=== PATIENT | male | born 1960 | race Caucasian/White ===

== ENCOUNTER 2016-09-26 22:05 | Inpatient (IN) | payer OTHER ==
[~2016-09-26] VITALS: Ht 177.8 cm; Wt 155.2 kg
[~2016-09-26 22:05] MED LIST: "\\\"BP MED\\\""; CLEO300C2 PO; EXEN10PE SQ; GLYB1TAB51 PO; LORT5TAB PO; METF-324 PO; MUPI2%T TOP
[2016-09-26 22:20] VITALS: BP 117/60; PULSE 152; RESP 22; O2SAT 97
[2016-09-26] MEDS ORDERED: SODIUM CHLOR 0.9% 1000 ML INJ 1,000 ML IV ONE ×2 (22:27→22:57)
[2016-09-26] MEDS ORDERED: INSULIN HUMAN REGULAR 1,000 UNITS/10 ML VIAL IV PUSH ONE (22:30)
[2016-09-26 22:46] VITALS: TEMP 98.4; O2SAT 96
[2016-09-26 22:48] LABS: AUTOMATED NEUTROPHIL # 11.6 TH/MM3 (1.8-7.7); BASOPHIL # 0.3 TH/MM3 (0-0.2); BASOPHIL % 1.9 % (0.0-2.0); EOSINOPHIL % 0.1 % (0.0-4.0); HEMATOCRIT 40.3 % (39.0-51.0); LYMPH % 9.5 % (9.0-44.0); LYMPHOCYTE # 1.4 TH/MM3 (1.0-4.8); MEAN CELL VOLUME 85.6 FL (80.0-100.0); MEAN CORPUSCULAR HEMOGLOBIN 27.6 PG (27.0-34.0); MEAN CORPUSCULAR HGB CONC 32.2 % (32.0-36.0); MONO % 9.7 % (0.0-8.0); NEUT % 78.8 % (16.0-70.0); PLATELET COUNT 215 TH/MM3 (150-450); RED BLOOD COUNT 4.71 MIL/MM3 (4.50-5.90); RED CELL DISTRIBUTION WIDTH 12.9 % (11.6-17.2); WHITE BLOOD COUNT 14.7 TH/MM3 (4.0-11.0)
[2016-09-26 22:49] LABS: HEMO FLAGS AUTO DIFF
--- NOTE | 2016-09-26 22:55 | RADHPO ---
EXAM DATE/TIME: 09/26/2016 22:40 [place] COMPARISON: No previous studies available for comparison. INDICATIONS : Shortness of breath and general weakness. MEDICAL HISTORY : Hypertension. Diabetes. SURGICAL HISTORY : None. ENCOUNTER: Initial ACUITY: 1 day PAIN SCORE: 0/10 LOCATION: Bilateral chest FINDINGS: A single view of the chest demonstrates the lungs to be symmetrically aerated without evidence of mas s, infiltrate or effusion. The cardiomediastinal contours are unremarkable. Osseous structures are intact.CONCLUSION: No acute disease. Jaden Salguero MD on September 26, 2016 at 22:53 Board Certified Radiologist. This report was verified electronically.
[2016-09-26 23:00] LABS: CHLORIDE 92 MEQ/L (98-107); POTASSIUM 4.4 MEQ/L (3.5-5.1); SODIUM (NA) 129 MEQ/L (136-145)
[2016-09-26] MEDS ORDERED: DILTIAZEM HCL 25 MG/5 ML VIAL IV PUSH ONE (23:00)
[2016-09-26] MEDS ORDERED: DILTIAZEM INJ 125 MG in SODIUM CHLORIDE 0.9% INJ 100 ML IV SCH (23:00)
[2016-09-26] MEDS ORDERED: SODIUM CHLORIDE 0.9% FLUSH 5 ML FLUSH IVF PRN ×2 (23:00→23:45)
[2016-09-26 23:04] LABS: ANION GAP 25 MEQ/L (5-15); BICARBONATE 12.5 MEQ/L (21.0-32.0)
[2016-09-26 23:05] LABS: BLOOD UREA NITROGEN 29 MG/DL (7-18); MAGNESIUM 2.7 MG/DL (1.5-2.5); PLATELET ESTIMATE SMEAR NORMAL (NORMAL); PLATELET MORPHOLOGY CLUMPED (NORMAL); SCAN/DIFF AUTO DIFF CONFIRMED
[2016-09-26 23:07] VITALS: BP 146/68; PULSE 132; RESP 22; TEMP 98.5; O2SAT 95
[2016-09-26 23:07] LABS: ALT (GPT) 19 U/L (12-78); AST (GOT) 5 U/L (15-37); GLOMERULAR FILTRATION RATE 45 ML/MIN (>89)
[2016-09-26 23:08] LABS: TOTAL BILIRUBIN ADULT 0.8 MG/DL (0.2-1.0)
[2016-09-26 23:16] VITALS: BP 127/89; PULSE 125; RESP 23; O2SAT 96
[2016-09-26 23:20] VITALS: BP 137/68; PULSE 124; RESP 23; O2SAT 93
[2016-09-26 23:20] LABS: ALKALINE PHOSPHATASE 107 U/L (45-117)
[2016-09-26] MEDS ORDERED: SODIUM CHLOR 0.9% 1000 ML INJ 1,000 ML IV SCH (23:20)
[2016-09-26] MEDS ORDERED: SODIUM PHOSPHATE INJ 15 MMOL in SODIUM CHLORIDE 0.9% INJ 100 ML IV PRN (23:30)
[2016-09-26] MEDS ORDERED: POTASSIUM CHLOR 40 MEQ PREMIX 100 ML IV PRN ×2 (23:30)
[2016-09-26] MEDS ORDERED: SODIUM BICARBONATE 8.4% SOLN 50 MEQ/50 ML VIAL IV PRN ×2 (23:30)
[2016-09-26] MEDS ORDERED: POTASSIUM CHLOR 20 MEQ PREMIX 100 ML IV PRN ×6 (23:30)
--- NOTE | 2016-09-26 23:35 | PD ---
HPI Chief Complaint: Diabetic Time Seen by Provider: 22:27 Travel History International Travel<30 days: No Contact w/Intl Traveler<30days: No Traveled to known affect area: No History of Present Illness HPI 55-year-old male presents to the emergency department by private transportation for not feeling well 2 days. Patient reports 2 days ago had a brief chill but no fever and denies other symptoms other than fatigue. Patient has had poor appetite over the past few days but has not had any vomiting or diarrhea. Patient denies headache sinus pressure drainage sore throat earache cough congestion shortness of breath sweats chest pain palpitations shortness of breath abdominal pain vomiting diarrhea dysuria frequency urgency hematuria or flank pain or new joint pain swelling or skin rash. Patient has chronic excoriations of the upper or lower extremities which she states is not new. Patient denies any injury or fall. Patient rates pain 0/10 in intensity. Patient reports significant fatigue over the past 2 days. Patient noted prior to coming to the emergency department stating that his blood sugar is very high so he took 25 units of regular insulin this evening and then around 9 PM noticed that his blood sugar is remaining elevated over 500 and decided he needed to come to the hospital to be evaluated. Patient has not seen his primary care provider Dr. Abad for 6 months. [facility] Past Medical History Narrative Medical Diabetes hypertension orchiopexy no tobacco use no alcohol use nursing notes reviewed Arthritis: No Asthma: No Autoimmune Disease: No Blood Disorders: No Anxiety: No Depression: No Heart Rhythm Problems: No Cancer: No Cardiovascular Problems: Yes High Cholesterol: No Chest Pain: No Congestive Heart Failure: No COPD: No Cerebrovascular Accident: No Diabetes: Yes Patient Takes Glucophage: Yes Endocrine: No GERD: No Genitourinary: No Headaches: No Hepatitis: No Hiatal Hernia: No Hypertension: Yes Immune Disorder: No Kidney Stones: No Musculoskeletal: No Neurologic: No Psychiatric: No Reproductive: No Respiratory: No Migraines: No Myocardial Infarction: No Radiation Therapy: No Renal Failure: No Seizures: No Sickle Cell Disease: No Sleep Apnea: No Thyroid Disease: No Ulcer: No Influenza Vaccination: Yes Past Surgical History AICD: No Appendectomy: No Arteriovenous Shunt: No Cholecystectomy: No Genitourinary Surgery: Yes (TESTICULAR TORSION) Insulin Pump: No Joint Replacement: No Pacemaker: No Other Surgery: Yes (TESTICLE) Social History Alcohol Use: No Tobacco Use: No Substance Use: No Allergies-Medications (Allergen,Severity, Reaction): Coded Allergies: Dilaudid (Verified Allergy, Intermediate, ITCHING, DIAPHORESIS, 10/30/10) No Known Allergies (Verified , 10/30/10) Reported Meds & Prescriptions Reported Meds & Active Scripts Active Bactroban 2% Cream (Mupirocin) 15 Gm Cr 2 % TOP DAILY 7 Days APPLY TO AFFECTED AREA Lortab 5/500 (Acetaminophen/Hydrocodone Bitart) 5 Mg/500 Mg Tab 1-2 Tab PO Q4- 6HPRN FOR PAIN Cleocin (Clindamycin HCl) 300 Mg Cap 300 Mg PO QID Reported ["Bp Med"] Byetta 10 Mcg/Dose Prefilled Pen (Exenatide) 10 Mcg/0.04 Ml Inj 10 Mcg SQ BIDAC FOR SUBCUTANEOUS INJECTION Diabeta (Glyburide) 5 Mg Tab 10 Mg PO BID Glucophage (Metformin HCl) 1,000 Mg Tab 1,000 Mg PO BID Review of Systems Except as stated in HPI: all other systems reviewed are Neg Physical Exam Narrative GENERAL: Well-developed morbidly obese male in no acute distress no respiratory distress; gcs 15; cardiac exercise physiologist atrial fibrillation with RVR rate 150-165 SKIN: Warm and dry. HEAD: Atraumatic. Normocephalic. EYES: Pupils equal and round. No scleral icterus. No injection or drainage. ENT: No nasal bleeding or discharge. Mucous membranes pink and moist. NECK: Trachea midline. No JVD. CARDIOVASCULAR: Increased irregular irregular rate and rhythm. RESPIRATORY: No accessory muscle use. Clear to auscultation. Breath sounds equal bilaterally. GASTROINTESTINAL: Abdomen soft, non-tender, nondistended. Hepatic and splenic margins not palpable. MUSCULOSKELETAL: Extremities without clubbing, cyanosis, or edema. No obvious deformities. NEUROLOGICAL: Awake and alert. No obvious cranial nerve deficits. Motor grossly within normal limits. Five out of 5 muscle strength in the arms and legs. Normal speech. PSYCHIATRIC: Appropriate mood and affect; insight and judgment normal. Data Data Last Documented VS Vital Signs Date Time Temp Pulse Resp B/P Pulse Ox O2 Delivery O2 Flow Rate FiO2 09/26/16 23:16 125 23 127/89 96 Nasal Cannula 2 09/26/16 23:07 98.5 Orders Electrocardiogram (09/26/16 22:27) Complete Blood Count With Diff (09/26/16 22:27) Comprehensive Metabolic Panel (09/26/16 22:27) Magnesium (Mg) (09/26/16 22:27) Beta Hydroxybutyrate (Acetone) (09/26/16 22:27) Lactic Acid (09/26/16 22:27) Urinalysis - C+S If Indicated (09/26/16 22:27) Blood Culture (09/26/16 22:27) Chest, Single Ap (09/26/16 22:27) Blood Glucose (09/26/16 22:27) Ecg Monitoring (09/26/16 22:27) Iv Access Insert/Monitor (09/26/16:) Oximetry (09/26/16:27) NPO (09/26/16:27) Sodium Chlor 0.9% 1000 Ml Inj (Ns 1000 M (09/26/16 22:27) Sodium Chlor 0.9% 1000 Ml Inj (Ns 1000 M (09/26/16 22:57) Troponin I (09/26/16:) Lipase (09/26/16 22:27) Insulin Human Regular Inj (Novolin R Inj (09/26/16 22:30) Influenzae A/B Antigen (09/26/16 22:27) Thyroid Stimulating Hormone (09/26/16 22:27) Blood Glucose (09/26/16 22:27) Blood Pressure (09/26/16 22:56) Vital Signs (09/26/16 22:56) Diltiazem Inj (Cardizem Inj) (09/26/16 23:00) Diltiazem Inj (Cardizem Inj) (09/26/16 23:00) Sodium Chloride 0.9% Flush (Ns Flush) (09/26/16 23:00) Arterial Blood Gas (Abg) (09/26/16 ) ^ Commanding Officer Traffic Division / Telemetry (09/26/16 23:20) ^ Insert Iv (09/26/16 23:20) Diet Npo (09/27/16 Breakfast) Sodium Chlor 0.9% 1000 Ml Inj (Ns 1000 M (09/26/16 23:20) Dext 5%-Nacl 0.9% 1000 Ml Inj (D5w-Ns 10 (09/26/16 23:20) Insulin Regular (Iv Infusion) (Novolin R (09/26/16 23:30) Potassium Chlor 40 Meq Premix (Kcl 40 Me (09/26/16 23:30) Potassium Chlor 40 Meq Premix (Kcl 40 Me (09/26/16 23:30) Potassium Chlor 20 Meq Premix (Kcl 20 Me (09/26/16 23:30) Potassium Chlor 20 Meq Premix (Kcl 20 Me (09/26/16 23:30) Potassium Chlor 20 Meq Premix (Kcl 20 Me (09/26/16 23:30) Potassium Chlor 20 Meq Premix (Kcl 20 Me (09/26/16 23:30) Potassium Chlor 20 Meq Premix (Kcl 20 Me (09/26/16 23:30) Potassium Chlor 20 Meq Premix (Kcl 20 Me (09/26/16 23:30) Sodium Bicarbonate 8.4% Inj (Sodium Bica (09/26/16 23:30) Sodium Bicarbonate 8.4% Inj (Sodium Bica (09/26/16 23:30) Sodium Phosphate Inj (Sodium Phosphate I (09/26/16 23:30) Hemoglobin (Hgb) A1c (09/26/16 23:20) Basic Metabolic Panel (Bmp) (09/27/16 04:20) Basic Metabolic Panel (Bmp) (09/27/16 10:20) Basic Metabolic Panel (Bmp) (09/27/16 16:20) Basic Metabolic Panel (Bmp) (09/27/16 22:20) Magnesium (Mg) (09/27/16 04:20) Magnesium (Mg) (09/27/16 10:20) Magnesium (Mg) (09/27/16 16:20) Magnesium (Mg) (09/27/16 22:20) Phosphorus (Po4) (09/27/16 04:20) Phosphorus (Po4) (09/27/16 10:20) Phosphorus (Po4) (09/27/16 16:20) Phosphorus (Po4) (09/27/16 22:20) Beta Hydroxybutyrate (Acetone) (09/27/16 10:20) Beta Hydroxybutyrate (Acetone) (09/27/16 22:20) Admit Order (Ed Use Only) (09/26/16 ) ^ Saline Lock (09/26/16 23:36) Resp Oxygen Tom C Titrat 1-4 L (09/26/16 ) ^ Notify Dr: Other (09/26/16 23:36) Sodium Chloride 0.9% Flush (Ns Flush) (09/27/16 09:00) Sodium Chloride 0.9% Flush (Ns Flush) (09/26/16 23:45) Labs Laboratory Tests Test 09/26/16 22:35 White Blood Count 14.7 TH/MM3 Red Blood Count 4.71 MIL/MM3 Hemoglobin 13.0 GM/DL Hematocrit 40.3 % Mean Corpuscular Volume 85.6 FL Mean Corpuscular Hemoglobin 27.6 PG Mean Corpuscular Hemoglobin 32.2 % Concent Red Cell Distribution Width 12.9 % Platelet Count 215 TH/MM3 Mean Platelet Volume 9.3 FL Neutrophils (%) (Auto) 78.8 % Lymphocytes (%) (Auto) 9.5 % Monocytes (%) (Auto) 9.7 % Eosinophils (%) (Auto) 0.1 % Basophils (%) (Auto) 1.9 % Neutrophils # (Auto) 11.6 TH/MM3 Lymphocytes # (Auto) 1.4 TH/MM3 Monocytes # (Auto) 1.4 TH/MM3 Eosinophils # (Auto) 0.0 TH/MM3 Basophils # (Auto) 0.3 TH/MM3 CBC Comment AUTO DIFF Differential Comment AUTO DIFF CONFIRMED Platelet Estimate NORMAL Platelet Morphology Comment CLUMPED Red Cell Morphology Comment NORMAL Sodium Level 129 MEQ/L Potassium Level 4.4 MEQ/L Chloride Level 92 MEQ/L Carbon Dioxide Level 12.5 MEQ/L Anion Gap 25 MEQ/L Blood Urea Nitrogen 29 MG/DL Creatinine 1.60 MG/DL Estimat Glomerular Filtration 45 ML/MIN Rate Random Glucose 501 MG/DL Lactic Acid Level 2.9 mmol/L Calcium Level 8.9 MG/DL Magnesium Level 2.7 MG/DL Total Bilirubin 0.8 MG/DL Aspartate Amino Transf 5 U/L (AST/SGOT) Alanine Aminotransferase 19 U/L (ALT/SGPT) Alkaline Phosphatase 107 U/L Troponin I LESS THAN 0.02 NG/ML Total Protein 8.0 GM/DL Albumin 2.5 GM/DL Lipase 174 U/L Thyroid Stimulating Hormone 3.920 uIU/ML 3rd Gen B-Hydroxybutyrate 7.40 MMOL/L MDM Medical Decision Making Medical Screen Exam Complete: Yes Emergency Medical Condition: Yes Medical Record Reviewed: Yes Interpretation(s) CBC with automated differential mild leukocytosis 14,700 with 78% neutrophils normal range hemoglobin hematocrit and platelet count Metabolic panel: Factitious hyponatremia of 129 serum potassium 4.4; bicarbonate is markedly decreased at 12.5 with anion gap of 25; renal insufficiency BUN 29 creatinine 1.6; random glucose 501; Lactic acid is elevated at 2.6 CK at 107, Within normal range; troponin I: Less than 0.02, not elevated BHB: 7.40 Last Impressions Chest X-Ray 09/26/167 Signed Impressions: Service Date/Time: Monday, September 26, 2016 22:40 - CONCLUSION: No acute disease. Jaden Salguero MD EKG atrial fibrillation with RVR rate [address] elevation nonspecific inferior ST T changes age-indeterminate QS in V1 V2 Differential Diagnosis hyperglycemia; dka; new onset afib acs CA dehydration, electrolyte disturbance Narrative Course Patient placed on cardiac exercise physiologist IV access obtained bedside glucose 501; 2 peripheral IVs obtained patient given 2 L normal saline 10 units of Regular Insulin IV patient on monitor noted to be in atrial fibrillation with rapid ventricular response EKG performed and patient administered weight-based bolus of Cardizem with Cardizem infusion patient noting feeling some improvement Chemistries resulted identifies to have elevated anion gap metabolic acidosis consistent with DKA also noted to have elevated lactic acid of 2.6 Repeat random glucose at bedside 560 however serum glucose by complete metabolic panel 501 patient initiated on insulin infusion per DKA protocol patient's case discussed with on-call [facility] physician Dr. Navarro will admit to his service under Dr. Brennan same patient's primary provider to the ICU at [facility] Physician Communication Physician Communication call placed to [facility] --discussed with Dr Navarro admit to [facility] ICU for DKA and new onset afib with RVR Diagnosis Primary Impression: DKA, type 2 Qualified Code: E13.10 - Type 2 diabetes mellitus with ketoacidosis without coma, unspecified rat exterminator insulin use status Additional Impression: Atrial fibrillation, new onset Radha Gamez MD Sep 26, 2016 23:35
[2016-09-26 23:55] VITALS: BP 136/65; PULSE 106; RESP 24; O2SAT 92; O2SAT 94
[2016-09-27] VITALS (27 sets, daily range): BP systolic 117–171; BP diastolic 54–96; PULSE 97–130; RESP 18–29; TEMP 97.9–102.6; O2SAT 92–97
[2016-09-27] MEDS: INSULIN REGULAR (IV INFUSION) 100 UNITS in SODIUM CHLORIDE 0.9% INJ 99 ML IV SCH ×2 (00:06→08:55)
[2016-09-27 00:09] LABS: BLOOD GAS BASE EXCESS -9.6 mmol/L (-2-2); BLOOD GAS HCO3 14 mmol/L (22-26); BLOOD GAS METHEMOGLOBIN 0.8 % (0-2); BLOOD GAS O2 HGB SATURATION 94 % (90-100); BLOOD GAS OXYGEN CONTENT 15.6 Vol % (12.0-20.0); BLOOD GAS PCO2 24 mmHg (38-42); BLOOD GAS PO2 80 mmHg (61-120); BLOOD GAS TOTAL HGB 11.8 G/DL (12.0-16.0); CRITICAL VALUE YES; DRAW SITE RT RADIAL; FIO2 21 %; NUMBER OF ARTERIAL PUNCTURES 1; STAT YES; ULNAR PULSE Y
[2016-09-27] MEDS: DEXT 5%-NACL 0.9% 1000 ML INJ 1,000 ML IV SCH ×3 (01:55→12:15)
[2016-09-27] MEDS ORDERED: LEVEMIR SQ (03:26)
[2016-09-27] MEDS ORDERED: NOVORP2 SQ (03:26)
[2016-09-27] MEDS ORDERED: METF1000 PO (03:26)
[2016-09-27] MEDS: ONDANSETRON HCL 4 MG/2 ML VIAL IV PUSH PRN ×3 (04:41→20:04)
[2016-09-27 05:33] LABS: AUTOMATED NEUTROPHIL # 9.3 TH/MM3 (1.8-7.7); BASOPHIL # 0.4 TH/MM3 (0-0.2); BASOPHIL % 3.6 % (0.0-2.0); HEMATOCRIT 35.3 % (39.0-51.0); LYMPH % 8.4 % (9.0-44.0); MEAN CELL VOLUME 84.1 FL (80.0-100.0); MEAN CORPUSCULAR HEMOGLOBIN 28.4 PG (27.0-34.0); MEAN CORPUSCULAR HGB CONC 33.8 % (32.0-36.0); MONO % 6.8 % (0.0-8.0); NEUT % 81.2 % (16.0-70.0); PLATELET COUNT 185 TH/MM3 (150-450); RED CELL DISTRIBUTION WIDTH 12.9 % (11.6-17.2); WHITE BLOOD COUNT 11.5 TH/MM3 (4.0-11.0)
[2016-09-27 05:36] LABS: HEMO FLAGS AUTO DIFF
[2016-09-27 05:58] LABS: BLOOD, URINE TRACE (NEG); KETONE, URINE 40 mg/dL (NEG); NITRITE,URINE NEG (NEG); PH, URINE 5.5 (5.0-8.5)
[2016-09-27 06:01] LABS: GLUCOSE,URINE 1000 OR GREATER mg/dL (NEG)
[2016-09-27 06:05] LABS: BICARBONATE 19.9 MEQ/L (21.0-32.0); MAGNESIUM 2.4 MG/DL (1.5-2.5); POTASSIUM 4.1 MEQ/L (3.5-5.1)
[2016-09-27 06:15] LABS: METHOD OF COLLECTION CLEAN CATCH; MUCUS URINE FEW /lpf (OCC); URINE COLOR YELLOW (YELLW/STRAW)
[2016-09-27 06:17] LABS: COMMENT (UR) CULT NOT INDICATED; CULTURE IF INDICATED CULT NOT INDICATED; SQUAMOUS EPITHELIAL CELL URINE 0-5 /hpf (0-5)
--- NOTE | 2016-09-27 06:30 | MH ---
cc: TOREY HANKINS M.D. DATE OF ADMISSION: 09/26/2016 ADMISSION DIAGNOSES 1. Diabetic ketoacidosis. 2. History of type 2 diabetes with diabetic neuropathy. 3. Atrial fibrillation with rapid ventricular rate that was new-onset that has now converted to sinus rhythm. 4. Hypertension. 5. Hyperlipidemia. 6. Hypogonadotropic. Morbid obesity. 7. Vitamin D deficiency. PERTINENT HISTORY This is a 52-year-old white male who for the last two days has just felt weak and fatigued. He thought maybe he had a brief chill two days ago but no documented fever. He has had no cough. No runny nose or sore throat. No urinary symptoms other than urinating a little more frequently. His blood sugar a couple of days ago he stated was 198, but had not checked it again until today when his blood sugar earlier on 09/26 prior to coming to the ED was over 500 and because he was not feeling well he came out here. He had was noted to be in atrial fibrillation with a rapid ventricular rate and given Cardizem and put on a Cardizem drip. He denied any feeling of palpitations at home. He denied any chest pain. He would just get a little bit slightly short of breath when he was exert himself and tire out really easily. He has had no diarrhea, vomiting, abdominal pain or rectal bleeding; no cough. He was had admitted and put on an insulin drip and put on the Cardizem drip. His heart rate now that I am seeing him at around 3 in the morning on 09/27, heart rate is back now in a sinus rhythm with the rate control. He still on the Cardizem drip. Blood sugar has come down in the 200s on the most recent check. MEDICAL HISTORY 1. As mentioned, he has had type 2 diabetes mellitus about 11 years. 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 2. He has hypertension. 3. Hyperlipidemia. 4. Hypogonadism that he is on testosterone injections, supposed to be weekly but had not had one in a little while. 5. He has had morbid obesity. 6. Vitamin D deficiency. 7. He did have a DVT of the right lower extremity a few years ago. 8. He has had cellulitis of the lower extremity in 2010 and was admitted to the hospital. He has had no prior history of heart attack, CHF, arrhythmia, no angina, no liver disease. No pulmonary disease. No kidney disease that he is aware of, no peptic ulcer disease, colon disease, stroke or seizure. SURGICAL HISTORY 1. 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 2. He has had wisdom teeth extraction. ALLERGIES None. FAMILY HISTORY His father is 82 and has A-fib and diabetes. His mother is 82 and living and has hypertension and hyperlipidemia. SOCIAL HISTORY He is self-employed, has his on [employer] business. He is , lives alone. Does not use alcohol. He has never smoked. MEDICATIONS 1. He is on atorvastatin 80 mg a day. 1. Jardiance 25 mg a day. 2. Lisinopril 20 mg a day. 3. Metformin 1000 mg twice a day. 4. He uses Tanzeum injections 50 mg subcu every Sunday, once a week. 5. He is on ergocalciferol 50,000 units one capsule twice a week. 6. He is on Tresiba 200 units per mL. He uses 90 units subcu daily. PHYSICAL EXAMINATION General: A morbidly obese male in no acute stress. Vital Signs: His heart rate is in the 90s now and appears regular on the monitor and on exam. His BP is 142/66, pulse ox 96, respiratory rate 21. HEENT: TMs clear. Nose negative. Mouth without inflammation or lesion. Neck: Without bruit. No JVD. Heart: Regular rhythm. No murmurs or gallops. Lungs: Clear. Abdomen: Soft, obese, nontender, no mass. Extremities: He has 1+ edema of both ankles. Pulses are palpated in both feet. No calf tenderness. Neuro: He is oriented x 3. Motor strength is symmetrical. Sensation intact. Cranial nerves intact. CHEST X-RAY Showed no acute disease. LABORATORY His white count was 14.7, hemoglobin 13, hematocrit 40.3, platelets 215,000. Beta hydroxybutyrate was 7.4, lactic acid was 2.9 and on recheck was 2.0. His initial glucose was 501. His initial electrolytes - sodium was 129, potassium 4.4, BUN was 29, creatinine 1.6, GFR was 45, AST was 5, ALT 19, alkaline phosphatase 107. Troponin less than 0.02. TSH was just a little high at 3.9, lipase 174, albumin 2.5, total protein 8.0. Blood gas early on admission - his pAO2 was 80, pCO2 24, pH 7.4, bicarb was 14. His CO2 on his laboratory was 12.5. ASSESSMENT As noted. PLAN 1. He has been put on Lovenox 40 mg subcu q.24 hours for DVT prophylaxis. 2. I am going to put him on aspirin 81 mg a day. 3. He had a brief A-fib secondary likely secondary to his ketoacidosis. His rate is controlled right now. We will eventually taper him off his Cardizem . 4. His blood sugar is coming down on an insulin drip. 5. He will be maintained on his blood pressure medications and his atorvastatin for now. 6. His diabetic medications will eventually be reinstituted once his sugars are better controlled and he is no longer requiring the drip. 7. Also, we will order a 2-D echocardiogram on him. MD RYNE Barber/CARLITA /3:37 AM /6:04 AM
[2016-09-27 07:15] LABS: SCAN/DIFF AUTO DIFF CONFIRMED
[2016-09-27] MEDS: SODIUM CHLORIDE 0.9% FLUSH 5 ML FLUSH IVF SCH ×2 (08:15→18:19)
[2016-09-27] MEDS: ASPIRIN EC 81 MG TABEC PO SCH (09:09)
[2016-09-27] MEDS: ENOXAPARIN SODIUM 40 MG/0.4 ML SYRINGE SQ SCH (09:10)
[2016-09-27 09:14] LABS: HDL CHOLESTEROL 69.1 MG/DL (40.0-60.0)
[2016-09-27] MEDS: DILTIAZEM INJ 100 MG in SODIUM CHLORIDE 0.9% INJ 100 ML IV SCH ×2 (10:05→16:11)
[2016-09-27 10:40] LABS: CHLORIDE 107 MEQ/L (98-107); SODIUM (NA) 139 MEQ/L (136-145)
[2016-09-27 10:54] LABS: ANION GAP 13 MEQ/L (5-15); BICARBONATE 19.2 MEQ/L (21.0-32.0); BLOOD UREA NITROGEN 26 MG/DL (7-18); GLOMERULAR FILTRATION RATE 63 ML/MIN (>89); MAGNESIUM 2.2 MG/DL (1.5-2.5)
[2016-09-27 11:20] LABS: BETA-HYDROXYBUTYRATE 1.48 MMOL/L (0.00-0.39)
[2016-09-27 16:17] LABS: HEMOGLOBIN A1a 1.5 %; HEMOGLOBIN A1b 1.3 %; HEMOGLOBIN Ao 71.9 %; HEMOGLOBIN F 2.7 %; HEMOGLOBIN LA1C 2.6 %; HEMOGLOBIN P3 5.6 %
[2016-09-27 16:20] LABS: POTASSIUM 4.2 MEQ/L (3.5-5.1)
[2016-09-27 16:23] LABS: BICARBONATE 21.1 MEQ/L (21.0-32.0); MAGNESIUM 2.2 MG/DL (1.5-2.5)
--- NOTE | 2016-09-27 17:13 | EC ---
Study Study Date:09/27/2016 STUDY CONCLUSIONS SUMMARY - Procedure narrative: Transthoracic echocardiography. Image quality was poor. Scanning was performed from the parasternal, apical, and subcostal acoustic windows. - Left ventricle: The cavity size was normal. Wall thickness was normal. Systolic function was normal. The estimated ejection fraction was in the range of 55% to 60%. Although no diagnostic regional wall motion abnormality was identified, this possibility cannot be completely excluded on the basis of this study. - Tricuspid valve: Trace regurgitation. If LV function is below 40, please consider prescribing an ACEI or ARB or document rationale for non-use. PROCEDURE DATA STUDY STATUS: Elective. Procedure: Transthoracic echocardiography. Image quality was poor. Scanning was performed from the parasternal, apical, and subcostal acoustic windows. Study completion: The patient tolerated the procedure well. Transthoracic echocardiography. M-mode, complete 2D, complete spectral Doppler, and color Doppler. Height: Height: 73in. Weight: Weight: 320.3lb. Body mass index: BMI: 42.4kg/m^2. Body surface area: BSA: 2.63m^2. Patient status: Inpatient. CARDIAC ANATOMY LEFT VENTRICLE: The cavity size was normal. Wall thickness was normal. Systolic function was normal. The estimated ejection fraction was in the range of 55% to 60%. Although no diagnostic regional wall motion abnormality was identified, this possibility cannot be completely excluded on the basis of this study. AORTIC VALVE: Trileaflet; normal thickness leaflets. Doppler: Transvalvular velocity was within the normal range. There was no stenosis. No regurgitation. Valve area: 2.74cm^2(VTI). Indexed valve area: 1.04cm^2/m^2 (VTI). Valve area: 2.93cm^2 (Vmax). Indexed valve area: 1.11cm^2/m^2 (Vmax). Mean gradient: 3mm Hg (S). AORTA: Aortic root: The aortic root was normal in size. MITRAL VALVE: Structurally normal valve. Doppler: Transvalvular velocity was within the normal range. There was no evidence for stenosis. No regurgitation. Peak gradient: 3mm Hg (D). LEFT ATRIUM: The atrium was normal in size. RIGHT VENTRICLE: The cavity size was normal. Wall thickness was normal. PULMONIC VALVE: Doppler: Transvalvular velocity was within the normal range. There was no evidence for stenosis. No regurgitation. TRICUSPID VALVE: Structurally normal valve. Doppler: Transvalvular velocity was within the normal range. Trace regurgitation. PULMONARY ARTERY: The main pulmonary artery was normal-sized. Systolic pressure was within the normal range. RIGHT ATRIUM: The atrium was normal in size. PERICARDIUM: There was no pericardial effusion. SYSTEMIC VEINS: Inferior vena cava: The vessel was normal in size. Patient weight: 320.3lb _Ejection fraction:_ 65-75% _Fractional shortening:_ 32% up to 5Kg 5-11.5Kg 11.6-22.9Kg 23-45Kg 45-57Kg Aortic Root 7-13 <17 13-22 17-27 17-27 LA diam 6-13 <23 24-38 33-47 37-40 RVID 10-17 7-15 7-15 7-18 8-17 LVIDd 12-22 <32 24-38 33-47 37-40 LVPW 2-4 3-6 5-7 6-8 7-8 IVS 2-4 3-6 5-7 6-8 7-8 BASIC MEASUREMENTS ADULT NORMAL Left ventricle LV internal dimension, ED, chordal 48.6 mm 43-52 level, PLAX LV internal dimension, ES, chordal 29.4 mm 23-38 level, PLAX Fractional shortening, chordal level, 40 % >29 PLAX LV posterior wall thickness, ED 11.6 mm IVS/LVPW ratio, ED *1.41 <1.3 Ventricular septum Septal thickness, ED 16.3 mm Aortic valve Leaflet separation 22 mm 15-26 Aorta Root diameter, ED 34 mm Right ventricle RV internal dimension, ED, PLAX *40.7 mm 19-38 BASIC MEASUREMENTS ADULT NORMAL Aortic valve Leaflet separation 22 mm 15-26 DOPPLER MEASUREMENTS ADULT NORMAL Aortic valve Peak velocity, S 121 cm/s Mean velocity, S 81.6 cm/s VTI, S 18.5 cm Mean gradient, S 3 mm Hg Valve area, VTI 2.74 cm^2 Valve area index, VTI 1.04 cm^2/m^2 Valve area, Vmax 2.93 cm^2 Valve area index, Vmax 1.11 cm^2/m^2 Mitral valve Peak E-wave velocity 91.9 cm/s Peak A-wave velocity 61.7 cm/s Deceleration time *123 ms 150-230 Peak gradient, D 3 mm Hg Peak E/A ratio 1.5 Tricuspid valve Regurgitant peak velocity 243 cm/s Peak RV-RA gradient, S 24 mm Hg Maximal regurgitant velocity 243 cm/s Pulmonic valve Peak velocity, S 98 cm/s LEGEND: Mean values are shown as u=mean value. Asterisk (*) felder values outside specified normal range. Prepared and signed by Uziel Ortiz [id number]
[2016-09-27] MEDS ORDERED: SODIUM CHLOR 0.9% 1000 ML INJ 1,000 ML IV SCH (17:15)
[2016-09-27] MEDS ORDERED: GLUCAGON 1 MG/ML VIAL OTHER PRN (17:30)
[2016-09-27] MEDS ORDERED: DEXTROSE 50% IN WATER 50 ML VIAL(D50) IV PUSH PRN (17:30)
--- NOTE | 2016-09-27 20:53 | EKG ---
Date Performed: 09/27/2016 Time Performed: 03:46:30 PTAGE: 55 years EKG: Sinus tachycardia Poor R wave progression - probable normal variant Inferior T wave changes are nonspecific Borderline ECG PREVIOUS TRACING : 09/26/2016 22.45 Compared to the previous tracing, a fib no longer present DOCTOR: Prem Bridges Interpretating Date/Time 09/27/2016 20:51:02
[2016-09-27] MEDS ORDERED: ATORVASTATIN 80 MG TAB PO SCH (21:00)
[2016-09-27] MEDS ORDERED: MEDIUM DOSE INSULIN NOVOLOG SUPPLEMENTAL SCALE SQ SCH (21:00)
--- NOTE | 2016-09-27 21:10 | EKG ---
Date Performed: 09/26/2016 Time Performed: 22:45:08 PTAGE: 55 years EKG: Atrial fibrillation with rapid ventricular response Poor R wave progression - probable norm al variant Inferior ST-T changes are nonspecific Abnormal ECG NO PREVIOUS TRACING DOCTOR: Prem Bridges Interpretating Date/Time 09/27/2016 21:09:23
[2016-09-27 22:54] LABS: POTASSIUM 4.2 MEQ/L (3.5-5.1)
[2016-09-27] MEDS ORDERED: DILTIAZEM-CD 180 MG CAP ER PO ONE (23:00)
[2016-09-27] MEDS: CALCIUM CARBONATE 500 MG CHEWABLE TAB PO PRN (23:02)
[2016-09-27] MEDS: ACETAMINOPHEN 325 MG TAB PO PRN (23:02)
[2016-09-27 23:07] LABS: BICARBONATE 13.5 MEQ/L (21.0-32.0); MAGNESIUM 2.3 MG/DL (1.5-2.5)
[2016-09-27] MEDS: ATORVASTATIN 40 MG TAB PO SCH (23:08)
[2016-09-27 23:35] LABS: BETA-HYDROXYBUTYRATE 5.33 MMOL/L (0.00-0.39)
[2016-09-28] VITALS (36 sets, daily range): BP systolic 83–175; BP diastolic 54–78; PULSE 104–133; RESP 14–33; TEMP 99.8–102.8; O2SAT 94–100
[2016-09-28] MEDS ORDERED: POTASSIUM CL 20 MEQ IV PREMIX 100 ML - CENTRAL LINE - for K+ 4.5 to 5 IV PRN
[2016-09-28] MEDS ORDERED: POTASSIUM CL 20 MEQ IV PREMIX 100 ML - PERIPHERAL - for K+ 4.5 to 5 IV PRN
[2016-09-28] MEDS ORDERED: SODIUM BICARBONATE 8.4% 100 MEQ IV PRN
[2016-09-28] MEDS ORDERED: POTASSIUM CL 20 MEQ IV PREMIX 100 ML - PERIPHERAL LINE - for K+ < 3.5 IV PRN
[2016-09-28] MEDS ORDERED: INSULIN HUMAN (NovoLIN) REGULAR Bolus IV PUSH ONE
[2016-09-28] MEDS ORDERED: HIGH DOSE INSULIN NOVOLOG SUPPLEMENTAL SCALE SQ SCH
[2016-09-28] MEDS ORDERED: POTASSIUM CL 20 MEQ IV PREMIX 100 ML - CENTRAL LINE - for K+ 3.5 to 4.4 IV PRN
[2016-09-28] MEDS ORDERED: SODIUM PHOSPHATE 15 MMOL/NS 100 ML IV PRN ×2
[2016-09-28] MEDS ORDERED: MEDIUM DOSE INSULIN NOVOLOG SUPPLEMENTAL SCALE SQ SCH
[2016-09-28] MEDS ORDERED: SODIUM BICARBONATE 8.4% 50 MEQ IV PRN
[2016-09-28] MEDS ORDERED: Discontinue All Previous Diabetic Medications XX ONE
[2016-09-28] MEDS ORDERED: POTASSIUM CL 40 MEQ IV PREMIX 100 ML - CENTRAL LINE - for K+ < 3.5 IV PRN
[2016-09-28] MEDS ORDERED: NS BOLUS IV ONE
[2016-09-28] MEDS ORDERED: Mix all IV Medications in Normal Saline When Possible XX SCH
[2016-09-28] MEDS ORDERED: POTASSIUM CL 40 MEQ IV PREMIX 100 ML - CENTRAL LINE - SUBSEQUENT K+ < 3.5 IV PRN
[2016-09-28] MEDS ORDERED: POTASSIUM CL 20 MEQ IV PREMIX 100 ML - PERIPHERAL - SUBSEQUENT K+ < 3.5 IV PRN
[2016-09-28] MEDS: POTASSIUM CL 20 MEQ IV PREMIX 100 ML - PERIPHERAL - for K+ 3.5 to 4.4 IV PRN ×4 (00:30→13:14)
[2016-09-28] MEDS ORDERED: cefTRIAXone 2,000 MG/NS 100 ML IV SCH ×2 (01:00)
[2016-09-28] MEDS ORDERED: cefTRIAXone 1,000 MG/NS 100 ML IV SCH ×2 (01:00)
[2016-09-28] MEDS: PROCHLORPERAZINE INJ 10 MG/2 ML VIAL IV PRN (02:22)
[2016-09-28] MEDS: D5 NS IV @ 200 MLS/HR - Start after Glucose less than 250 IV SCH ×5 (02:26→20:00)
[2016-09-28] MEDS ORDERED: PANTOPRAZOLE SODIUM 40 MG VIAL IV ONE (03:00)
[2016-09-28 03:08] LABS: AUTOMATED NEUTROPHIL # 9.4 TH/MM3 (1.8-7.7); BASOPHIL # 0.1 TH/MM3 (0-0.2); HEMATOCRIT 32.3 % (39.0-51.0); LYMPH % 6.8 % (9.0-44.0); LYMPHOCYTE # 0.8 TH/MM3 (1.0-4.8); MEAN CELL VOLUME 83.9 FL (80.0-100.0); MEAN CORPUSCULAR HEMOGLOBIN 28.7 PG (27.0-34.0); MEAN CORPUSCULAR HGB CONC 34.2 % (32.0-36.0); MONO % 9.2 % (0.0-8.0); PLATELET COUNT 163 TH/MM3 (150-450); RED BLOOD COUNT 3.86 MIL/MM3 (4.50-5.90); RED CELL DISTRIBUTION WIDTH 12.6 % (11.6-17.2); WHITE BLOOD COUNT 11.4 TH/MM3 (4.0-11.0)
[2016-09-28 03:14] LABS: HEMO FLAGS DIFF FINAL
[2016-09-28] MEDS: CHLORHEXIDINE GLUCONATE 2 % 1 PACK (2 CLOTHS)(taper/protocol) TOP SCH (04:00)
[2016-09-28] MEDS ORDERED: CHLORHEXIDINE GLUCONATE 2 % 1 PACK (2 CLOTHS)(extra cloths) TOP PRN (04:00)
[2016-09-28] MEDS: NS IV @ 250 MLS/HR IV SCH ×6 (04:00→20:00)
[2016-09-28 05:43] LABS: POTASSIUM 4.1 MEQ/L (3.5-5.1)
[2016-09-28 05:50] LABS: BICARBONATE 19.8 MEQ/L (21.0-32.0)
[2016-09-28] MEDS: SODIUM CHLORIDE 0.9% FLUSH 5 ML FLUSH IVF SCH ×2 (07:49→20:59)
[2016-09-28] MEDS ORDERED: METF1000 PO (08:07)
[2016-09-28] MEDS ORDERED: LISI-515 PO (08:07)
[2016-09-28] MEDS ORDERED: ALBI1INJ2 SQ (08:07)
[2016-09-28] MEDS ORDERED: ATOR1TAB18 PO (08:07)
[2016-09-28] MEDS ORDERED: ERGO1CAP30 PO (08:07)
[2016-09-28] MEDS ORDERED: EMPA1TAB3 PO (08:07)
[2016-09-28] MEDS ORDERED: INSU1INJ14 SQ (08:07)
[2016-09-28] MEDS: ACETAMINOPHEN 325 MG TAB PO PRN ×2 (08:26→23:28)
[2016-09-28] MEDS: PANTOPRAZOLE SODIUM 40 MG VIAL IV SCH ×2 (08:26→20:58)
[2016-09-28] MEDS: ENOXAPARIN SODIUM 40 MG/0.4 ML SYRINGE SQ SCH (08:27)
[2016-09-28] MEDS: ASPIRIN EC 81 MG TABEC PO SCH (08:27)
[2016-09-28] MEDS ORDERED: DILTIAZEM-CD 180 MG CAP ER PO SCH (09:00)
--- NOTE | 2016-09-28 09:17 | HHI.PR ---
Subjective Remarks Patient with fevers throughout the night and this morning. He had a negative rapid flu test yesterday in the ER. He has not had any cough, diarrhea, runny nose or sore throat. He did have vomiting earlier this morning that has resolved. No dysuria. He was empirically put on Rocephin during the night. No shortness of breath. Also he had been transitioned off the insulin drip and put on a diet yesterday afternoon but then he became more acidotic and his blood sugar went back up so he was put back on the diabetic ketoacidosis protocol and his blood sugars have come back down. Objective Vitals Vital Signs Date Time Temp Pulse Resp B/P Pulse Ox O2 Delivery O2 Flow Rate FiO2 09/28/16 08:15 102.8 116 22 141/63 96 09/28/16 08:00 104 09/28/16 07:00 112 24 141/71 09/28/16 06:00 106 24 150/76 09/28/16 06:00 106 09/28/16 05:00 108 25 125/63 09/28/16 04:00 101.4 104 23 136/67 09/28/16 04:00 104 09/28/16 03:00 104 23 117/60 09/28/16 02:00 104 09/28/16 02:00 106 19 146/64 09/28/16 01:00 108 25 175/66 09/28/16 00:00 99 Nasal Cannula 2.00 09/28/16 00:00 106 09/28/16 00:00 101.4 106 24 152/74 98 09/27/16 22:00 104 09/27/16 22:00 102.6 104 26 140/66 09/27/16 21:00 108 27 155/77 09/27/16 20:43 108 28 165/77 09/27/16 20:27 126 26 155/66 96 09/27/16 20:00 108 09/27/16 20:00 101.2 110 28 97 09/27/16 19:55 93 21 09/27/16 19:31 110 29 171/66 92 09/27/16 19:15 108 28 164/68 92 09/27/16 19:00 110 28 168/68 92 09/27/16 18:35 98.8 110 18 159/67 97 09/27/16 18:35 110 12/21/16 17:56 106 18 160/71 96 Nasal Cannula 1 09/27/16 15:30 99.8 106 18 154/73 95 Nasal Cannula 1 09/27/16 14:23 97 Nasal Cannula 1 09/27/16 13:30 108 18 161/71 97 Nasal Cannula 1 09/27/16 11:30 108 18 141/65 96 09/27/16 09:38 104 18 160/70 96 Nasal Cannula 1 09/27/16 09/27/16 09/28/16 14:59 22:59 06:59 Intake Total 1340 ml 1500 ml 2875 ml Output Total 400 ml 950 ml 550 ml Balance 940 ml 550 ml 2325 ml Intake Oral 240 ml 800 ml IV Total 1100 ml 700 ml 2875 ml Output Urine Total 400 ml 750 ml 250 ml Emesis 300 ml Other 200 ml # Voids 1 2 2 # Bowel Movements 0 0 Result Diagram: 09/28/16 0250 09/28/16 0523 Other Results Laboratory Tests Test 09/26/16 09/26/16 09/27/16 09/27/16 22:35 23:57 02:20 05:00 White Blood Count 14.7 TH/MM3 11.5 TH/MM3 Red Blood Count 4.71 MIL/MM3 4.20 MIL/MM3 Hemoglobin 13.0 GM/DL 11.9 GM/DL Hematocrit 40.3 % 35.3 % Mean Corpuscular Volume 85.6 FL 84.1 FL Mean Corpuscular Hemoglobin 27.6 PG 28.4 PG Mean Corpuscular Hemoglobin 32.2 % 33.8 % Concent Red Cell Distribution Width 12.9 % 12.9 % Platelet Count 215 TH/MM3 185 TH/MM3 Mean Platelet Volume 9.3 FL 8.7 FL Neutrophils (%) (Auto) 78.8 % 81.2 % Lymphocytes (%) (Auto) 9.5 % 8.4 % Monocytes (%) (Auto) 9.7 % 6.8 % Eosinophils (%) (Auto) 0.1 % 0.0 % Basophils (%) (Auto) 1.9 % 3.6 % Neutrophils # (Auto) 11.6 TH/MM3 9.3 TH/MM3 Lymphocytes # (Auto) 1.4 TH/MM3 1.0 TH/MM3 Monocytes # (Auto) 1.4 TH/MM3 0.8 TH/MM3 Eosinophils # (Auto) 0.0 TH/MM3 0.0 TH/MM3 Basophils # (Auto) 0.3 TH/MM3 0.4 TH/MM3 CBC Comment AUTO DIFF AUTO DIFF Differential Comment AUTO DIFF AUTO DIFF CONFIRMED CONFIRMED Platelet Estimate NORMAL Platelet Morphology Comment CLUMPED Red Cell Morphology Comment NORMAL Sodium Level 129 MEQ/L 138 MEQ/L Potassium Level 4.4 MEQ/L 4.1 MEQ/L Chloride Level 92 MEQ/L 104 MEQ/L Carbon Dioxide Level 12.5 MEQ/L 19.9 MEQ/L Anion Gap 25 MEQ/L 14 MEQ/L Blood Urea Nitrogen 29 MG/DL 30 MG/DL Creatinine 1.60 MG/DL 1.40 MG/DL Estimat Glomerular Filtration 45 ML/MIN 53 ML/MIN Rate Random Glucose 501 MG/DL 204 MG/DL Lactic Acid Level 2.9 mmol/L 2.0 mmol/L Calcium Level 8.9 MG/DL 8.3 MG/DL Magnesium Level 2.7 MG/DL 2.4 MG/DL Total Bilirubin 0.8 MG/DL Aspartate Amino Transf 5 U/L (AST/SGOT) Alanine Aminotransferase 19 U/L (ALT/SGPT) Alkaline Phosphatase 107 U/L Troponin I LESS THAN 0.02 NG/ML Total Protein 8.0 GM/DL Albumin 2.5 GM/DL Lipase 174 U/L Thyroid Stimulating Hormone 3.920 uIU/ML 3rd Gen B-Hydroxybutyrate 7.40 MMOL/L 1.20 MMOL/L Blood Gas Puncture Site RT RADIAL Blood Gas Patient Temperature 37.0 Blood Gas HCO3 14 mmol/L Blood Gas Base Excess -9.6 mmol/L Blood Gas Oxygen Saturation 94 % Arterial Blood pH 7.40 Arterial Blood Partial 24 mmHg Pressure CO2 Arterial Blood Partial 80 mmHg Pressure O2 Arterial Blood Oxygen Content 15.6 Vol % Arterial Blood 2.0 % Carboxyhemoglobin Arterial Blood Methemoglobin 0.8 % Blood Gas Hemoglobin 11.8 G/DL Blood Gas Inspired Oxygen 21 % Phosphorus Level 1.2 MG/DL Triglycerides Level 218 MG/DL Cholesterol Level 262 MG/DL LDL Cholesterol 149 MG/DL HDL Cholesterol 69.1 MG/DL Cholesterol/HDL Ratio 3.79 RATIO Test 09/27/16 09/27/16 09/27/16 09/27/16 05:30 10:22 16:07 22:30 Urine Collection Type CLEAN CATCH Urine Color YELLOW Urine Turbidity CLEAR Urine pH 5.5 Urine Specific [place] 1.021 Urine Protein 100 mg/dL Urine Glucose (UA) 1000 OR GREATER mg/dL Urine Ketones 40 mg/dL Urine Occult Blood TRACE Urine Nitrite NEG Urine Bilirubin NEG Urine Leukocyte Esterase NEG Urine Squamous Epithelial 0-5 /hpf Cells Urine Amorphous Sediment SMALL Urine Hyaline Casts 6-9 /lpf Urine Fine Granular Casts 3-5 /lpf Urine Mucus FEW /lpf Microscopic Urinalysis Comment CULT NOT INDICATED Sodium Level 139 MEQ/L 140 MEQ/L 136 MEQ/L Potassium Level 4.0 MEQ/L 4.2 MEQ/L 4.2 MEQ/L Chloride Level 107 MEQ/L 107 MEQ/L 103 MEQ/L Carbon Dioxide Level 19.2 MEQ/L 21.1 MEQ/L 13.5 MEQ/L Anion Gap 13 MEQ/L 12 MEQ/L 20 MEQ/L Blood Urea Nitrogen 26 MG/DL 22 MG/DL 22 MG/DL Creatinine 1.20 MG/DL 1.10 MG/DL 1.20 MG/DL Estimat Glomerular Filtration 63 ML/MIN 70 ML/MIN 63 ML/MIN Rate Random Glucose 180 MG/DL 194 MG/DL 377 MG/DL Hemoglobin A1c 14.4 % Calcium Level 7.5 MG/DL 8.1 MG/DL 8.0 MG/DL Phosphorus Level 0.9 MG/DL 0.9 MG/DL 1.7 MG/DL Magnesium Level 2.2 MG/DL 2.2 MG/DL 2.3 MG/DL B-Hydroxybutyrate 1.48 MMOL/L 5.33 MMOL/L Test 09/28/16 09/28/16 02:50 05:23 White Blood Count 11.4 TH/MM3 Red Blood Count 3.86 MIL/MM3 Hemoglobin 11.1 GM/DL Hematocrit 32.3 % Mean Corpuscular Volume 83.9 FL Mean Corpuscular Hemoglobin 28.7 PG Mean Corpuscular Hemoglobin 34.2 % Concent Red Cell Distribution Width 12.6 % Platelet Count 163 TH/MM3 Mean Platelet Volume 8.5 FL Neutrophils (%) (Auto) 83.0 % Lymphocytes (%) (Auto) 6.8 % Monocytes (%) (Auto) 9.2 % Eosinophils (%) (Auto) 0.0 % Basophils (%) (Auto) 1.0 % Neutrophils # (Auto) 9.4 TH/MM3 Lymphocytes # (Auto) 0.8 TH/MM3 Monocytes # (Auto) 1.1 TH/MM3 Eosinophils # (Auto) 0.0 TH/MM3 Basophils # (Auto) 0.1 TH/MM3 CBC Comment DIFF FINAL Differential Comment Sodium Level 141 MEQ/L Potassium Level 4.1 MEQ/L Chloride Level 110 MEQ/L Carbon Dioxide Level 19.8 MEQ/L Anion Gap 11 MEQ/L Blood Urea Nitrogen 19 MG/DL Creatinine 1.10 MG/DL Estimat Glomerular Filtration 70 ML/MIN Rate Random Glucose 159 MG/DL Calcium Level 7.6 MG/DL Phosphorus Level 1.0 MG/DL Magnesium Level 2.0 MG/DL Imaging Last Impressions Chest X-Ray 09/26/165 Signed Impressions: Service Date/Time: Monday, September 26, 2016 22:40 - CONCLUSION: No acute disease. Jaden Salguero MD Objective Remarks Exam: Morbidly obese male in no distress HEENT: Pupils equal, no scleral icterus, mouth negative Neck: No JVD Heart: RRR without murmur Lungs: Clear Abdomen: Soft, nontender, no masses Extremities: No edema Neuro: Oriented, moves all extremities. A/P Assessment and Plan --Diabetic ketoacidosis --Type 2 diabetes mellitus with diabetic neuropathy --Fever--questionable etiology --Vomiting this morning--resolved with antiemetics --Atrial fibrillation with RVR in ER that has resolved and now in sinus rhythm --Hypertension --Hyperlipidemia --Hypogonadism --Morbid obesity --Vitamin D deficiency Plan: Consult infectious disease. Do UA with culture. Blood cultures have been done. Repeat chest x-ray even though it was normal on 09-26-16. Continue DKA protocol for now. Was put on Pantoprazole earlier this morning. He is on Lovenox for DVT prophylaxis. He has had a history of DVT in the past. Alex Navarro MD Sep 28, 2016 09:16
[2016-09-28] MEDS ORDERED: PNEUMOCOCCAL POLYVALENT INJ 25 MCG/0.5 ML SYR IM ONE (10:00)
[2016-09-28] MEDS ORDERED: INFLUENZA VIRUS VACCINE (QUADRIVALENT) 0.5 ML SYR IM ONE (10:00)
[2016-09-28] MEDS ORDERED: Vancomycin Consult Pharmacy 1 EA OTHER SCH (11:00)
--- NOTE | 2016-09-28 11:45 | RADHPO ---
EXAM DATE/TIME: 09/28/2016 11:02 [facility] COMPARISON: CHEST SINGLE AP, September 26, 2016, 22:40. INDICATIONS: Fever. MEDICAL HISTORY: Hypertension. Diabetic. SURGICAL HISTORY: None. ENCOUNTER: Subsequent ACUITY: 3 days PAIN SCORE: 0/10 LOCATION: Chest FINDINGS: The heart is top normal in size. Mild bilateral perihilar infiltrates are noted consistent with brittney estion versus mild pneumonitis. Clinical correlation is recommended. CONCLUSION: 1. Mild perihilar infiltrates consistent with congestion versus pneumonitis. Clinical correlation i s recommended. Darío Baum MD on September 28, 2016 at 11:35 Board Certified Radiologist. This report was verified electronically.
[2016-09-28 12:20] LABS: POTASSIUM 4.1 MEQ/L (3.5-5.1)
[2016-09-28 12:23] LABS: MAGNESIUM 2.1 MG/DL (1.5-2.5)
[2016-09-28 12:38] LABS: BETA-HYDROXYBUTYRATE 0.11 MMOL/L (0.00-0.39)
[2016-09-28] MEDS: PIPERACIL-TAZO 3.375 GM PREMIX 50 ML IV SCH ×2 (13:56→20:58)
[2016-09-28 13:59] LABS: BLOOD, URINE SMALL (NEG); GLUCOSE,URINE 500 mg/dL (NEG); KETONE, URINE 15 mg/dL (NEG); NITRITE,URINE NEG (NEG)
[2016-09-28 14:05] LABS: URINE COLOR YELLOW (YELLW/STRAW)
[2016-09-28 14:07] LABS: COMMENT (UR) CULT NOT INDICATED; CULTURE IF INDICATED CULT NOT INDICATED; RBC, URINE 0-3 /hpf (0-3); SQUAMOUS EPITHELIAL CELL URINE 0-5 /hpf (0-5)
[2016-09-28] MEDS: VANCOMYCIN INJ 2,000 MG in SODIUM CHLORID 0.9% 500 ML INJ 500 ML IV SCH (14:31)
--- NOTE | 2016-09-28 16:11 | PD.CONS ---
History of Present Illness Service Infectious disease Consult Requested By Dr Joel Navarro Reason for Consult Evaluate patient with fever Primary Care Physician Jose Abad MD Diagnoses: History of Present Illness Patient seen and examined. Records reviewed. Patient is a 56-year-old male with known diabetes, presented to the hospital for evaluation of uncontrolled blood sugars. According to the patient Sunday night which would be September 24, he had an acute episode of severe chills. He did not have a fever at that time, and soon after that he noted severe generalized weakness, and fatigue. He did not have any further episode of chills, but he was so weak, and did not check his blood sugars. He normally checks his sugars daily. On the day of admission he finally had the energy to check it, and his blood sugars was more than 400. He was still very tired. He did not have any other symptoms as far as headache, sore throat or any chest congestion. Did not have any chest pain or shortness of breath. When he came to the emergency room he started having nausea and vomiting. He denies any abdominal pain, diarrhea, or any urinary complaints as far as dysuria, frequency , or hematuria. He did not have any joint pain or any swelling. He has not had any dental work recently. He has not had any kind of GI procedure. He has never had a colonoscopy done before. Patient stated he had an episode of boil on his left lower quadrant which has improved and did not require any medical attention. His initial WBC is elevated. Chest x-ray did not show any pneumonia. Urinalysis is unremarkable. His LFTs were also normal. His temperatures were normal on the first hospital day, and since yesterday he has been having fevers. He has not had any vomiting today, last vomiting was yesterday. 2 blood cultures were done on admission, and they are now reported as growing gram -positive cocci. One was preliminary identified as strep and she knows this. Patient also was in atrial fibrillation with RVR on admission, and currently having paroxysmal A. fib, but rate is better and running between 100-120. He still feels very weak, and seems to have some dyspnea on exertion. Influenza testing is negative. Infectious disease consultation has been requested to evaluate the patient with fevers. Review of Systems Constitutional: COMPLAINS OF: Fever, Chills, Dizziness Eyes: DENIES: Eye pain Ears, nose, mouth, throat: DENIES: Nasal discharge, Oral lesions, Throat pain, Ear Pain, Running Nose, Sinus Pain, Toothache Respiratory: COMPLAINS OF: Shortness of breath, DENIES: Cough, Sputum production Cardiovascular: COMPLAINS OF: Palpitations, DENIES: Chest pain Gastrointestinal: COMPLAINS OF: Nausea, Vomiting, DENIES: Abdominal pain, Diarrhea, Difficulty Swallowing Genitourinary: DENIES: Hematuria, Dysuria Musculoskeletal: COMPLAINS OF: Muscle aches, DENIES: Joint pain, Joint Swelling Integumentary: COMPLAINS OF: Pruritus, Rash Immunologic/allergic: DENIES: Urticaria Neurologic: DENIES: Headache Psychiatric: DENIES: Anxiety Past Family Social History Allergies: Coded Allergies: Dilaudid (Verified Allergy, Intermediate, ITCHING, DIAPHORESIS, 09/27/16) Past Medical History Type 2 diabetes mellitus . 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 Hypertension. Hyperlipidemia. Hypogonadism that he is on testosterone injections, supposed to be weekly but had not had one in a little while. Morbid obesity. Vitamin D deficiency. DVT of the right lower extremity a few years ago. Previous cellulitis of the lower extremity in 2010 and was admitted to the hospital. Past Surgical History Orchiopexy for testicular torsion [place] tooth extraction Active Ordered Medications Tylenol Aspirin Lipitor Calcium carbonate Cardizem Lovenox Insulin Zofran Protonix Zosyn Potassium Vancomycin Social History He is self-employed, has his on [employer] business. He is , lives alone. Does not use alcohol. He has never smoked. Denies drug use Physical Exam Vital Signs Vital Signs Date Time Temp Pulse Resp B/P Pulse Ox O2 Delivery O2 Flow Rate FiO2 09/28/16 15:01 104 28 105/57 95 09/28/16 14:01 102.0 108 26 121/54 97 09/28/16 14:00 108 09/28/16 13:00 101.8 117 26 120/61 97 09/28/16 12:01 118 26 112/67 09/28/16 12:00 101.5 133 27 106/70 94 09/28/16 12:00 118 09/28/16 11:01 104 26 92/69 09/28/16 10:01 120 25 116/61 09/28/16 10:00 114 09/28/16 09:30 24 09/28/16 09:20 99.8 09/28/16 09:01 122 27 164/78 09/28/16 08:15 102.8 116 22 141/63 96 09/28/16 08:00 96 Nasal Cannula 2.00 09/28/16 08:00 104 09/28/16 07:00 112 24 141/71 09/28/16 06:00 106 24 150/76 09/28/16 06:00 106 09/28/16 05:00 108 25 125/63 09/28/16 04:00 101.4 104 23 136/67 09/28/16 04:00 104 09/28/16 03:00 104 23 117/60 09/28/16 02:00 104 09/28/16 02:00 106 19 146/64 09/28/16 01:00 108 25 175/66 09/28/16 00:00 99 Nasal Cannula 2.00 09/28/16 00:00 106 09/28/16 00:00 101.4 106 24 152/74 98 09/27/16 22:00 104 09/27/16 22:00 102.6 104 26 140/66 09/27/16 21:00 108 27 155/77 09/27/16 20:43 108 28 165/77 09/27/16 20:27 126 26 155/66 96 09/27/16 20:00 108 09/27/16 20:00 101.2 110 28 97 09/27/16 19:55 93 21 09/27/16 19:31 110 29 171/66 92 09/27/16 19:15 108 28 164/68 92 09/27/16 19:00 110 28 168/68 92 09/27/16 18:35 98.8 110 18 159/67 97 09/27/16 18:35 110 09/27/16 17:56 106 18 160/71 96 Nasal Cannula 1 Physical Exam GENERAL: This is an obese, well-developed male, awake and alert, mildly SOB when asked to move SKIN: Cool and clammy. No embolic lesions. Has papular rash with scabs in his UE and upper trunk, not infected. HEAD: Atraumatic. Normocephalic. No temporal or scalp tenderness. EYES: [place] conjunctiva, no petechia or hemorrhage. Pupils equal round and reactive. Extraocular movements full and intact. No scleral icterus. No injection or drainage. ENT: Nose without bleeding, or purulent drainage. He wears partial dentures up and down. MOist oral mucosa. Throat without erythema, or exudate. Uvula midline. Airway patent. NECK: Trachea midline. No JVD or lymphadenopathy. Supple, nontender, no meningeal signs. CARDIOVASCULAR: Irregular rate and rhythm without murmurs, gallops, or rubs. Tachycardic RESPIRATORY: Clear to auscultation. Breath sounds equal bilaterally. No wheezes , rales, or rhonchi. Decreased BS at bases GASTROINTESTINAL: Abdomen soft, obese, non-tender, nondistended. Bowel sounds present and normoactive. No palpable masses. No guarding. MUSCULOSKELETAL: Extremities without clubbing, cyanosis, or edema. No joint tenderness, or effusion. Cool feet. No calf tenderness. Negative Homans sign bilaterally. NEUROLOGICAL: Awake and alert. Cranial nerves II through XII intact. Motor and sensory grossly within normal limits. Five out of 5 muscle strength in all muscle groups. Normal speech. PSYCH: Normal affect, calm and cooperative LINE: PIV with no evidence of infection Laboratory Laboratory Tests Test 09/27/16 09/27/16 09/28/16 09/28/16 16:07 22:30 02:50 04:30 Sodium Level 140 136 Potassium Level 4.2 4.2 Chloride Level 107 103 Carbon Dioxide Level 21.1 13.5 Anion Gap 12 20 Blood Urea Nitrogen 22 22 Creatinine 1.10 1.20 Estimat Glomerular Filtration 70 63 Rate Random Glucose 194 377 Calcium Level 8.1 8.0 Phosphorus Level 0.9 1.7 Magnesium Level 2.2 2.3 B-Hydroxybutyrate 5.33 White Blood Count 11.4 Red Blood Count 3.86 Hemoglobin 11.1 Hematocrit 32.3 Mean Corpuscular Volume 83.9 Mean Corpuscular Hemoglobin 28.7 Mean Corpuscular Hemoglobin 34.2 Concent Red Cell Distribution Width 12.6 Platelet Count 163 Mean Platelet Volume 8.5 Neutrophils (%) (Auto) 83.0 Lymphocytes (%) (Auto) 6.8 Monocytes (%) (Auto) 9.2 Eosinophils (%) (Auto) 0.0 Basophils (%) (Auto) 1.0 Neutrophils # (Auto) 9.4 Lymphocytes # (Auto) 0.8 Monocytes # (Auto) 1.1 Eosinophils # (Auto) 0.0 Basophils # (Auto) 0.1 CBC Comment DIFF FINAL Differential Comment Nasal Screen MRSA (PCR) NEGATIVE Test 09/28/16 09/28/16 09/28/16 05:23 12:00 13:00 Sodium Level 141 143 Potassium Level 4.1 4.1 Chloride Level 110 113 Carbon Dioxide Level 19.8 18.0 Anion Gap 11 12 Blood Urea Nitrogen 19 19 Creatinine 1.10 1.10 Estimat Glomerular Filtration 70 70 Rate Random Glucose 159 186 Calcium Level 7.6 7.5 Phosphorus Level 1.0 1.3 Magnesium Level 2.0 2.1 B-Hydroxybutyrate 0.11 Urine Color YELLOW Urine Turbidity SLIGHT Urine pH 6.0 Urine Specific [place] 1.030 Urine Protein 300 OR GREATER Urine Glucose (UA) 500 Urine Ketones 15 Urine Occult Blood SMALL Urine Nitrite NEG Urine Bilirubin NEG Urine Leukocyte Esterase NEG Urine RBC 0-3 Urine Squamous Epithelial 0-5 Cells Urine Amorphous Sediment FEW Microscopic Urinalysis Comment CULT NOT INDICATED Date/Time Procedure Status Source Growth 09/26/16 22:40 Influenza Types A,B Antigen ([facility]) - Final Complete Nasal Washing NEGATIVE FOR FLU A AND B ANTIGEN.... 09/26/16 22:35 Aerobic Blood Culture - Preliminary Resulted Blood Peripheral Gram Positive Cocci 09/26/16 22:35 Anaerobic Blood Culture - Preliminary Resulted Gram Positive Cocci Result Diagram: 09/28/16 0250 09/28/16 1200 Imaging Chest X-Ray 09/28/16 0000 Signed Impressions: Service Date/Time: September 11:02 - CONCLUSION: 1. Mild perihilar infiltrates consistent with congestion versus pneumonitis. Clinical correlation is recommended. Darío Baum MD Assessment and Plan Assessment and Plan IMPRESSION Sepsis, with fevers, leukocytosis, and has (+) BC, very worrisome for endocarditis - TTE not a good study Atrial fib, with RVR, now with PAF DM Renal insufficiency, ?what his baseline is, could be due to sepsis Morbid obesity RECOMMENDATION Repeat BC to document sterilization Cardiology consult for ALLEN Follow C/S and deescalate Abx ESR, CRP, PAUL and RF Follow temps Monitor progress I will determine course of Abx once wokr-up and C/S completed I will follow along with you Thank you for this consultation Isabel Acuna MD Sep 28, 2016 16:11
[2016-09-28 17:11] LABS: POTASSIUM 4.6 MEQ/L (3.5-5.1)
[2016-09-28 17:15] LABS: BICARBONATE 17.1 MEQ/L (21.0-32.0)
[2016-09-28] MEDS: ATORVASTATIN 40 MG TAB PO SCH (20:58)
[2016-09-28] MEDS ORDERED: PLEASE DISCONTINUE PREVIOUS SUPPLEMENTAL SCALE INSULIN ORDERS XX ONE (21:00)
[2016-09-28] MEDS ORDERED: HIGH DOSE INSULIN NOVOLIN REGULAR SUPPLEMENTAL SCALE SQ SCH (21:00)
[2016-09-28] MEDS ORDERED: FUROSEMIDE 40 MG/4 ML VIAL IV PUSH ONE (21:00)
[2016-09-28] MEDS ORDERED: GLUCAGON 1 MG/ML VIAL OTHER PRN (21:00)
[2016-09-28] MEDS ORDERED: DEXTROSE 50% IN WATER 50 ML VIAL(D50) IV PUSH PRN ×2 (21:00→23:45)
[2016-09-28] MEDS: HIGH DOSE INSULIN NOVOLIN REGULAR SUPPLEMENTAL SCALE SQ SCH (21:03)
[2016-09-28] MEDS: SODIUM CHLOR 0.9% 1000 ML INJ 1,000 ML IV SCH (21:08)
[2016-09-28 21:17] LABS: POTASSIUM 4.6 MEQ/L (3.5-5.1)
[2016-09-28 21:19] LABS: BICARBONATE 17.5 MEQ/L (21.0-32.0)
[2016-09-28 21:40] LABS: RHEUMATOID FACTOR TRIGGER LESS THAN 10.0 IU/ML (0.0-14.9)
[2016-09-28] MEDS ORDERED: DILTIAZEM-CD 180 MG CAP ER PO ONE (22:45)
[2016-09-28] MEDS ORDERED: INSULIN REGULAR 100 UNITS/NS 100 ML (DKA Protocol) IV SCH ×2 (23:45)
[2016-09-29] VITALS (34 sets, daily range): BP systolic 93–135; BP diastolic 50–73; PULSE 92–114; RESP 15–33; TEMP 99.3–102.1; O2SAT 91–100
[2016-09-29] MEDS: HIGH DOSE INSULIN NOVOLIN REGULAR SUPPLEMENTAL SCALE SQ SCH ×6 (01:03→19:52)
[2016-09-29] MEDS: PIPERACIL-TAZO 3.375 GM PREMIX 50 ML IV SCH ×4 (01:06→19:51)
[2016-09-29] MEDS: CHLORHEXIDINE GLUCONATE 2 % 1 PACK (2 CLOTHS)(taper/protocol) TOP SCH (02:35)
[2016-09-29] MEDS: VANCOMYCIN INJ 2,000 MG in SODIUM CHLORID 0.9% 500 ML INJ 500 ML IV SCH ×2 (02:48→15:58)
[2016-09-29 05:10] LABS: AUTOMATED NEUTROPHIL # 6.9 TH/MM3 (1.8-7.7); BASOPHIL % 0.3 % (0.0-2.0); HEMATOCRIT 30.9 % (39.0-51.0); LYMPH % 7.9 % (9.0-44.0); LYMPHOCYTE # 0.6 TH/MM3 (1.0-4.8); MEAN CELL VOLUME 84.6 FL (80.0-100.0); MEAN CORPUSCULAR HEMOGLOBIN 29.1 PG (27.0-34.0); MEAN CORPUSCULAR HGB CONC 34.5 % (32.0-36.0); MONO % 8.2 % (0.0-8.0); NEUT % 83.6 % (16.0-70.0); PLATELET COUNT 155 TH/MM3 (150-450); RED BLOOD COUNT 3.65 MIL/MM3 (4.50-5.90); RED CELL DISTRIBUTION WIDTH 12.9 % (11.6-17.2); WHITE BLOOD COUNT 8.2 TH/MM3 (4.0-11.0)
[2016-09-29 05:14] LABS: HEMO FLAGS AUTO DIFF
[2016-09-29 05:25] LABS: POTASSIUM 4.3 MEQ/L (3.5-5.1)
[2016-09-29 05:27] LABS: BANDS 15 % (0-6); PLATELET ESTIMATE SMEAR NORMAL (NORMAL); PLATELET MORPHOLOGY NORMAL (NORMAL); POLYS (SEG NEUTROPHILS) 70 % (16-70); SCAN/DIFF FINAL DIFF MANUAL; WBC DIFF SAMPLE 100
[2016-09-29 05:28] LABS: BICARBONATE 19.3 MEQ/L (21.0-32.0)
--- NOTE | 2016-09-29 06:09 | RADHPO ---
EXAM DATE/TIME: 09/29/2016 05:18 [facility] COMPARISON: CHEST SINGLE AP, September 28, 2016, 11:02. INDICATIONS : Evaluate for pulmonary disease. MEDICAL HISTORY : Hypertension. Diabetes mellitus type II. SURGICAL HISTORY : None. ENCOUNTER: Subsequent ACUITY: 4 - 6 days PAIN SCORE: 0/10 LOCATION: Bilateral chest FINDINGS: Stable mild central vascular congestion and interstitial prominence. Cardiomediastinal contours are s table. No evidence of effusion. CONCLUSION: No significant interval change Norris Lloyd MD on September 29, 2016 at 6:06 Board Certified Radiologist. This report was verified electronically.
--- NOTE | 2016-09-29 07:26 | HHI.PR ---
Subjective Remarks The nurse noticed last night while cleaning him that he had a dark scabbed over skin lesion with surrounding swelling and erythema of medial right buttocks are near the anal area and the redness extended to his scrotal area. Patient was not aware of this and complained of no pain. Also while sleeping during the night his oxygen sats would drop so he was given BIPAP while sleeping for a few hours and it helped his oximetry levels go up. He is up on his weight from yesterday. I did back his fluids way down yesterday and gave him some Lasix when his chest x-ray showed some central vascular congestion and interstitial prominence. He is now off the insulin drip and is on a sliding scale every 4 hours. He went back in atrial fib and his rate is controlled with oral Diltiazem (he was given an additional dose last night). He denies any shortness of breath. Objective Vitals Vital Signs Date Time Temp Pulse Resp B/P Pulse Ox O2 Delivery O2 Flow Rate FiO2 09/29/16 06:01 102 27 110/51 94 09/29/16 06:00 95 09/29/16 05:01 94 20 118/50 93 09/29/16 04:01 101.0 100 27 99/55 97 09/29/16 04:00 96 09/29/16 03:01 98 28 97/58 97 09/29/16 02:01 94 24 112/56 93 09/29/16 02:00 96 09/29/16 01:13 100 30 09/29/16 01:01 96 25 100/62 99 09/29/16 00:01 101.4 98 24 109/61 100 09/29/16 00:00 114 09/28/16 23:01 116 28 117/62 99 09/28/16 22:40 100 35 09/28/16 22:05 Venturi Mask 6.00 35 09/28/16 22:01 122 22 134/65 96 09/28/16 22:00 114 09/28/16 21:01 122 14 137/58 94 09/28/16 20:15 120 23 138/54 94 09/28/16 20:01 100.8 120 24 83/70 96 09/28/16 20:00 122 09/28/16 19:20 94 Nasal Cannula 2.00 09/28/16 19:01 126 33 141/58 09/28/16 18:01 114 30 168/70 09/28/16 18:00 114 09/28/16 17:01 100.4 124 32 168/65 09/28/16 16:01 106 20 124/61 98 09/28/16 16:00 106 09/28/16 16:00 101.6 114 24 134/61 98 09/28/16 15:01 104 28 105/57 95 09/28/16 14:01 102.0 108 26 121/54 97 09/28/16 14:00 108 09/28/16 13:00 101.8 117 26 120/61 97 09/28/16 12:01 118 26 112/67 09/28/16 12:00 101.5 133 27 106/70 94 09/28/16 12:00 118 09/28/16 11:01 104 26 92/69 09/28/16 10:01 120 25 116/61 09/28/16 10:00 114 09/28/16 09:30 24 09/28/16 09:20 99.8 09/28/16 09:01 122 27 164/78 09/28/16 08:15 102.8 116 22 141/63 96 09/28/16 08:00 96 Nasal Cannula 2.00 09/28/16 08:00 104 09/28/16 09/28/16 09/29/16 15:00 23:00 07:00 Intake Total 2795 ml 1470 ml Output Total 800 ml 1050 ml Balance 1995 ml 420 ml Intake Oral 620 ml 220 ml IV Total 2175 ml 1250 ml Output Urine Total 800 ml 1050 ml # Bowel Movements 0 0 Result Diagram: 09/29/16 0455 09/29/16 0455 Other Results Laboratory Tests Test 09/27/16 09/27/16 09/27/16 09/28/16 10:22 16:07 22:30 02:50 Sodium Level 139 MEQ/L 140 MEQ/L 136 MEQ/L Potassium Level 4.0 MEQ/L 4.2 MEQ/L 4.2 MEQ/L Chloride Level 107 MEQ/L 107 MEQ/L 103 MEQ/L Carbon Dioxide Level 19.2 MEQ/L 21.1 MEQ/L 13.5 MEQ/L Anion Gap 13 MEQ/L 12 MEQ/L 20 MEQ/L Blood Urea Nitrogen 26 MG/DL 22 MG/DL 22 MG/DL Creatinine 1.20 MG/DL 1.10 MG/DL 1.20 MG/DL Estimat Glomerular Filtration 63 ML/MIN 70 ML/MIN 63 ML/MIN Rate Random Glucose 180 MG/DL 194 MG/DL 377 MG/DL Hemoglobin A1c 14.4 % Calcium Level 7.5 MG/DL 8.1 MG/DL 8.0 MG/DL Phosphorus Level 0.9 MG/DL 0.9 MG/DL 1.7 MG/DL Magnesium Level 2.2 MG/DL 2.2 MG/DL 2.3 MG/DL B-Hydroxybutyrate 1.48 MMOL/L 5.33 MMOL/L White Blood Count 11.4 TH/MM3 Red Blood Count 3.86 MIL/MM3 Hemoglobin 11.1 GM/DL Hematocrit 32.3 % Mean Corpuscular Volume 83.9 FL Mean Corpuscular Hemoglobin 28.7 PG Mean Corpuscular Hemoglobin 34.2 % Concent Red Cell Distribution Width 12.6 % Platelet Count 163 TH/MM3 Mean Platelet Volume 8.5 FL Neutrophils (%) (Auto) 83.0 % Lymphocytes (%) (Auto) 6.8 % Monocytes (%) (Auto) 9.2 % Eosinophils (%) (Auto) 0.0 % Basophils (%) (Auto) 1.0 % Neutrophils # (Auto) 9.4 TH/MM3 Lymphocytes # (Auto) 0.8 TH/MM3 Monocytes # (Auto) 1.1 TH/MM3 Eosinophils # (Auto) 0.0 TH/MM3 Basophils # (Auto) 0.1 TH/MM3 CBC Comment DIFF FINAL Differential Comment Test 09/28/16 09/28/16 09/28/16 09/28/16 04:30 05:23 12:00 13:00 Nasal Screen MRSA (PCR) NEGATIVE Sodium Level 141 MEQ/L 143 MEQ/L Potassium Level 4.1 MEQ/L 4.1 MEQ/L Chloride Level 110 MEQ/L 113 MEQ/L Carbon Dioxide Level 19.8 MEQ/L 18.0 MEQ/L Anion Gap 11 MEQ/L 12 MEQ/L Blood Urea Nitrogen 19 MG/DL 19 MG/DL Creatinine 1.10 MG/DL 1.10 MG/DL Estimat Glomerular Filtration 70 ML/MIN 70 ML/MIN Rate Random Glucose 159 MG/DL 186 MG/DL Calcium Level 7.6 MG/DL 7.5 MG/DL Phosphorus Level 1.0 MG/DL 1.3 MG/DL Magnesium Level 2.0 MG/DL 2.1 MG/DL B-Hydroxybutyrate 0.11 MMOL/L Urine Color YELLOW Urine Turbidity SLIGHT Urine pH 6.0 Urine Specific [place] 1.030 Urine Protein 300 OR GREATER mg/dL Urine Glucose (UA) 500 mg/dL Urine Ketones 15 mg/dL Urine Occult Blood SMALL Urine Nitrite NEG Urine Bilirubin NEG Urine Leukocyte Esterase NEG Urine RBC 0-3 /hpf Urine Squamous Epithelial 0-5 /hpf Cells Urine Amorphous Sediment FEW Microscopic Urinalysis Comment CULT NOT INDICATED Test 09/28/16 09/28/16 09/29/16 16:16 20:57 04:55 Erythrocyte Sedimentation Rate GREATER THAN 140 mm/hr Sodium Level 140 MEQ/L 140 MEQ/L 143 MEQ/L Potassium Level 4.6 MEQ/L 4.6 MEQ/L 4.3 MEQ/L Chloride Level 110 MEQ/L 110 MEQ/L 110 MEQ/L Carbon Dioxide Level 17.1 MEQ/L 17.5 MEQ/L 19.3 MEQ/L Anion Gap 13 MEQ/L 13 MEQ/L 14 MEQ/L Blood Urea Nitrogen 18 MG/DL 21 MG/DL 22 MG/DL Creatinine 1.00 MG/DL 1.30 MG/DL 1.50 MG/DL Estimat Glomerular Filtration 78 ML/MIN 58 ML/MIN 49 ML/MIN Rate Random Glucose 216 MG/DL 266 MG/DL 265 MG/DL Calcium Level 7.5 MG/DL 7.7 MG/DL 7.8 MG/DL C-Reactive Protein 23.00 MG/DL Rheumatoid Factor Screen NEGATIVE Rheumatoid Factor Titer IU/ML White Blood Count 8.2 TH/MM3 Red Blood Count 3.65 MIL/MM3 Hemoglobin 10.6 GM/DL Hematocrit 30.9 % Mean Corpuscular Volume 84.6 FL Mean Corpuscular Hemoglobin 29.1 PG Mean Corpuscular Hemoglobin 34.5 % Concent Red Cell Distribution Width 12.9 % Platelet Count 155 TH/MM3 Mean Platelet Volume 8.4 FL Neutrophils (%) (Auto) 83.6 % Lymphocytes (%) (Auto) 7.9 % Monocytes (%) (Auto) 8.2 % Eosinophils (%) (Auto) 0.0 % Basophils (%) (Auto) 0.3 % Neutrophils # (Auto) 6.9 TH/MM3 Lymphocytes # (Auto) 0.6 TH/MM3 Monocytes # (Auto) 0.7 TH/MM3 Eosinophils # (Auto) 0.0 TH/MM3 Basophils # (Auto) 0.0 TH/MM3 CBC Comment AUTO DIFF Differential Total Cells 100 Counted Neutrophils % (Manual) 70 % Band Neutrophils % 15 % Lymphocytes % 7 % Monocytes % 8 % Neutrophils # (Manual) 7.0 TH/MM3 Differential Comment FINAL DIFF MANUAL Platelet Estimate NORMAL Platelet Morphology Comment NORMAL Red Cell Morphology Comment NORMAL Imaging Last 72 hours Impressions Chest X-Ray 09/29/16 0500 Signed Impressions: Service Date/Time: Thursday, September 29, 2016 05:18 - CONCLUSION: No significant interval change Norris Lloyd MD Chest X-Ray 09/28/16 0000 Signed Impressions: Service Date/Time: September 11:02 - CONCLUSION: 1. Mild perihilar infiltrates consistent with congestion versus pneumonitis. Clinical correlation is recommended. Darío Baum MD Chest X-Ray 09/26/162226 Signed Impressions: Service Date/Time: Monday, September 26, 2016 22:40 - CONCLUSION: No acute disease. Jaden Salguero MD Last Impressions Chest X-Ray 09/29/16 0500 Signed Impressions: Service Date/Time: Thursday, September 29, 2016 05:18 - CONCLUSION: No significant interval change Norris Lloyd MD Last Impressions Chest X-Ray 09/26/162226 Signed Impressions: Service Date/Time: Monday, September 26, 2016 22:40 - CONCLUSION: No acute disease. Jaden Salguero MD Objective Remarks Exam: Morbidly obese male in no distress HEENT: Pupils equal, no scleral icterus, mouth negative Neck: No JVD Heart: RRR without murmur Lungs: Appear clear. No definite crackles Abdomen: Soft, nontender, no masses Skin: Exam of the scrotum and buttocks region: He has a black scab about a quarter in size on the medial buttocks in close proximity to the anal region. There is redness of the surrounding skin extending to the scrotal region and some erythema of the scrotal surface consistent with a cellulitis. Extremities: No edema Neuro: Oriented, moves all extremities. A/P Assessment and Plan --Diabetic ketoacidosis--off insulin drip and his CO2 was 19 this morning --Type 2 diabetes mellitus with diabetic neuropathy --Gram positive (Strep anginosus/milleri) sepsis with likely originating site being from a skin infection --Cellulitis of buttocks extending to scrotal region --Atrial fibrillation with RVR in ER that converted to sinus rhythm and then yesterday went back into atrial fibrillation and rate is controlled with oral Diltiazem- -will put on Xarelto --Chest x-ray with mild central vascular congestion and interstitial prominence which may be from all the fluid he was receiving for his DKA. I have cut back his fluid rate but not too low and will add Lasix for now. I don't want to give too much Lasix since his BUN/Creat are a little higher than yesterday --Obstructive sleep apnea: oximetry during the night was helped with BIPAP while sleeping --Hypertension --Hyperlipidemia --Hypogonadism --Morbid obesity --Vitamin D deficiency Plan: Patient was seen by ID yesterday. Source of infection appears to have originated from a wound in the buttocks area with surrounding cellulitis. I will leave it up to ID for any change in antibiotics Repeat chest x-ray tomorrow Start Xarelto for his atrial fibrillation. Continue Diltiazem ER 180mg twice a day orally for rate control. Continue sliding scale coverage every 4 hours until his infection under control. Lasix 40mg daily and watch his renal function. Continue Pantoprazole. Alex Navarro MD Sep 29, 2016 07:26
[2016-09-29] MEDS ORDERED: DILTIAZEM-CD 180 MG CAP ER PO SCH (08:00)
[2016-09-29] MEDS: DILTIAZEM-CD 180 MG CAP ER PO SCH ×2 (08:37→19:52)
[2016-09-29] MEDS: ASPIRIN EC 81 MG TABEC PO SCH (08:37)
[2016-09-29] MEDS: SODIUM CHLORIDE 0.9% FLUSH 5 ML FLUSH IVF SCH ×2 (08:38→19:52)
[2016-09-29] MEDS: PANTOPRAZOLE SODIUM 40 MG VIAL IV SCH ×2 (08:38→19:51)
[2016-09-29] MEDS: ACETAMINOPHEN 325 MG TAB PO PRN (08:39)
[2016-09-29] MEDS: SODIUM CHLOR 0.9% 1000 ML INJ 1,000 ML IV SCH ×2 (08:39→19:50)
[2016-09-29] MEDS: traMADol HCL 50 MG TAB PO PRN ×3 (08:40→22:19)
[2016-09-29] MEDS ORDERED: RIVAROXABAN 20 MG TAB PO SCH (09:00)
[2016-09-29] MEDS ORDERED: FUROSEMIDE 40 MG TAB PO SCH (09:00)
[2016-09-29] MEDS: PROCHLORPERAZINE INJ 10 MG/2 ML VIAL IV PRN (09:45)
[2016-09-29] MEDS: CALCIUM CARBONATE 500 MG CHEWABLE TAB PO PRN (10:38)
--- NOTE | 2016-09-29 10:41 | HHI.IDPN ---
Subjective Subjective Remarks Notes reviewed Still with fever Noted to have a black area in his medial R buttock surrounded by redness last night Patient does not have any complaint in that area as far as pain or discomfort Has (+) foul odor Still in atrial fib, controlled rate BP ok, not on pressors Denies SOB Antibiotics Vancomycin Zosyn Lines PIV Past Medical History Type 2 diabetes mellitus . 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 Hypertension. Hyperlipidemia. Hypogonadism that he is on testosterone injections, supposed to be weekly but had not had one in a little while. Morbid obesity. Vitamin D deficiency. DVT of the right lower extremity a few years ago. Previous cellulitis of the lower extremity in 2010 and was admitted to the hospital. Past Surgical History Orchiectomy for testicular torsion [place] tooth extraction Allergies: Coded Allergies: Dilaudid (Verified Allergy, Intermediate, ITCHING, DIAPHORESIS, 09/27/16) Objective . Vital Signs Date Time Temp Pulse Resp B/P Pulse Ox O2 Delivery O2 Flow Rate FiO2 09/29/16 08:37 96 Nasal Cannula 4.00 09/29/16 06:01 102 27 110/51 94 09/29/16 06:00 95 09/29/16 05:01 94 20 118/50 93 09/29/16 04:01 101.0 100 27 99/55 97 09/29/16 04:00 96 09/29/16 03:01 98 28 97/58 97 09/29/16 02:01 94 24 112/56 93 09/29/16 02:00 96 09/29/16 01:13 100 30 09/29/16 01:01 96 25 100/62 99 09/29/16 00:01 101.4 98 24 109/61 100 09/29/16 00:00 114 09/28/16 23:01 116 28 117/62 99 09/28/16 22:40 100 35 09/28/16 22:05 Venturi Mask 6.00 35 09/28/16 22:01 122 22 134/65 96 09/28/16 22:00 114 09/28/16 21:01 122 14 137/58 94 09/28/16 20:15 120 23 138/54 94 09/28/16 20:01 100.8 120 24 83/70 96 09/28/16 20:00 122 09/28/16 19:20 94 Nasal Cannula 2.00 09/28/16 19:01 126 33 141/58 09/28/16 18:01 114 30 168/70 09/28/16 18:00 114 09/28/16 17:01 100.4 124 32 168/65 09/28/16 16:01 106 20 124/61 98 09/28/16 16:00 106 09/28/16 16:00 101.6 114 24 134/61 98 09/28/16 15:01 104 28 105/57 95 09/28/16 14:01 102.0 108 26 121/54 97 09/28/16 14:00 108 09/28/16 13:00 101.8 117 26 120/61 97 09/28/16 12:01 118 26 112/67 09/28/16 12:00 101.5 133 27 106/70 94 09/28/16 12:00 118 09/28/16 11:01 104 26 92/69 09/28/16 09/28/16 09/29/16 15:00 23:00 07:00 Intake Total 2795 ml 1470 ml Output Total 800 ml 1050 ml Balance 1995 ml 420 ml Intake Oral 620 ml 220 ml IV Total 2175 ml 1250 ml Output Urine Total 800 ml 1050 ml # Bowel Movements 0 0 . Laboratory Tests Test 09/28/16 09/28/16 09/29/16 02:50 16:16 04:55 White Blood Count 11.4 TH/MM3 8.2 TH/MM3 Red Blood Count 3.86 MIL/MM3 3.65 MIL/MM3 Hemoglobin 11.1 GM/DL 10.6 GM/DL Hematocrit 32.3 % 30.9 % Mean Corpuscular Volume 83.9 FL 84.6 FL Mean Corpuscular Hemoglobin 28.7 PG 29.1 PG Mean Corpuscular Hemoglobin 34.2 % 34.5 % Concent Red Cell Distribution Width 12.6 % 12.9 % Platelet Count 163 TH/MM3 155 TH/MM3 Mean Platelet Volume 8.5 FL 8.4 FL Neutrophils (%) (Auto) 83.0 % 83.6 % Lymphocytes (%) (Auto) 6.8 % 7.9 % Monocytes (%) (Auto) 9.2 % 8.2 % Eosinophils (%) (Auto) 0.0 % 0.0 % Basophils (%) (Auto) 1.0 % 0.3 % Neutrophils # (Auto) 9.4 TH/MM3 6.9 TH/MM3 Lymphocytes # (Auto) 0.8 TH/MM3 0.6 TH/MM3 Monocytes # (Auto) 1.1 TH/MM3 0.7 TH/MM3 Eosinophils # (Auto) 0.0 TH/MM3 0.0 TH/MM3 Basophils # (Auto) 0.1 TH/MM3 0.0 TH/MM3 CBC Comment DIFF FINAL AUTO DIFF Differential Comment FINAL DIFF MANUAL Erythrocyte Sedimentation Rate GREATER THAN 140 mm/hr Differential Total Cells 100 Counted Neutrophils % (Manual) 70 % Band Neutrophils % 15 % Lymphocytes % 7 % Monocytes % 8 % Neutrophils # (Manual) 7.0 TH/MM3 Platelet Estimate NORMAL Platelet Morphology Comment NORMAL Red Cell Morphology Comment NORMAL Laboratory Tests Test 09/27/16 09/27/16 09/28/16 09/28/16 16:07 22:30 05:23 12:00 Sodium Level 140 MEQ/L 136 MEQ/L 141 MEQ/L 143 MEQ/L Potassium Level 4.2 MEQ/L 4.2 MEQ/L 4.1 MEQ/L 4.1 MEQ/L Chloride Level 107 MEQ/L 103 MEQ/L 110 MEQ/L 113 MEQ/L Carbon Dioxide Level 21.1 MEQ/L 13.5 MEQ/L 19.8 MEQ/L 18.0 MEQ/L Anion Gap 12 MEQ/L 20 MEQ/L 11 MEQ/L 12 MEQ/L Blood Urea Nitrogen 22 MG/DL 22 MG/DL 19 MG/DL 19 MG/DL Creatinine 1.10 MG/DL 1.20 MG/DL 1.10 MG/DL 1.10 MG/DL Estimat Glomerular Filtration 70 ML/MIN 63 ML/MIN 70 ML/MIN 70 ML/MIN Rate Random Glucose 194 MG/DL 377 MG/DL 159 MG/DL 186 MG/DL Calcium Level 8.1 MG/DL 8.0 MG/DL 7.6 MG/DL 7.5 MG/DL Phosphorus Level 0.9 MG/DL 1.7 MG/DL 1.0 MG/DL 1.3 MG/DL Magnesium Level 2.2 MG/DL 2.3 MG/DL 2.0 MG/DL 2.1 MG/DL Test 09/28/16 09/28/16 09/29/16 16:16 20:57 04:55 Sodium Level 140 MEQ/L 140 MEQ/L 143 MEQ/L Potassium Level 4.6 MEQ/L 4.6 MEQ/L 4.3 MEQ/L Chloride Level 110 MEQ/L 110 MEQ/L 110 MEQ/L Carbon Dioxide Level 17.1 MEQ/L 17.5 MEQ/L 19.3 MEQ/L Anion Gap 13 MEQ/L 13 MEQ/L 14 MEQ/L Blood Urea Nitrogen 18 MG/DL 21 MG/DL 22 MG/DL Creatinine 1.00 MG/DL 1.30 MG/DL 1.50 MG/DL Estimat Glomerular Filtration 78 ML/MIN 58 ML/MIN 49 ML/MIN Rate Random Glucose 216 MG/DL 266 MG/DL 265 MG/DL Calcium Level 7.5 MG/DL 7.7 MG/DL 7.8 MG/DL C-Reactive Protein 23.00 MG/DL Microbiology Date/Time Procedure Status Source Growth 09/26/16 22:25 Aerobic Blood Culture - Preliminary Resulted Blood Peripheral NO GROWTH IN 2 DAYS 09/26/16 22:25 Anaerobic Blood Culture - Preliminary Resulted Strep Anginosus/Milleri 09/26/16 22:35 Aerobic Blood Culture - Preliminary Resulted Blood Peripheral Gram Positive Cocci 09/26/16 22:35 Anaerobic Blood Culture - Preliminary Resulted Gram Positive Cocci 09/26/16 22:40 Influenza Types A,B Antigen ([facility]) - Final Complete Nasal Washing NEGATIVE FOR FLU A AND B ANTIGEN.... 09/28/16 16:10 Aerobic Blood Culture Received Blood Peripheral Pending 09/28/16 16:10 Anaerobic Blood Culture Received Blood Peripheral Pending 09/28/16 16:16 Aerobic Blood Culture Received Blood Peripheral Pending 09/28/16 16:16 Anaerobic Blood Culture Received Blood Peripheral Pending 09/29/16 04:55 Aerobic Blood Culture Received Blood Peripheral Pending 09/29/16 04:55 Anaerobic Blood Culture Received Blood Peripheral Pending Imaging Last 72 hours Impressions Chest X-Ray 09/29/16 0500 Signed Impressions: Service Date/Time: Thursday, September 29, 2016 05:18 - CONCLUSION: No significant interval change Norris Lloyd MD Chest X-Ray 09/28/16 0000 Signed Impressions: Service Date/Time: September 11:02 - CONCLUSION: 1. Mild perihilar infiltrates consistent with congestion versus pneumonitis. Clinical correlation is recommended. Darío Baum MD Chest X-Ray 09/26/162 Signed Impressions: Service Date/Time: Monday, September 26, 2016 22:40 - CONCLUSION: No acute disease. Jaden Salguero MD Physical Exam GENERAL: awake and alert, mildly SOB when asked to move SKIN: Cool and clammy. No embolic lesions. HEAD: Atraumatic. Normocephalic. No temporal or scalp tenderness. EYES: Caroleen conjunctiva, no petechia or hemorrhage. No scleral icterus. No injection or drainage. ENT: Nose without bleeding, or purulent drainage. Moist oral mucosa. NECK: Trachea midline. No JVD or lymphadenopathy. Supple, nontender, no meningeal signs. CARDIOVASCULAR: Irregular rate and rhythm without murmurs, gallops, or rubs. Tachycardic RESPIRATORY: Clear to auscultation. Breath sounds equal bilaterally. No wheezes , rales, or rhonchi. Decreased BS at bases GASTROINTESTINAL: Abdomen soft, obese, non-tender, nondistended. Bowel sounds present and normoactive. No palpable masses. No guarding. MUSCULOSKELETAL: Extremities without clubbing, cyanosis, or edema. No joint tenderness, or effusion. Cool feet. No calf tenderness. Negative Homans sign bilaterally. NEUROLOGICAL: Non-focal PSYCH: Normal affect, calm and cooperative LINE: PIV with no evidence of infection BACK: In medial R buttock is an area of black eschar 1.5 inch by 3 inch with surrounding cellulitis, no fluctuance, has some villavicencio drainage on dressing, (+ ) foul odor Assessment & Plan Remarks IMPRESSION Sepsis, with fevers, leukocytosis, and has (+) BC, very worrisome for endocarditis - has cellulitis, ?abscess on R buttock - TTE not a good study Atrial fib, with RVR, now with PAF DM Renal insufficiency, ?what his baseline is, could be due to sepsis Morbid obesity RECOMMENDATION Repeat BC to document sterilization Continue vancomycin Continue Zosyn CT pelvis to evaluate if with deeper infection or any drainable fluid C/S if there is drainage Follow C/S Wound care Monitor progress Follow jamey D/W Isabel Braun MD Sep 29, 2016 10:41
[2016-09-29] MEDS ORDERED: ONDANSETRON HCL 4 MG/2 ML VIAL IV PUSH ONE (12:00)
[2016-09-29] MEDS ORDERED: LACTATED RINGER'S 1000 ML INJ 1,000 ML IV ONE (12:00)
[2016-09-29] MEDS ORDERED: PHENYLEPH/NS 1000 MCG/10 ML SYR IV ONE (12:00)
[2016-09-29] MEDS ORDERED: PROPOFOL 200 MG/20 ML AMP IV ONE (12:00)
[2016-09-29] MEDS: COLLAGENASE OINT 30 GM TUBE TOP SCH (13:54)
--- NOTE | 2016-09-29 16:36 | RADHPO ---
EXAM DATE/TIME: 09/29/2016 15:28 [facility] COMPARISON: No previous studies available for comparison. INDICATIONS : Evaluate abscess on right inner buttocks. ORAL CONTRAST: No oral contrast ingested. RADIATION DOSE: 21.64 CTDIvol (mGy) MEDICAL HISTORY : Hypertension. Diabetes. SURGICAL HISTORY : Orchiectomy. ENCOUNTER: Initial ACUITY: 2 days PAIN SCALE: 6/10 LOCATION: Right pelvis TECHNIQUE: Volumetric scanning of the pelvis was performed. Using automated exposure control and adjustment of the mA and/or kV according to patient size, radiation dose was kept as low as reasonab ly achievable to obtain optimal diagnostic quality images. FINDINGS: The patient has an abscess on the right inter-buttocks. There is air in the subcutaneous tissues involving the medial right thigh that do extend to the base of the scrotum. There is no retroperitoneal air. There is no intraabdominal air. CONCLUSION: Abscess currently subcutaneous containing air in the inner medial left thigh extendin g to the base of the penis. Larry Willis MD FACR on September 29, 2016 at 16:10 Board Certified Radiologist. This report was verified electronically.
[2016-09-29] MEDS: ATORVASTATIN 40 MG TAB PO SCH (19:52)
--- NOTE | 2016-09-29 21:41 | PD.CONS ---
[facility] Service Urology Consult Requested By Dr. Juanjo Acuna Reason for Consult Buttock abcess. R/O Twin's Gangrene. Primary Care Physician Jose Abad MD Diagnosis: (1) Abscess of right buttock ICD Code: L02.31 (2) Cellulitis of buttock, right ICD Code: L03.317 History of Present Illness Morbidly obese diabetic with a draining abcess in RIGHT buttock area near the rectum. Abcess is not painful. It was first observed last night by a nurse. Tonight's TEASEL SETTER thinks that it is larger than last night. Pt. admitted in keto acidosis 3 days ago. He is still febrile. Past Family Social History Past Medical History EMR reviewed. Past Surgical History EMR reviewed. Allergies: Coded Allergies: Dilaudid (Verified Allergy, Intermediate, ITCHING, DIAPHORESIS, 09/27/16) Physical Exam Vital Signs Vital Signs Date Time Temp Pulse Resp B/P Pulse Ox O2 Delivery O2 Flow Rate FiO2 09/29/16 19:39 94 Nasal Cannula 2.00 09/29/16 18:00 98 24 125/73 94 09/29/16 18:00 98 09/29/16 17:00 102 28 135/57 92 09/29/16 16:00 102 09/29/16 16:00 99.3 102 21 112/59 92 09/29/16 15:53 110 15 120/54 92 09/29/16 15:01 94 09/29/16 15:01 94 22 93/57 93 09/29/16 15:00 92 22 92 09/29/16 14:01 94 09/29/16 14:01 94 24 110/54 95 09/29/16 13:01 99.4 92 19 93/54 94 09/29/16 12:07 104 09/29/16 12:07 104 24 116/50 91 09/29/16 11:01 96 21 108/51 93 09/29/16 10:01 100.2 96 24 117/57 93 09/29/16 10:00 98 09/29/16 09:01 104 31 134/67 95 09/29/16 09:00 97 Nasal Cannula 4.00 09/29/16 08:37 96 Nasal Cannula 4.00 09/29/16 08:01 102.1 102 28 125/66 94 09/29/16 08:00 100 09/29/16 07:01 104 33 135/71 94 09/29/16 06:01 102 27 110/51 94 09/29/16 06:00 95 09/29/16 05:01 94 20 118/50 93 09/29/16 04:01 101.0 100 27 99/55 97 09/29/16 04:00 96 09/29/16 03:01 98 28 97/58 97 09/29/16 02:01 94 24 112/56 93 09/29/16 02:00 96 09/29/16 01:13 100 30 09/29/16 01:01 96 25 100/62 99 09/29/16 00:01 101.4 98 24 109/61 100 09/29/16 00:00 114 09/28/16 23:01 116 28 117/62 99 09/28/16 22:40 100 35 09/28/16 22:05 Venturi Mask 6.00 35 09/28/16 22:01 122 22 134/65 96 09/28/16 22:00 114 Physical Exam GENERAL: This is a well-nourished, well-developed patient, in no apparent distress. SKIN: No rashes, ecchymoses or lesions. Cool and dry. HEAD: Atraumatic. Normocephalic. No temporal or scalp tenderness. EYES: Pupils equal round and reactive. Extraocular motions intact. No scleral icterus. No injection or drainage. ENT: Nose without bleeding, purulent drainage or septal hematoma. Throat without erythema, tonsillar hypertrophy or exudate. Uvula midline. Airway patent. NECK: Trachea midline. No JVD or lymphadenopathy. Supple, nontender, no meningeal signs. CARDIOVASCULAR: Regular rate and rhythm without murmurs, gallops, or rubs. RESPIRATORY: Clear to auscultation. Breath sounds equal bilaterally. No wheezes , rales, or rhonchi. GASTROINTESTINAL: Abdomen soft, non-tender, nondistended. No hepato-splenomegaly , or palpable masses. No guarding. MUSCULOSKELETAL: Extremities without clubbing, cyanosis, or edema. No joint tenderness, effusion, or edema noted. No calf tenderness. Negative Homans sign bilaterally. NEUROLOGICAL: Awake and alert. Cranial nerves II through XII intact. Motor and sensory grossly within normal limits. Five out of 5 muscle strength in all muscle groups. Normal speech. : Right buttock: red, indurated stan rectal area with overlying crust that is draining. Induration extends to lower scrotum. Area in minimally tender. Genitalia otherwise negative. Laboratory Laboratory Tests Test 09/29/16 04:55 White Blood Count 8.2 Red Blood Count 3.65 Hemoglobin 10.6 Hematocrit 30.9 Mean Corpuscular Volume 84.6 Mean Corpuscular Hemoglobin 29.1 Mean Corpuscular Hemoglobin 34.5 Concent Red Cell Distribution Width 12.9 Platelet Count 155 Mean Platelet Volume 8.4 Neutrophils (%) (Auto) 83.6 Lymphocytes (%) (Auto) 7.9 Monocytes (%) (Auto) 8.2 Eosinophils (%) (Auto) 0.0 Basophils (%) (Auto) 0.3 Neutrophils # (Auto) 6.9 Lymphocytes # (Auto) 0.6 Monocytes # (Auto) 0.7 Eosinophils # (Auto) 0.0 Basophils # (Auto) 0.0 CBC Comment AUTO DIFF Differential Total Cells 100 Counted Neutrophils % (Manual) 70 Band Neutrophils % 15 Lymphocytes % 7 Monocytes % 8 Neutrophils # (Manual) 7.0 Differential Comment FINAL DIFF MANUAL Platelet Estimate NORMAL Platelet Morphology Comment NORMAL Red Cell Morphology Comment NORMAL Sodium Level 143 Potassium Level 4.3 Chloride Level 110 Carbon Dioxide Level 19.3 Anion Gap 14 Blood Urea Nitrogen 22 Creatinine 1.50 Estimat Glomerular Filtration 49 Rate Random Glucose 265 Calcium Level 7.8 Date/Time Procedure Status Source Growth 09/29/16 04:55 Aerobic Blood Culture Received Blood Peripheral Pending 09/29/16 04:55 Anaerobic Blood Culture Received Blood Peripheral Pending 09/28/16 16:16 Aerobic Blood Culture - Preliminary Resulted Blood Peripheral NO GROWTH IN 1 DAY 09/28/16 16:16 Anaerobic Blood Culture - Preliminary Resulted Blood Peripheral NO GROWTH IN 1 DAY 09/26/16 22:40 Influenza Types A,B Antigen (LEAH) - Final Complete Nasal Washing NEGATIVE FOR FLU A AND B ANTIGEN.... Result Diagram: 09/29/165 09/29/[address] scan of pelvis done this PM: Cellulitis and gas in right buttock, extending anteriorly. Assessment and Plan Problem List: (1) Abscess of right buttock ICD Code: L02.31 Status: Acute (2) Cellulitis of buttock, right ICD Code: L03.317 Status: Acute Assessment and Plan Enlarging diabetic buttock abcess with gas extension. Febrile pt. Discussed with Gen. Surg: Dr. Enriquez who recommends [place]-Rectal eval. Discussed with Dr. Champagne who will accept pt. in transfer tonight. STAT transfer ordered to PACU. Discussed Condition With Patient, nurses, TEASEL SETTER, Dr. Enriquez, Dr. Champagne. Norris Akers MD Sep 29, 2016 21:41
--- NOTE | 2016-09-29 22:22 | HHI.PR ---
Addendum to Inpatient Note Addendum Reason: Additional Documentation Additional Information Received call from [facility] that [place] [facility] [place] with Dr Champagne. I ordered basal Levemir insulin as pt's sugars are still in 300s. I spoke with Dr Rickie Villanueva in [facility]. I gave brief hx and update on pt's condition. I placed formal consult to [facility] and Dr Rickie Villanueva will be awaiting pt transfer to [facility]. Mj Huff PhD Sep 29, 2016 22:22
[2016-09-29] MEDS ORDERED: FAMOTIDINE 20 MG/2 ML VIAL ONE (23:56)
[2016-09-30] VITALS (20 sets, daily range): BP systolic 101–116; BP diastolic 52–56; PULSE 59–112; RESP 18–21; TEMP 97.8–98.6; O2SAT 93–100
[2016-09-30] MEDS ORDERED: DEXTROSE 50% IN WATER 50 ML VIAL(D50) IV PUSH PRN
[2016-09-30] MEDS ORDERED: MISC INFORMATION XX ONE
[2016-09-30 01:02] LABS: BLOOD GAS BASE EXCESS -8.7 mmol/L (-2-2); BLOOD GAS CARBOXYHEMOGLOBIN 1.4 % (0-4); BLOOD GAS HCO3 17 mmol/L (22-26); BLOOD GAS METHEMOGLOBIN 1.2 % (0-2); BLOOD GAS O2 HGB SATURATION 93 % (90-100); BLOOD GAS OXYGEN CONTENT 19.3 Vol % (12.0-20.0); BLOOD GAS PCO2 43 mmHg (38-42); BLOOD GAS PO2 102 mmHg (61-120); BLOOD GAS TOTAL HGB 14.7 G/DL (12.0-16.0); CRITICAL VALUE YES; DRAW SITE ART LINE; FIO2 100 %; OXYGEN DEVICE VENTILATOR; STAT YES; TEMP CORR TO 101.1; VENT SETTINGS OR ABG
[2016-09-30] MEDS ORDERED: PROPOFOL 1000 MG/100 ML INJ 100 ML ONE (01:54)
[2016-09-30] MEDS ORDERED: MIDAZOLAM HCL 2 MG/2 ML VIAL ONE (01:58)
[2016-09-30] MEDS ORDERED: fentaNYL CITRATE 250 MCG/5 ML AMP ONE (01:59)
[2016-09-30] MEDS ORDERED: POTASSIUM CHLOR 20 MEQ PREMIX 100 ML IV PRN ×2 (02:30)
[2016-09-30] MEDS ORDERED: POTASSIUM CL 40 MEQ/30 ML LIQ UDC PO/TUBE PRN ×2 (02:30)
[2016-09-30] MEDS ORDERED: POTASSIUM PHOSPHATE MONOBASIC 500 MG TAB PO PRN (02:30)
[2016-09-30] MEDS ORDERED: MAGNESIUM SULFATE INJ 4 GM in SODIUM CHLORIDE 0.9% INJ 92 ML IV PRN (02:30)
[2016-09-30] MEDS ORDERED: MAGNESIUM SULFATE INJ 2 GM in SODIUM CHLORIDE 0.9% INJ 96 ML IV PRN (02:30)
[2016-09-30] MEDS ORDERED: MAGNESIUM OXIDE 400 MG TAB PO PRN (02:30)
[2016-09-30] MEDS ORDERED: HYDROmorphone HCL PF 1 MG/ML VIAL IV PUSH PRN (02:30)
[2016-09-30] MEDS: PIPERACIL-TAZO 3.375 GM PREMIX 50 ML IV SCH ×4 (02:30→19:15)
[2016-09-30] MEDS ORDERED: fentaNYL DRIP 250 ML IV SCH (02:30)
[2016-09-30] MEDS ORDERED: POTASSIUM PHOSPHATE MONOBASIC 500 MG TAB PO/TUBE PRN (02:30)
[2016-09-30] MEDS ORDERED: SODIUM PHOSPHATE INJ 30 MMOL in SODIUM CHLOR 0.9% 250 ML INJ 240 ML IV PRN (02:30)
[2016-09-30] MEDS ORDERED: POTASSIUM PHOSPHATE INJ 30 MMOL in SODIUM CHLOR 0.9% 250 ML INJ 250 ML IV PRN (02:30)
[2016-09-30] MEDS ORDERED: POTASSIUM CHLOR 40 MEQ PREMIX 100 ML IV PRN ×2 (02:30)
[2016-09-30] MEDS ORDERED: DO NOT ADM ANY ANTICOAGULANT DRUGS XX PRN (02:30)
[2016-09-30] MEDS: LACTATED RINGER'S 1000 ML INJ 1,000 ML IV SCH ×2 (02:45→11:38)
--- NOTE | 2016-09-30 02:49 | RADRPT ---
EXAM DATE/TIME: 09/30/2016 01:58 [place] COMPARISON: CHEST SINGLE AP, September 29, 2016, 5:18. INDICATIONS : E-T tube and Right IJ central line placement. MEDICAL HISTORY : Hypertension. Diabetes mellitus type II. SURGICAL HISTORY : None. ENCOUNTER: Subsequent ACUITY: 2 days PAIN SCORE: Non-responsive. LOCATION: Bilateral chest FINDINGS: Endotracheal tube is present with tip 4-5 cm above the rosalva. A right central line since SVC. There are perihilar infiltrates present. Lung volumes are diminished. CONCLUSION: Perihilar infiltrates. Satisfactory tube position. No pneumothorax. Norris Lloyd MD on September 30, 2016 at 2:45 Board Certified Radiologist. This report was verified electronically.
[2016-09-30 02:57] LABS: BLOOD GAS BASE EXCESS -8.6 mmol/L (-2-2); BLOOD GAS CARBOXYHEMOGLOBIN 1.4 % (0-4); BLOOD GAS HCO3 18 mmol/L (22-26); BLOOD GAS METHEMOGLOBIN 1.3 % (0-2); BLOOD GAS O2 HGB SATURATION 95 % (90-100); BLOOD GAS OXYGEN CONTENT 13.6 Vol % (12.0-20.0); BLOOD GAS PCO2 49 mmHg (38-42); BLOOD GAS PO2 115 mmHg (61-120); BLOOD GAS TOTAL HGB 10.1 G/DL (12.0-16.0)
[2016-09-30 02:58] LABS: CRITICAL VALUE YES; DRAW SITE ART LINE; FIO2 100 %; OXYGEN DEVICE VENTILATOR; STAT NO; VENT SETTINGS PRVC/AC
[2016-09-30] MEDS: RESP: ALBUTEROL 2.5 MG/IPRATROPIUM 0.5 MG NEB (SCH) INH ×4 (02:58→20:04)
[2016-09-30] MEDS: DEXTROSE 10% INJ 1,000 ML IV SCH (03:00)
[2016-09-30 03:08] LABS: AUTOMATED NEUTROPHIL # 7.9 TH/MM3 (1.8-7.7); BASOPHIL # 0.1 TH/MM3 (0-0.2); BASOPHIL % 0.6 % (0.0-2.0); EOSINOPHIL % 0.1 % (0.0-4.0); HEMATOCRIT 29.3 % (39.0-51.0); LYMPHOCYTE # 0.6 TH/MM3 (1.0-4.8); MEAN CELL VOLUME 84.3 FL (80.0-100.0); MEAN CORPUSCULAR HEMOGLOBIN 28.4 PG (27.0-34.0); MEAN CORPUSCULAR HGB CONC 33.8 % (32.0-36.0); MONO % 5.8 % (0.0-8.0); NEUT % 86.5 % (16.0-70.0); PLATELET COUNT 131 TH/MM3 (150-450); RED BLOOD COUNT 3.48 MIL/MM3 (4.50-5.90); RED CELL DISTRIBUTION WIDTH 14.1 % (11.6-17.2); WHITE BLOOD COUNT 9.1 TH/MM3 (4.0-11.0)
[2016-09-30 03:09] LABS: HEMO FLAGS AUTO DIFF
--- NOTE | 2016-09-30 03:14 | PD.CONS ---
HPI Service Critical Care Medicine Consult Requested By Jose Abad Reason for Consult severe sepsis Primary Care Physician Jose Abad MD History of Present Illness This is A 56-year-old male with history of type 2 diabetes which is poorly controlled, hypertension, hyperlipidemia, morbid obesity who presented on 09/26 with weakness and fatigue and was found to be in new subtle new onset atrial fibrillation with DKA. His inpatient courses been complicated by persistent febrile state and difficult to control blood sugars. Today he was noted to have a black eschar in his groin area with a abscess extending into his scrotum. Urology and colorectal surgery was consulted and he went to the OR for debridement and irrigation of the infection. Postoperatively he was sent to PACU intubated, sedated, hypoxic. He remains tachycardic. Critical care medicine was consulted for evaluation and management of his multiorgan system dysfunction as well as his severe sepsis. The history cannot be obtained from the patient given his current clinical condition. Review of Systems ROS Limitations: Clinical Condition, Intubated, Altered Mental Status, Unresponsive Past Family Social History Allergies: Coded Allergies: Dilaudid (Verified Allergy, Intermediate, ITCHING, DIAPHORESIS, 09/27/16) Past Medical History Per review of medical records: Type 2 diabetes Diabetic peripheral neuropathy Hypertension Hyperlipidemia Hypogonadism on testosterone injections Morbid obesity Vitamin D deficiency DVT of right lower extremity Cellulitis of the lower extremities in 2010 Past Surgical History Review of medical records: Right orchiectomy at age 46 for torsion Was in teeth extraction Reported Medications Review of medical records: Atorvastatin 80 mg daily Jardiance 25 mg daily Lisinopril 20 mg daily Metformin 1 g twice a day Testosterone injections every weekly Ergocalciferol 5000 units twice a week Tresiba 90 units SQ daily Active Ordered Medications See MAR Family History Unable to be obtained secondary to patient's clinical condition. It is unlikely that it is contributory to his acute illness Social History Per review of the medical record: Self-employed. . Denies alcohol. Never smoked. Physical Exam Vital Signs Vital Signs Date Time Temp Pulse Resp B/P Pulse Ox O2 Delivery O2 Flow Rate FiO2 09/30/16 02:15 94 100 09/30/16 01:55 93 100 09/29/16 23:40 96 Nasal Cannula 3 09/29/16 23:40 111 24 127/60 96 09/29/16 22:00 102 23 121/61 96 09/29/16 22:00 102 09/29/16 21:00 98 20 104/56 94 09/29/16 20:00 100 18 102/60 92 09/29/16 20:00 100 09/29/16 19:39 94 Nasal Cannula 2.00 09/29/16 19:00 Nasal Cannula 4.00 09/29/16 19:00 100.3 96 16 117/60 95 09/29/16 18:00 98 24 125/73 94 09/29/16 18:00 98 09/29/16 17:00 102 28 135/57 92 09/29/16 16:00 102 09/29/16 16:00 99.3 102 21 112/59 92 09/29/16 15:53 110 15 120/54 92 09/29/16 15:01 94 09/29/16 15:01 94 22 93/57 93 09/29/16 15:00 92 22 92 09/29/16 14:01 94 09/29/16 14:01 94 24 110/54 95 09/29/16 13:01 99.4 92 19 93/54 94 09/29/16 12:07 104 09/29/16 12:07 104 24 116/50 91 09/29/16 11:01 96 21 108/51 93 09/29/16 10:01 100.2 96 24 117/57 93 09/29/16 10:00 98 09/29/16 09:01 104 31 134/67 95 09/29/16 09:00 97 Nasal Cannula 4.00 09/29/16 08:37 96 Nasal Cannula 4.00 09/29/16 08:01 102.1 102 28 125/66 94 09/29/16 08:00 100 09/29/16 07:01 104 33 135/71 94 09/29/16 06:01 102 27 110/51 94 09/29/16 06:00 95 09/29/16 05:01 94 20 118/50 93 09/29/16 04:01 101.0 100 27 99/55 97 09/29/16 04:00 96 09/29/16 03:01 98 28 97/58 97 Physical Exam GENERAL: Middle-aged morbidly obese male, lying in bed, intubated, sedated, critically ill HEENT: Normocephalic. Atraumatic. Pupils equal, round, conjugate, reactive. Mucous membranes are moist. NECK: Obese neck. JVD unable to be assessed secondary to body habitus. Trachea is midline. Orotracheally intubated. There is a right IJ central venous catheter, dressing dry and intact. CHEST: Equal chest rise. Distant breath sounds. Coarse rales in bilateral lung guerrero. PRVC 550/15/10/100%. SPO2 96% CARDIOVASCULAR: Tachycardic rate, irregularly irregular rhythm. S1 and S2 without appreciable murmurs. ABDOMEN: Morbidly obese. Soft. Nontender. Nondistended. No guarding. MUSCULOSKELETAL: 2+ peripheral edema. Distal pulses 2+. There is a right radial art line in place, dressing intact. : There is a groin wound which is packed with gauze and a dressing applied. There is a Doll catheter in place with light yellow urine. NEUROLOGICAL: RASS -5. Intubated, sedated. Laboratory Laboratory Tests Test 09/29/16 09/30/16 04:55 00:50 White Blood Count 8.2 Red Blood Count 3.65 Hemoglobin 10.6 Hematocrit 30.9 Mean Corpuscular Volume 84.6 Mean Corpuscular Hemoglobin 29.1 Mean Corpuscular Hemoglobin 34.5 Concent Red Cell Distribution Width 12.9 Platelet Count 155 Mean Platelet Volume 8.4 Neutrophils (%) (Auto) 83.6 Lymphocytes (%) (Auto) 7.9 Monocytes (%) (Auto) 8.2 Eosinophils (%) (Auto) 0.0 Basophils (%) (Auto) 0.3 Neutrophils # (Auto) 6.9 Lymphocytes # (Auto) 0.6 Monocytes # (Auto) 0.7 Eosinophils # (Auto) 0.0 Basophils # (Auto) 0.0 CBC Comment AUTO DIFF Differential Total Cells 100 Counted Neutrophils % (Manual) 70 Band Neutrophils % 15 Lymphocytes % 7 Monocytes % 8 Neutrophils # (Manual) 7.0 Differential Comment FINAL DIFF MANUAL Platelet Estimate NORMAL Platelet Morphology Comment NORMAL Red Cell Morphology Comment NORMAL Sodium Level 143 Potassium Level 4.3 Chloride Level 110 Carbon Dioxide Level 19.3 Anion Gap 14 Blood Urea Nitrogen 22 Creatinine 1.50 Estimat Glomerular Filtration 49 Rate Random Glucose 265 Calcium Level 7.8 Blood Gas Puncture Site ART LINE Blood Gas Patient Temperature 101.1 Blood Gas HCO3 17 Blood Gas Base Excess -8.7 Blood Gas Oxygen Saturation 93 Arterial Blood pH 7.23 Arterial Blood Partial 43 Pressure CO2 Arterial Blood Partial 102 Pressure O2 Arterial Blood Oxygen Content 19.3 Arterial Blood 1.4 Carboxyhemoglobin Arterial Blood Methemoglobin 1.2 Blood Gas Hemoglobin 14.7 Oxygen Delivery Device VENTILATOR Blood Gas Ventilator Setting OR ABG Blood Gas Inspired Oxygen 100 Date/Time Procedure Status Source Growth 09/29/16 04:55 Aerobic Blood Culture Received Blood Peripheral Pending 09/29/16 04:55 Anaerobic Blood Culture Received Blood Peripheral Pending 09/28/16 16:16 Aerobic Blood Culture - Preliminary Resulted Blood Peripheral NO GROWTH IN 1 DAY 09/28/16 16:16 Anaerobic Blood Culture - Preliminary Resulted Blood Peripheral NO GROWTH IN 1 DAY 09/26/16 22:40 Influenza Types A,B Antigen (LEAH) - Final Complete Nasal Washing NEGATIVE FOR FLU A AND B ANTIGEN.... Result Diagram: 09/29/16 0455 09/29/16 0455 Assessment and Plan Assessment and Plan Assessment: This is a 56-year-old male with history of type 2 diabetes and morbid obesity who initially presented with DKA and new onset atrial fibrillation with rapid ventricular response, now with groin abscess, severe sepsis, acute kidney injury, atrial fibrillation with rapid ventricular response , acute hypoxic respiratory failure. He is very critically ill. Given his medical comorbidities along with his morbid obesity, he has a high risk of dying during this hospital stay. He remains very critically ill this time. Plan by systems: Neurologic: Acute postoperative pain Diabetic neuropathy Agitation associated with intubation Schedule Tylenol 650 mg every 6 hours for postoperative pain Oxycodone 5 mg every 4 when necessary for post operative pain Dilaudid 0.5 mg IV every 4 hours for breakthrough pain Continue home gabapentin for peripheral neuropathy Propofol and fentanyl for goal RASS -2 Respiratory: Acute hypoxic respiratory failure ABG now and in the morning Does not meet criteria for SBT given his persistent severe sepsis and hypoxia Continue PEEP 10 for now. Wean FiO2 for SPO2 greater than 90% Low tidal volume ventilation targeting 6 cc/kg ideal body weight Vent bundle Head of bed at 30 Nebs every 6 and every 2 when necessary Cardiovascular: Severe sepsis Atrial fibrillation with rapid ventricular response Hold diltiazem in setting of severe sepsis Rapid ventricular response is likely due to sepsis and is likely augmenting his cardiac output. Hold Xarelto in the setting of recent operation Check serum lactic acid Renal: Acute kidney injury Continue Doll for accurate I's and O's -- Strict I/Os Every hour urine outputs Kidney injury is likely secondary to severe sepsis Continue volume resuscitation as below FEN/GI: Acute intravascular hypovolemia Hypokalemia Acute protein calorie malnutritionmild Morbid obesity D10 at 30 cc an hour for glycemic source Maintenance fluids LR at 100 and mL/hr ICU electrolyte protocol Postop BMP, magnesium, phosphorus. Daily BMP Senna, Colace, MiraLAX for bowel regimen Per colorectal surgery, likely will need to go back to the operating room for repeat debridement in the next day or 2 Place orogastric tube Start Glucerna 1.5 tube feeds at 20 cc an hour, goal rate 60 Nutrition consult Heme/ID: Anemia of critical illness Groin abscess Severe sepsis Systemic Anticoagulation Does not meet transfusion triggers at this time Daily CBC Postop CBC Holding systemic anticoagulation in the setting of recent operation. Continue vancomycin with pharmacy dosing Continue Zosyn 3.375 g IV every 8 hours Endocrine: Diabetic ketoacidosis Diabetes Testosterone deficiency Continue D10 at 30 cc an hour for glycemic source. The patient has a history of going into DKA even inpatient given his difficult to control sugars. Continue insulin infusion, highest scale. Prophylaxis: GI Prophylaxis Protonix 40 mg IV every 24 hours: Anticipated mechanical ventilation of greater than 48 hours duration DVT Prophylaxis -- SCDs Subcutaneous heparin 5000 every 8 Lines: 09/30 right IJ triple-lumen catheter 09/30 right radial arterial line Doll catheter Dispo: Admit the ICU. He is normally very critically ill this time, I anticipate that he may get more critically ill after this debridement and will likely have clinical deterioration before he ultimately improves. He is a very high risk for during his hospital stay. This patient remains critically ill with one or more organ systems which are or may become a threat to life. I have spent in excess of 77 minutes discontinuously in the care and management of this patient. This time is exclusive of procedures, and includes, but is not limited to, evaluation of the patient, review of the medical record, discussions with family, consultants, nursing staff, or respiratory therapy, and documentation in the medical record. Code Status Full Code Nikko Akers MD Sep 30, 2016 03:14
[2016-09-30] MEDS ORDERED: *morphine SULFATE 8 MG/ML PERIprocedure ONLY ONE (03:15)
[2016-09-30] MEDS: VANCOMYCIN INJ 2,000 MG in SODIUM CHLORID 0.9% 500 ML INJ 500 ML IV SCH ×2 (03:15→16:05)
[2016-09-30 03:23] LABS: BICARBONATE 19.6 MEQ/L (21.0-32.0); MAGNESIUM 1.9 MG/DL (1.5-2.5); POTASSIUM 3.9 MEQ/L (3.5-5.1)
[2016-09-30] MEDS: CHLORHEXIDINE GLUCONATE 2 % 1 PACK (2 CLOTHS)(taper/protocol) TOP SCH (04:00)
[2016-09-30 04:08] LABS: BANDS 43 % (0-6); METAMYELOCYTES 4 % (0-1); NEUTROPHIL # MANUAL DIFF 8.1 TH/MM3 (1.8-7.7); POLYS (SEG NEUTROPHILS) 41 % (16-70); PROMYELOCYTES 1 % (0-0); SCAN/DIFF FINAL DIFF MANUAL; WBC DIFF SAMPLE 100
[2016-09-30 04:09] LABS: PLATELET ESTIMATE SMEAR NORMAL (NORMAL); PLATELET MORPHOLOGY NORMAL (NORMAL)
[2016-09-30] MEDS: PROPOFOL 1000 MG/100 ML IV SCH ×6 (05:07→22:08)
[2016-09-30] MEDS ORDERED: HEPARIN SODIUM - SQ 10,000 UNITS/ML VIAL SQ SCH (06:00)
[2016-09-30] MEDS ORDERED: LACTATED RINGER'S 1000 ML INJ 1,000 ML IV ONE (06:15)
[2016-09-30] MEDS: NOREPINEPHRINE 4 MG/D5W 250 ML IV SCH (06:35)
[2016-09-30] MEDS: INSULIN REGULAR (IV INFUSION) 100 UNITS in SODIUM CHLORIDE 0.9% INJ 99 ML IV SCH ×2 (07:46→16:36)
[2016-09-30] MEDS: ASPIRIN EC 81 MG TABEC PO SCH (08:09)
[2016-09-30] MEDS: PANTOPRAZOLE SODIUM 40 MG VIAL IV SCH (08:09)
[2016-09-30] MEDS: COLLAGENASE OINT 30 GM TUBE TOP SCH (08:10)
[2016-09-30] MEDS: SODIUM CHLORIDE 0.9% FLUSH 5 ML FLUSH IVF SCH ×2 (08:10→19:16)
[2016-09-30] MEDS: ACETAMINOPHEN 650 MG/20.3 ML UDC PO SCH ×3 (08:13→19:24)
[2016-09-30] MEDS ORDERED: ALBUMIN HUMAN 5% 25 GM/500 ML BOTTLE IV ONE (08:45)
[2016-09-30] MEDS ORDERED: SODIUM CHLOR 0.9% 1000 ML INJ 1,000 ML IV ONE ×2 (08:45)
[2016-09-30] MEDS ORDERED: DOCUSATE SODIUM 50 MG/SENNA 8.6 MG TAB PO SCH (09:00)
[2016-09-30] MEDS ORDERED: INSULIN DETEMIR 100 UNITS/ML VIAL SQ SCH (09:00)
[2016-09-30] MEDS ORDERED: POLYETHYLENE GLYCOL 17 GM PKG PO SCH (09:00)
--- NOTE | 2016-09-30 12:12 | HHI.PR ---
Subjective Remarks C/R Surg POD #1 afebrile, VSS UO good on pressors, sedation Objective - Vital Signs Date Time Temp Pulse Resp B/P Pulse Ox O2 Delivery O2 Flow Rate FiO2 09/30/16 10:00 69 09/30/16 08:04 100 65 09/30/16 08:04 Ventilator 09/30/16 04:00 98.2 18 104/54 09/29/16 23:40 3 Result Diagram: 09/30/16 0245 09/30/16 0245 Other Results PE sedated, on vent Abd - soft, non-tender Rectal - clean dressings, min disch A/P Assessment and Plan Imp: stable post -op wean, extubate prn return to OR tomorrow for EUA/debridement José Luis Champagne MD Sep 30, 2016 12:12
--- NOTE | 2016-09-30 13:28 | HHI.IDPN ---
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 Hypertension. Hyperlipidemia. Hypogonadism that he is on testosterone injections, supposed to be weekly but had not had one in a little while. Morbid obesity. Vitamin D deficiency. DVT of the right lower extremity a few years ago. Previous cellulitis of the lower extremity in 2010 and was admitted to the hospital. Past Surgical History Orchiectomy for testicular torsion [place] tooth extraction Allergies: Coded Allergies: Dilaudid (Verified Allergy, Intermediate, ITCHING, DIAPHORESIS, 09/27/16) Objective . Vital Signs Date Time Temp Pulse Resp B/P Pulse Ox O2 Delivery O2 Flow Rate FiO2 09/30/16 12:00 68 09/30/16 12:00 65 09/30/16 10:00 69 09/30/16 08:04 100 65 09/30/16 08:04 100 Ventilator 65 09/30/16 08:00 65 09/30/16 08:00 68 09/30/16 06:00 90 09/30/16 04:03 94 70 09/30/16 04:00 112 09/30/16 04:00 65 09/30/16 04:00 98.2 112 18 104/54 96 09/30/16 03:45 100 97 09/30/16 03:40 100 09/30/16 03:30 99.6 118 27 108/51 96 Mechanical Ventilator 70 100/48 Nasal Cannula 09/30/16 03:26 97 70 09/30/16 03:15 126 27 119/56 97 Mechanical Ventilator 90 127/63 Nasal Cannula 09/30/16 03:00 99.6 133 27 127/51 97 Mechanical Ventilator 100 129/57 09/30/16 02:46 97 90 09/30/16 02:45 134 30 115/58 96 Mechanical Ventilator 100 113/51 09/30/16 02:30 134 23 116/68 95 Mechanical Ventilator 100 116/51 09/30/16 02:15 139 24 152/75 93 Mechanical Ventilator 100 152/60 09/30/16 02:15 94 100 09/30/16 02:00 135 21 156/60 93 Mechanical Ventilator 100 151/74 09/30/16 01:55 93 100 09/30/16 01:50 99.7 119 32 116/49 93 Mechanical Ventilator 100 09/30/16 01:50 100 09/29/16 23:40 96 Nasal Cannula 3 09/29/16 23:40 111 24 127/60 96 09/29/16 22:00 102 23 121/61 96 09/29/16 22:00 102 09/29/16 21:00 98 20 104/56 94 09/29/16 20:00 100 18 102/60 92 09/29/16 20:00 100 09/29/16 19:39 94 Nasal Cannula 2.00 09/29/16 19:00 Nasal Cannula 4.00 09/29/16 19:00 100.3 96 16 117/60 95 09/29/16 18:00 98 24 125/73 94 09/29/16 18:00 98 09/29/16 17:00 102 28 135/57 92 09/29/16 16:00 102 09/29/16 16:00 99.3 102 21 112/59 92 09/29/16 15:53 110 15 120/54 92 09/29/16 15:01 94 09/29/16 15:01 94 22 93/57 93 09/29/16 15:00 92 22 92 09/29/16 14:01 94 09/29/16 14:01 94 24 110/54 95 09/29/16 09/29/16 09/30/16 14:59 22:59 06:59 Intake Total 1188 ml 240 ml 3834 ml Output Total 400 ml 100 ml 1175 ml Balance 788 ml 140 ml 2659 ml Intake Oral 520 ml 240 ml 0 ml IV Total 668 ml 2134 ml Other 1700 ml Output Urine Total 400 ml 100 ml 800 ml Estimated Blood Loss 75 ml Other 300 ml # Voids 1 # Bowel Movements 0 . Laboratory Tests Test 09/28/16 09/29/16 09/30/16 16:16 04:55 02:45 Erythrocyte Sedimentation Rate GREATER THAN 140 mm/hr White Blood Count 8.2 TH/MM3 9.1 TH/MM3 Red Blood Count 3.65 MIL/MM3 3.48 MIL/MM3 Hemoglobin 10.6 GM/DL 9.9 GM/DL Hematocrit 30.9 % 29.3 % Mean Corpuscular Volume 84.6 FL 84.3 FL Mean Corpuscular Hemoglobin 29.1 PG 28.4 PG Mean Corpuscular Hemoglobin 34.5 % 33.8 % Concent Red Cell Distribution Width 12.9 % 14.1 % Platelet Count 155 TH/MM3 131 TH/MM3 Mean Platelet Volume 8.4 FL 9.5 FL Neutrophils (%) (Auto) 83.6 % 86.5 % Lymphocytes (%) (Auto) 7.9 % 7.0 % Monocytes (%) (Auto) 8.2 % 5.8 % Eosinophils (%) (Auto) 0.0 % 0.1 % Basophils (%) (Auto) 0.3 % 0.6 % Neutrophils # (Auto) 6.9 TH/MM3 7.9 TH/MM3 Lymphocytes # (Auto) 0.6 TH/MM3 0.6 TH/MM3 Monocytes # (Auto) 0.7 TH/MM3 0.5 TH/MM3 Eosinophils # (Auto) 0.0 TH/MM3 0.0 TH/MM3 Basophils # (Auto) 0.0 TH/MM3 0.1 TH/MM3 CBC Comment AUTO DIFF AUTO DIFF Differential Total Cells 100 100 Counted Neutrophils % (Manual) 70 % 41 % Band Neutrophils % 15 % 43 % Lymphocytes % 7 % 8 % Monocytes % 8 % 3 % Neutrophils # (Manual) 7.0 TH/MM3 8.1 TH/MM3 Differential Comment FINAL DIFF FINAL DIFF MANUAL MANUAL Platelet Estimate NORMAL NORMAL Platelet Morphology Comment NORMAL NORMAL Red Cell Morphology Comment NORMAL Metamyelocytes 4 % Promyelocytes 1 % Laboratory Tests Test 09/28/16 09/28/16 09/29/16 09/30/16 16:16 20:57 04:55 02:45 Sodium Level 140 MEQ/L 140 MEQ/L 143 MEQ/L 137 MEQ/L Potassium Level 4.6 MEQ/L 4.6 MEQ/L 4.3 MEQ/L 3.9 MEQ/L Chloride Level 110 MEQ/L 110 MEQ/L 110 MEQ/L 107 MEQ/L Carbon Dioxide Level 17.1 MEQ/L 17.5 MEQ/L 19.3 MEQ/L 19.6 MEQ/L Anion Gap 13 MEQ/L 13 MEQ/L 14 MEQ/L 10 MEQ/L Blood Urea Nitrogen 18 MG/DL 21 MG/DL 22 MG/DL 30 MG/DL Creatinine 1.00 MG/DL 1.30 MG/DL 1.50 MG/DL 1.39 MG/DL Estimat Glomerular Filtration 78 ML/MIN 58 ML/MIN 49 ML/MIN 53 ML/MIN Rate Random Glucose 216 MG/DL 266 MG/DL 265 MG/DL 212 MG/DL Calcium Level 7.5 MG/DL 7.7 MG/DL 7.8 MG/DL 7.5 MG/DL C-Reactive Protein 23.00 MG/DL Lactic Acid Level 1.3 mmol/L Phosphorus Level 3.2 MG/DL Magnesium Level 1.9 MG/DL Microbiology Date/Time Procedure Status Source Growth 09/28/16 16:10 Aerobic Blood Culture - Preliminary Resulted Blood Peripheral NO GROWTH IN 2 DAYS 09/28/16 16:10 Anaerobic Blood Culture - Preliminary Resulted Blood Peripheral NO GROWTH IN 2 DAYS 09/28/16 16:16 Aerobic Blood Culture - Preliminary Resulted Blood Peripheral NO GROWTH IN 2 DAYS 09/28/16 16:16 Anaerobic Blood Culture - Preliminary Resulted Blood Peripheral NO GROWTH IN 2 DAYS 09/29/16 04:55 Aerobic Blood Culture - Preliminary Resulted Blood Peripheral NO GROWTH IN 1 DAY 09/29/16 04:55 Anaerobic Blood Culture - Preliminary Resulted Blood Peripheral NO GROWTH IN 1 DAY 09/30/16 02:45 Aerobic Blood Culture Received Blood Peripheral Pending 09/30/16 02:45 Anaerobic Blood Culture Received Blood Peripheral Pending Imaging Last 72 hours Impressions Chest X-Ray 09/29/16 0500 Signed Impressions: Service Date/Time: Thursday, September 29, 2016 05:18 - CONCLUSION: No significant interval change Norris Lloyd MD Chest X-Ray 09/28/16 0000 Signed Impressions: Service Date/Time: September 11:02 - CONCLUSION: 1. Mild perihilar infiltrates consistent with congestion versus pneumonitis. Clinical correlation is recommended. Darío Baum MD Chest X-Ray 09/26/16 2227 Signed Impressions: Service Date/Time: Monday, September 26, 2016 22:40 - CONCLUSION: No acute disease. Jaden Salguero MD Physical Exam GENERAL: sedated on the vent SKIN: Cool and clammy. No embolic lesions. HEAD: Atraumatic. Normocephalic. No temporal or scalp tenderness. EYES: [place] conjunctiva, no petechia or hemorrhage. No scleral icterus. No injection or drainage. ENT: Nose without bleeding, or purulent drainage. Et in mouth NECK: Supple, nontender, no meningeal signs. CARDIOVASCULAR: Irregular rate and rhythm without murmurs, gallops, or rubs. Tachycardic RESPIRATORY: Clear to auscultation. Breath sounds equal bilaterally. No wheezes , rales, or rhonchi. Decreased BS at bases GASTROINTESTINAL: Abdomen soft, obese, nondistended. Bowel sounds present and normoactive. No palpable masses. No guarding : Has packing on his R scrotum, and has open wound down to perineum and buttock. MUSCULOSKELETAL: Extremities without clubbing, cyanosis, or edema. Cool feet. 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
[2016-09-30 14:19] LABS: BLOOD GAS BASE EXCESS -9.8 mmol/L (-2-2); BLOOD GAS HCO3 15 mmol/L (22-26); BLOOD GAS METHEMOGLOBIN 0.9 % (0-2); BLOOD GAS O2 HGB SATURATION 95 % (90-100); BLOOD GAS OXYGEN CONTENT 14.8 Vol % (12.0-20.0); BLOOD GAS PCO2 26 mmHg (38-42); BLOOD GAS PO2 93 mmHg (61-120); BLOOD GAS TOTAL HGB 10.9 G/DL (12.0-16.0); CRITICAL VALUE YES; OXYGEN DEVICE VENTILATOR; TEMP CORR TO 98.6
[2016-09-30 14:20] LABS: DRAW SITE ART LINE; FIO2 40 %; STAT NO
[2016-09-30] MEDS ORDERED: PHARMACY ORDERED LAB XX ONE (14:45)
[2016-09-30] MEDS: FLUCONAZOLE 400 MG PREMIX BAG 200 ML IV SCH (15:19)
[2016-09-30] MEDS ORDERED: SODIUM BICARBONATE 8.4% INJ 50 MEQ/50 ML SYR IV PUSH ONE (16:00)
[2016-09-30 16:14] LABS: VANCOMYCIN TROUGH 25.1 MCG/ML (5.0-10.0)
[2016-09-30] MEDS: SODIUM BICARBONATE 8.4% INJ 100 MEQ in SODIUM CHLOR 0.45% 1000 ML INJ 1,000 ML IV SCH ×2 (16:35→23:30)
[2016-09-30 16:46] LABS: POTASSIUM 3.9 MEQ/L (3.5-5.1)
[2016-09-30 16:47] LABS: BICARBONATE 17.9 MEQ/L (21.0-32.0)
[2016-09-30 17:24] LABS: CALCIUM-PROTEIN CORRECTED 8.1 MG/DL (8.5-10.1)
[2016-09-30] MEDS: ATORVASTATIN 40 MG TAB PO SCH (19:17)
[2016-09-30] MEDS: HEPARIN SODIUM - SQ 10,000 UNITS/ML VIAL SQ SCH (19:25)
[2016-09-30 20:54] LABS: BLOOD GAS BASE EXCESS -7.6 mmol/L (-2-2); BLOOD GAS CARBOXYHEMOGLOBIN 1.1 % (0-4); BLOOD GAS HCO3 17 mmol/L (22-26); BLOOD GAS METHEMOGLOBIN 0.8 % (0-2); BLOOD GAS O2 HGB SATURATION 96 % (90-100); BLOOD GAS OXYGEN CONTENT 12.2 Vol % (12.0-20.0); BLOOD GAS PCO2 29 mmHg (38-42); BLOOD GAS PO2 101 mmHg (61-120); BLOOD GAS TOTAL HGB 8.9 G/DL (12.0-16.0); CRITICAL VALUE NO; DRAW SITE ART LINE; FIO2 40 %; OXYGEN DEVICE VENTILATOR; TEMP CORR TO 98.6; VENT SETTINGS PRVC/AC
[2016-09-30 20:55] LABS: STAT NO
[2016-10-01] VITALS (16 sets, daily range): BP systolic 100–146; BP diastolic 55–75; PULSE 68–134; RESP 16–26; TEMP 97.7–99; O2SAT 95–100
[2016-10-01] MEDS: RESP: ALBUTEROL 2.5 MG/IPRATROPIUM 0.5 MG NEB (PRN) INH (01:20)
[2016-10-01 01:37] LABS: BLOOD GAS BASE EXCESS -7.7 mmol/L (-2-2); BLOOD GAS CARBOXYHEMOGLOBIN 0.8 % (0-4); BLOOD GAS HCO3 17 mmol/L (22-26); BLOOD GAS METHEMOGLOBIN 0.8 % (0-2); BLOOD GAS O2 HGB SATURATION 98 % (90-100); BLOOD GAS OXYGEN CONTENT 14.5 Vol % (12.0-20.0); BLOOD GAS PCO2 31 mmHg (38-42); BLOOD GAS PO2 360 mmHg (61-120); BLOOD GAS TOTAL HGB 9.8 G/DL (12.0-16.0); CRITICAL VALUE NO; FIO2 40 %; OXYGEN DEVICE VENTILATOR; TEMP CORR TO 98.6; VENT SETTINGS AC/RR16/VT500/PEEP8
[2016-10-01 01:38] LABS: DRAW SITE ART LINE; NUMBER OF ARTERIAL PUNCTURES 0; STAT NO; ULNAR PULSE PRESENT
[2016-10-01] MEDS: PROPOFOL 1000 MG/100 ML IV SCH ×3 (01:50→06:39)
[2016-10-01] MEDS: ACETAMINOPHEN 650 MG/20.3 ML UDC PO SCH ×3 (01:50→19:34)
[2016-10-01] MEDS: NOREPINEPHRINE 4 MG/D5W 250 ML IV SCH (01:51)
[2016-10-01] MEDS: PIPERACIL-TAZO 3.375 GM PREMIX 50 ML IV SCH ×3 (01:51→19:35)
[2016-10-01] MEDS: DEXTROSE 10% INJ 1,000 ML IV SCH (02:19)
[2016-10-01] MEDS: VANCOMYCIN INJ 2,000 MG in SODIUM CHLORID 0.9% 500 ML INJ 500 ML IV SCH (02:58)
[2016-10-01] MEDS: CHLORHEXIDINE GLUCONATE 2 % 1 PACK (2 CLOTHS)(taper/protocol) TOP SCH (03:44)
[2016-10-01] MEDS: RESP: ALBUTEROL 2.5 MG/IPRATROPIUM 0.5 MG NEB (SCH) INH ×4 (03:51→22:28)
[2016-10-01 04:29] LABS: AUTOMATED NEUTROPHIL # 8.2 TH/MM3 (1.8-7.7); BASOPHIL # 0.2 TH/MM3 (0-0.2); BASOPHIL % 1.4 % (0.0-2.0); EOSINOPHIL # 0.1 TH/MM3 (0-0.4); EOSINOPHIL % 0.9 % (0.0-4.0); LYMPH % 10.8 % (9.0-44.0); LYMPHOCYTE # 1.1 TH/MM3 (1.0-4.8); MEAN CELL VOLUME 84.4 FL (80.0-100.0); MEAN CORPUSCULAR HEMOGLOBIN 28.5 PG (27.0-34.0); MEAN CORPUSCULAR HGB CONC 33.8 % (32.0-36.0); MONO % 9.4 % (0.0-8.0); NEUT % 77.5 % (16.0-70.0); PLATELET COUNT 135 TH/MM3 (150-450); RED BLOOD COUNT 3.08 MIL/MM3 (4.50-5.90); RED CELL DISTRIBUTION WIDTH 14.7 % (11.6-17.2); WHITE BLOOD COUNT 10.5 TH/MM3 (4.0-11.0)
[2016-10-01 04:39] LABS: HEMO FLAGS AUTO DIFF
[2016-10-01 04:57] LABS: CALCIUM-PROTEIN CORRECTED 8.2 MG/DL (8.5-10.1); MAGNESIUM 2.2 MG/DL (1.5-2.5); POTASSIUM 3.7 MEQ/L (3.5-5.1); TOTAL BILIRUBIN ADULT 0.4 MG/DL (0.2-1.0)
--- NOTE | 2016-10-01 05:22 | RADRPT ---
EXAM DATE/TIME: 10/01/2016 03:40 [facility] COMPARISON: CHEST SINGLE AP, September 30, 2016, 1:58. INDICATIONS : Shortness of breath, possible pulmonary disease. MEDICAL HISTORY : Hypertension. Diabetes mellitus type II. SURGICAL HISTORY : None. ENCOUNTER: Subsequent ACUITY: 3 days PAIN SCORE: Non-responsive. LOCATION: Bilateral chest FINDINGS: Endotracheal tube tip is 4-5 cm above the rosalva. Nasogastric tube since the stomach. Right central l ine is present with tip overlying SVC. Hazy bilateral predominantly perihilar parenchymal opacities a re grossly stable. Cardiac contours are unchanged. CONCLUSION: Stable chest appearance Norris Lloyd MD on October 01, 2016 at 5:19 Board Certified Radiologist. This report was verified electronically.
[2016-10-01 06:04] LABS: BLOOD GAS BASE EXCESS -7.8 mmol/L (-2-2); BLOOD GAS CARBOXYHEMOGLOBIN 1.1 % (0-4); BLOOD GAS HCO3 17 mmol/L (22-26); BLOOD GAS METHEMOGLOBIN 0.7 % (0-2); BLOOD GAS O2 HGB SATURATION 97 % (90-100); BLOOD GAS OXYGEN CONTENT 12.7 Vol % (12.0-20.0); BLOOD GAS PCO2 30 mmHg (38-42); BLOOD GAS PO2 118 mmHg (61-120); BLOOD GAS TOTAL HGB 9.2 G/DL (12.0-16.0); CRITICAL VALUE NO; OXYGEN DEVICE VENTILATOR; TEMP CORR TO 98.6
[2016-10-01 06:05] LABS: DRAW SITE ART LINE; FIO2 35 %; NUMBER OF ARTERIAL PUNCTURES 0; ULNAR PULSE PRESENT; VENT SETTINGS PRVC/AC/RR16/VT500/
[2016-10-01 06:06] LABS: STAT NO
[2016-10-01] MEDS: SODIUM BICARBONATE 8.4% INJ 100 MEQ in SODIUM CHLOR 0.45% 1000 ML INJ 1,000 ML IV SCH ×3 (06:08→21:48)
[2016-10-01 06:15] LABS: BANDS 20 % (0-6); CORRECTED NUCLEATED RBC 1 /100 WBC (0-0); MYELOCYTES 1 % (0-0); NEUTROPHIL # MANUAL DIFF 9.1 TH/MM3 (1.8-7.7); POLYS (SEG NEUTROPHILS) 65 % (16-70); PROMYELOCYTES 1 % (0-0); WBC DIFF SAMPLE 100
[2016-10-01 06:16] LABS: PLATELET ESTIMATE SMEAR LOW (NORMAL); PLATELET MORPHOLOGY NORMAL (NORMAL); SCAN/DIFF FINAL DIFF MANUAL
--- NOTE | 2016-10-01 07:22 | HHI.CCPN ---
Subjective Remarks/Hospital Course 56-year-old male with history of type 2 diabetes which is poorly controlled, hypertension, hyperlipidemia, morbid obesity who presented on 09/26 with weakness and fatigue and was found to be in new subtle new onset atrial fibrillation with DKA. His inpatient courses been complicated by persistent febrile state and difficult to control blood sugars. Today he was noted to have a black eschar in his groin area with a abscess extending into his scrotum. Urology and colorectal surgery was consulted and he went to the OR for debridement and irrigation of the infection. Postoperatively he was sent to PACU intubated, sedated, hypoxic. He remains tachycardic. Critical care medicine was consulted for evaluation and management of his multiorgan system dysfunction as well as his severe sepsis. The history cannot be obtained from the patient given his current clinical condition. Objective Vital Signs Date Time Temp Pulse Resp B/P Pulse Ox O2 Delivery O2 Flow Rate FiO2 10/01/16 04:34 100 35 10/01/16 04:00 97.9 76 16 108/60 111/55 09/30/16 08:04 Ventilator 09/29/16 23:40 3 Intake and Output 09/30/16 09/30/16 10/01/16 08:00 16:00 00:00 Intake Total 3834 ml 1889 ml 1572 ml Output Total 1175 ml 300 ml 300 ml Balance 2659 ml 1589 ml 1272 ml Result Diagram: 10/01/16 0415 10/01/16 0415 Other Results Laboratory Tests Test 09/30/16 09/30/16 10/01/16 10/01/16 14:05 20:44 01:24 05:53 Blood Gas Puncture Site ART LINE ART LINE ART LINE ART LINE Blood Gas Patient Temperature 98.6 98.6 98.6 98.6 Blood Gas HCO3 15 mmol/L 17 mmol/L 17 mmol/L 17 mmol/L (22-26) (22-26) (22-26) (22-26) Blood Gas Base Excess -9.8 mmol/L -7.6 mmol/L -7.7 mmol/L -7.8 mmol/L (-2-2) (-2-2) (-2-2) (-2-2) Blood Gas Oxygen Saturation 95 % (90-100) 96 % (90-100) 98 % (90-100) 97 % (90- 100) Arterial Blood pH 7.36 7.37 7.36 7.36 (7.380-7.420) (7.380-7.420) (7.380-7.420) (7.380-7.420) Arterial Blood Partial 26 mmHg (38-42) 29 mmHg (38-42) 31 mmHg (38-42) 30 mmHg ( 38-42) Pressure CO2 Arterial Blood Partial 93 mmHg 101 mmHg 360 mmHg 118 mmHg Pressure O2 (61-120) (61-120) (61-120) (61-120) Arterial Blood Oxygen Content 14.8 Vol % 12.2 Vol % 14.5 Vol % 12.7 Vol % (12.0-20.0) (12.0-20.0) (12.0-20.0) (12.0-20.0) Arterial Blood 1.0 % (0-4) 1.1 % (0-4) 0.8 % (0-4) 1.1 % (0-4) Carboxyhemoglobin Arterial Blood Methemoglobin 0.9 % (0-2) 0.8 % (0-2) 0.8 % (0-2) 0.7 % (0-2) Blood Gas Hemoglobin 10.9 G/DL 8.9 G/DL 9.8 G/DL 9.2 G/DL (12.0-16.0) (12.0-16.0) (12.0-16.0) (12.0-16.0) Oxygen Delivery Device VENTILATOR VENTILATOR VENTILATOR VENTILATOR Blood Gas Ventilator Setting 550/18/+8/1.42 PRVC/AC AC/RR16/VT500/PEEP8 PRVC/ AC/RR16/VT500/ Blood Gas Inspired Oxygen 40 % 40 % 40 % 35 % Objective Remarks GENERAL: Middle-aged morbidly obese male, lying in bed, intubated, sedated, critically ill HEENT: Normocephalic. Atraumatic. Pupils equal, round, conjugate, reactive. Mucous membranes are moist. NECK: Obese neck. JVD unable to be assessed secondary to body habitus. Trachea is midline. Orotracheally intubated. There is a right IJ central venous catheter, dressing dry and intact. CHEST: Equal chest rise. Distant breath sounds. Coarse rales in bilateral lung guerrero. PRVC 550/15/10/100%. SPO2 96% CARDIOVASCULAR: Tachycardic rate, irregularly irregular rhythm. S1 and S2 without appreciable murmurs. ABDOMEN: Morbidly obese. Soft. Nontender. Nondistended. No guarding. MUSCULOSKELETAL: 2+ peripheral edema. Distal pulses 2+. There is a right radial art line in place, dressing intact. : There is a groin wound which is packed with gauze and a dressing applied. There is a Doll catheter in place with light yellow urine. NEUROLOGICAL: RASS -5. Intubated, sedated. A/P Assessment and Plan Assessment: This is a 56-year-old male with history of type 2 diabetes and morbid obesity who initially presented with DKA and new onset atrial fibrillation with rapid ventricular response, now with groin abscess, severe sepsis, acute kidney injury, atrial fibrillation with rapid ventricular response , acute hypoxic respiratory failure. He is very critically ill. Given his medical comorbidities along with his morbid obesity, he has a high risk of dying during this hospital stay. He remains very critically ill this time. Plan by systems: Neurologic: Acute postoperative pain Diabetic neuropathy Agitation associated with intubation Continue Tylenol 650 mg every 6 hours for postoperative pain As needed Oxycodone 5 mg every 4 when necessary for post operative pain D/C Dilaudid due to documented allergy Continue home gabapentin for peripheral neuropathy Propofol and fentanyl for goal RASS -2 Respiratory: Acute hypoxic respiratory failure - return to OR for further debridement - hold SBT today due to above - ABGdaily untill extubated - PEEP 10 for now. - Wean FiO2 for SPO2 greater than 90% - Low tidal volume ventilation targeting 6 cc/kg ideal body weight - Vent bundle - Head of bed at 30 - Nebs every 6 and every 2 when necessary Cardiovascular: Severe sepsis Atrial fibrillation with rapid ventricular response Hold diltiazem in setting of severe sepsis Rapid ventricular response is likely due to sepsis and is likely augmenting his cardiac output. Hold Xarelto in the setting of upcoming debridement lactic acid trend Renal: Acute kidney injury Continue Doll for accurate I's and O's -- Strict I/Os Kidney injury secondary to severe sepsis Continue volume resuscitation as below - Monitor SVV FEN/GI: Acute intravascular hypovolemia Hypokalemia Acute protein calorie malnutritionmild Morbid obesity D10 at 30 cc an hour for glycemic source Maintenance fluids NS 1/2 with 2 amps NaBicarb ICU electrolyte protocol Postop BMP, magnesium, phosphorus. Senna, Colace, MiraLAX for bowel regimen Per colorectal surgery,he will need to go back to the operating room for repeat debridement today Hold TF for OR today - restart post-op if not extubated Glucerna 1.5 tube feeds at 20 cc an hour, goal rate 60 Nutrition consult Heme/ID: Anemia of critical illness Groin abscess Severe sepsis Systemic Anticoagulation Does not meet transfusion triggers at this time Daily CBC Postop CBC Holding systemic anticoagulation in the setting of recent operation. Continue vancomycin with pharmacy dosing Continue Zosyn 3.375 g IV every 8 hours Endocrine: Diabetic ketoacidosis Diabetes Testosterone deficiency Continue D10 at 30 cc an hour for glycemic source. The patient has a history of going into DKA even inpatient given his difficult to control sugars. Continue insulin infusion, highest scale. Prophylaxis: GI Prophylaxis Protonix 40 mg IV every 24 hours: Anticipated mechanical ventilation of greater than 48 hours duration DVT Prophylaxis -- SCDs Subcutaneous heparin 5000 every 8 Lines: 09/30 right IJ triple-lumen catheter 09/30 right radial arterial line Doll catheter Dispo: Continue the ICU. He is remains very critically ill this time, I anticipate that he may get more critically ill after this debridement and will likely have clinical deterioration before he ultimately improves. He is a very high risk for during his hospital stay. This patient remains critically ill with one or more organ systems which are or may become a threat to life. The total critical care time was 35 minutes. Time to perform other separately billable procedures was not included in the critical care time. Emmanuel Hammond MD Oct 01, 2016 07:22 Emmanuel Hammond MD Oct 01, 2016 07:22
[2016-10-01] MEDS: COLLAGENASE OINT 30 GM TUBE TOP SCH (09:00)
[2016-10-01] MEDS ORDERED: GLUCAGON 1 MG/ML VIAL OTHER PRN (11:15)
[2016-10-01] MEDS ORDERED: LORazepam 2 MG/ML VIAL IV PUSH PRN (11:15)
[2016-10-01] MEDS ORDERED: DEXTROSE 50% IN WATER 50 ML VIAL(D50) IV PUSH PRN (11:15)
[2016-10-01] MEDS ORDERED: MEPERIDINE HCL 25 MG/ML VIAL IV PUSH ONE (11:15)
--- NOTE | 2016-10-01 11:34 | MP ---
cc: DALI HARVEY M.D. DATE OF SURGERY: 10/01/2016 PREOPERATIVE DIAGNOSIS: Fourier's gangrene PROCEDURE Exam under anesthesia with irrigation debridement of Fourier's Gangrene. POSTOPERATIVE DIAGNOSIS: Exam under anesthesia with irrigation debridement of Fourier's Gangrene. SURGEON Dr. Harvey PROCEDURE The patient was placed in the supine position. After adequate general anesthesia his legs were placed in [place] stirrups and supported appropriately. The perineum and a scrotal area was then prepped with Betadine solution and draped in usual sterile fashion. The previous dressing was removed and the base of the wounds were examined, additional necrotic material was removed using electrocautery. There appeared to be very deep necrosis, but additional debridement was necessary in just about all areas getting to what appeared to be more healthy bleeding tissue. The scrotal area also require debridement trying to leave as much of the skin remaining for possible future reconstruction. After pulse lavage and additional debridement of the inflammatory process appeared to be removed sufficiently remaining tissue, we did a have a healthier appearance. Area was irrigated again and hemostasis achieved, a large fluff dressing placed in all the wounds and fluffy abdominal dressing placed externally. The patient tolerated the procedure quite well and was brought to recovery room in stable condition. Sponge and needle counts were correct at the end of the procedure. MD MAC Escalera/magda /11:09 AM /11:21 AM
--- NOTE | 2016-10-01 12:07 | MP ---
cc: DALI HARVEY M.D. DATE OF SURGERY: 09/29/2016 PREOPERATIVE DIAGNOSIS: Twin's gangrene PROCEDURE: Examination under anesthesia with irrigation, debridement of extensive Twin's gangrene of the perineum and scrotum. Sigmoidoscopy, disimpaction. POSTOPERATIVE DIAGNOSIS: Twin's gangrene SURGEON: Dr. Harvey. DESCRIPTION OF PROCEDURE: The patient was placed in the supine position. After adequate general anesthesia his legs were placed in the [place] stirrups and supported appropriately. The perineum and scrotum were then prepped with Betadine solution and draped in the usual sterile fashion. Examination revealed erythema and necrosis of the skin along the right side of the buttock, extending up to the perineal body in the right side of the scrotum. Digital exam revealed the rectum to be impacted with very hard stool and this was all manually removed. Examination of the rectum appeared inflammatory changes to the mucosa but no evidence of fistula. Large internal-external hemorrhoids were also present. The radial incision was made over the area of necrosis and a large cavity full of necrotic fat was entered. This required extensive debridement of the necrotic skin and underlying subcu tissue along the ischiorectal space, extending posteriorly into the buttock region. The process also extended up along the perineal body and into the right scrotal sac which had testicle previously removed. Necrotic fat, subcu tissue and fascia were then excised extending up almost to the area of the inguinal ligament. After further extensive debridement the areas remaining did appear much more viable and there was a moderate amount of punctate bleeding. The pulse lavage was then used to irrigate the cavities quite extensively. Hemostasis achieved with electrocautery. After adequate irrigation it appeared the majority of the necrotic process had been removed. Additional necrotic skin was taken. After adequate debridement the area was packed with multiple large Kerlix dressings and a large fluff dressing externally. The patient tolerated the procedure quite well and was returned to the Intensive Care Unit in stable condition. MD MAC Escalera/IZABELLA /11:06 AM /11:32 AM
--- NOTE | 2016-10-01 13:55 | HHI.IDPN ---
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 Hypertension. Hyperlipidemia. Hypogonadism that he is on testosterone injections, supposed to be weekly but had not had one in a little while. Morbid obesity. Vitamin D deficiency. DVT of the right lower extremity a few years ago. Previous cellulitis of the lower extremity in 2010 and was admitted to the hospital. Past Surgical History Orchiectomy for testicular torsion [place] tooth extraction Allergies: Coded Allergies: Dilaudid (Verified Allergy, Intermediate, ITCHING, DIAPHORESIS, 09/27/16) Objective . Vital Signs Date Time Temp Pulse Resp B/P Pulse Ox O2 Delivery O2 Flow Rate FiO2 10/01/16 12:00 97.7 114 122/60 10/01/16 11:54 Nasal Cannula 35 10/01/16 10:44 97 Nasal Cannula 3 10/01/16 10:44 97 Nasal Cannula 3.00 10/01/16 10:17 35 10/01/16 10:00 105 10/01/16 10:00 97.7 89 16 100/75 100 125/65 10/01/16 09:53 100 35 10/01/16 08:08 100 100 10/01/16 08:00 35 10/01/16 08:00 97 10/01/16 07:27 99 35 10/01/16 04:34 100 35 10/01/16 04:00 97.9 76 16 108/60 100 111/55 10/01/16 04:00 35 10/01/16 01:10 100 40 10/01/16 00:00 98.2 68 17 101/59 100 113/57 10/01/16 00:00 40 09/30/16 22:21 100 40 09/30/16 21:59 100 40 09/30/16 20:07 99 40 09/30/16 20:00 40 09/30/16 20:00 98.1 66 21 101/52 100 111/55 09/30/16 18:00 74 09/30/16 16:01 100 40 09/30/16 16:00 40 09/30/16 16:00 97.8 69 18 116/56 99 09/30/16 16:00 59 09/30/16 14:00 73 09/30/16 09/30/16 10/01/16 15:00 23:00 07:00 Intake Total 1889 ml 1572 ml 2652 ml Output Total 300 ml 300 ml 350 ml Balance 1589 ml 1272 ml 2302 ml Intake Oral 0 ml IV Total 1826 ml 1336 ml 2652 ml Tube Feeding 63 ml 136 ml Other 100 ml Output Urine Total 300 ml 300 ml 350 ml # Bowel Movements 0 0 . Laboratory Tests Test 09/30/16 10/01/16 02:45 04:15 White Blood Count 9.1 TH/MM3 10.5 TH/MM3 Red Blood Count 3.48 MIL/MM3 3.08 MIL/MM3 Hemoglobin 9.9 GM/DL 8.8 GM/DL Hematocrit 29.3 % 26.0 % Mean Corpuscular Volume 84.3 FL 84.4 FL Mean Corpuscular Hemoglobin 28.4 PG 28.5 PG Mean Corpuscular Hemoglobin 33.8 % 33.8 % Concent Red Cell Distribution Width 14.1 % 14.7 % Platelet Count 131 TH/MM3 135 TH/MM3 Mean Platelet Volume 9.5 FL 9.6 FL Neutrophils (%) (Auto) 86.5 % 77.5 % Lymphocytes (%) (Auto) 7.0 % 10.8 % Monocytes (%) (Auto) 5.8 % 9.4 % Eosinophils (%) (Auto) 0.1 % 0.9 % Basophils (%) (Auto) 0.6 % 1.4 % Neutrophils # (Auto) 7.9 TH/MM3 8.2 TH/MM3 Lymphocytes # (Auto) 0.6 TH/MM3 1.1 TH/MM3 Monocytes # (Auto) 0.5 TH/MM3 1.0 TH/MM3 Eosinophils # (Auto) 0.0 TH/MM3 0.1 TH/MM3 Basophils # (Auto) 0.1 TH/MM3 0.2 TH/MM3 CBC Comment AUTO DIFF AUTO DIFF Differential Total Cells 100 100 Counted Neutrophils % (Manual) 41 % 65 % Band Neutrophils % 43 % 20 % Lymphocytes % 8 % 5 % Monocytes % 3 % 8 % Neutrophils # (Manual) 8.1 TH/MM3 9.1 TH/MM3 Metamyelocytes 4 % Promyelocytes 1 % 1 % Differential Comment FINAL DIFF FINAL DIFF MANUAL MANUAL Platelet Estimate NORMAL LOW Platelet Morphology Comment NORMAL NORMAL Myelocytes 1 % Nucleated Red Blood Cells 1 /100 WBC Red Cell Morphology Comment NORMAL Laboratory Tests Test 09/30/16 09/30/16 10/01/16 02:45 15:00 04:15 Sodium Level 137 MEQ/L 136 MEQ/L 138 MEQ/L Potassium Level 3.9 MEQ/L 3.9 MEQ/L 3.7 MEQ/L Chloride Level 107 MEQ/L 108 MEQ/L 107 MEQ/L Carbon Dioxide Level 19.6 MEQ/L 17.9 MEQ/L 18.0 MEQ/L Anion Gap 10 MEQ/L 10 MEQ/L 13 MEQ/L Blood Urea Nitrogen 30 MG/DL 29 MG/DL 30 MG/DL Creatinine 1.39 MG/DL 1.60 MG/DL 1.87 MG/DL Estimat Glomerular Filtration 53 ML/MIN 45 ML/MIN 38 ML/MIN Rate Random Glucose 212 MG/DL 171 MG/DL 157 MG/DL Lactic Acid Level 1.3 mmol/L Calcium Level 7.5 MG/DL 7.1 MG/DL 7.3 MG/DL Phosphorus Level 3.2 MG/DL 4.1 MG/DL Magnesium Level 1.9 MG/DL 2.2 MG/DL Protein Corrected Calcium 8.1 MG/DL 8.2 MG/DL Total Protein 5.2 GM/DL 5.5 GM/DL Total Bilirubin 0.4 MG/DL Aspartate Amino Transf 21 U/L (AST/SGOT) Alanine Aminotransferase 22 U/L (ALT/SGPT) Alkaline Phosphatase 133 U/L Albumin 1.5 GM/DL Microbiology Date/Time Procedure Status Source Growth 09/28/16 16:10 Aerobic Blood Culture - Preliminary Resulted Blood Peripheral NO GROWTH IN 3 DAYS 09/28/16 16:10 Anaerobic Blood Culture - Preliminary Resulted Blood Peripheral NO GROWTH IN 3 DAYS 09/28/16 16:16 Aerobic Blood Culture - Preliminary Resulted Blood Peripheral NO GROWTH IN 3 DAYS 09/28/16 16:16 Anaerobic Blood Culture - Preliminary Resulted Blood Peripheral NO GROWTH IN 3 DAYS 09/29/16 04:55 Aerobic Blood Culture - Preliminary Resulted Blood Peripheral NO GROWTH IN 2 DAYS 09/29/16 04:55 Anaerobic Blood Culture - Preliminary Resulted Blood Peripheral NO GROWTH IN 2 DAYS 09/30/16 02:45 Aerobic Blood Culture - Preliminary Resulted Blood Peripheral NO GROWTH IN 1 DAY 09/30/16 02:45 Anaerobic Blood Culture - Preliminary Resulted Blood Peripheral NO GROWTH IN 1 DAY Imaging Last 72 hours Impressions Chest X-Ray 09/29/16 0500 Signed Impressions: Service Date/Time: Thursday, September 29, 2016 05:18 - CONCLUSION: No significant interval change Norris Lloyd MD Chest X-Ray 09/28/16 0000 Signed Impressions: Service Date/Time: September 11:02 - CONCLUSION: 1. Mild perihilar infiltrates consistent with congestion versus pneumonitis. Clinical correlation is recommended. Darío Baum MD Chest X-Ray 09/26/16 2227 Signed Impressions: Service Date/Time: Monday, September 26, 2016 22:40 - CONCLUSION: No acute disease. Jaden Salguero MD Physical Exam GENERAL: awake and alert, not in distress SKIN: Cool and clammy. No embolic lesions. HEENT: [place] conjunctiva, no petechia or hemorrhage. No scleral icterus. Moist mucosa NECK: Supple, nontender, no meningeal signs. CARDIOVASCULAR: Irregular rate and rhythm without murmurs, gallops, or rubs. Tachycardic RESPIRATORY: Clear to auscultation. Breath sounds equal bilaterally. No wheezes , rales, or rhonchi. Decreased BS at bases GASTROINTESTINAL: Abdomen soft, obese, nondistended. Bowel sounds present and normoactive. No palpable masses. No guarding : Has packing on his R scrotum, and has open wound down to perineum and buttock. MUSCULOSKELETAL: Extremities without clubbing, cyanosis, or edema. Cool feet. 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
[2016-10-01] MEDS: PANTOPRAZOLE SODIUM 40 MG VIAL IV SCH (14:00)
[2016-10-01] MEDS: FLUCONAZOLE 400 MG PREMIX BAG 200 ML IV SCH (14:01)
[2016-10-01] MEDS: ASPIRIN EC 81 MG TABEC PO SCH (14:01)
[2016-10-01] MEDS: INSULIN NovoLIN REGULAR SUPPLEMENTAL SCALE SQ SCH ×2 (15:51→20:14)
[2016-10-01] MEDS: DILTIAZEM HCL 30 MG TAB PO SCH ×2 (18:07→20:00)
[2016-10-01] MEDS: SODIUM CHLORIDE 0.9% FLUSH 5 ML FLUSH IVF SCH (19:35)
[2016-10-01] MEDS: HEPARIN SODIUM - SQ 10,000 UNITS/ML VIAL SQ SCH (19:35)
[2016-10-01] MEDS: ATORVASTATIN 40 MG TAB PO SCH (20:00)
[2016-10-01] MEDS ORDERED: Infusaport/Implanted VAD PRN NS Lock Flush IVF (20:00)
[2016-10-02] VITALS (12 sets, daily range): BP systolic 111–141; BP diastolic 54–72; PULSE 92–113; RESP 15–22; TEMP 97.9–99.9; O2SAT 92–97
[2016-10-02] MEDS: ACETAMINOPHEN 650 MG/20.3 ML UDC PO SCH ×4 (02:30→20:50)
[2016-10-02] MEDS: PIPERACIL-TAZO 3.375 GM PREMIX 50 ML IV SCH ×2 (02:42→10:22)
[2016-10-02] MEDS: CHLORHEXIDINE GLUCONATE 2 % 1 PACK (2 CLOTHS)(taper/protocol) TOP SCH (03:02)
[2016-10-02] MEDS: RESP: ALBUTEROL 2.5 MG/IPRATROPIUM 0.5 MG NEB (SCH) INH ×4 (03:52→20:24)
[2016-10-02] MEDS: SODIUM BICARBONATE 8.4% INJ 100 MEQ in SODIUM CHLOR 0.45% 1000 ML INJ 1,000 ML IV SCH (04:00)
[2016-10-02 04:53] LABS: HEMATOCRIT 24.8 % (39.0-51.0); MEAN CELL VOLUME 84.1 FL (80.0-100.0); MEAN CORPUSCULAR HEMOGLOBIN 28.1 PG (27.0-34.0); MEAN CORPUSCULAR HGB CONC 33.4 % (32.0-36.0); PLATELET COUNT 138 TH/MM3 (150-450); RED BLOOD COUNT 2.95 MIL/MM3 (4.50-5.90); RED CELL DISTRIBUTION WIDTH 14.2 % (11.6-17.2); WHITE BLOOD COUNT 8.4 TH/MM3 (4.0-11.0)
[2016-10-02 04:55] LABS: HEMO FLAGS AUTO DIFF
[2016-10-02] MEDS: INSULIN NovoLIN REGULAR SUPPLEMENTAL SCALE SQ SCH ×3 (06:17→11:33)
[2016-10-02 06:31] LABS: BANDS 20 % (0-6); EOSINOPHILS 1 % (0-4); METAMYELOCYTES 2 % (0-1); MYELOCYTES 1 % (0-0); NEUTROPHIL # MANUAL DIFF 6.8 TH/MM3 (1.8-7.7); POLYS (SEG NEUTROPHILS) 57 % (16-70); PROMYELOCYTES 1 % (0-0); SCAN/DIFF FINAL DIFF MANUAL; WBC DIFF SAMPLE 100
[2016-10-02 06:33] LABS: PLATELET ESTIMATE SMEAR LOW (NORMAL)
[2016-10-02 06:34] LABS: PLATELET MORPHOLOGY NORMAL (NORMAL); TOXIC GRANULATION 1+ (NORMAL)
[2016-10-02 06:35] LABS: ACANTHOCYTES OCC (NORMAL); HELMET CELLS OCC (NORMAL)
[2016-10-02 06:37] LABS: CALCIUM-PROTEIN CORRECTED 8.1 MG/DL (8.5-10.1)
[2016-10-02 06:40] LABS: POTASSIUM 4.1 MEQ/L (3.5-5.1); TOTAL BILIRUBIN ADULT 0.7 MG/DL (0.2-1.0)
--- NOTE | 2016-10-02 06:43 | RADRPT ---
EXAM DATE/TIME: 10/02/2016 05:35 [facility] COMPARISON: CHEST SINGLE AP, October 01, 2016, 3:40. INDICATIONS : Please evaluate after respiratory failure. MEDICAL HISTORY : Hypertension. Diabetes mellitus type II. SURGICAL HISTORY : None. ENCOUNTER: Subsequent ACUITY: 4 - 6 days PAIN SCORE: 6/10 LOCATION: Bilateral chest FINDINGS: A single AP semierect view of the chest was obtained and demonstrates interval extubation and removal of the right internal jugular central venous line. A nasogastric tube has been removed as well. The study remains Midinspiratory crowding of the lung vasculature. Mild hazy opacity remains in the perih ilar regions and lung bases with no focal consolidation or effusion. The heart size appears at the up per limits of normal. CONCLUSION: 1. Interval extubation with removal of central venous line and nasogastric tube. 2. The study remains Midinspiratory with hazy opacity remaining. Angel Child MD on October 02, 2016 at 6:41 Board Certified Radiologist. This report was verified electronically.
[2016-10-02] MEDS ORDERED: ALBUMIN HUMAN 25% 25 GM/100 ML BAGP IV ONE (09:15)
[2016-10-02] MEDS ORDERED: FUROSEMIDE 40 MG/4 ML VIAL IV PUSH ONE (09:15)
[2016-10-02] MEDS ORDERED: ALBUMIN HUMAN 25% 25 GM/100 ML BAGP IV SCH (09:15)
[2016-10-02] MEDS: oxyCODONE HCL ORAL CONC 20 MG/ML SYRINGE PO PRN ×2 (09:40→14:41)
[2016-10-02] MEDS: HEPARIN SODIUM - SQ 10,000 UNITS/ML VIAL SQ SCH ×2 (10:12→20:50)
[2016-10-02] MEDS: PANTOPRAZOLE SODIUM 40 MG VIAL IV SCH (10:12)
[2016-10-02] MEDS: ASPIRIN EC 81 MG TABEC PO SCH (10:13)
[2016-10-02] MEDS: SODIUM CHLORIDE 0.9% FLUSH 5 ML FLUSH IVF SCH ×2 (10:13→20:51)
[2016-10-02] MEDS: DILTIAZEM HCL 30 MG TAB PO SCH ×4 (10:13→20:49)
[2016-10-02] MEDS: COLLAGENASE OINT 30 GM TUBE TOP SCH (10:23)
--- NOTE | 2016-10-02 11:01 | HHI.IDPN ---
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 Hypertension. Hyperlipidemia. Hypogonadism that he is on testosterone injections, supposed to be weekly but had not had one in a little while. Morbid obesity. Vitamin D deficiency. DVT of the right lower extremity a few years ago. Previous cellulitis of the lower extremity in 2010 and was admitted to the hospital. Past Surgical History Orchiectomy for testicular torsion [place] tooth extraction Allergies: Coded Allergies: Dilaudid (Verified Allergy, Intermediate, ITCHING, DIAPHORESIS, 09/27/16) Objective . Vital Signs Date Time Temp Pulse Resp B/P Pulse Ox O2 Delivery O2 Flow Rate FiO2 10/02/16 08:37 97 Nasal Cannula 2.00 10/02/16 04:00 99.9 113 19 111/54 95 10/02/16 00:00 99.0 113 20 117/55 94 10/01/16 22:26 95 Nasal Cannula 3.00 10/01/16 20:26 19 10/01/16 20:00 99.0 129 22 146/64 96 Arterial Line 10/01/16 18:00 128 10/01/16 16:00 134 10/01/16 16:00 98.8 126 26 126/58 98 10/01/16 14:00 118 10/01/16 12:00 110 10/01/16 12:00 97.7 114 122/60 10/01/16 11:54 Nasal Cannula 35 10/01/16 10/01/16 10/02/16 15:00 23:00 07:00 Intake Total 2160 ml 1512 ml 1791 ml Output Total 500 ml 600 ml 850 ml Balance 1660 ml 912 ml 941 ml Intake Oral 240 ml 450 ml IV Total 2160 ml 1272 ml 1341 ml Output Urine Total 500 ml 600 ml 850 ml # Bowel Movements 0 0 . Laboratory Tests Test 10/01/16 10/02/16 04:15 04:45 White Blood Count 10.5 TH/MM3 8.4 TH/MM3 Red Blood Count 3.08 MIL/MM3 2.95 MIL/MM3 Hemoglobin 8.8 GM/DL 8.3 GM/DL Hematocrit 26.0 % 24.8 % Mean Corpuscular Volume 84.4 FL 84.1 FL Mean Corpuscular Hemoglobin 28.5 PG 28.1 PG Mean Corpuscular Hemoglobin 33.8 % 33.4 % Concent Red Cell Distribution Width 14.7 % 14.2 % Platelet Count 135 TH/MM3 138 TH/MM3 Mean Platelet Volume 9.6 FL 9.1 FL Neutrophils (%) (Auto) 77.5 % % Lymphocytes (%) (Auto) 10.8 % % Monocytes (%) (Auto) 9.4 % % Eosinophils (%) (Auto) 0.9 % % Basophils (%) (Auto) 1.4 % % Neutrophils # (Auto) 8.2 TH/MM3 TH/MM3 Lymphocytes # (Auto) 1.1 TH/MM3 TH/MM3 Monocytes # (Auto) 1.0 TH/MM3 TH/MM3 Eosinophils # (Auto) 0.1 TH/MM3 TH/MM3 Basophils # (Auto) 0.2 TH/MM3 TH/MM3 CBC Comment AUTO DIFF AUTO DIFF Differential Total Cells 100 100 Counted Neutrophils % (Manual) 65 % 57 % Band Neutrophils % 20 % 20 % Lymphocytes % 5 % 8 % Monocytes % 8 % 10 % Neutrophils # (Manual) 9.1 TH/MM3 6.8 TH/MM3 Myelocytes 1 % 1 % Promyelocytes 1 % 1 % Nucleated Red Blood Cells 1 /100 WBC Differential Comment FINAL DIFF FINAL DIFF MANUAL MANUAL Platelet Estimate LOW LOW Platelet Morphology Comment NORMAL NORMAL Red Cell Morphology Comment NORMAL Eosinophils % 1 % Metamyelocytes 2 % Toxic Granulation 1+ Helmet Cells OCC Acanthocytes OCC Laboratory Tests Test 09/30/16 10/01/16 10/02/16 15:00 04:15 04:45 Sodium Level 136 MEQ/L 138 MEQ/L 138 MEQ/L Potassium Level 3.9 MEQ/L 3.7 MEQ/L 4.1 MEQ/L Chloride Level 108 MEQ/L 107 MEQ/L 104 MEQ/L Carbon Dioxide Level 17.9 MEQ/L 18.0 MEQ/L 20.0 MEQ/L Anion Gap 10 MEQ/L 13 MEQ/L 14 MEQ/L Blood Urea Nitrogen 29 MG/DL 30 MG/DL 31 MG/DL Creatinine 1.60 MG/DL 1.87 MG/DL 2.05 MG/DL Estimat Glomerular Filtration 45 ML/MIN 38 ML/MIN 34 ML/MIN Rate Random Glucose 171 MG/DL 157 MG/DL 292 MG/DL Calcium Level 7.1 MG/DL 7.3 MG/DL 7.1 MG/DL Protein Corrected Calcium 8.1 MG/DL 8.2 MG/DL 8.1 MG/DL Total Protein 5.2 GM/DL 5.5 GM/DL 5.2 GM/DL Phosphorus Level 4.1 MG/DL 3.9 MG/DL Magnesium Level 2.2 MG/DL 2.0 MG/DL Total Bilirubin 0.4 MG/DL 0.7 MG/DL Aspartate Amino Transf 21 U/L 13 U/L (AST/SGOT) Alanine Aminotransferase 22 U/L 18 U/L (ALT/SGPT) Alkaline Phosphatase 133 U/L 138 U/L Albumin 1.5 GM/DL 1.4 GM/DL Microbiology Date/Time Procedure Status Source Growth 09/30/16 02:45 Aerobic Blood Culture - Preliminary Resulted Blood Peripheral NO GROWTH IN 1 DAY 09/30/16 02:45 Anaerobic Blood Culture - Preliminary Resulted Blood Peripheral NO GROWTH IN 1 DAY Imaging Chest X-Ray 10/02/16 0600 Signed Impressions: Service Date/Time: Sunday, October 02, 2016 05:35 - CONCLUSION: 1. Interval extubation with removal of central venous line and nasogastric tube. 2. The study remains Midinspiratory with hazy opacity remaining. Angel Child MD Chest X-Ray 10/01/16 0600 Signed Impressions: Service Date/Time: Saturday, October 01, 2016 03:40 - CONCLUSION: Stable chest appearance Norris Lloyd MD Chest X-Ray 09/29/16 0500 Signed Impressions: Service Date/Time: Thursday, September 29, 2016 05:18 - CONCLUSION: No significant interval change Norris Lloyd MD Chest X-Ray 09/28/16 0000 Signed Impressions: Service Date/Time: September 11:02 - CONCLUSION: 1. Mild perihilar infiltrates consistent with congestion versus pneumonitis. Clinical correlation is recommended. Darío Baum MD Chest X-Ray 09/26/167 Signed Impressions: Service Date/Time: Monday, September 26, 2016 22:40 - CONCLUSION: No acute disease. Jaden Salguero MD Physical Exam GENERAL: awake and alert, not in distress SKIN: Cool and dry. No embolic lesions. HEENT: [place] conjunctiva, no petechia or hemorrhage. No scleral icterus. Moist mucosa NECK: Supple, nontender, no meningeal signs. CARDIOVASCULAR: Irregular rate and rhythm without murmurs, gallops, or rubs. Tachycardic RESPIRATORY: Clear to auscultation. Breath sounds equal bilaterally. No wheezes , rales, or rhonchi. Decreased BS at bases GASTROINTESTINAL: Abdomen soft, obese, nondistended. Bowel sounds present and normoactive. No palpable masses. No guarding : Has packing on his R scrotum, and has open wound down to perineum and buttock. MUSCULOSKELETAL: Extremities without clubbing, cyanosis. RLE looks bigger than LLE has pale pink color, but no warmth. No doug tenderness. 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
--- NOTE | 2016-10-02 12:13 | HHI.PR ---
Subjective Remarks awake. follows commands thirsty Objective Vitals awake. follows commands heart irreg lung good air entry b abd bs/obese ext edematous pitting heavy bandages over scrotum/perineum omalley noted central line. Vital Signs Date Time Temp Pulse Resp B/P Pulse Ox O2 Delivery O2 Flow Rate FiO2 10/02/16 08:37 97 Nasal Cannula 2.00 10/02/16 07:00 94 Nasal Cannula 3.00 10/02/16 04:00 99.9 113 19 111/54 95 10/02/16 00:00 99.0 113 20 117/55 94 10/01/16 22:26 95 Nasal Cannula 3.00 10/01/16 20:26 19 10/01/16 20:00 99.0 129 22 146/64 96 Arterial Line 10/01/16 18:00 128 10/01/16 16:00 134 10/01/16 16:00 98.8 126 26 126/58 98 10/01/16 14:00 118 10/01/16 10/01/16 10/02/16 15:00 23:00 07:00 Intake Total 2160 ml 1512 ml 1791 ml Output Total 500 ml 600 ml 850 ml Balance 1660 ml 912 ml 941 ml Intake Oral 240 ml 450 ml IV Total 2160 ml 1272 ml 1341 ml Output Urine Total 500 ml 600 ml 850 ml # Bowel Movements 0 0 Result Diagram: 10/02/16 0445 10/02/16 0445 Imaging Last 72 hours Impressions Chest X-Ray 09/29/16 0500 Signed Impressions: Service Date/Time: Thursday, September 29, 2016 05:18 - CONCLUSION: No significant interval change Norris Lloyd MD Chest X-Ray 09/28/16 0000 Signed Impressions: Service Date/Time: September 11:02 - CONCLUSION: 1. Mild perihilar infiltrates consistent with congestion versus pneumonitis. Clinical correlation is recommended. Darío Baum MD Chest X-Ray 09/26/167 Signed Impressions: Service Date/Time: Monday, September 26, 2016 22:40 - CONCLUSION: No acute disease. Jaden Salguero MD Last Impressions Chest X-Ray 09/29/16 0500 Signed Impressions: Service Date/Time: Thursday, September 29, 2016 05:18 - CONCLUSION: No significant interval change Norris Lloyd MD Last Impressions Chest X-Ray 09/26/16 8498 Signed Impressions: Service Date/Time: Monday, September 26, 2016 22:40 - CONCLUSION: No acute disease. 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 Pt taken to OR for debridement x 2. presented with dka and new afib and initially admitted to icu. currently pt appears volume overloaded peripherally and positive on i/o's cont abx per ID cont insulin and titrate as needed wound care per CRS liquid diet iv albumen and iv lasix today and recheck cr. if not improving then consult renal. cont ccb and titrate as needed for afib dvt prophylaxis. monitor in icu. (2) MARCI (acute kidney injury) Status: Acute Plan: see above (3) Streptococcal sepsis Status: Acute Plan: see above (4) Atrial fibrillation, new onset Status: Acute Plan: see above (5) DKA, type 2 Status: Acute Plan: see above (6) Anemia Status: Acute Plan: due to sepsis/blood draws. monitor (7) Hypoalbuminemia Status: Acute Plan: related to acute illness. see above (8) Obstructive sleep apnea Status: Chronic Assessment and Plan - Problem Qualifiers (1) DKA, type 2: Qualified Code: E13.10 - Type 2 diabetes mellitus with ketoacidosis without coma, unspecified terminal carman insulin use status Eamon Marques MD Oct 02, 2016 12:13
[2016-10-02] MEDS ORDERED: DEXTROSE 50% IN WATER 50 ML VIAL(D50) IV PUSH PRN (12:30)
[2016-10-02] MEDS ORDERED: GLUCAGON 1 MG/ML VIAL OTHER PRN (12:30)
[2016-10-02] MEDS: CALCIUM CARBONATE 500 MG CHEWABLE TAB PO PRN (14:42)
[2016-10-02] MEDS: PIPERACIL-TAZO 2.25 GM PREMIX 50 ML IV SCH ×2 (15:01→20:52)
[2016-10-02] MEDS: INSULIN ASPART SUPPLEMENTAL SCALE SQ SCH (17:12)
[2016-10-02] MEDS ORDERED: FUROSEMIDE 20 MG/2 ML VIAL IV PUSH SCH (18:00)
--- NOTE | 2016-10-02 18:13 | RADRPT ---
EXAM DATE/TIME: 10/02/2016 17:10 [facility] COMPARISON: No previous studies available for comparison. INDICATIONS : Swelling. MEDICAL HISTORY : Hypertension. Diabetes. SURGICAL HISTORY : Right Orschiectomy. ENCOUNTER: Initial ACUITY: 1 day PAIN SCORE: 7/10 LOCATION: Right leg. TECHNIQUE: Venous ultrasound of the leg was performed from the inguinal ligament to the proximal calf. Real-reema e, color Doppler and spectral tracing, compression and augmentation techniques were used. FINDINGS: There is normal compressibility of the deep venous system from the inguinal region to the proximal ca lf. No echogenic clot is seen in the lumen of the common femoral, femoral, popliteal, and posterior tibial veins. There is a normal response of the venous system to proximal and distal augmentation an d respiration. The soft tissues are edematous. CONCLUSION: No DVT. Gwendolyn Parks MD on October 02, 2016 at 18:10 Board Certified Radiologist. This report was verified electronically.
[2016-10-02] MEDS: ONDANSETRON HCL 4 MG/2 ML VIAL IV PUSH PRN (18:40)
[2016-10-02] MEDS: ATORVASTATIN 40 MG TAB PO SCH (20:49)
[2016-10-02] MEDS: ALBUMIN HUMAN 25% 25 GM/100 ML BAGP IV SCH (20:49)
[2016-10-02] MEDS: FUROSEMIDE 20 MG/2 ML VIAL IV PUSH SCH (20:50)
[2016-10-02] MEDS: INSULIN DETEMIR 100 UNITS/ML VIAL SQ SCH (20:51)
[2016-10-03] VITALS (12 sets, daily range): BP systolic 112–170; BP diastolic 64–79; PULSE 78–106; RESP 12–20; TEMP 97.2–99.5; O2SAT 92–97
[2016-10-03] MEDS: oxyCODONE HCL ORAL CONC 20 MG/ML SYRINGE PO PRN ×4 (00:27→18:41)
[2016-10-03] MEDS: RESP: ALBUTEROL 2.5 MG/IPRATROPIUM 0.5 MG NEB (SCH) INH ×4 (03:15→21:39)
[2016-10-03 04:16] LABS: MEAN CELL VOLUME 84.3 FL (80.0-100.0); MEAN CORPUSCULAR HEMOGLOBIN 28.2 PG (27.0-34.0); MEAN CORPUSCULAR HGB CONC 33.5 % (32.0-36.0); PLATELET COUNT 171 TH/MM3 (150-450); RED BLOOD COUNT 3.09 MIL/MM3 (4.50-5.90); REVIEW FLAG FINAL; WHITE BLOOD COUNT 10.6 TH/MM3 (4.0-11.0)
[2016-10-03 04:51] LABS: BICARBONATE 22.8 MEQ/L (21.0-32.0); POTASSIUM 3.5 MEQ/L (3.5-5.1)
[2016-10-03] MEDS: PIPERACIL-TAZO 2.25 GM PREMIX 50 ML IV SCH ×4 (04:54→23:05)
[2016-10-03] MEDS: ACETAMINOPHEN 650 MG/20.3 ML UDC PO SCH ×4 (04:55→22:10)
[2016-10-03] MEDS: INSULIN ASPART SUPPLEMENTAL SCALE SQ SCH ×4 (07:00→21:00)
[2016-10-03] MEDS: PANTOPRAZOLE SODIUM 40 MG VIAL IV SCH (07:25)
[2016-10-03] MEDS: ALBUMIN HUMAN 25% 25 GM/100 ML BAGP IV SCH (07:25)
[2016-10-03] MEDS: HEPARIN SODIUM - SQ 10,000 UNITS/ML VIAL SQ SCH ×2 (07:25→22:11)
[2016-10-03] MEDS: FLUCONAZOLE 100 MG TAB PO SCH (07:26)
[2016-10-03] MEDS: DILTIAZEM HCL 30 MG TAB PO SCH ×4 (07:26→22:12)
[2016-10-03] MEDS: ASPIRIN EC 81 MG TABEC PO SCH (07:26)
[2016-10-03] MEDS: FUROSEMIDE 20 MG/2 ML VIAL IV PUSH SCH ×2 (07:26→22:12)
[2016-10-03] MEDS: INSULIN DETEMIR 100 UNITS/ML VIAL SQ SCH ×2 (07:27→22:11)
[2016-10-03] MEDS: SODIUM CHLORIDE 0.9% FLUSH 5 ML FLUSH IVF SCH ×2 (07:27→21:00)
[2016-10-03] MEDS: COLLAGENASE OINT 30 GM TUBE TOP SCH (07:27)
--- NOTE | 2016-10-03 09:00 | HHI.PR ---
Subjective Remarks doing ok. no new complaints Objective Vitals heart reg lung cta abd s/nt/obese ext pitting edema to thighs mike right scrotal wound noted..packing removed bandages over perineum and buttock. omalley central line Vital Signs Date Time Temp Pulse Resp B/P Pulse Ox O2 Delivery O2 Flow Rate FiO2 10/03/16 07:00 95 Nasal Cannula 3.00 10/03/16 06:00 78 10/03/16 06:00 18 10/03/16 04:00 102 10/03/16 04:00 97.7 79 20 143/65 95 10/03/16 02:00 86 10/03/16 01:30 18 10/03/16 00:04 106 10/03/16 00:00 98.9 78 20 112/69 95 10/02/16 22:00 99 10/02/16 20:26 95 Nasal Cannula 3.00 10/02/16 20:00 99 10/02/16 20:00 98.6 92 20 135/65 92 10/02/16 19:00 95 Nasal Cannula 3.00 10/02/16 18:00 96 10/02/16 16:00 98.0 92 20 141/69 93 10/02/16 16:00 92 10/02/16 14:00 96 10/02/16 12:00 98.1 100 15 116/72 95 10/02/16 12:00 100 10/02/16 10:00 110 10/02/16 10/02/16 10/03/16 15:00 23:00 07:00 Intake Total 814 ml 860 ml 345 ml Output Total 2000 ml 1000 ml 350 ml Balance -1186 ml -140 ml -5 ml Intake Oral 720 ml 720 ml 210 ml IV Total 94 ml 90 ml 135 ml Albumin 50 ml Output Urine Total 2000 ml 1000 ml 350 ml # Bowel Movements 0 0 1 Result Diagram: 10/03/16 0312 10/03/16 0312 Imaging Last 72 hours Impressions Chest X-Ray 09/29/16 0500 Signed Impressions: Service Date/Time: Thursday, September 29, 2016 05:18 - CONCLUSION: No significant interval change Norris Lloyd MD Chest X-Ray 09/28/16 0000 Signed Impressions: Service Date/Time: September 11:02 - CONCLUSION: 1. Mild perihilar infiltrates consistent with congestion versus pneumonitis. Clinical correlation is recommended. Darío Baum MD Chest X-Ray 09/26/162226 Signed Impressions: Service Date/Time: Monday, September 26, 2016 22:40 - CONCLUSION: No acute disease. Jaden Salguero MD Last Impressions Chest X-Ray 09/29/16 0500 Signed Impressions: Service Date/Time: Thursday, September 29, 2016 05:18 - CONCLUSION: No significant interval change Norris Lloyd MD Last Impressions Chest X-Ray 09/26/162226 Signed Impressions: Service Date/Time: Monday, September 26, 2016 22:40 - CONCLUSION: No acute disease. 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 Pt taken to OR for debridement x 2. currently open wounds packed. presented with dka and new afib and initially admitted to icu. currently pt appears volume overloaded peripherally and positive on i/o's ..pt says his baseline weight was 325 pounds and 10/02 he was 387 He is noted to have marci cont abx per ID. renal adjusted cont insulin and titrate wound care per CRS liquid diet and advance per CRS iv albumen and iv lasix and monitor daily weight and daily renal function. cont ccb and titrate as needed for afib. xarelto on hold dvt prophylaxis. transfer to med/surg PT daily (2) MARCI (acute kidney injury) Status: Acute Plan: see above (3) Streptococcal sepsis Status: Acute Plan: see above (4) Atrial fibrillation, new onset Status: Acute Plan: see above (5) DKA, type 2 Status: Acute Plan: see above (6) Anemia Status: Acute Plan: due to sepsis/blood draws. monitor (7) Hypoalbuminemia Status: Acute Plan: related to acute illness. see above (8) Obstructive sleep apnea Status: Chronic Assessment and Plan - Problem Qualifiers (1) DKA, type 2: Qualified Code: E13.10 - Type 2 diabetes mellitus with ketoacidosis without coma, unspecified watermelon harvesting supervisor insulin use status Eamon Marques MD Oct 03, 2016 09:00
[2016-10-03] MEDS ORDERED: POTASSIUM CHLORIDE 20 MEQ CONTROLLED RELEASE TAB PO ONE (09:15)
[2016-10-03] MEDS: ONDANSETRON HCL 4 MG/2 ML VIAL IV PUSH PRN ×2 (11:19→13:27)
--- NOTE | 2016-10-03 12:47 | HHI.IDPN ---
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 Hypertension. Hyperlipidemia. Hypogonadism that he is on testosterone injections, supposed to be weekly but had not had one in a little while. Morbid obesity. Vitamin D deficiency. DVT of the right lower extremity a few years ago. Previous cellulitis of the lower extremity in 2010 and was admitted to the hospital. Past Surgical History Orchiectomy for testicular torsion [place] tooth extraction Allergies: Coded Allergies: Dilaudid (Verified Allergy, Intermediate, ITCHING, DIAPHORESIS, 09/27/16) Objective . Vital Signs Date Time Temp Pulse Resp B/P Pulse Ox O2 Delivery O2 Flow Rate FiO2 10/03/16 11:00 98.2 100 12 117/64 96 10/03/16 10:00 100 10/03/16 09:07 96 Nasal Cannula 3.00 10/03/16 08:00 100 10/03/16 08:00 98.0 100 17 167/74 95 10/03/16 07:00 95 Nasal Cannula 3.00 10/03/16 06:00 78 10/03/16 06:00 18 10/03/16 04:00 102 10/03/16 04:00 97.7 79 20 143/65 95 10/03/16 02:00 86 10/03/16 01:30 18 10/03/16 00:04 106 10/03/16 00:00 98.9 78 20 112/69 95 10/02/16 22:00 99 10/02/16 20:26 95 Nasal Cannula 3.00 10/02/16 20:00 99 10/02/16 20:00 98.6 92 20 135/65 92 10/02/16 19:00 95 Nasal Cannula 3.00 10/02/16 18:00 96 10/02/16 16:00 98.0 92 20 141/69 93 10/02/16 16:00 92 10/02/16 14:00 96 12/26/16 12/26/16 12/27/16 15:00 23:00 07:00 Intake Total 814 ml 860 ml 345 ml Output Total 2000 ml 1000 ml 350 ml Balance -1186 ml -140 ml -5 ml Intake Oral 720 ml 720 ml 210 ml IV Total 94 ml 90 ml 135 ml Albumin 50 ml Output Urine Total 2000 ml 1000 ml 350 ml # Bowel Movements 0 0 1 . Laboratory Tests Test 10/02/16 10/03/16 04:45 03:12 White Blood Count 8.4 TH/MM3 10.6 TH/MM3 Red Blood Count 2.95 MIL/MM3 3.09 MIL/MM3 Hemoglobin 8.3 GM/DL 8.7 GM/DL Hematocrit 24.8 % 26.0 % Mean Corpuscular Volume 84.1 FL 84.3 FL Mean Corpuscular Hemoglobin 28.1 PG 28.2 PG Mean Corpuscular Hemoglobin 33.4 % 33.5 % Concent Red Cell Distribution Width 14.2 % 14.0 % Platelet Count 138 TH/MM3 171 TH/MM3 Mean Platelet Volume 9.1 FL 9.1 FL Neutrophils (%) (Auto) % Lymphocytes (%) (Auto) % Monocytes (%) (Auto) % Eosinophils (%) (Auto) % Basophils (%) (Auto) % Neutrophils # (Auto) TH/MM3 Lymphocytes # (Auto) TH/MM3 Monocytes # (Auto) TH/MM3 Eosinophils # (Auto) TH/MM3 Basophils # (Auto) TH/MM3 CBC Comment AUTO DIFF Differential Total Cells 100 Counted Neutrophils % (Manual) 57 % Band Neutrophils % 20 % Lymphocytes % 8 % Monocytes % 10 % Eosinophils % 1 % Neutrophils # (Manual) 6.8 TH/MM3 Metamyelocytes 2 % Myelocytes 1 % Promyelocytes 1 % Differential Comment FINAL DIFF MANUAL Toxic Granulation 1+ Platelet Estimate LOW Platelet Morphology Comment NORMAL Helmet Cells OCC Acanthocytes OCC Red Cell Morphology Comment Laboratory Tests Test 10/02/16 10/03/16 04:45 03:12 Sodium Level 138 MEQ/L 139 MEQ/L Potassium Level 4.1 MEQ/L 3.5 MEQ/L Chloride Level 104 MEQ/L 105 MEQ/L Carbon Dioxide Level 20.0 MEQ/L 22.8 MEQ/L Anion Gap 14 MEQ/L 11 MEQ/L Blood Urea Nitrogen 31 MG/DL 29 MG/DL Creatinine 2.05 MG/DL 2.03 MG/DL Estimat Glomerular Filtration 34 ML/MIN 34 ML/MIN Rate Random Glucose 292 MG/DL 224 MG/DL Calcium Level 7.1 MG/DL 7.7 MG/DL Protein Corrected Calcium 8.1 MG/DL Phosphorus Level 3.9 MG/DL Magnesium Level 2.0 MG/DL Total Bilirubin 0.7 MG/DL Aspartate Amino Transf 13 U/L (AST/SGOT) Alanine Aminotransferase 18 U/L (ALT/SGPT) Alkaline Phosphatase 138 U/L Total Protein 5.2 GM/DL Albumin 1.4 GM/DL Imaging Chest X-Ray 10/02/16 0600 Signed Impressions: Service Date/Time: Sunday, October 02, 2016 05:35 - CONCLUSION: 1. Interval extubation with removal of central venous line and nasogastric tube. 2. The study remains Midinspiratory with hazy opacity remaining. Angel Child MD Chest X-Ray 10/01/16 0600 Signed Impressions: Service Date/Time: Saturday, October 01, 2016 03:40 - CONCLUSION: Stable chest appearance Norris Lloyd MD Chest X-Ray 09/29/16 0500 Signed Impressions: Service Date/Time: Thursday, September 29, 2016 05:18 - CONCLUSION: No significant interval change Norris Lloyd MD Chest X-Ray 09/28/16 0000 Signed Impressions: Service Date/Time: September 11:02 - CONCLUSION: 1. Mild perihilar infiltrates consistent with congestion versus pneumonitis. Clinical correlation is recommended. Darío Baum MD Chest X-Ray 09/26/16 2227 Signed Impressions: Service Date/Time: Monday, September 26, 2016 22:40 - CONCLUSION: No acute disease. Jaden Salguero MD Physical Exam GENERAL: awake and alert, not in distress SKIN: Cool and dry. No embolic lesions. HEENT: [place] conjunctiva, no petechia or hemorrhage. No scleral icterus. Moist mucosa NECK: Supple, nontender, no meningeal signs. CARDIOVASCULAR: Irregular rate and rhythm without murmurs, gallops, or rubs. Tachycardic RESPIRATORY: Clear to auscultation. Breath sounds equal bilaterally. No wheezes , rales, or rhonchi. Decreased BS at bases GASTROINTESTINAL: Abdomen soft, obese, nondistended. Bowel sounds present and normoactive. No palpable masses. No guarding : Has packing on his R scrotum, and has open wound down to perineum and buttock. MUSCULOSKELETAL: Extremities without clubbing, cyanosis. RLE looks bigger than LLE has pale pink color, but no warmth. No doug tenderness. NEUROLOGICAL: Non-focal PSYCH: Calm and cooperative Assessment & Plan Remarks IMPRESSION Strep Sepsis, with fevers, leukocytosis due to Twin's gangrene - S/P extensive debridement Atrial fib DM Renal insufficiency, worsening again Morbid obesity RECOMMENDATION Continue vancomycin - pharm following Continue Zosyn Continue Diflucan Reorder urine for eos Follow creatinine Monitor progress Follow jamey D/W Isabel Braun MD Oct 03, 2016 12:47
[2016-10-03] MEDS ORDERED: VANCOMYCIN INJ 2,000 MG in SODIUM CHLORID 0.9% 500 ML INJ 500 ML IV ONE (13:00)
[2016-10-03] MEDS: CALCIUM CARBONATE 500 MG CHEWABLE TAB PO PRN (18:48)
[2016-10-03] MEDS ORDERED: POTASSIUM CHLORIDE 20 MEQ CONTROLLED RELEASE TAB PO SCH (21:00)
[2016-10-03] MEDS ORDERED: INSULIN DETEMIR 100 UNITS/ML VIAL SQ SCH (21:00)
--- NOTE | 2016-10-03 21:02 | HHI.PR ---
Subjective Remarks C/R Surg POD #3 afebrile, VSS UO good giovanna PO Objective - Vital Signs Date Time Temp Pulse Resp B/P Pulse Ox O2 Delivery O2 Flow Rate FiO2 10/03/16 16:00 97.2 97 20 140/79 95 10/03/16 15:44 Nasal Cannula 3.00 10/03/16 13:42 100 Result Diagram: 10/03/1631110/03/16311 Objective Remarks PE alert Abd - soft, non - tender Rectal - wound s clean, dry, skin healthy A/P Assessment and Plan Imp: stable post -op adv diet, stool softener/lax wound care at bedside José Luis Champagne MD Oct 03, 2016 21:02
[2016-10-03] MEDS: ATORVASTATIN 40 MG TAB PO SCH (22:12)
[2016-10-04] VITALS: BP 136/77; PULSE 120; RESP 20; TEMP 98.9; O2SAT 94
[2016-10-04] MEDS: ACETAMINOPHEN 650 MG/20.3 ML UDC PO SCH ×4 (02:30→20:30)
[2016-10-04] MEDS: RESP: ALBUTEROL 2.5 MG/IPRATROPIUM 0.5 MG NEB (PRN) INH (04:06)
[2016-10-04] MEDS: PIPERACIL-TAZO 2.25 GM PREMIX 50 ML IV SCH ×2 (04:10→08:51)
[2016-10-04 05:20] VITALS: BP 157/71; PULSE 113; RESP 21; TEMP 98.7; O2SAT 95
[2016-10-04 06:25] LABS: HEMATOCRIT 26.8 % (39.0-51.0); MEAN CELL VOLUME 84.2 FL (80.0-100.0); MEAN CORPUSCULAR HEMOGLOBIN 28.4 PG (27.0-34.0); MEAN CORPUSCULAR HGB CONC 33.7 % (32.0-36.0); PLATELET COUNT 184 TH/MM3 (150-450); RED BLOOD COUNT 3.18 MIL/MM3 (4.50-5.90); RED CELL DISTRIBUTION WIDTH 14.3 % (11.6-17.2); REVIEW FLAG FINAL
[2016-10-04 06:52] LABS: BICARBONATE 25.1 MEQ/L (21.0-32.0); POTASSIUM 3.5 MEQ/L (3.5-5.1)
[2016-10-04] MEDS: INSULIN ASPART SUPPLEMENTAL SCALE SQ SCH ×4 (07:00→21:00)
[2016-10-04 08:00] VITALS: BP 139/69; PULSE 110; RESP 20; TEMP 98.9; O2SAT 94
[2016-10-04] MEDS: HEPARIN SODIUM - SQ 10,000 UNITS/ML VIAL SQ SCH ×2 (08:47→21:37)
[2016-10-04] MEDS: ALBUMIN HUMAN 25% 25 GM/100 ML BAGP IV SCH (08:47)
[2016-10-04] MEDS: FUROSEMIDE 20 MG/2 ML VIAL IV PUSH SCH ×2 (08:49→21:38)
[2016-10-04] MEDS: INSULIN DETEMIR 100 UNITS/ML VIAL SQ SCH ×2 (08:51→21:37)
[2016-10-04] MEDS: POTASSIUM CHLORIDE 20 MEQ CONTROLLED RELEASE TAB PO SCH ×2 (08:57→16:04)
[2016-10-04] MEDS: ASPIRIN EC 81 MG TABEC PO SCH (08:58)
[2016-10-04] MEDS: SODIUM CHLORIDE 0.9% FLUSH 5 ML FLUSH IVF SCH ×2 (08:58→21:39)
[2016-10-04] MEDS: PANTOPRAZOLE SODIUM 40 MG VIAL IV SCH (08:58)
[2016-10-04] MEDS: FLUCONAZOLE 100 MG TAB PO SCH (08:58)
[2016-10-04] MEDS: DILTIAZEM HCL 30 MG TAB PO SCH ×4 (08:58→21:36)
[2016-10-04] MEDS: COLLAGENASE OINT 30 GM TUBE TOP SCH (10:06)
--- NOTE | 2016-10-04 11:42 | HHI.IDPN ---
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 Vital Signs Date Time Temp Pulse Resp B/P Pulse Ox O2 Delivery O2 Flow Rate FiO2 10/04/16 10:06 20 10/04/16 08:00 98.9 110 20 139/69 94 10/04/16 05:20 98.7 113 21 157/71 95 10/04/16 00:00 98.9 120 20 136/77 94 10/03/16 21:50 Nasal Cannula 2.00 100 10/03/16 20:00 99.5 99 19 170/75 92 10/03/16 16:00 97.2 97 20 140/79 95 10/03/16 15:44 97 Nasal Cannula 3.00 10/03/16 13:42 Nasal Cannula 3.00 100 10/03/16 10/03/16 10/04/16 14:59 22:59 06:59 Intake Total 480 ml 1480 ml 120 ml Output Total 1000 ml 3500 ml 2400 ml Balance -520 ml -2020 ml -2280 ml Intake Oral 480 ml 360 ml 120 ml IV Total 1120 ml Output Urine Total 1000 ml 3500 ml 2400 ml # Bowel Movements 0 0 1 . Laboratory Tests Test 10/03/16 10/04/16 03:12 05:32 White Blood Count 10.6 TH/MM3 10.0 TH/MM3 Red Blood Count 3.09 MIL/MM3 3.18 MIL/MM3 Hemoglobin 8.7 GM/DL 9.0 GM/DL Hematocrit 26.0 % 26.8 % Mean Corpuscular Volume 84.3 FL 84.2 FL Mean Corpuscular Hemoglobin 28.2 PG 28.4 PG Mean Corpuscular Hemoglobin 33.5 % 33.7 % Concent Red Cell Distribution Width 14.0 % 14.3 % Platelet Count 171 TH/MM3 184 TH/MM3 Mean Platelet Volume 9.1 FL 8.7 FL Laboratory Tests Test 10/03/16 10/04/16 03:12 05:32 Sodium Level 139 MEQ/L 140 MEQ/L Potassium Level 3.5 MEQ/L 3.5 MEQ/L Chloride Level 105 MEQ/L 105 MEQ/L Carbon Dioxide Level 22.8 MEQ/L 25.1 MEQ/L Anion Gap 11 MEQ/L 10 MEQ/L Blood Urea Nitrogen 29 MG/DL 23 MG/DL Creatinine 2.03 MG/DL 1.90 MG/DL Estimat Glomerular Filtration 34 ML/MIN 37 ML/MIN Rate Random Glucose 224 MG/DL 141 MG/DL Calcium Level 7.7 MG/DL 8.0 MG/DL Imaging Chest X-Ray 10/02/16 0600 Signed Impressions: Service Date/Time: Sunday, October 02, 2016 05:35 - CONCLUSION: 1. Interval extubation with removal of central venous line and nasogastric tube. 2. The study remains Midinspiratory with hazy opacity remaining. Angel Child MD Chest X-Ray 10/01/16 0600 Signed Impressions: Service Date/Time: Saturday, October 01, 2016 03:40 - CONCLUSION: Stable chest appearance Norris Lloyd MD Chest X-Ray 09/29/16 0500 Signed Impressions: Service Date/Time: Thursday, September 29, 2016 05:18 - CONCLUSION: No significant interval change Norris Lloyd MD Chest X-Ray 09/28/16 0000 Signed Impressions: Service Date/Time: September 11:02 - CONCLUSION: 1. Mild perihilar infiltrates consistent with congestion versus pneumonitis. Clinical correlation is recommended. Darío Baum MD Chest X-Ray 09/26/167 Signed Impressions: Service Date/Time: Monday, September 26, 2016 22:40 - CONCLUSION: No acute disease. Jaden Salguero MD Physical Exam GENERAL: awake and alert, not in respiratory distress SKIN: Cool and dry. No embolic lesions. HEENT: [place] conjunctiva, no petechia or hemorrhage. No scleral icterus. Moist mucosa NECK: Supple, nontender, no meningeal signs. CARDIOVASCULAR: Irregular rate and rhythm without murmurs, gallops, or rubs. Tachycardic RESPIRATORY: Clear to auscultation. Breath sounds equal bilaterally. No wheezes , rales, or rhonchi. Decreased BS at bases GASTROINTESTINAL: Abdomen soft, obese, nondistended. Bowel sounds present and normoactive. No palpable masses. No guarding : Has packing on his R scrotum, and has open wound down to perineum and buttock. MUSCULOSKELETAL: Extremities without clubbing, cyanosis. No calf tenderness. 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
[2016-10-04] MEDS: cefTRIAXone INJ 2,000 MG in SODIUM CHLORIDE 0.9% INJ 100 ML IV SCH (11:51)
[2016-10-04 12:00] VITALS: BP 137/80; PULSE 113; RESP 20; TEMP 98.8; O2SAT 92
[2016-10-04] MEDS: LOPERAMIDE HCL 2 MG CAP PO PRN (12:03)
--- NOTE | 2016-10-04 13:06 | HHI.PR ---
Subjective Remarks severe diarrhea all day. Objective Vitals heart irreg lung cta abd obese/bs ext anasarca omalley yellow urine scrotum/buttock/perineum packed Vital Signs Date Time Temp Pulse Resp B/P Pulse Ox O2 Delivery O2 Flow Rate FiO2 10/04/16 10:06 20 10/04/16 08:00 98.9 110 20 139/69 94 10/04/16 05:20 98.7 113 21 157/71 95 10/04/16 00:00 98.9 120 20 136/77 94 10/03/16 21:50 Nasal Cannula 2.00 100 10/03/16 20:00 99.5 99 19 170/75 92 10/03/16 16:00 97.2 97 20 140/79 95 10/03/16 15:44 97 Nasal Cannula 3.00 10/03/16 13:42 Nasal Cannula 3.00 100 10/03/16 10/03/16 10/04/16 15:00 23:00 07:00 Intake Total 480 ml 1480 ml 120 ml Output Total 1000 ml 3500 ml 2400 ml Balance -520 ml -2020 ml -2280 ml Intake Oral 480 ml 360 ml 120 ml IV Total 1120 ml Output Urine Total 1000 ml 3500 ml 2400 ml # Bowel Movements 0 0 1 Result Diagram: 10/04/16 0532 10/04/16 0532 Imaging Last 72 hours Impressions Chest X-Ray 09/29/16 0500 Signed Impressions: Service Date/Time: Thursday, September 29, 2016 05:18 - CONCLUSION: No significant interval change Norris Lloyd MD Chest X-Ray 09/28/16 0000 Signed Impressions: Service Date/Time: September 11:02 - CONCLUSION: 1. Mild perihilar infiltrates consistent with congestion versus pneumonitis. Clinical correlation is recommended. Darío Baum MD Chest X-Ray 09/26/167 Signed Impressions: Service Date/Time: Monday, September 26, 2016 22:40 - CONCLUSION: No acute disease. Jaden Salguero MD Last Impressions Chest X-Ray 09/29/16 0500 Signed Impressions: Service Date/Time: Thursday, September 29, 2016 05:18 - CONCLUSION: No significant interval change Norris Lloyd MD Last Impressions Chest X-Ray 09/26/169 Signed Impressions: Service Date/Time: Monday, September 26, 2016 22:40 - CONCLUSION: No acute disease. 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 Pt taken to OR for debridement x 2. currently open wounds packed. presented with dka and new afib and initially admitted to icu. currently pt appears volume overloaded peripherally and positive on i/o's ..pt says his baseline weight was 325 pounds and 10/02 he was 387 He is noted to have marci cont abx per ID. renal adjusted. changed due to severe diarrhea today will recheck bmp later today given diuresis and diarrhea to assure stable lytes. cont insulin and titrate wound care per CRS liquid diet and advance per CRS iv albumen and iv lasix and monitor daily weight and daily renal function. cont ccb and titrate as needed for afib. xarelto on hold dvt prophylaxis. PT daily (2) MARCI (acute kidney injury) Status: Acute Plan: see above (3) Streptococcal sepsis Status: Acute Plan: see above (4) Atrial fibrillation, new onset Status: Acute Plan: see above (5) DKA, type 2 Status: Acute Plan: see above (6) Anemia Status: Acute Plan: due to sepsis/blood draws. monitor (7) Hypoalbuminemia Status: Acute Plan: related to acute illness. see above (8) Obstructive sleep apnea Status: Chronic Assessment and Plan - Problem Qualifiers (1) DKA, type 2: Qualified Code: E13.10 - Type 2 diabetes mellitus with ketoacidosis without coma, unspecified fdc insulin use status Eamon Marques MD Oct 04, 2016 13:06
[2016-10-04] MEDS ORDERED: LOPERAMIDE HCL 2 MG CAP PO ONE (13:15)
[2016-10-04] MEDS: metroNIDAZOLE 500 MG TAB PO SCH ×2 (13:22→21:37)
[2016-10-04] MEDS: oxyCODONE/ACETAMINOPHEN 5 MG/325 MG TAB PO PRN ×2 (14:57→21:35)
[2016-10-04 16:00] VITALS: BP 165/65; PULSE 107; RESP 22; TEMP 99.8; O2SAT 95
[2016-10-04 18:26] LABS: BICARBONATE 27.1 MEQ/L (21.0-32.0); MAGNESIUM 2.1 MG/DL (1.5-2.5); POTASSIUM 3.5 MEQ/L (3.5-5.1)
[2016-10-04 20:00] VITALS: BP 168/98; PULSE 108; RESP 20; TEMP 97.9; O2SAT 94
[2016-10-04] MEDS: ATORVASTATIN 40 MG TAB PO SCH (21:37)
[2016-10-05] VITALS: BP 156/86; PULSE 107; RESP 20; TEMP 98.7; O2SAT 94
[2016-10-05] MEDS: LOPERAMIDE HCL 2 MG CAP PO PRN ×3 (01:28→14:17)
[2016-10-05] MEDS: POTASSIUM CHLORIDE 20 MEQ CONTROLLED RELEASE TAB PO SCH ×3 (01:29→16:28)
[2016-10-05] MEDS: ACETAMINOPHEN 650 MG/20.3 ML UDC PO SCH ×4 (02:30→19:59)
[2016-10-05] MEDS: oxyCODONE/ACETAMINOPHEN 5 MG/325 MG TAB PO PRN ×5 (03:32→22:27)
[2016-10-05 05:30] LABS: HEMATOCRIT 26.7 % (39.0-51.0); MEAN CELL VOLUME 84.5 FL (80.0-100.0); MEAN CORPUSCULAR HEMOGLOBIN 28.5 PG (27.0-34.0); MEAN CORPUSCULAR HGB CONC 33.7 % (32.0-36.0); PLATELET COUNT 191 TH/MM3 (150-450); RED BLOOD COUNT 3.15 MIL/MM3 (4.50-5.90); REVIEW FLAG FINAL; WHITE BLOOD COUNT 9.4 TH/MM3 (4.0-11.0)
[2016-10-05 05:49] LABS: BICARBONATE 28.4 MEQ/L (21.0-32.0); POTASSIUM 3.7 MEQ/L (3.5-5.1)
[2016-10-05] MEDS: metroNIDAZOLE 500 MG TAB PO SCH ×3 (06:40→20:00)
[2016-10-05] MEDS: INSULIN ASPART SUPPLEMENTAL SCALE SQ SCH ×4 (06:41→20:12)
[2016-10-05] MEDS: FLUCONAZOLE 100 MG TAB PO SCH (07:38)
[2016-10-05] MEDS: ASPIRIN EC 81 MG TABEC PO SCH (07:38)
[2016-10-05] MEDS: INSULIN DETEMIR 100 UNITS/ML VIAL SQ SCH ×2 (07:39→20:01)
[2016-10-05] MEDS: FUROSEMIDE 20 MG/2 ML VIAL IV PUSH SCH ×2 (07:39→19:59)
[2016-10-05] MEDS: PANTOPRAZOLE SODIUM 40 MG VIAL IV SCH (07:39)
[2016-10-05] MEDS: DILTIAZEM HCL 30 MG TAB PO SCH ×4 (07:39→20:00)
[2016-10-05] MEDS: ALBUMIN HUMAN 25% 25 GM/100 ML BAGP IV SCH (07:40)
[2016-10-05] MEDS: SODIUM CHLORIDE 0.9% FLUSH 5 ML FLUSH IVF SCH ×2 (07:45→20:00)
[2016-10-05] MEDS: HEPARIN SODIUM - SQ 10,000 UNITS/ML VIAL SQ SCH ×2 (07:47→20:01)
[2016-10-05] MEDS: COLLAGENASE OINT 30 GM TUBE TOP SCH (07:52)
[2016-10-05 08:00] VITALS: BP 161/86; PULSE 108; RESP 19; TEMP 98; O2SAT 92
[2016-10-05 10:19] LABS: BACTERIA, URINE OCC /hpf; BLOOD, URINE SMALL (NEG); GLUCOSE,URINE NEG (NEG); KETONE, URINE NEG (NEG); MUCUS URINE FEW /lpf (OCC); NITRITE,URINE NEG (NEG); PH, URINE 5.5 (5.0-8.5); URINE COLOR YELLOW (YELLW/STRAW)
[2016-10-05] MEDS: cefTRIAXone INJ 2,000 MG in SODIUM CHLORIDE 0.9% INJ 100 ML IV SCH (11:09)
[2016-10-05 12:00] VITALS: BP 138/64; PULSE 103; RESP 19; TEMP 98.7; O2SAT 91
--- NOTE | 2016-10-05 15:53 | HHI.PR ---
Subjective Remarks breathing ok less diarrhea. Objective Vitals heart irreg lung cta abd s/nt/nabs ext anasarc omalley cvl right scrotum/perineum packed. Vital Signs Date Time Temp Pulse Resp B/P Pulse Ox O2 Delivery O2 Flow Rate FiO2 10/05/16 12:00 98.7 103 19 138/64 91 10/05/16 08:00 98.0 108 19 161/86 92 10/05/16 07:58 Room Air 10/05/16 00:00 98.7 107 20 156/86 94 10/04/16 21:20 Nasal Cannula 2.00 100 10/04/16 20:00 97.9 108 20 168/98 94 10/04/16 16:00 99.8 107 22 165/65 95 10/04/16 15:57 20 10/04/16 10/04/16 10/05/16 15:00 23:00 07:00 Intake Total 1140 ml 320 ml 480 ml Output Total 2750 ml 850 ml 1450 ml Balance -1610 ml -530 ml -970 ml Intake Oral 940 ml 320 ml 480 ml IV Total 200 ml Output Urine Total 2750 ml 850 ml 1450 ml # Bowel Movements 3 0 2 Result Diagram: 10/05/16 0505 10/05/16 0505 Imaging Last 72 hours Impressions Chest X-Ray 09/29/16 050 Signed Impressions: Service Date/Time: Thursday, September 29, 2016 05:18 - CONCLUSION: No significant interval change Norris Lloyd MD Chest X-Ray 09/28/16 0000 Signed Impressions: Service Date/Time: September 11:02 - CONCLUSION: 1. Mild perihilar infiltrates consistent with congestion versus pneumonitis. Clinical correlation is recommended. Daíro Baum MD Chest X-Ray 09/26/162226 Signed Impressions: Service Date/Time: Monday, September 26, 2016 22:40 - CONCLUSION: No acute disease. Jaden Salguero MD Last Impressions Chest X-Ray 09/29/16 0500 Signed Impressions: Service Date/Time: Thursday, September 29, 2016 05:18 - CONCLUSION: No significant interval change Norris Lloyd MD Last Impressions Chest X-Ray 09/26/162226 Signed Impressions: Service Date/Time: Monday, September 26, 2016 22:40 - CONCLUSION: No acute disease. 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 Pt taken to OR for debridement x 2. currently open wounds packed. presented with dka and new afib and initially admitted to icu. currently pt appears volume overloaded peripherally and positive on i/o's ..pt says his baseline weight was 325 pounds and 10/02 he was 387 He is noted to have marci cont abx per ID. renal adjusted. changed due to severe diarrhea cont insulin and titrate. currently stable wound care per CRS diet per CRS iv albumen and iv lasix and monitor daily weight and daily renal function... so far renal function improving cont ccb and convert to cd. xarelto soon. dvt prophylaxis. PT daily plan for snf (2) MARCI (acute kidney injury) Status: Acute Plan: see above (3) Streptococcal sepsis Status: Acute Plan: see above (4) Atrial fibrillation, new onset Status: Acute Plan: see above (5) DKA, type 2 Status: Acute Plan: see above (6) Anemia Status: Acute Plan: due to sepsis/blood draws. monitor (7) Hypoalbuminemia Status: Acute Plan: related to acute illness. see above (8) Obstructive sleep apnea Status: Chronic Assessment and Plan - Problem Qualifiers (1) DKA, type 2: Qualified Code: E13.10 - Type 2 diabetes mellitus with ketoacidosis without coma, unspecified skilled nursing insulin use status Eamon Marques MD Oct 05, 2016 15:53
[2016-10-05 16:00] VITALS: BP 136/66; PULSE 102; RESP 20; TEMP 98.6; O2SAT 92
[2016-10-05 20:00] VITALS: BP 143/68; PULSE 96; RESP 18; TEMP 98; O2SAT 93
[2016-10-05] MEDS: ATORVASTATIN 40 MG TAB PO SCH (20:00)
[2016-10-05] MEDS: DIPHENOXYLATE/ATROPINE 2.5 MG/0.025 MG TAB PO SCH (22:25)
--- NOTE | 2016-10-05 22:55 | HHI.PR ---
Subjective Remarks C/R Surg POD #6 afebrile, VSS UO good giovanna PO liq stool Objective - Vital Signs Date Time Temp Pulse Resp B/P Pulse Ox O2 Delivery O2 Flow Rate FiO2 10/05/16 16:00 98.6 102 20 136/66 92 10/05/16 07:58 Room Air 10/04/16 21:20 2.00 100 Result Diagram: 10/05/16 0505 10/05/16 0505 Objective Remarks PE alert Abd - soft, non - tender Rectal - wound s clean, dry, skin healthy leaking stool A/P Assessment and Plan Imp: adv diet, stool liq, c. diff neg wound care at bedside dc plans - rehab José Luis Champagne MD Oct 05, 2016 22:55
[2016-10-06] VITALS: BP 153/79; PULSE 98; RESP 20; TEMP 97.7; O2SAT 93
[2016-10-06] MEDS: POTASSIUM CHLORIDE 20 MEQ CONTROLLED RELEASE TAB PO SCH ×3 (01:16→17:16)
[2016-10-06] MEDS: ACETAMINOPHEN 650 MG/20.3 ML UDC PO SCH ×4 (02:30→20:30)
[2016-10-06] MEDS: DIPHENOXYLATE/ATROPINE 2.5 MG/0.025 MG TAB PO SCH ×4 (05:38→21:09)
[2016-10-06] MEDS: metroNIDAZOLE 500 MG TAB PO SCH ×3 (05:39→21:09)
[2016-10-06] MEDS: oxyCODONE/ACETAMINOPHEN 5 MG/325 MG TAB PO PRN (05:39)
[2016-10-06] MEDS: INSULIN ASPART SUPPLEMENTAL SCALE SQ SCH ×4 (05:42→21:00)
[2016-10-06 08:00] VITALS: BP 150/82; PULSE 106; RESP 22; TEMP 96.9; O2SAT 93
[2016-10-06] MEDS: ALBUMIN HUMAN 25% 25 GM/100 ML BAGP IV SCH (08:38)
[2016-10-06] MEDS: INSULIN DETEMIR 100 UNITS/ML VIAL SQ SCH ×2 (08:38→21:11)
[2016-10-06] MEDS: FUROSEMIDE 20 MG/2 ML VIAL IV PUSH SCH ×2 (08:39→21:10)
[2016-10-06] MEDS: FLUCONAZOLE 100 MG TAB PO SCH (08:39)
[2016-10-06] MEDS: SODIUM CHLORIDE 0.9% FLUSH 5 ML FLUSH IVF SCH ×2 (08:39→21:11)
[2016-10-06] MEDS: PANTOPRAZOLE SODIUM 40 MG VIAL IV SCH (08:39)
[2016-10-06] MEDS: COLLAGENASE OINT 30 GM TUBE TOP SCH (08:40)
[2016-10-06] MEDS: HEPARIN SODIUM - SQ 10,000 UNITS/ML VIAL SQ SCH ×2 (08:40→21:10)
[2016-10-06] MEDS: ASPIRIN EC 81 MG TABEC PO SCH (08:44)
[2016-10-06] MEDS ORDERED: DILTIAZEM-CD 120 MG CAP ER PO SCH (09:00)
[2016-10-06] MEDS: cefTRIAXone INJ 2,000 MG in SODIUM CHLORIDE 0.9% INJ 100 ML IV SCH (12:01)
--- NOTE | 2016-10-06 12:21 | HHI.PR ---
Subjective Remarks doing better. diarrhea better. still taking mostly liquid diet Objective Vitals heart irreg lung cta abd s/nt ext less anasarca omalley right scrotum/perineum packed. Vital Signs Date Time Temp Pulse Resp B/P Pulse Ox O2 Delivery O2 Flow Rate FiO2 10/06/16 08:00 96.9 106 22 150/82 93 10/06/16 06:39 16 10/06/16 00:00 97.7 98 20 153/79 93 10/05/16 20:59 16 10/05/16 20:00 Room Air 10/05/16 20:00 98.0 96 18 143/68 93 10/05/16 16:00 98.6 102 20 136/66 92 10/05/16 10/05/16 10/06/16 14:59 22:59 06:59 Intake Total 480 ml 480 ml 480 ml Output Total 2000 ml 1000 ml 1300 ml Balance -1520 ml -520 ml -820 ml Intake Oral 480 ml 480 ml 480 ml Output Urine Total 2000 ml 1000 ml 1300 ml # Bowel Movements 1 1 1 Result Diagram: 10/05/16 0505 10/05/16 0505 Imaging Last 72 hours Impressions Chest X-Ray 09/29/16 0500 Signed Impressions: Service Date/Time: Thursday, September 29, 2016 05:18 - CONCLUSION: No significant interval change Norris Lloyd MD Chest X-Ray 09/28/16 0000 Signed Impressions: Service Date/Time: September 11:02 - CONCLUSION: 1. Mild perihilar infiltrates consistent with congestion versus pneumonitis. Clinical correlation is recommended. Darío Baum MD Chest X-Ray 09/26/162226 Signed Impressions: Service Date/Time: Monday, September 26, 2016 22:40 - CONCLUSION: No acute disease. Jaden Salguero MD Last Impressions Chest X-Ray 09/29/16 0500 Signed Impressions: Service Date/Time: Thursday, September 29, 2016 05:18 - CONCLUSION: No significant interval change Norris Lloyd MD Last Impressions Chest X-Ray 09/26/162226 Signed Impressions: Service Date/Time: Monday, September 26, 2016 22:40 - CONCLUSION: No acute disease. 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 Pt taken to OR for debridement x 2. currently open wounds packed. presented with dka and new afib and initially admitted to icu. currently pt appears volume overloaded peripherally and positive on i/o's ..pt says his baseline weight was 325 pounds and 10/02 he was 89 He is noted to have marci cont abx per ID. renal adjusted. changed due to severe diarrhea cont insulin and titrate. currently stable wound care per CRS diet per CRS iv albumen and iv lasix and monitor daily weight and daily renal function... so far renal function improving cont ccb and convert to cd. xarelto soon. dvt prophylaxis. PT daily plan for snf (2) MARCI (acute kidney injury) Status: Acute Plan: see above (3) Streptococcal sepsis Status: Acute Plan: see above (4) Atrial fibrillation, new onset Status: Acute Plan: see above (5) DKA, type 2 Status: Acute Plan: see above (6) Anemia Status: Acute Plan: due to sepsis/blood draws. monitor (7) Hypoalbuminemia Status: Acute Plan: related to acute illness. see above (8) Obstructive sleep apnea Status: Chronic Assessment and Plan - Problem Qualifiers (1) DKA, type 2: Qualified Code: E13.10 - Type 2 diabetes mellitus with ketoacidosis without coma, unspecified [employer] insulin use status Eamon Marques MD Oct 06, 2016 12:21
[2016-10-06 12:32] VITALS: BP 164/89; PULSE 88; RESP 22; TEMP 97.1; O2SAT 92
--- NOTE | 2016-10-06 12:41 | HHI.PR ---
Subjective Remarks Twin's gangrene comfortable, stool more formed Objective Vital Signs Date Time Temp Pulse Resp B/P Pulse Ox O2 Delivery O2 Flow Rate FiO2 10/06/16 12:32 97.1 88 22 164/89 92 10/06/16 08:00 96.9 106 22 150/82 93 10/06/16 06:39 16 10/06/16 00:00 97.7 98 20 153/79 93 10/05/16 20:59 16 10/05/16 20:00 Room Air 10/05/16 20:00 98.0 96 18 143/68 93 10/05/16 16:00 98.6 102 20 136/66 92 I/O 10/05/16 10/05/16 10/05/16 10/06/16 10/06/16 10/06/16 07:00 15:00 23:00 07:00 15:00 23:00 Intake Total 480 ml 480 ml 480 ml 480 ml 720 ml Output Total 1450 ml 2000 ml 1000 ml 1300 ml 1400 ml Balance -970 ml -1520 ml -520 ml -820 ml -680 ml Intake Oral 480 ml 480 ml 480 ml 480 ml 720 ml Output Urine Total 1450 ml 2000 ml 1000 ml 1300 ml 1400 ml # Bowel Movements 2 1 1 1 2 Result Diagram: 10/05/16 0505 10/05/16 0505 Objective Remarks Wounds clean Assessment and Plan Assessment and Plan To rehab in am if continues to do well Lucille Horta MD Oct 06, 2016 12:41
--- NOTE | 2016-10-06 12:54 | HHI.IDPN ---
Subjective Subjective Remarks Notes reviewed Stools better Temps ok Not SOB BP ok To go to rehab Wounds clean per CRS Antibiotics Rocephin Flagyl Diflucan Lines PIV Past Medical History Reviewed Allergies: Coded Allergies: Dilaudid (Verified Allergy, Intermediate, ITCHING, DIAPHORESIS, 09/27/16) Objective . Vital Signs Date Time Temp Pulse Resp B/P Pulse Ox O2 Delivery O2 Flow Rate FiO2 10/06/16 12:32 97.1 88 22 164/89 92 10/06/16 08:00 96.9 106 22 150/82 93 10/06/16 06:39 16 10/06/16 00:00 97.7 98 20 153/79 93 10/05/16 20:59 16 10/05/16 20:00 Room Air 10/05/16 20:00 98.0 96 18 143/68 93 10/05/16 16:00 98.6 102 20 136/66 92 10/05/16 10/05/16 10/06/16 14:59 22:59 06:59 Intake Total 480 ml 480 ml 480 ml Output Total 2000 ml 1000 ml 1300 ml Balance -1520 ml -520 ml -820 ml Intake Oral 480 ml 480 ml 480 ml Output Urine Total 2000 ml 1000 ml 1300 ml # Bowel Movements 1 1 1 . Laboratory Tests Test 10/05/16 05:05 White Blood Count 9.4 TH/MM3 Red Blood Count 3.15 MIL/MM3 Hemoglobin 9.0 GM/DL Hematocrit 26.7 % Mean Corpuscular Volume 84.5 FL Mean Corpuscular Hemoglobin 28.5 PG Mean Corpuscular Hemoglobin 33.7 % Concent Red Cell Distribution Width 14.0 % Platelet Count 191 TH/MM3 Mean Platelet Volume 8.4 FL Laboratory Tests Test 10/04/16 10/05/16 17:40 05:05 Sodium Level 142 MEQ/L 142 MEQ/L Potassium Level 3.5 MEQ/L 3.7 MEQ/L Chloride Level 106 MEQ/L 107 MEQ/L Carbon Dioxide Level 27.1 MEQ/L 28.4 MEQ/L Anion Gap 9 MEQ/L 7 MEQ/L Blood Urea Nitrogen 22 MG/DL 20 MG/DL Creatinine 1.82 MG/DL 1.70 MG/DL Estimat Glomerular Filtration 39 ML/MIN 42 ML/MIN Rate Random Glucose 117 MG/DL 130 MG/DL Calcium Level 8.0 MG/DL 8.1 MG/DL Phosphorus Level 2.5 MG/DL Magnesium Level 2.1 MG/DL Imaging Chest X-Ray 10/02/16 0600 Signed Impressions: Service Date/Time: Sunday, October 02, 2016 05:35 - CONCLUSION: 1. Interval extubation with removal of central venous line and nasogastric tube. 2. The study remains Midinspiratory with hazy opacity remaining. Angel Child MD Chest X-Ray 10/01/16 0600 Signed Impressions: Service Date/Time: Saturday, October 01, 2016 03:40 - CONCLUSION: Stable chest appearance Norris Lloyd MD Chest X-Ray 09/29/16 0500 Signed Impressions: Service Date/Time: Thursday, September 29, 2016 05:18 - CONCLUSION: No significant interval change Norris Lloyd MD Chest X-Ray 09/28/16 0000 Signed Impressions: Service Date/Time: September 11:02 - CONCLUSION: 1. Mild perihilar infiltrates consistent with congestion versus pneumonitis. Clinical correlation is recommended. Darío Baum MD Chest X-Ray 09/26/167 Signed Impressions: Service Date/Time: Monday, September 26, 2016 22:40 - CONCLUSION: No acute disease. Jaden Salguero MD Physical Exam GENERAL: awake and alert, not in respiratory distress SKIN: Cool and dry. No embolic lesions. HEENT: [place] conjunctiva, no petechia or hemorrhage. No scleral icterus. Moist mucosa NECK: Supple, nontender, no meningeal signs. CARDIOVASCULAR: Irregular rate and rhythm without murmurs, gallops, or rubs. Tachycardic RESPIRATORY: Clear to auscultation. Breath sounds equal bilaterally. No wheezes , rales, or rhonchi. Decreased BS at bases GASTROINTESTINAL: Abdomen soft, obese, nondistended. Bowel sounds present and normoactive. No palpable masses. No guarding : Has packing on his R scrotum, and has open wound down to perineum and buttock. MUSCULOSKELETAL: Extremities without clubbing, cyanosis. No calf tenderness. 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
[2016-10-06 16:45] VITALS: BP 175/95; PULSE 120; RESP 20; TEMP 97.6; O2SAT 94
[2016-10-06 20:00] VITALS: BP 197/94; PULSE 130; RESP 21; TEMP 96.9; O2SAT 97
[2016-10-06 20:51] LABS: BICARBONATE 30.1 MEQ/L (21.0-32.0); POTASSIUM 3.8 MEQ/L (3.5-5.1)
[2016-10-06] MEDS: ATORVASTATIN 40 MG TAB PO SCH (21:09)
[2016-10-07] VITALS: BP 149/85; PULSE 104; RESP 20; TEMP 96; O2SAT 94
[2016-10-07] MEDS: ACETAMINOPHEN 650 MG/20.3 ML UDC PO SCH ×2 (02:30→08:30)
[2016-10-07] MEDS: POTASSIUM CHLORIDE 20 MEQ CONTROLLED RELEASE TAB PO SCH ×3 (02:46→16:43)
[2016-10-07] MEDS: DIPHENOXYLATE/ATROPINE 2.5 MG/0.025 MG TAB PO SCH ×4 (02:46→20:36)
[2016-10-07 05:09] LABS: HEMATOCRIT 28.7 % (39.0-51.0); MEAN CELL VOLUME 84.4 FL (80.0-100.0); MEAN CORPUSCULAR HEMOGLOBIN 28.1 PG (27.0-34.0); MEAN CORPUSCULAR HGB CONC 33.3 % (32.0-36.0); PLATELET COUNT 227 TH/MM3 (150-450); RED CELL DISTRIBUTION WIDTH 14.1 % (11.6-17.2); REVIEW FLAG FINAL; WHITE BLOOD COUNT 9.9 TH/MM3 (4.0-11.0)
[2016-10-07] MEDS: INSULIN ASPART SUPPLEMENTAL SCALE SQ SCH ×4 (05:18→20:39)
[2016-10-07] MEDS: oxyCODONE/ACETAMINOPHEN 5 MG/325 MG TAB PO PRN ×4 (05:18→23:32)
[2016-10-07] MEDS: metroNIDAZOLE 500 MG TAB PO SCH ×3 (05:18→20:44)
[2016-10-07 05:29] LABS: BICARBONATE 31.3 MEQ/L (21.0-32.0); POTASSIUM 3.8 MEQ/L (3.5-5.1)
[2016-10-07 08:00] VITALS: BP 143/69; PULSE 100; RESP 20; TEMP 98.4; O2SAT 95
[2016-10-07] MEDS: ALBUMIN HUMAN 25% 25 GM/100 ML BAGP IV SCH (08:48)
[2016-10-07] MEDS: FUROSEMIDE 20 MG/2 ML VIAL IV PUSH SCH ×2 (08:49→20:37)
[2016-10-07] MEDS: INSULIN DETEMIR 100 UNITS/ML VIAL SQ SCH ×2 (08:49→20:39)
[2016-10-07] MEDS: PANTOPRAZOLE SODIUM 40 MG VIAL IV SCH (08:49)
[2016-10-07] MEDS: ASPIRIN EC 81 MG TABEC PO SCH (08:49)
[2016-10-07] MEDS: FLUCONAZOLE 100 MG TAB PO SCH (08:49)
[2016-10-07] MEDS: SODIUM CHLORIDE 0.9% FLUSH 5 ML FLUSH IVF SCH ×2 (08:51→20:38)
[2016-10-07] MEDS: HEPARIN SODIUM - SQ 10,000 UNITS/ML VIAL SQ SCH ×2 (08:52→20:38)
[2016-10-07] MEDS: COLLAGENASE OINT 30 GM TUBE TOP SCH (08:55)
--- NOTE | 2016-10-07 08:57 | HHI.PR ---
Subjective Remarks Twin's gangrene comfortable, stool more formed, still frequent Objective Vital Signs Date Time Temp Pulse Resp B/P Pulse Ox O2 Delivery O2 Flow Rate FiO2 10/07/16 08:00 98.4 100 20 143/69 95 10/07/16 06:18 16 10/07/16 00:00 96.0 104 20 149/85 94 10/06/16 21:09 Nasal Cannula 2.00 10/06/16 20:00 96.9 130 21 197/94 97 10/06/16 16:45 97.6 120 20 175/95 94 10/06/16 15:07 20 10/06/16 12:32 97.1 88 22 164/89 92 I/O 10/06/16 10/06/16 10/06/16 10/07/16 10/07/16 10/07/16 06:59 14:59 22:59 06:59 14:59 22:59 Intake Total 480 ml 1180 ml 1200 ml 240 ml Output Total 1300 ml 1800 ml 3100 ml 3000 ml Balance -820 ml -620 ml -1900 ml -2760 ml Intake Oral 480 ml 1080 ml 1200 ml 240 ml IV Total 100 ml Output Urine Total 1300 ml 1800 ml 3100 ml 3000 ml # Bowel Movements 1 2 5 2 Result Diagram: 10/07/16 0435 10/07/16434 Objective Remarks Wounds clean Assessment and Plan Assessment and Plan OK to transfer to rehab when ok with Medical service Lucille Horta MD Oct 07, 2016 08:57
[2016-10-07] MEDS: DILTIAZEM-CD 180 MG CAP ER PO SCH (09:03)
[2016-10-07] MEDS: cefTRIAXone INJ 2,000 MG in SODIUM CHLORIDE 0.9% INJ 100 ML IV SCH (11:35)
[2016-10-07 12:00] VITALS: BP 164/84; PULSE 102; RESP 20; TEMP 97.5; O2SAT 94
[2016-10-07 16:00] VITALS: BP 152/69; PULSE 95; RESP 22; TEMP 98; O2SAT 94
--- NOTE | 2016-10-07 16:02 | HHI.PR ---
Subjective Remarks doing better. no diarrhea. eating better Objective Vitals heart reg lung cta abd bs/nt ext anasarca improving. scrotum/perineum packed omalley Vital Signs Date Time Temp Pulse Resp B/P Pulse Ox O2 Delivery O2 Flow Rate FiO2 10/07/16 12:39 20 10/07/16 12:00 97.5 102 20 164/84 94 10/07/16 08:00 98.4 100 20 143/69 95 10/07/16 00:00 96.0 104 20 149/85 94 10/06/16 21:09 Nasal Cannula 2.00 10/06/16 20:00 96.9 130 21 197/94 97 10/06/16 16:45 97.6 120 20 175/95 94 10/06/16 10/06/16 10/07/16 15:00 23:00 07:00 Intake Total 1180 ml 1200 ml 240 ml Output Total 1800 ml 3100 ml 3000 ml Balance -620 ml -1900 ml -2760 ml Intake Oral 1080 ml 1200 ml 240 ml IV Total 100 ml Output Urine Total 1800 ml 3100 ml 3000 ml # Bowel Movements 2 5 2 Result Diagram: 10/07/16 0435 10/07/16 0435 Imaging Last 72 hours Impressions Chest X-Ray 09/29/16 0500 Signed Impressions: Service Date/Time: Thursday, September 29, 2016 05:18 - CONCLUSION: No significant interval change Norris Lloyd MD Chest X-Ray 09/28/16 0000 Signed Impressions: Service Date/Time: September 11:02 - CONCLUSION: 1. Mild perihilar infiltrates consistent with congestion versus pneumonitis. Clinical correlation is recommended. Darío Baum MD Chest X-Ray 09/26/162226 Signed Impressions: Service Date/Time: Monday, September 26, 2016 22:40 - CONCLUSION: No acute disease. Jaden Salguero MD Last Impressions Chest X-Ray 09/29/16 0500 Signed Impressions: Service Date/Time: Thursday, September 29, 2016 05:18 - CONCLUSION: No significant interval change Norris Lloyd MD Last Impressions Chest X-Ray 09/26/162226 Signed Impressions: Service Date/Time: Monday, September 26, 2016 22:40 - CONCLUSION: No acute disease. 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 Pt taken to OR for debridement x 2. currently open wounds packed. presented with dka and new afib and initially admitted to icu. currently pt appears volume overloaded peripherally and positive on i/o's ..pt says his baseline weight was 325 pounds and 10/02 he was 387 He is noted to have marci cont abx per ID. renal adjusted. changed due to severe diarrhea. rocephin complete 10/09/16 cont insulin and titrate. currently stable wound care per CRS diet per CRS iv albumen and iv lasix and monitor daily weight and daily renal function... renal function improving. diuresing well. would continue diuresis over the weekend then can pull omalley Sunday cont ccb and converted to cd. xarelto at d/c dvt prophylaxis. PT daily plan for snf probably Sunday (2) MARCI (acute kidney injury) Status: Acute Plan: see above (3) Streptococcal sepsis Status: Acute Plan: see above (4) Atrial fibrillation, new onset Status: Acute Plan: see above (5) DKA, type 2 Status: Acute Plan: see above (6) Anemia Status: Acute Plan: due to sepsis/blood draws. monitor (7) Hypoalbuminemia Status: Acute Plan: related to acute illness. see above (8) Obstructive sleep apnea Status: Chronic Assessment and Plan - Problem Qualifiers (1) DKA, type 2: Qualified Code: E13.10 - Type 2 diabetes mellitus with ketoacidosis without coma, unspecified terminal manager insulin use status Eamon Marques MD Oct 07, 2016 16:02
[2016-10-07 20:06] VITALS: BP 166/82; PULSE 94; RESP 20; TEMP 96.7; O2SAT 96
[2016-10-07] MEDS: ATORVASTATIN 40 MG TAB PO SCH (20:36)
[2016-10-07 23:52] VITALS: BP 160/84; PULSE 90; RESP 18; TEMP 98.9; O2SAT 96
[2016-10-08] MEDS: POTASSIUM CHLORIDE 20 MEQ CONTROLLED RELEASE TAB PO SCH ×2 (02:08→08:20)
[2016-10-08] MEDS: DIPHENOXYLATE/ATROPINE 2.5 MG/0.025 MG TAB PO SCH ×4 (02:08→21:29)
[2016-10-08] MEDS: oxyCODONE/ACETAMINOPHEN 5 MG/325 MG TAB PO PRN ×5 (04:20→21:29)
[2016-10-08] MEDS: metroNIDAZOLE 500 MG TAB PO SCH ×3 (05:48→21:11)
[2016-10-08] MEDS: INSULIN ASPART SUPPLEMENTAL SCALE SQ SCH ×4 (05:48→21:44)
[2016-10-08 07:00] LABS: BICARBONATE 29.3 MEQ/L (21.0-32.0); POTASSIUM 4.1 MEQ/L (3.5-5.1)
[2016-10-08 08:00] VITALS: BP 150/70; PULSE 50; RESP 16; TEMP 97.7; O2SAT 93
[2016-10-08] MEDS: ALBUMIN HUMAN 25% 25 GM/100 ML BAGP IV SCH (08:01)
[2016-10-08] MEDS: ASPIRIN EC 81 MG TABEC PO SCH (08:01)
[2016-10-08] MEDS: FUROSEMIDE 20 MG/2 ML VIAL IV PUSH SCH (08:01)
[2016-10-08] MEDS: FLUCONAZOLE 100 MG TAB PO SCH (08:01)
[2016-10-08] MEDS: SODIUM CHLORIDE 0.9% FLUSH 5 ML FLUSH IVF SCH ×2 (08:02→21:29)
[2016-10-08] MEDS: COLLAGENASE OINT 30 GM TUBE TOP SCH (08:02)
[2016-10-08] MEDS: DILTIAZEM-CD 180 MG CAP ER PO SCH (08:02)
[2016-10-08] MEDS: HEPARIN SODIUM - SQ 10,000 UNITS/ML VIAL SQ SCH ×2 (08:02→21:29)
[2016-10-08] MEDS: INSULIN DETEMIR 100 UNITS/ML VIAL SQ SCH ×2 (09:20→21:30)
[2016-10-08] MEDS: PANTOPRAZOLE SOD 40 MG DELAYED RELEASE TAB PO SCH (09:20)
--- NOTE | 2016-10-08 11:07 | HHI.PR ---
Subjective Remarks Twin's gangrene comfortable, stool formed Objective Vital Signs Date Time Temp Pulse Resp B/P Pulse Ox O2 Delivery O2 Flow Rate FiO2 10/08/16 08:00 97.7 50 16 150/70 93 10/08/16 05:48 20 10/07/16 23:52 98.9 90 18 160/84 96 10/07/16 20:06 96.7 94 20 166/82 96 10/07/16 16:00 98.0 95 22 152/69 94 10/07/16 12:00 97.5 102 20 164/84 94 I/O 10/07/16 10/07/16 10/07/16 10/08/16 10/08/16 10/08/16 06:59 14:59 22:59 06:59 14:59 22:59 Intake Total 240 ml 1420 ml 760 ml 480 ml Output Total 3000 ml 2125 ml 1000 ml 1000 ml Balance -2760 ml -705 ml -240 ml -520 ml Intake Oral 240 ml 1320 ml 760 ml 480 ml IV Total 100 ml 0 ml 0 ml Output Urine Total 3000 ml 2125 ml 1000 ml 1000 ml # Bowel Movements 2 1 1 Result Diagram: 10/07/16 0435 10/08/16 0534 Objective Remarks Wounds clean Assessment and Plan Assessment and Plan OK to transfer to rehab when ok with Medical service Lucille Horta MD Oct 08, 2016 11:07
--- NOTE | 2016-10-08 11:24 | HHI.PR ---
Subjective Remarks c/o persistent swelling in feet. Objective Vitals heart reg lung cta abd s/nt ext anasarca improved omalley. cvl scrotum/perineum wound open but no cellulitis or purelent drainage Vital Signs Date Time Temp Pulse Resp B/P Pulse Ox O2 Delivery O2 Flow Rate FiO2 10/08/16 08:00 97.7 50 16 150/70 93 10/08/16 05:48 20 10/07/16 23:52 98.9 90 18 160/84 96 10/07/16 20:06 96.7 94 20 166/82 96 10/07/16 16:00 98.0 95 22 152/69 94 10/07/16 12:00 97.5 102 20 164/84 94 10/07/16 10/07/16 10/08/16 14:59 22:59 06:59 Intake Total 1420 ml 760 ml 480 ml Output Total 2125 ml 1000 ml 1000 ml Balance -705 ml -240 ml -520 ml Intake Oral 1320 ml 760 ml 480 ml IV Total 100 ml 0 ml 0 ml Output Urine Total 2125 ml 1000 ml 1000 ml # Bowel Movements 1 1 Result Diagram: 10/07/16 0435 10/08/16 0534 Imaging Last 72 hours Impressions Chest X-Ray 09/29/16 0500 Signed Impressions: Service Date/Time: Thursday, September 29, 2016 05:18 - CONCLUSION: No significant interval change Norris Lloyd MD Chest X-Ray 09/28/16 0000 Signed Impressions: Service Date/Time: September 11:02 - CONCLUSION: 1. Mild perihilar infiltrates consistent with congestion versus pneumonitis. Clinical correlation is recommended. Darío Baum MD Chest X-Ray 09/26/162226 Signed Impressions: Service Date/Time: Monday, September 26, 2016 22:40 - CONCLUSION: No acute disease. Jaden Salguero MD Last Impressions Chest X-Ray 09/29/16 0500 Signed Impressions: Service Date/Time: Thursday, September 29, 2016 05:18 - CONCLUSION: No significant interval change Norris Lloyd MD Last Impressions Chest X-Ray 09/26/162226 Signed Impressions: Service Date/Time: Monday, September 26, 2016 22:40 - CONCLUSION: No acute disease. 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 Pt taken to OR for debridement x 2. currently open wounds packed. presented with dka and new afib and initially admitted to icu. currently pt appears volume overloaded peripherally and positive on i/o's ..pt says his baseline weight was 325 pounds and 10/02 he was 387 He is noted to have marci cont abx per ID. renal adjusted. changed due to severe diarrhea. rocephin complete 10/09/16 cont insulin and titrate. currently stable wound care per CRS diet per CRS iv to po lasix d/c omalley cont ccb and converted to cd. xarelto at d/c dvt prophylaxis. PT daily plan for snf probably Sunday (2) MARCI (acute kidney injury) Status: Acute Plan: see above (3) Streptococcal sepsis Status: Acute Plan: see above (4) Atrial fibrillation, new onset Status: Acute Plan: see above (5) DKA, type 2 Status: Acute Plan: see above (6) Anemia Status: Acute Plan: due to sepsis/blood draws. monitor (7) Hypoalbuminemia Status: Acute Plan: related to acute illness. see above (8) Obstructive sleep apnea Status: Chronic Assessment and Plan - Problem Qualifiers (1) DKA, type 2: Qualified Code: E13.10 - Type 2 diabetes mellitus with ketoacidosis without coma, unspecified terminal operator insulin use status Eamon Marques MD Oct 08, 2016 11:24
[2016-10-08 11:36] VITALS: O2SAT 96
[2016-10-08 12:00] VITALS: BP 113/66; PULSE 81; RESP 17; TEMP 98; O2SAT 96
[2016-10-08] MEDS: cefTRIAXone INJ 2,000 MG in SODIUM CHLORIDE 0.9% INJ 100 ML IV SCH (12:27)
[2016-10-08 16:00] VITALS: BP 152/68; PULSE 86; RESP 17; TEMP 98.1; O2SAT 92
[2016-10-08] MEDS: FUROSEMIDE 20 MG TAB PO SCH (17:22)
[2016-10-08 20:00] VITALS: BP 154/67; PULSE 50; RESP 17; TEMP 97; O2SAT 97
[2016-10-08] MEDS: ATORVASTATIN 40 MG TAB PO SCH (21:11)
[2016-10-08 22:22] VITALS: O2SAT 96
[2016-10-09] VITALS (7 sets, daily range): BP systolic 113–150; BP diastolic 54–69; PULSE 73–105; RESP 16–18; TEMP 97.2–98.7; O2SAT 94–97
[2016-10-09] MEDS: DIPHENOXYLATE/ATROPINE 2.5 MG/0.025 MG TAB PO SCH ×4 (02:15→20:00)
[2016-10-09] MEDS: oxyCODONE/ACETAMINOPHEN 5 MG/325 MG TAB PO PRN ×5 (02:16→22:42)
[2016-10-09] MEDS: INSULIN ASPART SUPPLEMENTAL SCALE SQ SCH ×4 (05:32→20:02)
[2016-10-09] MEDS: metroNIDAZOLE 500 MG TAB PO SCH ×3 (05:32→22:42)
[2016-10-09 06:33] LABS: BICARBONATE 31.4 MEQ/L (21.0-32.0); POTASSIUM 3.4 MEQ/L (3.5-5.1)
[2016-10-09] MEDS: INSULIN DETEMIR 100 UNITS/ML VIAL SQ SCH ×2 (08:57→20:02)
[2016-10-09] MEDS: HEPARIN SODIUM - SQ 10,000 UNITS/ML VIAL SQ SCH ×2 (08:57→20:00)
[2016-10-09] MEDS: FUROSEMIDE 20 MG TAB PO SCH (08:58)
[2016-10-09] MEDS: FLUCONAZOLE 100 MG TAB PO SCH (08:58)
[2016-10-09] MEDS: ASPIRIN EC 81 MG TABEC PO SCH (08:58)
[2016-10-09] MEDS: PANTOPRAZOLE SOD 40 MG DELAYED RELEASE TAB PO SCH (08:58)
[2016-10-09] MEDS: DILTIAZEM-CD 180 MG CAP ER PO SCH (09:00)
[2016-10-09] MEDS: cefTRIAXone INJ 2,000 MG in SODIUM CHLORIDE 0.9% INJ 100 ML IV SCH (15:09)
--- NOTE | 2016-10-09 16:24 | HHI.PR ---
Subjective Remarks No new complaints Objective Vitals Vital Signs Date Time Temp Pulse Resp B/P Pulse Ox O2 Delivery O2 Flow Rate FiO2 10/09/16 12:00 97.2 73 17 134/66 96 10/09/16 08:49 96 Nasal Cannula 2.00 10/09/16 08:00 98.3 86 17 147/69 94 10/09/16 00:00 97.9 87 17 148/66 96 10/08/16 22:22 96 21 10/08/16 21:30 Room Air 10/08/16 20:00 97.0 50 17 154/67 97 10/08/16 10/08/16 10/09/16 15:00 23:00 07:00 Intake Total 1685 ml 240 ml 240 ml Output Total 1300 ml 1500 ml 1000 ml Balance 385 ml -1260 ml -760 ml Intake Oral 1435 ml 240 ml 240 ml IV Total 250 ml 0 ml 0 ml Output Urine Total 1300 ml 1500 ml 1000 ml # Bowel Movements 1 2 Result Diagram: 10/07/16 0435 10/09/16 0548 Imaging Last 72 hours Impressions Chest X-Ray 09/29/16 0500 Signed Impressions: Service Date/Time: Thursday, September 29, 2016 05:18 - CONCLUSION: No significant interval change Norris Lloyd MD Chest X-Ray 09/28/16 0000 Signed Impressions: Service Date/Time: September 11:02 - CONCLUSION: 1. Mild perihilar infiltrates consistent with congestion versus pneumonitis. Clinical correlation is recommended. Darío Baum MD Chest X-Ray 09/26/162226 Signed Impressions: Service Date/Time: Monday, September 26, 2016 22:40 - CONCLUSION: No acute disease. Jaden Salguero MD Last Impressions Chest X-Ray 09/29/16 0500 Signed Impressions: Service Date/Time: Thursday, September 29, 2016 05:18 - CONCLUSION: No significant interval change Norris Lloyd MD Last Impressions Chest X-Ray 09/26/162226 Signed Impressions: Service Date/Time: Monday, September 26, 2016 22:40 - CONCLUSION: No acute disease. Jaden Salguero MD Objective Remarks GENERAL: This is a well-nourished, well-developed patient, in no apparent distress. CARDIOVASCULAR: Regular rate and rhythm without murmurs, gallops, or rubs. RESPIRATORY: Clear to auscultation. Breath sounds equal bilaterally. No wheezes , rales, or rhonchi. GASTROINTESTINAL: Abdomen soft, non-tender, nondistended. Normal active bowel sounds MUSCULOSKELETAL: Extremities without clubbing, cyanosis, or edema. NEURO: Alert & Oriented x4 to person, place, time, situation. Moves all ext x4 skin: large wound, involving right scrotum/right perineum, appears clean with granulation tissue A/P Problem List: (1) Soledad gangrene Status: Acute Plan: Pt presented with viridans strep sepsis.source is soledad gangrene. Pt taken to OR for debridement x 2. currently open wounds packed. presented with dka and new afib and initially admitted to icu. currently pt appears volume overloaded peripherally and positive on i/o's ..pt says his baseline weight was 325 pounds and 10/02 he was 387 He is noted to have macri cont abx per ID. renal adjusted. changed due to severe diarrhea. rocephin complete 10/09/16 cont insulin and titrate. currently stable wound care per CRS diet per CRS iv to po lasix d/c omalley cont ccb and converted to cd. xarelto at d/c dvt prophylaxis. PT daily - case d/w Dr. Champagne (10/09/16) - continue wet-to-dry dressing and allow wound to slowly granulate until healed - okay to discharge per surgery - pt appears volume overloaded - will diurese prior to discharge, observe renal fxn - anticipate discharge to SNF in 2-3 days (2) MARCI (acute kidney injury) Status: Acute Plan: see above (3) Streptococcal sepsis Status: Acute Plan: see above (4) Atrial fibrillation, new onset Status: Acute Plan: see above (5) DKA, type 2 Status: Acute Plan: see above (6) Anemia Status: Acute Plan: due to sepsis/blood draws. monitor (7) Hypoalbuminemia Status: Acute Plan: related to acute illness. see above (8) Obstructive sleep apnea Status: Chronic (9) DM2 (diabetes mellitus, type 2) Status: Acute Plan: - stable - levemir 25 units BID Assessment and Plan - Problem Qualifiers (1) DKA, type 2: Qualified Code: E13.10 - Type 2 diabetes mellitus with ketoacidosis without coma, unspecified senior living insulin use status (2) DM2 (diabetes mellitus, type 2): Qualified Code: E11.8 - Type 2 diabetes mellitus with complication, without long-term current use of insulin Timbo Childress DO Oct 09, 2016 16:24
--- NOTE | 2016-10-09 17:06 | RADRPT ---
EXAM DATE/TIME: 10/09/2016 16:49 [facility] COMPARISON: CHEST SINGLE AP, October 02, 2016, 5:35. INDICATIONS : Bilateral leg swelling. MEDICAL HISTORY : Hypertension. Diabetes mellitus type II. SURGICAL HISTORY : None. ENCOUNTER: Subsequent ACUITY: 2 weeks PAIN SCORE: 0/10 LOCATION: Bilateral chest FINDINGS: No infiltrate demonstrated. Lateral view suggests a tiny amount of pleural fluid on the left. No pneu mothorax. Heart size stable, within normal limits. CONCLUSION: Trace pleural effusion on the left. Otherwise no evidence of acute cardiopulmonary disease. Norris Ferris MD on October 09, 2016 at 17:03 Board Certified Radiologist. This report was verified electronically.
[2016-10-09] MEDS: FUROSEMIDE 40 MG/4 ML VIAL IV PUSH SCH (17:41)
[2016-10-09] MEDS: POTASSIUM CHLORIDE 20 MEQ CONTROLLED RELEASE TAB PO SCH (17:49)
[2016-10-09] MEDS: SODIUM CHLORIDE 0.9% FLUSH 5 ML FLUSH IVF SCH (20:01)
[2016-10-09] MEDS: ATORVASTATIN 40 MG TAB PO SCH (20:01)
[2016-10-10] VITALS: BP 137/68; PULSE 101; RESP 20; TEMP 98.2; O2SAT 95
[2016-10-10] MEDS: DIPHENOXYLATE/ATROPINE 2.5 MG/0.025 MG TAB PO SCH ×4 (01:58→20:00)
[2016-10-10] MEDS: oxyCODONE/ACETAMINOPHEN 5 MG/325 MG TAB PO PRN ×3 (04:04→15:07)
[2016-10-10] MEDS: metroNIDAZOLE 500 MG TAB PO SCH ×3 (04:04→20:57)
[2016-10-10 06:03] LABS: AUTOMATED NEUTROPHIL # 5.8 TH/MM3 (1.8-7.7); BASOPHIL % 0.2 % (0.0-2.0); EOSINOPHIL # 0.1 TH/MM3 (0-0.4); EOSINOPHIL % 0.9 % (0.0-4.0); HEMATOCRIT 28.2 % (39.0-51.0); HEMO FLAGS DIFF FINAL; LYMPH % 17.3 % (9.0-44.0); LYMPHOCYTE # 1.4 TH/MM3 (1.0-4.8); MEAN CORPUSCULAR HEMOGLOBIN 27.8 PG (27.0-34.0); MEAN CORPUSCULAR HGB CONC 32.4 % (32.0-36.0); MONO % 7.5 % (0.0-8.0); NEUT % 74.1 % (16.0-70.0); PLATELET COUNT 244 TH/MM3 (150-450); RED BLOOD COUNT 3.28 MIL/MM3 (4.50-5.90); RED CELL DISTRIBUTION WIDTH 14.4 % (11.6-17.2); WHITE BLOOD COUNT 7.9 TH/MM3 (4.0-11.0)
[2016-10-10] MEDS: INSULIN ASPART SUPPLEMENTAL SCALE SQ SCH ×4 (06:07→21:00)
[2016-10-10 06:10] LABS: BICARBONATE 34.2 MEQ/L (21.0-32.0); MAGNESIUM 2.1 MG/DL (1.5-2.5); POTASSIUM 4.1 MEQ/L (3.5-5.1)
[2016-10-10 08:00] VITALS: BP 127/62; PULSE 84; RESP 20; TEMP 98; O2SAT 95
[2016-10-10] MEDS: DILTIAZEM-CD 180 MG CAP ER PO SCH (08:46)
[2016-10-10] MEDS: ASPIRIN EC 81 MG TABEC PO SCH (08:46)
[2016-10-10] MEDS: PANTOPRAZOLE SOD 40 MG DELAYED RELEASE TAB PO SCH (08:46)
[2016-10-10] MEDS: FUROSEMIDE 40 MG/4 ML VIAL IV PUSH SCH ×2 (08:46→18:05)
[2016-10-10] MEDS: SODIUM CHLORIDE 0.9% FLUSH 5 ML FLUSH IVF SCH ×2 (08:46→20:59)
[2016-10-10] MEDS: HEPARIN SODIUM - SQ 10,000 UNITS/ML VIAL SQ SCH ×2 (08:47→20:57)
[2016-10-10] MEDS: POTASSIUM CHLORIDE 20 MEQ CONTROLLED RELEASE TAB PO SCH (08:47)
[2016-10-10] MEDS: COLLAGENASE OINT 30 GM TUBE TOP SCH (08:47)
[2016-10-10] MEDS: INSULIN DETEMIR 100 UNITS/ML VIAL SQ SCH ×2 (08:47→20:58)
[2016-10-10 11:27] VITALS: BP 132/61; PULSE 81; RESP 20; TEMP 98.5; O2SAT 94
[2016-10-10] MEDS ORDERED: FUROSEMIDE 100 MG/10 ML VIAL IV PUSH ONE (14:45)
--- NOTE | 2016-10-10 15:07 | HHI.PR ---
Subjective Remarks Pt complains about the soft diet He has been complaining about generalized itching. Pt lost IV access this morning and did not get all of his Lasix Objective Vitals Vital Signs Date Time Temp Pulse Resp B/P Pulse Ox O2 Delivery O2 Flow Rate FiO2 10/10/16 11:27 98.5 81 20 132/61 94 10/10/16 08:00 98.0 84 20 127/62 95 10/10/16 00:00 98.2 101 20 137/68 95 10/09/16 20:08 94 10/09/16 20:00 97.8 105 18 150/65 97 10/09/16 16:00 98.7 86 16 113/54 94 10/09/16 10/09/16 10/10/16 15:00 23:00 07:00 Intake Total 1080 ml 0 ml 360 ml Output Total 1550 ml 550 ml Balance -470 ml 0 ml -190 ml Intake Oral 1080 ml 360 ml IV Total 0 ml Output Urine Total 1550 ml 550 ml # Bowel Movements 1 1 Result Diagram: 10/10/16 0517 10/10/16 0517 Other Results Laboratory Tests Test 10/09/16 10/10/16 05:48 05:17 Sodium Level 142 MEQ/L 139 MEQ/L Potassium Level 3.4 MEQ/L 4.1 MEQ/L Chloride Level 102 MEQ/L 100 MEQ/L Carbon Dioxide Level 31.4 MEQ/L 34.2 MEQ/L Anion Gap 9 MEQ/L 5 MEQ/L Blood Urea Nitrogen 15 MG/DL 16 MG/DL Creatinine 1.69 MG/DL 1.71 MG/DL Estimat Glomerular Filtration 42 ML/MIN 42 ML/MIN Rate Random Glucose 78 MG/DL 145 MG/DL Calcium Level 8.4 MG/DL 8.1 MG/DL White Blood Count 7.9 TH/MM3 Red Blood Count 3.28 MIL/MM3 Hemoglobin 9.1 GM/DL Hematocrit 28.2 % Mean Corpuscular Volume 86.0 FL Mean Corpuscular Hemoglobin 27.8 PG Mean Corpuscular Hemoglobin 32.4 % Concent Red Cell Distribution Width 14.4 % Platelet Count 244 TH/MM3 Mean Platelet Volume 8.1 FL Neutrophils (%) (Auto) 74.1 % Lymphocytes (%) (Auto) 17.3 % Monocytes (%) (Auto) 7.5 % Eosinophils (%) (Auto) 0.9 % Basophils (%) (Auto) 0.2 % Neutrophils # (Auto) 5.8 TH/MM3 Lymphocytes # (Auto) 1.4 TH/MM3 Monocytes # (Auto) 0.6 TH/MM3 Eosinophils # (Auto) 0.1 TH/MM3 Basophils # (Auto) 0.0 TH/MM3 CBC Comment DIFF FINAL Differential Comment Magnesium Level 2.1 MG/DL Imaging Last 72 hours Impressions Chest X-Ray 09/29/16 0500 Signed Impressions: Service Date/Time: Thursday, September 29, 2016 05:18 - CONCLUSION: No significant interval change Norris Lloyd MD Chest X-Ray 09/28/16 0000 Signed Impressions: Service Date/Time: September 11:02 - CONCLUSION: 1. Mild perihilar infiltrates consistent with congestion versus pneumonitis. Clinical correlation is recommended. Darío Baum MD Chest X-Ray 09/26/162226 Signed Impressions: Service Date/Time: Monday, September 26, 2016 22:40 - CONCLUSION: No acute disease. Jaden Salguero MD Last Impressions Chest X-Ray 09/29/16 0500 Signed Impressions: Service Date/Time: Thursday, September 29, 2016 05:18 - CONCLUSION: No significant interval change Norris Lloyd MD Last Impressions Chest X-Ray 09/26/162226 Signed Impressions: Service Date/Time: Monday, September 26, 2016 22:40 - CONCLUSION: No acute disease. Jaden Salguero MD Objective Remarks General: NAD, AAOx3 Chest: CTA Cardiac: Regular Abd: +BS, soft ND/NT Ext: Bilateral 2+ LE pitting edema Skin: large wound, involving right scrotum/right perineum, appears clean with granulation tissue A/P Problem List: (1) Twin gangrene Status: Acute Plan: - Pt presented with diabetic ketoacidosis and new A.fib and was [place] [facility] [place] cultures at admission grew out Strep viridans and source found to be Twin gangrene. - Pt was transferred to [facility] and taken to OR for debridement x 2 (09/29 and 10/01). - CRS is following wounds and currently open wounds packed. - ID following abx were renal adjusted due to MARCI and severe diarrhea. - pt completed Diflucan (10/03-10/09/16) - He will complete Rocephin on 10/10/16 (14 days total) and Flagyl 500mg Q8H on 10/10/16 - case d/w Dr. Champagne (10/09/16) - continue wet-to-dry dressing and allow wound to slowly granulate until healed - okay to discharge per surgery - Pt continues to appear volume overloaded peripherally and positive on i/o's - Pt says his baseline weight was 325 pounds and 10/02 he was 387 - Pt received Lasix 20mg IV BID from 10/03 to 10/08/16. Lasix was increased to 40mg IV BID on 10/09/16 - Pt has had issues with IV access. - Consult Vascular access team for peripheral IV placement. - Give a one time dose of Lasix 80mg IV since he did not get all of his Lasix dose this morning due to IV access issues. - Monitor renal function closely - DVT prophylaxis. (2) MARCI (acute kidney injury) Status: Acute Plan: - See above (3) Streptococcal sepsis Status: Acute Plan: - See above (4) Atrial fibrillation, new onset Status: Acute Plan: - Cont Cardizem CD 180mg po daily - Xarelto at d/c (5) DKA, type 2 Status: Acute Plan: - Cont Levemir 25units Q12H - NovoLog SSI - Accu checks (6) Anemia Status: Acute Plan: - Likely due to sepsis/blood draws. - Stable currently - Monitor (7) Hypoalbuminemia Status: Acute Plan: - Related to acute illness. - See above (8) Obstructive sleep apnea Status: Chronic (9) DM2 (diabetes mellitus, type 2) Status: Acute Plan: - stable - Levemir 25 units BID - NovoLog SSI Assessment and Plan Patient examined. Assessment and plan formulated with Shy Bain PA-C. I agree with the above. Problem Qualifiers (1) DKA, type 2: Qualified Code: E13.10 - Type 2 diabetes mellitus with ketoacidosis without coma, unspecified intermediate insulin use status (2) DM2 (diabetes mellitus, type 2): Qualified Code: E11.8 - Type 2 diabetes mellitus with complication, without long-term current use of insulin Shy Bain Oct 10, 2016 15:07 Timbo Childress DO Oct 12, 2016 13:40
[2016-10-10 16:00] VITALS: BP 130/60; PULSE 95; RESP 20; TEMP 98.9; O2SAT 95
[2016-10-10] MEDS: cefTRIAXone INJ 2,000 MG in SODIUM CHLORIDE 0.9% INJ 100 ML IV SCH (16:07)
[2016-10-10] MEDS: LACTATED RINGER'S 1000 ML IV SCH (19:30)
[2016-10-10] MEDS: SODIUM CHLORID 0.9% 500 ML IV SCH (19:30)
--- NOTE | 2016-10-10 20:17 | HHI.PR ---
Subjective Remarks C/R Surg POD afebrile, VSS UO good giovanna PO liq stool, more formed Objective - Vital Signs Date Time Temp Pulse Resp B/P Pulse Ox O2 Delivery O2 Flow Rate FiO2 10/10/16 16:00 98.9 95 20 130/60 95 10/09/16 08:49 Nasal Cannula 2.00 10/08/16 22:22 21 Result Diagram: 10/10/16 0517 10/10/16516 Objective Remarks PE alert Abd - soft, non - tender Rectal - wound s clean, dry, skin healthy rt groin red A/P Assessment and Plan Imp: adv diet, wound care at bedside, irrigate wound under anesthesia dc plans - rehab José Luis Champagne MD Oct 10, 2016 20:17
[2016-10-10 20:54] VITALS: BP 122/57; PULSE 90; RESP 18; TEMP 98.9; O2SAT 97
[2016-10-10] MEDS: ATORVASTATIN 40 MG TAB PO SCH (20:57)
[2016-10-11 00:21] VITALS: BP 148/65; PULSE 100; RESP 20; TEMP 98.2; O2SAT 96
[2016-10-11] MEDS: DIPHENOXYLATE/ATROPINE 2.5 MG/0.025 MG TAB PO SCH ×4 (02:00→20:00)
[2016-10-11] MEDS: oxyCODONE/ACETAMINOPHEN 5 MG/325 MG TAB PO PRN ×4 (05:56→21:03)
[2016-10-11 06:53] LABS: APTT (PATIENT) 27.9 SEC (24.3-30.1)
[2016-10-11] MEDS: INSULIN ASPART SUPPLEMENTAL SCALE SQ SCH ×4 (07:00→21:02)
[2016-10-11 07:03] LABS: AUTOMATED NEUTROPHIL # 5.5 TH/MM3 (1.8-7.7); BASOPHIL % 0.1 % (0.0-2.0); EOSINOPHIL # 0.1 TH/MM3 (0-0.4); EOSINOPHIL % 1.4 % (0.0-4.0); HEMATOCRIT 30.5 % (39.0-51.0); HEMO FLAGS DIFF FINAL; LYMPH % 16.2 % (9.0-44.0); LYMPHOCYTE # 1.2 TH/MM3 (1.0-4.8); MEAN CELL VOLUME 84.5 FL (80.0-100.0); MEAN CORPUSCULAR HEMOGLOBIN 27.9 PG (27.0-34.0); MONO % 7.8 % (0.0-8.0); NEUT % 74.5 % (16.0-70.0); PLATELET COUNT 295 TH/MM3 (150-450); RED BLOOD COUNT 3.61 MIL/MM3 (4.50-5.90); RED CELL DISTRIBUTION WIDTH 14.2 % (11.6-17.2); WHITE BLOOD COUNT 7.4 TH/MM3 (4.0-11.0)
[2016-10-11 07:08] LABS: BICARBONATE 29.6 MEQ/L (21.0-32.0); MAGNESIUM 2.1 MG/DL (1.5-2.5); POTASSIUM 3.7 MEQ/L (3.5-5.1)
[2016-10-11 07:48] VITALS: BP 152/65; PULSE 84; RESP 19; TEMP 98.2; O2SAT 95
[2016-10-11] MEDS: INSULIN DETEMIR 100 UNITS/ML VIAL SQ SCH ×2 (09:00→20:51)
[2016-10-11] MEDS: ASPIRIN EC 81 MG TABEC PO SCH (09:00)
[2016-10-11] MEDS: HEPARIN SODIUM - SQ 10,000 UNITS/ML VIAL SQ SCH ×2 (09:00→20:51)
[2016-10-11] MEDS: DILTIAZEM-CD 180 MG CAP ER PO SCH (10:18)
[2016-10-11] MEDS: POTASSIUM CHLORIDE 20 MEQ CONTROLLED RELEASE TAB PO SCH (10:18)
[2016-10-11] MEDS: PANTOPRAZOLE SOD 40 MG DELAYED RELEASE TAB PO SCH (10:18)
[2016-10-11] MEDS: FUROSEMIDE 40 MG/4 ML VIAL IV PUSH SCH ×2 (10:19→17:48)
[2016-10-11] MEDS: SODIUM CHLORIDE 0.9% FLUSH 5 ML FLUSH IVF SCH ×2 (10:19→21:04)
[2016-10-11] MEDS: COLLAGENASE OINT 30 GM TUBE TOP SCH (10:21)
[2016-10-11 11:01] VITALS: BP 152/65; PULSE 84; RESP 19; TEMP 98.2; O2SAT 95
[2016-10-11] MEDS ORDERED: PROPOFOL 200 MG/20 ML AMP IV ONE (11:10)
[2016-10-11] MEDS ORDERED: MIDAZOLAM HCL 2 MG/2 ML VIAL IV ONE (11:10)
[2016-10-11] MEDS: SODIUM CHLORID 0.9% 500 ML IV SCH (12:10)
--- NOTE | 2016-10-11 12:44 | MR ---
cc: DALI HARVEY M.D. DATE: October 11, 2016 PREOPERATIVE DIAGNOSIS History of Twin's gangrene and diarrhea. PROCEDURE Flexible sigmoidoscopy to sigmoid colon to exam under anesthesia with irrigation and repacking of perineal wounds. POSTOPERATIVE DIAGNOSIS Flexible sigmoidoscopy to sigmoid colon to exam under anesthesia with irrigation and repacking of perineal wounds. SURGEON Dr. Harvey PROCEDURE The patient was placed in left lateral decubitus position. After adequate anesthesia sedation rectal exam confirmed the emptiness the rectal vault. Olympus colonoscope was introduced into rectum and advanced easily through the rectum and rectosigmoid at which point the prep became somewhat poor but no sign of any mucosal inflammation was seen. No pseudomembranes were noted. Lumen size appeared adequate. Scope was gradually withdrawn noting normal mucosa throughout the rectosigmoid. Next, the perineal wound was changed and the wound appeared healthy. There was granulation tissue. No signs of any necrotic areas or inflammation was seen. The wound was repacked with a Kerlix gauze dressing. The scrotal wound was similarly irrigated and examined. There was some cellulitis extending up into the area of the inguinal ligament. This was probed and some loculations broken up but no necrotic tissue were seen. No abscess formation was noted. The area was irrigated copiously with normal saline and the whole wound packed loosely with the Kerlix gauze. The patient tolerated the procedure quite well and was brought to recovery room in stable condition. MD MAC Escalera/magda /11:30 AM /12:17 PM
--- NOTE | 2016-10-11 13:34 | HHI.PR ---
Subjective Remarks Pt walking the halls with PT prior to examination No new complaints today Still with LE edema Objective Vitals Vital Signs Date Time Temp Pulse Resp B/P Pulse Ox O2 Delivery O2 Flow Rate FiO2 10/11/16 11:01 98.2 84 19 152/65 95 10/11/16 07:48 98.2 84 19 152/65 95 10/11/16 00:21 98.2 100 20 148/65 96 10/10/16 21:00 Nasal Cannula 2.00 10/10/16 20:54 98.9 90 18 122/57 97 10/10/16 16:00 98.9 95 20 130/60 95 10/10/16 10/10/16 10/11/16 15:00 23:00 07:00 Intake Total 1080 ml 1517 ml 0 ml Output Total 550 ml 2550 ml 2000 ml Balance 530 ml -1033 ml -2000 ml Intake Oral 1080 ml 1000 ml IV Total 117 ml 0 ml Tube Irrigant 400 ml Output Urine Total 550 ml 2550 ml 2000 ml # Bowel Movements 0 Result Diagram: 10/11/16 0618 10/11/16 0618 Other Results Laboratory Tests Test 10/10/16 10/11/16 05:17 06:18 White Blood Count 7.9 TH/MM3 7.4 TH/MM3 Red Blood Count 3.28 MIL/MM3 3.61 MIL/MM3 Hemoglobin 9.1 GM/DL 10.1 GM/DL Hematocrit 28.2 % 30.5 % Mean Corpuscular Volume 86.0 FL 84.5 FL Mean Corpuscular Hemoglobin 27.8 PG 27.9 PG Mean Corpuscular Hemoglobin 32.4 % 33.0 % Concent Red Cell Distribution Width 14.4 % 14.2 % Platelet Count 244 TH/MM3 295 TH/MM3 Mean Platelet Volume 8.1 FL 8.1 FL Neutrophils (%) (Auto) 74.1 % 74.5 % Lymphocytes (%) (Auto) 17.3 % 16.2 % Monocytes (%) (Auto) 7.5 % 7.8 % Eosinophils (%) (Auto) 0.9 % 1.4 % Basophils (%) (Auto) 0.2 % 0.1 % Neutrophils # (Auto) 5.8 TH/MM3 5.5 TH/MM3 Lymphocytes # (Auto) 1.4 TH/MM3 1.2 TH/MM3 Monocytes # (Auto) 0.6 TH/MM3 0.6 TH/MM3 Eosinophils # (Auto) 0.1 TH/MM3 0.1 TH/MM3 Basophils # (Auto) 0.0 TH/MM3 0.0 TH/MM3 CBC Comment DIFF FINAL DIFF FINAL Differential Comment Sodium Level 139 MEQ/L 143 MEQ/L Potassium Level 4.1 MEQ/L 3.7 MEQ/L Chloride Level 100 MEQ/L 103 MEQ/L Carbon Dioxide Level 34.2 MEQ/L 29.6 MEQ/L Anion Gap 5 MEQ/L 10 MEQ/L Blood Urea Nitrogen 16 MG/DL 14 MG/DL Creatinine 1.71 MG/DL 1.78 MG/DL Estimat Glomerular Filtration 42 ML/MIN 40 ML/MIN Rate Random Glucose 145 MG/DL 97 MG/DL Calcium Level 8.1 MG/DL 8.4 MG/DL Magnesium Level 2.1 MG/DL 2.1 MG/DL Activated Partial 27.9 SEC Thromboplast Time Imaging Last 72 hours Impressions Chest X-Ray 09/29/16 0500 Signed Impressions: Service Date/Time: Thursday, September 29, 2016 05:18 - CONCLUSION: No significant interval change Norris Lloyd MD Chest X-Ray 09/28/16 0000 Signed Impressions: Service Date/Time: September 11:02 - CONCLUSION: 1. Mild perihilar infiltrates consistent with congestion versus pneumonitis. Clinical correlation is recommended. Darío Baum MD Chest X-Ray 09/26/162226 Signed Impressions: Service Date/Time: Monday, September 26, 2016 22:40 - CONCLUSION: No acute disease. Jaden Salguero MD Last Impressions Chest X-Ray 09/29/16 0500 Signed Impressions: Service Date/Time: Thursday, September 29, 2016 05:18 - CONCLUSION: No significant interval change Norris Lloyd MD Last Impressions Chest X-Ray 09/26/162226 Signed Impressions: Service Date/Time: Monday, September 26, 2016 22:40 - CONCLUSION: No acute disease. Jaden Salguero MD Objective Remarks General: NAD, AAOx3 Chest: CTA Cardiac: Regular Abd: +BS, soft ND/NT Ext: Bilateral 2+ LE pitting edema, erythema and excoriations on the RLE below the knee Skin: large wound, involving right scrotum/right perineum, appears clean with granulation tissue A/P Problem List: (1) Twin gangrene Status: Acute Plan: - Pt presented with diabetic ketoacidosis and new A.fib and was initially admitted to ICU in [facility] [place] Blood cultures at admission grew out Strep viridans and source found to be Twin gangrene. - Pt was transferred to [facility] and taken to OR for debridement x 2 (09/29 and 10/01). - CRS is following wounds and currently open wounds packed. - ID following abx were renal adjusted due to MARCI and severe diarrhea. - pt completed Diflucan (10/03-10/09/16) - He will complete Rocephin on 10/10/16 (14 days total) and Flagyl 500mg Q8H on 10/10/16 - case d/w Dr. Champagne (10/09/16) - continue wet-to-dry dressing and allow wound to slowly granulate until healed - Pt underwent Flex sig to sigmoid colon to examine under anesthesia with irrigation and repacking of perineal wounds. Per the surgeons report, the perineal wound appeared healthy with granulation tissue. No signs of any necrotic areas or inflammation was seen. - Pt continues to appear volume overloaded peripherally and positive on i/o's - Pt says his baseline weight was 325 pounds and 10/02 he was 387 - Pt received Lasix 20mg IV BID from 10/03 to 10/08/16. Lasix was increased to 40mg IV BID on 10/09/16 - pt had good UOP of 5100cc yesterday - Monitor renal function closely - DVT prophylaxis. (2) MARCI (acute kidney injury) Status: Acute Plan: - See above (3) Streptococcal sepsis Status: Acute Plan: - See above (4) Atrial fibrillation, new onset Status: Acute Plan: - Cont Cardizem CD 180mg po daily - Xarelto at d/c (5) DKA, type 2 Status: Acute Plan: - Cont Levemir 25units Q12H - NovoLog SSI - Accu checks (6) Anemia Status: Acute Plan: - Likely due to sepsis/blood draws. - Stable currently - Monitor (7) Hypoalbuminemia Status: Acute Plan: - Related to acute illness. - See above (8) Obstructive sleep apnea Status: Chronic (9) DM2 (diabetes mellitus, type 2) Status: Acute Plan: - stable - Levemir 25 units BID - NovoLog SSI Assessment and Plan Patient examined. Assessment and plan formulated with Shy Bain PA-C. I agree with the above. Problem Qualifiers (1) DKA, type 2: Qualified Code: E13.10 - Type 2 diabetes mellitus with ketoacidosis without coma, unspecified terminal gauger insulin use status (2) DM2 (diabetes mellitus, type 2): Qualified Code: E11.8 - Type 2 diabetes mellitus with complication, without long-term current use of insulin Shy Bain Oct 11, 2016 13:34 Timbo Childress DO Oct 12, 2016 13:45
[2016-10-11] MEDS: diphenhydrAMINE HCL 50 MG CAP PO PRN ×2 (15:38→21:03)
[2016-10-11 16:00] VITALS: BP 159/73; PULSE 92; RESP 20; TEMP 98.4; O2SAT 97
[2016-10-11] MEDS: LACTATED RINGER'S 1000 ML IV SCH (19:30)
[2016-10-11 20:00] VITALS: BP 148/78; PULSE 89; RESP 20; TEMP 98.6; O2SAT 95
[2016-10-11] MEDS: ATORVASTATIN 40 MG TAB PO SCH (20:50)
[2016-10-12] VITALS: BP 132/62; PULSE 89; RESP 20; TEMP 99.3; O2SAT 97
[2016-10-12] MEDS: oxyCODONE/ACETAMINOPHEN 5 MG/325 MG TAB PO PRN ×4 (01:38→23:05)
[2016-10-12] MEDS: DIPHENOXYLATE/ATROPINE 2.5 MG/0.025 MG TAB PO SCH ×4 (01:38→21:28)
[2016-10-12] MEDS: INSULIN ASPART SUPPLEMENTAL SCALE SQ SCH ×4 (06:26→21:30)
[2016-10-12 06:57] LABS: AUTOMATED NEUTROPHIL # 4.8 TH/MM3 (1.8-7.7); BASOPHIL % 0.5 % (0.0-2.0); EOSINOPHIL # 0.1 TH/MM3 (0-0.4); EOSINOPHIL % 1.8 % (0.0-4.0); HEMATOCRIT 28.7 % (39.0-51.0); HEMO FLAGS DIFF FINAL; LYMPHOCYTE # 1.2 TH/MM3 (1.0-4.8); MEAN CORPUSCULAR HEMOGLOBIN 27.5 PG (27.0-34.0); MEAN CORPUSCULAR HGB CONC 32.3 % (32.0-36.0); MONO % 9.1 % (0.0-8.0); NEUT % 70.6 % (16.0-70.0); PLATELET COUNT 277 TH/MM3 (150-450); RED BLOOD COUNT 3.38 MIL/MM3 (4.50-5.90); RED CELL DISTRIBUTION WIDTH 14.4 % (11.6-17.2); WHITE BLOOD COUNT 6.8 TH/MM3 (4.0-11.0)
[2016-10-12 07:20] LABS: BICARBONATE 31.1 MEQ/L (21.0-32.0); MAGNESIUM 2.1 MG/DL (1.5-2.5); POTASSIUM 3.7 MEQ/L (3.5-5.1)
[2016-10-12 07:38] VITALS: BP 156/70; PULSE 85; RESP 20; TEMP 99; O2SAT 97
[2016-10-12] MEDS ORDERED: DIPH2.5T14 PO (08:07)
[2016-10-12] MEDS ORDERED: SODIUM HYPOCHLORITE 0.25% 500 ML BTL TOPICAL SCH (10:00)
[2016-10-12] MEDS: SODIUM CHLORIDE 0.9% FLUSH 5 ML FLUSH IVF SCH ×2 (11:27→21:00)
[2016-10-12] MEDS: FUROSEMIDE 40 MG/4 ML VIAL IV PUSH SCH ×2 (11:27→17:24)
[2016-10-12] MEDS: DILTIAZEM-CD 180 MG CAP ER PO SCH (11:28)
[2016-10-12] MEDS: ASPIRIN EC 81 MG TABEC PO SCH (11:28)
[2016-10-12] MEDS: PANTOPRAZOLE SOD 40 MG DELAYED RELEASE TAB PO SCH (11:28)
[2016-10-12] MEDS: POTASSIUM CHLORIDE 20 MEQ CONTROLLED RELEASE TAB PO SCH (11:28)
[2016-10-12] MEDS: INSULIN DETEMIR 100 UNITS/ML VIAL SQ SCH ×2 (11:29→21:29)
[2016-10-12] MEDS: HEPARIN SODIUM - SQ 10,000 UNITS/ML VIAL SQ SCH ×2 (11:29→21:28)
[2016-10-12] MEDS: COLLAGENASE OINT 30 GM TUBE TOP SCH (11:29)
[2016-10-12] MEDS: diphenhydrAMINE HCL 50 MG CAP PO PRN ×2 (11:51→23:04)
[2016-10-12 11:53] VITALS: BP 131/66; PULSE 87; RESP 20; TEMP 98.5; O2SAT 96
--- NOTE | 2016-10-12 13:40 | HHI.PR ---
Subjective Remarks No new complaints. Objective Vitals Vital Signs Date Time Temp Pulse Resp B/P Pulse Ox O2 Delivery O2 Flow Rate FiO2 10/12/16 11:53 98.5 87 20 131/66 96 10/12/16 07:38 99.0 85 20 156/70 97 10/12/16 07:29 20 10/12/16 00:00 99.3 89 20 132/62 97 10/11/16 20:00 98.6 89 20 148/78 95 10/11/16 16:00 98.4 92 20 159/73 97 10/11/16 10/11/16 10/12/16 14:59 22:59 06:59 Intake Total 300 ml 480 ml 120 ml Output Total 450 ml 400 ml Balance 300 ml 30 ml -280 ml Intake Oral 480 ml 120 ml IV Total 300 ml 0 ml Output Urine Total 450 ml 400 ml # Bowel Movements 1 Result Diagram: 10/12/16 0618 10/12/16 0618 Imaging Last 72 hours Impressions Chest X-Ray 09/29/16 0500 Signed Impressions: Service Date/Time: Thursday, September 29, 2016 05:18 - CONCLUSION: No significant interval change Norris Lloyd MD Chest X-Ray 09/28/16 0000 Signed Impressions: Service Date/Time: September 11:02 - CONCLUSION: 1. Mild perihilar infiltrates consistent with congestion versus pneumonitis. Clinical correlation is recommended. Darío Baum MD Chest X-Ray 09/26/162226 Signed Impressions: Service Date/Time: Monday, September 26, 2016 22:40 - CONCLUSION: No acute disease. Jaden Salguero MD Last Impressions Chest X-Ray 09/29/16 0500 Signed Impressions: Service Date/Time: Thursday, September 29, 2016 05:18 - CONCLUSION: No significant interval change Norris Lloyd MD Last Impressions Chest X-Ray 09/26/162226 Signed Impressions: Service Date/Time: Monday, September 26, 2016 22:40 - CONCLUSION: No acute disease. Jaden Salguero MD Objective Remarks General: NAD, AAOx3 Chest: CTA Cardiac: Regular Abd: +BS, soft ND/NT Ext: Bilateral 2+ LE pitting edema, erythema and excoriations on the RLE below the knee Skin: large wound, involving right scrotum/right perineum, appears clean with granulation tissue A/P Problem List: (1) Twin gangrene Status: Acute Plan: - Pt presented with diabetic ketoacidosis and new A.fib and was initially admitted [place] [facility] [place] Blood cultures at admission grew out Strep viridans and source found to be Twin gangrene. - Pt was transferred to [facility] and taken to OR for debridement x 2 (09/29 and 10/01). - CRS is following wounds and currently open wounds packed. - ID following abx were renal adjusted due to MARCI and severe diarrhea. - pt completed Diflucan (10/03-10/09/16) - He will complete Rocephin on 10/10/16 (14 days total) and Flagyl 500mg Q8H on 10/10/16 - case d/w Dr. Champagne (10/09/16) - continue wet-to-dry dressing and allow wound to slowly granulate until healed - Pt underwent Flex sig to sigmoid colon to examine under anesthesia with irrigation and repacking of perineal wounds. (10/11/16) Per the surgeons report, the perineal wound appeared healthy with granulation tissue. No signs of any necrotic areas or inflammation was seen. - Pt continues to appear volume overloaded peripherally and positive on i/o's - Pt says his baseline weight was 325 pounds and 10/02 he was 387 - Pt received Lasix 20mg IV BID from 10/03 to 10/08/16. Lasix was increased to 40mg IV BID on 10/09/16 - last albumin level was low, will repeat albumin level today - start IV albumin with IV lasix - may need to increase pt's dose of IV lasix - Monitor renal function closely - DVT prophylaxis. (2) MARCI (acute kidney injury) Status: Acute Plan: - See above (3) Streptococcal sepsis Status: Acute Plan: - See above (4) Atrial fibrillation, new onset Status: Acute Plan: - Cont Cardizem CD 180mg po daily - Xarelto at d/c (5) DKA, type 2 Status: Acute Plan: - Cont Levemir 25units Q12H - NovoLog SSI - Accu checks (6) Anemia Status: Acute Plan: - Likely due to sepsis/blood draws. - Stable currently - Monitor (7) Hypoalbuminemia Status: Acute Plan: - Related to acute illness. - See above (8) Obstructive sleep apnea Status: Chronic (9) DM2 (diabetes mellitus, type 2) Status: Acute Plan: - stable - Levemir 25 units BID - NovoLog SSI Assessment and Plan - Problem Qualifiers (1) DKA, type 2: Qualified Code: E13.10 - Type 2 diabetes mellitus with ketoacidosis without coma, unspecified detention insulin use status (2) DM2 (diabetes mellitus, type 2): Qualified Code: E11.8 - Type 2 diabetes mellitus with complication, without long-term current use of insulin Timbo Childress DO Oct 12, 2016 13:39
[2016-10-12 16:00] VITALS: BP 160/72; PULSE 89; RESP 20; TEMP 99.5; O2SAT 95
[2016-10-12] MEDS: ALBUMIN HUMAN 25% 25 GM/100 ML BAGP IV SCH (17:24)
[2016-10-12 20:00] VITALS: BP 140/65; PULSE 93; RESP 19; TEMP 97.5; O2SAT 97
--- NOTE | 2016-10-12 20:56 | HHI.PR ---
Subjective Remarks C/R Surg POD afebrile, VSS UO good giovanna PO more solid stool Objective - Vital Signs Date Time Temp Pulse Resp B/P Pulse Ox O2 Delivery O2 Flow Rate FiO2 10/12/16 17:03 20 10/12/16 16:00 99.5 89 160/72 95 10/11/16 11:27 Nasal Cannula 2 10/08/16 22:22 21 Result Diagram: 10/12/1618 10/12/1618 Objective Remarks PE alert Abd - soft, non - tender Rectal - wound s clean, dry, skin healthy rt groin red, indurated A/P Assessment and Plan Imp: wound care at bedside, irrigate wound with dakin's dc plans - rehab José Luis Champagne MD Oct 12, 2016 20:56
[2016-10-12] MEDS: ATORVASTATIN 40 MG TAB PO SCH (21:28)
[2016-10-13] VITALS: BP 153/68; PULSE 88; RESP 17; TEMP 99; O2SAT 96
[2016-10-13] MEDS: DIPHENOXYLATE/ATROPINE 2.5 MG/0.025 MG TAB PO SCH ×3 (02:27→13:00)
[2016-10-13 04:00] VITALS: BP 160/73; PULSE 82; RESP 17; TEMP 97.4; O2SAT 97
[2016-10-13 05:15] LABS: BICARBONATE 30.4 MEQ/L (21.0-32.0); POTASSIUM 3.4 MEQ/L (3.5-5.1)
[2016-10-13] MEDS: oxyCODONE/ACETAMINOPHEN 5 MG/325 MG TAB PO PRN ×3 (05:24→21:20)
[2016-10-13] MEDS: ALBUMIN HUMAN 25% 25 GM/100 ML BAGP IV SCH ×2 (05:24→16:50)
[2016-10-13] MEDS: diphenhydrAMINE HCL 50 MG CAP PO PRN ×3 (05:24→20:20)
[2016-10-13] MEDS: INSULIN ASPART SUPPLEMENTAL SCALE SQ SCH ×4 (06:16→20:21)
[2016-10-13 08:00] VITALS: BP 151/68; PULSE 83; RESP 17; TEMP 97.6; O2SAT 95
[2016-10-13] MEDS: COLLAGENASE OINT 30 GM TUBE TOP SCH (09:00)
[2016-10-13] MEDS: POTASSIUM CHLORIDE 20 MEQ CONTROLLED RELEASE TAB PO SCH (09:14)
[2016-10-13] MEDS: PANTOPRAZOLE SOD 40 MG DELAYED RELEASE TAB PO SCH (09:14)
[2016-10-13] MEDS: FUROSEMIDE 40 MG/4 ML VIAL IV PUSH SCH (09:15)
[2016-10-13] MEDS: DILTIAZEM-CD 180 MG CAP ER PO SCH (09:15)
[2016-10-13] MEDS: ASPIRIN EC 81 MG TABEC PO SCH (09:15)
[2016-10-13] MEDS: INSULIN DETEMIR 100 UNITS/ML VIAL SQ SCH ×2 (09:17→20:22)
[2016-10-13] MEDS: HEPARIN SODIUM - SQ 10,000 UNITS/ML VIAL SQ SCH ×2 (09:18→20:21)
[2016-10-13] MEDS: SODIUM CHLORIDE 0.9% FLUSH 5 ML FLUSH IVF SCH ×2 (09:20→20:20)
[2016-10-13 12:00] VITALS: BP 167/72; PULSE 88; RESP 17; TEMP 97.9; O2SAT 94
--- NOTE | 2016-10-13 12:15 | HHI.PR ---
Subjective Remarks Pt reports that he feels the LE edema is improving. He is anxious for discharge to rehab to continue more aggressive PT Objective Vitals Vital Signs Date Time Temp Pulse Resp B/P Pulse Ox O2 Delivery O2 Flow Rate FiO2 10/13/16 09:40 Room Air 10/13/16 08:00 97.6 83 17 151/68 95 10/13/16 06:20 20 10/13/16 04:00 97.4 82 17 160/73 97 10/13/16 00:00 99.0 88 17 153/68 96 10/12/16 20:00 Room Air 10/12/16 20:00 97.5 93 19 140/65 97 10/12/16 16:00 99.5 89 20 160/72 95 10/12/16 10/12/16 10/13/16 15:00 23:00 07:00 Intake Total 1954 ml 480 ml 340 ml Output Total 900 ml 900 ml 1000 ml Balance 1054 ml -420 ml -660 ml Intake Oral 1360 ml 480 ml 240 ml IV Total 247 ml 100 ml Tube Feeding 347 ml Output Urine Total 900 ml 900 ml 1000 ml # Bowel Movements 0 1 Result Diagram: 10/12/16 0618 10/13/16 0354 Other Results Laboratory Tests Test 10/12/16 10/13/16 06:18 03:54 White Blood Count 6.8 TH/MM3 Red Blood Count 3.38 MIL/MM3 Hemoglobin 9.3 GM/DL Hematocrit 28.7 % Mean Corpuscular Volume 85.0 FL Mean Corpuscular Hemoglobin 27.5 PG Mean Corpuscular Hemoglobin 32.3 % Concent Red Cell Distribution Width 14.4 % Platelet Count 277 TH/MM3 Mean Platelet Volume 7.9 FL Neutrophils (%) (Auto) 70.6 % Lymphocytes (%) (Auto) 18.0 % Monocytes (%) (Auto) 9.1 % Eosinophils (%) (Auto) 1.8 % Basophils (%) (Auto) 0.5 % Neutrophils # (Auto) 4.8 TH/MM3 Lymphocytes # (Auto) 1.2 TH/MM3 Monocytes # (Auto) 0.6 TH/MM3 Eosinophils # (Auto) 0.1 TH/MM3 Basophils # (Auto) 0.0 TH/MM3 CBC Comment DIFF FINAL Differential Comment Sodium Level 140 MEQ/L 140 MEQ/L Potassium Level 3.7 MEQ/L 3.4 MEQ/L Chloride Level 101 MEQ/L 102 MEQ/L Carbon Dioxide Level 31.1 MEQ/L 30.4 MEQ/L Anion Gap 8 MEQ/L 8 MEQ/L Blood Urea Nitrogen 14 MG/DL 15 MG/DL Creatinine 1.81 MG/DL 1.93 MG/DL Estimat Glomerular Filtration 39 ML/MIN 36 ML/MIN Rate Random Glucose 127 MG/DL 81 MG/DL Calcium Level 8.0 MG/DL 8.1 MG/DL Magnesium Level 2.1 MG/DL 2.0 MG/DL Albumin 2.5 GM/DL Imaging Last 72 hours Impressions Chest X-Ray 09/29/16 0500 Signed Impressions: Service Date/Time: Thursday, September 29, 2016 05:18 - CONCLUSION: No significant interval change Norris Lloyd MD Chest X-Ray 09/28/16 0000 Signed Impressions: Service Date/Time: September 11:02 - CONCLUSION: 1. Mild perihilar infiltrates consistent with congestion versus pneumonitis. Clinical correlation is recommended. Darío Baum MD Chest X-Ray 09/26/162226 Signed Impressions: Service Date/Time: Monday, September 26, 2016 22:40 - CONCLUSION: No acute disease. Jaden Salguero MD Last Impressions Chest X-Ray 09/29/16499 Signed Impressions: Service Date/Time: Thursday, September 29, 2016 05:18 - CONCLUSION: No significant interval change Norris Lloyd MD Last Impressions Chest X-Ray 09/26/162226 Signed Impressions: Service Date/Time: Monday, September 26, 2016 22:40 - CONCLUSION: No acute disease. Jaden Salguero MD Objective Remarks General: NAD, AAOx3 Chest: CTA Cardiac: Regular Abd: +BS, soft ND/NT Ext: Bilateral 1-2+ LE pitting edema, erythema and excoriations on the RLE below the knee Skin: wound involving right scrotum/right perineum, appears clean with granulation tissue, improving. Multiple excoriations on the trunk and extremities A/P Problem List: (1) Twin gangrene Status: Acute Plan: - Pt presented with diabetic ketoacidosis and new A.fib and was initially admitted to ICU in [facility] - Blood cultures at admission grew out Strep viridans and source found to be Twin gangrene. - Pt was transferred to [facility] and taken to OR for debridement x 2 (09/29 and 10/01). - CRS is following wounds and currently open wounds packed. - ID following abx were renal adjusted due to MARCI and severe diarrhea. - pt completed Diflucan (10/03-10/09/16) - He will complete Rocephin on 10/10/16 (14 days total) and Flagyl 500mg Q8H on 10/10/16 - case d/w Dr. Champagne (10/09/16) - continue wet-to-dry dressing and allow wound to slowly granulate until healed - Pt underwent Flex sig to sigmoid colon to examine under anesthesia with irrigation and repacking of perineal wounds. (10/11/16) Per the surgeons report, the perineal wound appeared healthy with granulation tissue. No signs of any necrotic areas or inflammation was seen. - Pt was volume overloaded peripherally and positive on i/o's - Pt says his baseline weight was 325 pounds and 10/02 he was 387 - Pt received Lasix 20mg IV BID from 10/03 to 10/08/16. Lasix was increased to 40mg IV BID on 10/09/16 - Pts albumin level was low - He was started IV albumin with IV Lasix 40mg BID on 10/12/16 - LE edema is improving. - Pt with good UOP - Cr is increasing today to 1.98 - Monitor renal function closely - DVT prophylaxis. (2) MARCI (acute kidney injury) Status: Acute Plan: - See above (3) Streptococcal sepsis Status: Acute Plan: - See above (4) Atrial fibrillation, new onset Status: Acute Plan: - Cont Cardizem CD 180mg po daily - Xarelto at d/c (5) DKA, type 2 Status: Acute Plan: - Cont Levemir 25units Q12H - NovoLog SSI - Accu checks (6) Anemia Status: Acute Plan: - Likely due to sepsis/blood draws. - Stable currently - Monitor (7) Hypoalbuminemia Status: Acute Plan: - Related to acute illness. - See above (8) Obstructive sleep apnea Status: Chronic (9) DM2 (diabetes mellitus, type 2) Status: Acute Plan: - stable - Levemir 25 units BID - NovoLog SSI Assessment and Plan Patient examined. Assessment and plan formulated with Shy Bain PA-C. I agree with the above. Difficulty diuresing Mr. Lam to admission weight d/t renal function. Request daily weights. Decrease lasix to daily dosing. continue efforts to medically maximize pt to avoid readmission repeat BMP in AM anticipate discharge to SNF 10/16/15 Problem Qualifiers (1) DKA, type 2: Qualified Code: E13.10 - Type 2 diabetes mellitus with ketoacidosis without coma, unspecified prison insulin use status (2) DM2 (diabetes mellitus, type 2): Qualified Code: E11.8 - Type 2 diabetes mellitus with complication, without long-term current use of insulin Shy Bain Oct 13, 2016 12:15 Timbo Childress DO Oct 13, 2016 12:23
[2016-10-13] MEDS ORDERED: POTASSIUM CHLORIDE 20 MEQ CONTROLLED RELEASE TAB PO ONE (12:30)
[2016-10-13] MEDS ORDERED: HYDR-3133 PO (15:51)
[2016-10-13 16:00] VITALS: BP 127/60; PULSE 86; RESP 17; TEMP 97.6; O2SAT 93
--- NOTE | 2016-10-13 19:44 | HHI.PR ---
Subjective Remarks C/R Surg POD afebrile, VSS UO good giovanna PO more solid stool Objective - Vital Signs Date Time Temp Pulse Resp B/P Pulse Ox O2 Delivery O2 Flow Rate FiO2 10/13/16 16:00 97.6 86 17 127/60 93 10/13/16 09:40 Room Air 10/11/16 11:27 2 Result Diagram: 10/12/16 0618 10/13/16 0354 Objective Remarks PE alert Abd - soft, non - tender Rectal - wound s clean, dry, skin healthy rt groin red, indurated,better A/P Assessment and Plan Imp: wound care at bedside, irrigate wound with dakin's dc plans - rehab when bed available José Luis Champagne MD Oct 13, 2016 19:44
[2016-10-13 20:00] VITALS: BP 146/67; PULSE 90; RESP 17; TEMP 99.2; O2SAT 97
[2016-10-13] MEDS ORDERED: DIPHENOXYLATE/ATROPINE 2.5 MG/0.025 MG TAB PO PRN (20:00)
[2016-10-13] MEDS: ATORVASTATIN 40 MG TAB PO SCH (20:21)
[2016-10-14] VITALS: BP 128/66; PULSE 76; RESP 17; TEMP 97.8; O2SAT 98
[2016-10-14] MEDS: oxyCODONE/ACETAMINOPHEN 5 MG/325 MG TAB PO PRN ×4 (02:58→19:47)
[2016-10-14] MEDS: ALBUMIN HUMAN 25% 25 GM/100 ML BAGP IV SCH (05:18)
[2016-10-14] MEDS: INSULIN ASPART SUPPLEMENTAL SCALE SQ SCH ×4 (05:20→20:12)
[2016-10-14] MEDS: diphenhydrAMINE HCL 50 MG CAP PO PRN ×3 (05:26→20:06)
[2016-10-14 08:00] VITALS: BP 159/82; PULSE 91; RESP 18; TEMP 98.4; O2SAT 93
[2016-10-14] MEDS ORDERED: FUROSEMIDE 40 MG/4 ML VIAL IV PUSH SCH (09:00)
[2016-10-14] MEDS: DILTIAZEM-CD 180 MG CAP ER PO SCH (09:08)
[2016-10-14] MEDS: ASPIRIN EC 81 MG TABEC PO SCH (09:08)
[2016-10-14] MEDS: POTASSIUM CHLORIDE 20 MEQ CONTROLLED RELEASE TAB PO SCH (09:08)
[2016-10-14] MEDS: HEPARIN SODIUM - SQ 10,000 UNITS/ML VIAL SQ SCH ×2 (09:08→20:12)
[2016-10-14] MEDS: PANTOPRAZOLE SOD 40 MG DELAYED RELEASE TAB PO SCH (09:08)
[2016-10-14] MEDS: INSULIN DETEMIR 100 UNITS/ML VIAL SQ SCH ×2 (09:09→20:12)
[2016-10-14] MEDS: SODIUM CHLORIDE 0.9% FLUSH 5 ML FLUSH IVF SCH ×2 (09:09→20:10)
[2016-10-14] MEDS: COLLAGENASE OINT 30 GM TUBE TOP SCH (09:12)
[2016-10-14 12:00] VITALS: BP 17/95; PULSE 84; RESP 17; TEMP 98.3; O2SAT 95
--- NOTE | 2016-10-14 15:16 | HHI.PR ---
Subjective Remarks No new complaints. Objective Vitals Vital Signs Date Time Temp Pulse Resp B/P Pulse Ox O2 Delivery O2 Flow Rate FiO2 10/14/16 12:00 98.3 84 17 17/95 95 10/14/16 10:08 20 10/14/16 08:00 98.4 91 18 159/82 93 10/14/16 00:00 97.8 76 17 128/66 98 10/13/16 21:43 Room Air 10/13/16 20:00 99.2 90 17 146/67 97 10/13/16 16:00 97.6 86 17 127/60 93 10/13/16 10/13/16 10/14/16 15:00 23:00 07:00 Intake Total 340 ml 480 ml 580 ml Output Total 1200 ml 400 ml 900 ml Balance -860 ml 80 ml -320 ml Intake Oral 340 ml 480 ml 480 ml IV Total 0 ml Albumin 100 ml Output Urine Total 1200 ml 400 ml 900 ml # Bowel Movements 0 Result Diagram: 10/12/16 0618 10/13/16 0354 Imaging Last 72 hours Impressions Chest X-Ray 09/29/16 0500 Signed Impressions: Service Date/Time: Thursday, September 29, 2016 05:18 - CONCLUSION: No significant interval change Norris Lloyd MD Chest X-Ray 09/28/16 0000 Signed Impressions: Service Date/Time: September 11:02 - CONCLUSION: 1. Mild perihilar infiltrates consistent with congestion versus pneumonitis. Clinical correlation is recommended. Darío Baum MD Chest X-Ray 09/26/162226 Signed Impressions: Service Date/Time: Monday, September 26, 2016 22:40 - CONCLUSION: No acute disease. Jaden Salguero MD Last Impressions Chest X-Ray 09/29/16 0500 Signed Impressions: Service Date/Time: Thursday, September 29, 2016 05:18 - CONCLUSION: No significant interval change Norris Lloyd MD Last Impressions Chest X-Ray 09/26/162226 Signed Impressions: Service Date/Time: Monday, September 26, 2016 22:40 - CONCLUSION: No acute disease. Jaden Salguero MD Objective Remarks General: NAD, AAOx3 Chest: CTA Cardiac: Regular Abd: +BS, soft ND/NT Ext: Bilateral 2+ LE pitting edema, erythema and excoriations on the RLE below the knee Skin: wound involving right scrotum/right perineum, appears clean with granulation tissue, improving. Multiple excoriations on the trunk and extremities A/P Problem List: (1) Twin gangrene Status: Acute Plan: - Pt presented with diabetic ketoacidosis and new A.fib and [place] [facility] [place] cultures at admission grew out Strep viridans and source found to be Twin gangrene. - Pt was transferred to [facility] and taken to OR for debridement x 2 (09/29 and 10/01). - CRS is following wounds and currently open wounds packed. - ID following abx were renal adjusted due to MARCI and severe diarrhea. - pt completed Diflucan (10/03-10/09/16) - He will complete Rocephin on 10/10/16 (14 days total) and Flagyl 500mg Q8H on 10/10/16 - case d/w Dr. Champagne (10/09/16) - continue wet-to-dry dressing and allow wound to slowly granulate until healed - Pt underwent Flex sig to sigmoid colon to examine under anesthesia with irrigation and repacking of perineal wounds. (10/11/16) Per the surgeons report, the perineal wound appeared healthy with granulation tissue. No signs of any necrotic areas or inflammation was seen. - Pt was volume overloaded peripherally and positive on i/o's - 146kg on admission, 155kg 10/14/16 - little clinical improvement despite diuretic therapy and renal function increasing - pt remains significantly volume overloaded - IV lasix & albumin - request nephrology consultation - DVT prophylaxis. (2) MARCI (acute kidney injury) Status: Acute Plan: - See above (3) Streptococcal sepsis Status: Acute Plan: - See above (4) Atrial fibrillation, new onset Status: Acute Plan: - Cont Cardizem CD 180mg po daily - Xarelto at d/c (5) DKA, type 2 Status: Acute Plan: - Cont Levemir 25units Q12H - NovoLog SSI - Accu checks (6) Anemia Status: Acute Plan: - Likely due to sepsis/blood draws. - Stable currently - Monitor (7) Hypoalbuminemia Status: Acute Plan: - Related to acute illness. - See above (8) Obstructive sleep apnea Status: Chronic (9) DM2 (diabetes mellitus, type 2) Status: Acute Plan: - stable - Levemir 25 units BID - NovoLog SSI Problem Qualifiers (1) DKA, type 2: Qualified Code: E13.10 - Type 2 diabetes mellitus with ketoacidosis without coma, unspecified penitentiary insulin use status (2) DM2 (diabetes mellitus, type 2): Qualified Code: E11.8 - Type 2 diabetes mellitus with complication, without long-term current use of insulin Timbo Childress DO Oct 14, 2016 15:16
[2016-10-14 16:00] VITALS: BP 152/71; PULSE 91; RESP 17; TEMP 98.5; O2SAT 94
--- NOTE | 2016-10-14 18:18 | PD.CONS ---
[facility] Service Nephrology Consult Requested By Dr. Childress. Primary Care Physician Jose Abad MD History of Present Illness Mr. Lam was admitted on the 26 of September to [facility] with DKA. He was found to have leukocytosis. Patient was diagnosed with Twin's gangrene and underwent I & D on the 01 of October. 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 He has proteinuria. He received antibiotics, and currently is on Diflucan. Patient has gained about 9kg since admission. He has generalized edema because of which discharge to rehab has been held. Patient is receiving dressing changes. Review of Systems Constitutional: COMPLAINS OF: Fatigue, DENIES: Fever Eyes: DENIES: Diplopia Ears, nose, mouth, throat: DENIES: Vertigo Cardiovascular: COMPLAINS OF: Lower Extremity Edema, DENIES: Chest pain, Palpitations, PND Gastrointestinal: DENIES: Abdominal pain Neurologic: DENIES: Localized weakness Past Family Social History Allergies: Coded Allergies: Dilaudid (Verified Allergy, Intermediate, ITCHING, DIAPHORESIS, 09/27/16) Past Medical History Obesity. Type 2 diabetes Diabetic neuropathy Diabetic retinopathy. Hyperlipidemia Hypogonadism on testosterone injections Morbid obesity Vitamin D deficiency DVT of right lower extremity Cellulitis of the lower extremities in 2010 Past Surgical History Review of medical records: Right orchiectomy at age 46 for torsion Was in teeth extraction Reported Medications Review of medical records: Atorvastatin 80 mg daily Jardiance 25 mg daily Lisinopril 20 mg daily Metformin 1 g twice a day Testosterone injections every weekly Ergocalciferol 5000 units twice a week Tresiba 90 units SQ daily Active Ordered Medications Current Medications Medications (Trade) Dose Ordered Sig/Jack Route Start Time Stop Time Status Last Admin (NS Flush) 2 ml BID IVF 09/27/16 09:00 10/14/16 09:09 (NS Flush) 2 ml UNSCH PRN IVF 09/26/16 23:45 09/27/16 20:05 (Ecotrin Ec) 81 mg DAILY PO 09/27/16 09:00 10/14/16 09:08 (Zofran Inj) 4 mg Q6H PRN IV PUSH 09/27/16 04:15 10/03/16 13:27 (Tums Chew) 1,000 mg Q4H PRN PO 09/27/16 23:00 10/03/16 18:48 (Lipitor) 80 mg HS PO 09/27/16 23:00 10/13/16 20:21 Miscellaneous Information Patient in critical care unit? Ass... Q361D XX 09/28/16 04:00 09/28/16 04:00 (Santyl Oint) 1 applic DAILY TOP 09/29/16 10:45 10/14/16 09:12 (Heparin Inj) 5,000 units Q12HR SQ 09/30/16 21:00 10/14/16 09:08 (D50w (Vial) Inj) 25 ml UNSCH PRN IV PUSH 10/02/16 12:30 (Glucagon Inj) 1 mg UNSCH PRN OTHER 10/02/16 12:30 (Percocet 5-325 Mg) 2 tab Q4H PRN PO 10/03/16 18:30 10/14/16 14:57 (Cardizem Cd) 180 mg DAILY PO 10/07/16 09:00 10/14/16 09:08 (Levemir Inj) 25 units Q12HR SQ 10/08/16 09:00 10/14/16 09:09 (Protonix) 40 mg DAILY PO 10/08/16 09:00 10/14/16 09:08 (KCl) 40 meq DAILY PO 10/09/16 17:00 10/14/16 09:08 (Benadryl) 50 mg Q6H PRN PO 10/10/16 16:15 10/14/16 11:42 (Dakin'S 0.25% Soln) 250 ml UNSCH TOPICAL 10/12/16 10:00 (Lasix Inj) 40 mg DAILY IV PUSH 10/14/16 09:00 10/14/16 09:09 (Lomotil Tab) 2 tab Q6H PRN PO 10/13/16 20:00 (Albumin 25% Inj) 25 gm DAILY IV 10/15/16 09:00 Family History non contributory Social History never smoked. Occasional ETOH Physical Exam Vital Signs Vital Signs Date Time Temp Pulse Resp B/P Pulse Ox O2 Delivery O2 Flow Rate FiO2 10/14/16 16:00 98.5 91 17 152/71 94 10/14/16 15:59 20 10/14/16 12:00 98.3 84 17 17/95 95 10/14/16 08:00 98.4 91 18 159/82 93 10/14/16 00:00 97.8 76 17 128/66 98 10/13/16 21:43 Room Air 10/13/16 20:00 99.2 90 17 146/67 97 Physical Exam GENERAL: obese. SKIN: Warm and dry. HEAD: Normocephalic. EYES: No scleral icterus. No injection or drainage. NECK: Supple, trachea midline. No JVD or lymphadenopathy. CARDIOVASCULAR: Regular rate and rhythm without murmurs, gallops, or rubs. RESPIRATORY: Breath sounds equal bilaterally. No accessory muscle use. GASTROINTESTINAL: Abdomen soft, non-tender, nondistended. MUSCULOSKELETAL: Generalized edema. Dressing over the scrotum. BACK: Nontender without obvious deformity. No CVA tenderness. 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 Creatinine has ranged from 1.3 to 1.9. Some increase in creatinine is seen, it could be due to infection, renal hypoperfusion, possible AIN. Currently he demonstrates signs of volume overload, and so I will start him on Bumex 2 mg IV Q12 hours. Monitor urine output and renal function. Avoid nephrotoxic agents. (2) Proteinuria Plan: Likely due to diabetic nephropathy. Quantify proteinuria. (3) Twin gangrene Plan: s/p I & D. CRS following. Dressing changes. (4) DM2 (diabetes mellitus, type 2) Plan: continue insulin coverage. Assessment and Plan Thanks for the consult. I will follow. Problem Qualifiers (1) DM2 (diabetes mellitus, type 2): Qualified Code: E11.8 - Type 2 diabetes mellitus with complication, without long-term current use of insulin Dimas Bryant MD Oct 14, 2016 18:18
[2016-10-14 20:00] VITALS: BP 131/65; PULSE 89; RESP 20; TEMP 98.7; O2SAT 99
[2016-10-14] MEDS: ATORVASTATIN 40 MG TAB PO SCH (20:06)
[2016-10-14 21:22] LABS: TOTAL PROTEIN SPE 6.8 GM/DL (6.0-7.6)
[2016-10-15] VITALS: BP 109/64; PULSE 88; RESP 20; TEMP 97.6; O2SAT 98
[2016-10-15] MEDS: oxyCODONE/ACETAMINOPHEN 5 MG/325 MG TAB PO PRN ×5 (00:48→20:42)
[2016-10-15] MEDS: INSULIN ASPART SUPPLEMENTAL SCALE SQ SCH ×4 (05:19→20:41)
[2016-10-15 06:21] LABS: BICARBONATE 29.6 MEQ/L (21.0-32.0); POTASSIUM 4.1 MEQ/L (3.5-5.1)
[2016-10-15 08:00] VITALS: BP 138/67; PULSE 83; RESP 17; TEMP 98.4; O2SAT 99
[2016-10-15] MEDS: COLLAGENASE OINT 30 GM TUBE TOP SCH (09:00)
[2016-10-15] MEDS: ALBUMIN HUMAN 25% 25 GM/100 ML BAGP IV SCH (09:49)
[2016-10-15] MEDS: BUMETANIDE INJ 1 MG/4 ML VIAL IV PUSH SCH ×2 (09:50→16:34)
[2016-10-15] MEDS: INSULIN DETEMIR 100 UNITS/ML VIAL SQ SCH ×2 (09:51→20:41)
[2016-10-15] MEDS: PANTOPRAZOLE SOD 40 MG DELAYED RELEASE TAB PO SCH (09:52)
[2016-10-15] MEDS: ASPIRIN EC 81 MG TABEC PO SCH (09:52)
[2016-10-15] MEDS: POTASSIUM CHLORIDE 20 MEQ CONTROLLED RELEASE TAB PO SCH (09:52)
[2016-10-15] MEDS: HEPARIN SODIUM - SQ 10,000 UNITS/ML VIAL SQ SCH ×2 (09:52→20:40)
[2016-10-15] MEDS: diphenhydrAMINE HCL 50 MG CAP PO PRN ×2 (09:52→18:42)
[2016-10-15] MEDS: DILTIAZEM-CD 180 MG CAP ER PO SCH (09:52)
--- NOTE | 2016-10-15 10:31 | RADRPT ---
EXAM DATE/TIME: 10/15/2016 09:12 [place] COMPARISON: No previous studies available for comparison. Limited exam by patient body habitus. INDICATIONS : Abnormal labs. MEDICAL HISTORY : Hypertension. Diabetes. SURGICAL HISTORY : Right orchiectomy. ENCOUNTER: Initial ACUITY: 1 day PAIN SCORE: 2/10 LOCATION: Bilateral flank MEASUREMENTS: RIGHT KIDNEY: 12.1 x 6.4 x 8.4 cm LEFT KIDNEY: 13.7 x 8.0 x 7.2 cm FINDINGS: RIGHT KIDNEY: Renal cortex is normal in thickness and echotexture. No hydronephrosis, stone, or mass. LEFT KIDNEY: Renal cortex is normal in thickness and echotexture. No hydronephrosis, stone, or mass. BLADDER: Within normal limits given the degree of distension. CONCLUSION: Limited by body habitus, otherwise negative. Larry Willis MD FACR on October 15, 2016 at 10:28 Board Certified Radiologist. This report was verified electronically.
--- NOTE | 2016-10-15 11:54 | HHI.NPPN ---
Subjective Interval History patient was seen and examined. His urine output has improved. Edema persists, but may be slightly better. Review of Systems General Constitutional: Fatigue Cardiovascular Cardiac: Edema Objective Data Data 10/14/16 10/15/16 19:00 07:00 Intake Total 440 ml 1120 ml Output Total 800 ml 2500 ml Balance -360 ml -1380 ml Intake Oral 440 ml 1120 ml IV Total 0 ml 0 ml Output Urine Total 800 ml 2500 ml # Bowel Movements 2 0 Vital Signs Date Time Temp Pulse Resp B/P Pulse Ox O2 Delivery O2 Flow Rate FiO2 10/15/16 10:10 Room Air 10/15/16 08:00 98.4 83 17 138/67 99 10/15/16 00:00 97.6 88 20 109/64 98 10/14/16 21:30 Room Air 10/14/16 20:00 98.7 89 20 131/65 99 10/14/16 16:00 98.5 91 17 152/71 94 10/14/16 15:59 20 10/14/16 12:00 98.3 84 17 17/95 95 -: 10/12/16 0618 10/15/16 0520 Physical Exam General Appearance: Well Developed, No Acute Distress Eyes Eye Exam: Pupils Equal, Pupils Reactive Neck Neck Exam: Neck Supple Pulmonary Resp Exam: Clear Bilaterally, Breath Sounds Equal Cardiology CV Exam: Regular, Normal Sinus Rhythm Gastrointestinal/Abdomen GI Exam: Soft, Non-Tender, Bowel Sounds Present, Positive Bowel Movement Genitourinary Exam: Clear Urine Musculoskeletal MS Exam: Joints Intact Integumentary Skin Remarks dressing on the scrotum. Extremeties Extremities Exam: Moderate Edema, Pitting Edema, Dependent Edema Neurologic Neuro Exam: Alert, Awake, Oriented, Speech Clear, Moving All Extremities Assessment/Plan Problem List: (1) Acute worsening of stage 3 chronic kidney disease Plan: he likely has stage III CKD due to diabetic nephropathy. Creatinine has ranged from 1.3 to 1.9. Patient has about 1.1 grams of proteinuria/gram of creatinine. This is consistent with diabetic nephropathy. Demonstrates signs of fluid overload. Continue diuretics. (2) Proteinuria Plan: See above. SPEP also ordered. (3) Twin gangrene Plan: s/p I & D. CRS following. Dressing changes. (4) DM2 (diabetes mellitus, type 2) Plan: continue insulin coverage. Problem Qualifiers (1) DM2 (diabetes mellitus, type 2): Qualified Code: E11.8 - Type 2 diabetes mellitus with complication, without long-term current use of insulin Dimas Bryant MD Oct 15, 2016 11:54
[2016-10-15 12:00] VITALS: BP_SYST 123; BP_SYST 128; BP_DIAS 50; BP_DIAS 85; PULSE 82; PULSE 94; RESP 17; RESP 18; TEMP 97.4; TEMP 98.5; O2SAT 90; O2SAT 94
--- NOTE | 2016-10-15 14:49 | HHI.PR ---
Subjective Remarks Good urine output. No new complaints. Objective Vitals Vital Signs Date Time Temp Pulse Resp B/P Pulse Ox O2 Delivery O2 Flow Rate FiO2 10/15/16 12:00 98.5 82 17 128/50 90 10/15/16 10:10 Room Air 10/15/16 08:00 98.4 83 17 138/67 99 10/15/16 00:00 97.6 88 20 109/64 98 10/14/16 21:30 Room Air 10/14/16 20:00 98.7 89 20 131/65 99 10/14/16 16:00 98.5 91 17 152/71 94 10/14/16 15:59 20 10/14/16 10/14/16 10/15/16 15:00 23:00 07:00 Intake Total 440 ml 640 ml 480 ml Output Total 800 ml 1600 ml 900 ml Balance -360 ml -960 ml -420 ml Intake Oral 440 ml 640 ml 480 ml IV Total 0 ml 0 ml Output Urine Total 800 ml 1600 ml 900 ml # Bowel Movements 2 0 0 Result Diagram: 10/12/16 0618 10/15/16 0520 Imaging Last 72 hours Impressions Chest X-Ray 09/29/16 0500 Signed Impressions: Service Date/Time: Thursday, September 29, 2016 05:18 - CONCLUSION: No significant interval change Norris Lloyd MD Chest X-Ray 09/28/16 0000 Signed Impressions: Service Date/Time: September 11:02 - CONCLUSION: 1. Mild perihilar infiltrates consistent with congestion versus pneumonitis. Clinical correlation is recommended. Darío Baum MD Chest X-Ray 09/26/162226 Signed Impressions: Service Date/Time: Monday, September 26, 2016 22:40 - CONCLUSION: No acute disease. Jaden Salguero MD Last Impressions Chest X-Ray 09/29/16 0500 Signed Impressions: Service Date/Time: Thursday, September 29, 2016 05:18 - CONCLUSION: No significant interval change Norris Lloyd MD Last Impressions Chest X-Ray 09/26/162226 Signed Impressions: Service Date/Time: Monday, September 26, 2016 22:40 - CONCLUSION: No acute disease. Jaden Salguero MD Objective Remarks General: NAD, AAOx3 Chest: CTA Cardiac: Regular Abd: +BS, soft ND/NT Ext: Bilateral 2+ LE pitting edema, erythema and excoriations on the RLE below the knee Skin: wound involving right scrotum/right perineum, appears clean with granulation tissue, improving. Multiple excoriations on the trunk and extremities A/P Problem List: (1) Twin gangrene Status: Acute Plan: - Pt presented with diabetic ketoacidosis and new A.fib and was initially admitted to ICU in [facility] - Blood cultures at admission grew out Strep viridans and source found to be Twin gangrene. - Pt was transferred to [facility] and taken to OR for debridement x 2 (09/29 and 10/01). - CRS is following wounds and currently open wounds packed. - ID following abx were renal adjusted due to MARCI and severe diarrhea. - pt completed Diflucan (10/03-10/09/16) - He will complete Rocephin on 10/10/16 (14 days total) and Flagyl 500mg Q8H on 10/10/16 - case d/w Dr. Champagne (10/09/16) - continue wet-to-dry dressing and allow wound to slowly granulate until healed - Pt underwent Flex sig to sigmoid colon to examine under anesthesia with irrigation and repacking of perineal wounds. (10/11/16) Per the surgeons report, the perineal wound appeared healthy with granulation tissue. No signs of any necrotic areas or inflammation was seen. - Pt was volume overloaded peripherally and positive on i/o's - 146kg on admission, 155kg 10/14/16 - little clinical improvement despite diuretic therapy and renal function increasing - pt remains significantly volume overloaded - appreciate input from Nephrology, Dr. Bryant - Lasix changed to Bumex 2mg IV BID - Cr 1.84 (10/15/16) - repeat BMP in AM - observe - DVT prophylaxis. (2) MARCI (acute kidney injury) Status: Acute Plan: - See above (3) Streptococcal sepsis Status: Acute Plan: - See above (4) Atrial fibrillation, new onset Status: Acute Plan: - Cont Cardizem CD 180mg po daily - Xarelto at d/c (5) DKA, type 2 Status: Acute Plan: - Cont Levemir 25units Q12H - NovoLog SSI - Accu checks (6) Anemia Status: Acute Plan: - Likely due to sepsis/blood draws. - Stable currently - Monitor - repeat CBC in AM (7) Hypoalbuminemia Status: Acute Plan: - Related to acute illness. - See above (8) Obstructive sleep apnea Status: Chronic (9) DM2 (diabetes mellitus, type 2) Status: Acute Plan: - stable - Levemir 25 units BID - NovoLog SSI Problem Qualifiers (1) DKA, type 2: Qualified Code: E13.10 - Type 2 diabetes mellitus with ketoacidosis without coma, unspecified group home insulin use status (2) DM2 (diabetes mellitus, type 2): Qualified Code: E11.8 - Type 2 diabetes mellitus with complication, without long-term current use of insulin Timbo Childress DO Oct 15, 2016 14:49
[2016-10-15 16:00] VITALS: BP 154/68; PULSE 86; RESP 17; TEMP 98.9; O2SAT 95
[2016-10-15] MEDS ORDERED: hydrOXYzine HCL 25 MG TAB PO PRN (16:00)
[2016-10-15] MEDS: SODIUM CHLORIDE 0.9% FLUSH 5 ML FLUSH IVF SCH ×2 (18:42→20:41)
[2016-10-15] MEDS: ATORVASTATIN 40 MG TAB PO SCH (20:40)
[2016-10-16] VITALS: BP 128/64; PULSE 88; RESP 20; TEMP 97.4; O2SAT 98
[2016-10-16] MEDS: oxyCODONE/ACETAMINOPHEN 5 MG/325 MG TAB PO PRN ×2 (04:35→18:17)
[2016-10-16 05:41] LABS: AUTOMATED NEUTROPHIL # 3.3 TH/MM3 (1.8-7.7); BASOPHIL % 0.6 % (0.0-2.0); EOSINOPHIL # 0.3 TH/MM3 (0-0.4); EOSINOPHIL % 4.6 % (0.0-4.0); HEMATOCRIT 27.2 % (39.0-51.0); HEMO FLAGS DIFF FINAL; LYMPH % 23.1 % (9.0-44.0); LYMPHOCYTE # 1.3 TH/MM3 (1.0-4.8); MEAN CELL VOLUME 84.1 FL (80.0-100.0); MEAN CORPUSCULAR HEMOGLOBIN 28.1 PG (27.0-34.0); MEAN CORPUSCULAR HGB CONC 33.4 % (32.0-36.0); MONO % 14.4 % (0.0-8.0); NEUT % 57.3 % (16.0-70.0); PLATELET COUNT 265 TH/MM3 (150-450); RED BLOOD COUNT 3.23 MIL/MM3 (4.50-5.90); RED CELL DISTRIBUTION WIDTH 14.4 % (11.6-17.2); WHITE BLOOD COUNT 5.7 TH/MM3 (4.0-11.0)
[2016-10-16 05:53] LABS: BICARBONATE 30.3 MEQ/L (21.0-32.0)
[2016-10-16] MEDS: INSULIN ASPART SUPPLEMENTAL SCALE SQ SCH ×4 (06:03→22:02)
[2016-10-16 08:13] VITALS: BP 133/63; PULSE 82; RESP 19; TEMP 97.6; O2SAT 97
[2016-10-16] MEDS: INSULIN DETEMIR 100 UNITS/ML VIAL SQ SCH ×2 (09:00→21:56)
--- NOTE | 2016-10-16 09:39 | HHI.NPPN ---
Subjective Complaints: Obesity General Problems: Edema Renal Failure: Chronic, Acute, Stage III Interval History Renal function is better. Edema persists but good response to diuretics. ( Yahaira Rosado) Review of Systems General Constitutional: Fatigue (Yahaira Rosado) Cardiovascular Cardiac: Edema (Yahaira Rosado) Objective Data Data 10/15/16 10/16/16 19:00 07:00 Intake Total 340 ml 1460 ml Output Total 2900 ml 2200 ml Balance -2560 ml -740 ml Intake Oral 340 ml 1460 ml IV Total 0 ml Output Urine Total 2900 ml 2200 ml # Voids 2 # Bowel Movements 0 0 Vital Signs Date Time Temp Pulse Resp B/P Pulse Ox O2 Delivery O2 Flow Rate FiO2 10/16/16 08:13 97.6 82 19 133/63 97 10/16/16 00:00 97.4 88 20 128/64 98 10/15/16 16:00 98.9 86 17 154/68 95 10/15/16 12:00 98.5 82 17 128/50 90 10/15/16 10:10 Room Air (Yahaira Rosado) -: 10/16/16 0508 10/16/16 0508 Imaging Last 72 hours Impressions Renal Ultrasound 10/15/16 0000 Signed Impressions: Service Date/Time: Saturday, October 15, 2016 09:12 - CONCLUSION: Limited by body habitus, otherwise negative. Larry Willis MD FACR (Yahaira Rosado) Physical Exam General Appearance: Well Developed, Well Nourished, No Acute Distress, Comfortable, Obese (Yahaira Rosado) Eyes Eye Exam: Pupils Equal, Pupils Reactive (Yahaira Rosado) Throat Throat Exam: Oral Mucosa [place] & Moist (Yahaira Rosado) Neck Neck Exam: Neck Supple (Yahaira Rosado) Pulmonary Resp Exam: Clear Bilaterally, Breath Sounds Equal (Yahaira Rosado) Cardiology CV Exam: Regular, Normal Sinus Rhythm (Yahaira Rosado) Gastrointestinal/Abdomen GI Exam: Soft, Non-Tender, Bowel Sounds Present, Positive Bowel Movement ( Yahaira Rosado) Genitourinary Exam: Clear Urine (Yahaira Rosado) Musculoskeletal MS Exam: Joints Intact, Normal Tone (Yahaira Rosado) Integumentary Skin Exam: Warm, Dry (Yahaira Rosado) Extremeties Extremities Exam: Pedal Pulses Palpable, Moderate Edema, Pitting Edema, Dependent Edema (Yahaira Rosado) Neurologic Neuro Exam: Alert, Awake, Oriented, Speech Clear, Moving All Extremities ( Yahaira Rosado) Psychiatric Psych Exam: Appropriate Responses (Yahaira Rosado) Assessment/Plan Problem List: (1) Acute worsening of stage 3 chronic kidney disease Plan: he likely has stage III CKD due to diabetic nephropathy. Baseline Creatinine has ranged from 1.3 to 1.9. potassium is acceptable Demonstrates signs of fluid overload. Continue diuretics. He is on Bumex 1 mg IV BID, diuresing well monitor urine output, non oliguric currently renal panel in am (2) Proteinuria Plan: Due to suspected diabetic nephropathy, SPEP ordered and pending. (3) Twin gangrene Plan: s/p I & D. CRS following continue with dressing changes. (4) DM2 (diabetes mellitus, type 2) Plan: continue insulin coverage. Maintain blood glucose between 140-180mg/dL. (Yahaira Rosado) Plan patient was seen and examined. Renal function is stable. Continue diuretics. He potentially can be discharged on oral diuretic. Discussed with Dr. Doran. Followup in the office. (Dimas Bryant MD) Problem Qualifiers (1) DM2 (diabetes mellitus, type 2): Qualified Code: E11.8 - Type 2 diabetes mellitus with complication, without long-term current use of insulin Yahaira Rosado Oct 16, 2016 09:39 Dimas Bryant MD Oct 16, 2016 09:51
[2016-10-16 10:45] LABS: ALBUMIN SPE 3.28 GM/DL (3.50-5.00); ALPHA 1 GLOBULIN 0.33 GM/DL (0.11-0.29); ALPHA 2 GLOBULIN 0.99 GM/DL (0.22-1.00); BETA GLOBULINS (SPE) 0.63 GM/DL (0.53-1.03)
--- NOTE | 2016-10-16 10:49 | HHI.PR ---
Subjective Remarks No new complaints. Edema is improving. Stable UOP Pt is still on IV diuretics Itching has improved on the Benadryl Objective Vitals Vital Signs Date Time Temp Pulse Resp B/P Pulse Ox O2 Delivery O2 Flow Rate FiO2 10/16/16 08:13 97.6 82 19 133/63 97 10/16/16 00:00 97.4 88 20 128/64 98 10/15/16 16:00 98.9 86 17 154/68 95 10/15/16 12:00 98.5 82 17 128/50 90 10/15/16 10/15/16 10/16/16 15:00 23:00 07:00 Intake Total 340 ml 820 ml 640 ml Output Total 2900 ml 1400 ml 800 ml Balance -2560 ml -580 ml -160 ml Intake Oral 340 ml 820 ml 640 ml IV Total 0 ml Output Urine Total 2900 ml 1400 ml 800 ml # Voids 2 # Bowel Movements 0 0 0 Result Diagram: 10/16/16 0508 10/16/16 0508 Other Results Laboratory Tests Test 10/14/16 10/15/16 10/16/16 20:28 05:20 05:08 Total Protein 6.8 GM/DL Sodium Level 140 MEQ/L 138 MEQ/L Potassium Level 4.1 MEQ/L 4.0 MEQ/L Chloride Level 103 MEQ/L 100 MEQ/L Carbon Dioxide Level 29.6 MEQ/L 30.3 MEQ/L Anion Gap 7 MEQ/L 8 MEQ/L Blood Urea Nitrogen 14 MG/DL 13 MG/DL Creatinine 1.84 MG/DL 1.70 MG/DL Estimat Glomerular Filtration 39 ML/MIN 42 ML/MIN Rate Random Glucose 184 MG/DL 182 MG/DL Calcium Level 8.3 MG/DL 8.3 MG/DL Phosphorus Level 3.3 MG/DL 3.9 MG/DL Albumin 2.9 GM/DL 3.2 GM/DL White Blood Count 5.7 TH/MM3 Red Blood Count 3.23 MIL/MM3 Hemoglobin 9.1 GM/DL Hematocrit 27.2 % Mean Corpuscular Volume 84.1 FL Mean Corpuscular Hemoglobin 28.1 PG Mean Corpuscular Hemoglobin 33.4 % Concent Red Cell Distribution Width 14.4 % Platelet Count 265 TH/MM3 Mean Platelet Volume 8.0 FL Neutrophils (%) (Auto) 57.3 % Lymphocytes (%) (Auto) 23.1 % Monocytes (%) (Auto) 14.4 % Eosinophils (%) (Auto) 4.6 % Basophils (%) (Auto) 0.6 % Neutrophils # (Auto) 3.3 TH/MM3 Lymphocytes # (Auto) 1.3 TH/MM3 Monocytes # (Auto) 0.8 TH/MM3 Eosinophils # (Auto) 0.3 TH/MM3 Basophils # (Auto) 0.0 TH/MM3 CBC Comment DIFF FINAL Differential Comment Imaging Last 72 hours Impressions Chest X-Ray 09/29/16 0500 Signed Impressions: Service Date/Time: Thursday, September 29, 2016 05:18 - CONCLUSION: No significant interval change Norris Lloyd MD Chest X-Ray 09/28/16 0000 Signed Impressions: Service Date/Time: September 11:02 - CONCLUSION: 1. Mild perihilar infiltrates consistent with congestion versus pneumonitis. Clinical correlation is recommended. Darío Baum MD Chest X-Ray 09/26/162226 Signed Impressions: Service Date/Time: Monday, September 26, 2016 22:40 - CONCLUSION: No acute disease. Jaden Salguero MD Last Impressions Chest X-Ray 09/29/16 0500 Signed Impressions: Service Date/Time: Thursday, September 29, 2016 05:18 - CONCLUSION: No significant interval change Norris Lloyd MD Last Impressions Chest X-Ray 09/26/162226 Signed Impressions: Service Date/Time: Monday, September 26, 2016 22:40 - CONCLUSION: No acute disease. Jaden Salguero MD Objective Remarks General: NAD, AAOx3 Chest: CTA Cardiac: Regular Abd: +BS, soft ND/NT Ext: Bilateral 2+ LE edema, improving. Skin: wound involving right scrotum/right perineum, appears clean with granulation tissue, improving. Multiple excoriations on the trunk and extremities A/P Problem List: (1) Twin gangrene Status: Acute Plan: - Pt presented with diabetic ketoacidosis and new A.fib and was initially admitted to ICU in [facility] [facility] - Blood cultures at admission grew out Strep viridans and source found to be Twin gangrene. - Pt was transferred to [facility] and taken to OR for debridement x 2 (09/29 and 10/01). - CRS is following wounds and currently open wounds packed. - ID following abx were renal adjusted due to MARCI and severe diarrhea. - pt completed Diflucan (10/03-10/09/16) - He will complete Rocephin on 10/10/16 (14 days total) and Flagyl 500mg Q8H on 10/10/16 - case d/w Dr. Champagne (10/09/16) - continue wet-to-dry dressing and allow wound to slowly granulate until healed - Pt underwent Flex sig to sigmoid colon to examine under anesthesia with irrigation and repacking of perineal wounds. (10/11/16) Per the surgeons report, the perineal wound appeared healthy with granulation tissue. No signs of any necrotic areas or inflammation was seen. - Pt was volume overloaded peripherally and positive on i/o's - 146kg on admission, 155kg 10/14/16 - LE edema seems to be improving slowly. - Appreciate input from Nephrology, Dr. Bryant - Lasix changed to Bumex 2mg IV BID on 10/15/16 - Cr 1.84 (10/15/16) --> Cr 1.70 (10/16/16) - Per nephrology can be changed to po diuretics and observe - repeat BMP in AM - Anticipate possible discharge to SNF tomorrow - DVT prophylaxis. (2) MARCI (acute kidney injury) Status: Acute Plan: - See above (3) Streptococcal sepsis Status: Acute Plan: - See above (4) Atrial fibrillation, new onset Status: Acute Plan: - Cont Cardizem CD 180mg po daily - Xarelto at d/c (5) DKA, type 2 Status: Acute Plan: - Cont Levemir 25units Q12H - NovoLog SSI - Accu checks (6) Anemia Status: Acute Plan: - Likely due to sepsis/blood draws. - Stable currently - Monitor - repeat CBC in AM (7) Hypoalbuminemia Status: Acute Plan: - Related to acute illness. - See above (8) Obstructive sleep apnea Status: Chronic (9) DM2 (diabetes mellitus, type 2) Status: Acute Plan: - stable - Levemir 25 units BID - NovoLog SSI Assessment and Plan Patient examined. Assessment and plan formulated with Shy Bain PA-C. I agree with the above. plan for d/c to snf tomorrow. Problem Qualifiers (1) DKA, type 2: Qualified Code: E13.10 - Type 2 diabetes mellitus with ketoacidosis without coma, unspecified intermediate insulin use status (2) DM2 (diabetes mellitus, type 2): Qualified Code: E11.8 - Type 2 diabetes mellitus with complication, without long-term current use of insulin Shy Bain Oct 16, 2016 10:49 Eamon Marques MD Oct 16, 2016 21:39
[2016-10-16] MEDS: ALBUMIN HUMAN 25% 25 GM/100 ML BAGP IV SCH (10:52)
[2016-10-16] MEDS: BUMETANIDE INJ 1 MG/4 ML VIAL IV PUSH SCH ×2 (10:54→16:52)
[2016-10-16] MEDS: PANTOPRAZOLE SOD 40 MG DELAYED RELEASE TAB PO SCH (10:54)
[2016-10-16] MEDS: SODIUM CHLORIDE 0.9% FLUSH 5 ML FLUSH IVF SCH ×2 (10:54→21:59)
[2016-10-16] MEDS: POTASSIUM CHLORIDE 20 MEQ CONTROLLED RELEASE TAB PO SCH (10:54)
[2016-10-16] MEDS: ASPIRIN EC 81 MG TABEC PO SCH (10:54)
[2016-10-16] MEDS: HEPARIN SODIUM - SQ 10,000 UNITS/ML VIAL SQ SCH ×2 (10:55→21:56)
[2016-10-16] MEDS: DILTIAZEM-CD 180 MG CAP ER PO SCH (10:56)
[2016-10-16] MEDS: COLLAGENASE OINT 30 GM TUBE TOP SCH (10:58)
[2016-10-16 12:00] VITALS: BP 146/84; PULSE 96; RESP 18; TEMP 98.9; O2SAT 98
[2016-10-16 16:00] VITALS: BP 143/72; PULSE 100; RESP 18; TEMP 98.5; O2SAT 95
[2016-10-16] MEDS: diphenhydrAMINE HCL 50 MG CAP PO PRN ×2 (16:52→22:03)
[2016-10-16 20:00] VITALS: BP 140/85; PULSE 110; RESP 19; TEMP 99.6; O2SAT 93
[2016-10-16] MEDS: ATORVASTATIN 40 MG TAB PO SCH (21:54)
--- NOTE | 2016-10-16 22:59 | HHI.PR ---
Subjective Remarks C/R Surg POD afebrile, VSS UO good giovanna PO no diarrhea Objective - Vital Signs Date Time Temp Pulse Resp B/P Pulse Ox O2 Delivery O2 Flow Rate FiO2 10/16/16 16:00 98.5 100 18 143/72 95 10/15/16 10:10 Room Air Result Diagram: 10/16/16 0508 10/16/16 0508 Objective Remarks PE alert Abd - soft, non - tender Rectal - wound s clean, dry, skin healthy rt groin less red A/P Assessment and Plan Imp: wound care at bedside, irrigate wound with dakin's dc plans - rehab when bed available rto 1 week José Lius Champagne MD Oct 16, 2016 22:59
[2016-10-17] VITALS: BP 125/59; PULSE 85; RESP 20; TEMP 99.7; O2SAT 96
[2016-10-17] MEDS: oxyCODONE/ACETAMINOPHEN 5 MG/325 MG TAB PO PRN ×3 (00:32→12:36)
[2016-10-17 05:36] LABS: AUTOMATED NEUTROPHIL # 3.3 TH/MM3 (1.8-7.7); BASOPHIL % 0.4 % (0.0-2.0); EOSINOPHIL # 0.2 TH/MM3 (0-0.4); EOSINOPHIL % 3.6 % (0.0-4.0); HEMATOCRIT 26.5 % (39.0-51.0); HEMO FLAGS DIFF FINAL; LYMPH % 22.2 % (9.0-44.0); LYMPHOCYTE # 1.3 TH/MM3 (1.0-4.8); MEAN CELL VOLUME 84.2 FL (80.0-100.0); MEAN CORPUSCULAR HEMOGLOBIN 28.2 PG (27.0-34.0); MEAN CORPUSCULAR HGB CONC 33.4 % (32.0-36.0); MONO % 16.2 % (0.0-8.0); NEUT % 57.6 % (16.0-70.0); PLATELET COUNT 257 TH/MM3 (150-450); RED BLOOD COUNT 3.15 MIL/MM3 (4.50-5.90); RED CELL DISTRIBUTION WIDTH 14.6 % (11.6-17.2); WHITE BLOOD COUNT 5.8 TH/MM3 (4.0-11.0)
[2016-10-17 06:01] LABS: BICARBONATE 31.6 MEQ/L (21.0-32.0); POTASSIUM 3.5 MEQ/L (3.5-5.1)
[2016-10-17] MEDS: INSULIN ASPART SUPPLEMENTAL SCALE SQ SCH ×3 (06:42→16:00)
[2016-10-17] MEDS: diphenhydrAMINE HCL 50 MG CAP PO PRN (07:06)
[2016-10-17 08:00] VITALS: BP 117/68; PULSE 95; RESP 18; TEMP 98.1; O2SAT 97
[2016-10-17] MEDS: COLLAGENASE OINT 30 GM TUBE TOP SCH (09:00)
[2016-10-17] MEDS: SODIUM CHLORIDE 0.9% FLUSH 5 ML FLUSH IVF SCH (09:05)
[2016-10-17] MEDS: BUMETANIDE INJ 1 MG/4 ML VIAL IV PUSH SCH (09:07)
[2016-10-17] MEDS: ASPIRIN EC 81 MG TABEC PO SCH (09:08)
[2016-10-17] MEDS: PANTOPRAZOLE SOD 40 MG DELAYED RELEASE TAB PO SCH (09:08)
[2016-10-17] MEDS: DILTIAZEM-CD 180 MG CAP ER PO SCH (09:08)
[2016-10-17] MEDS: ALBUMIN HUMAN 25% 25 GM/100 ML BAGP IV SCH (09:08)
[2016-10-17] MEDS: POTASSIUM CHLORIDE 20 MEQ CONTROLLED RELEASE TAB PO SCH (09:08)
[2016-10-17] MEDS: INSULIN DETEMIR 100 UNITS/ML VIAL SQ SCH (09:09)
[2016-10-17] MEDS: HEPARIN SODIUM - SQ 10,000 UNITS/ML VIAL SQ SCH (09:09)
--- NOTE | 2016-10-17 11:15 | HHI.NPPN ---
Subjective Complaints: Obesity General Problems: Edema Renal Failure: Chronic, Acute, Stage III Interval History Renal function is better. He may be transferred to SNF today. (Yahaira Rosado) Review of Systems General Constitutional: Fatigue (Yahaira Rosado) Cardiovascular Cardiac: Edema (Yahaira Rosado) Objective Data Data 10/16/16 10/17/16 19:00 07:00 Intake Total 1000 ml 600 ml Output Total 1100 ml 1350 ml Balance -100 ml -750 ml Intake Oral 1000 ml 600 ml IV Total 0 ml Output Urine Total 1100 ml 1350 ml # Bowel Movements 1 0 Vital Signs Date Time Temp Pulse Resp B/P Pulse Ox O2 Delivery O2 Flow Rate FiO2 10/17/16 08:07 18 10/17/16 08:00 98.1 95 18 117/68 97 10/17/16 00:00 99.7 85 20 125/59 96 10/16/16 20:00 99.6 110 19 140/85 93 10/16/16 16:00 98.5 100 18 143/72 95 10/16/16 12:00 98.9 96 18 146/84 98 (Yahaira Rosado) -: 10/17/16 0431 10/17/16 0431 Imaging Last 72 hours Impressions Renal Ultrasound 10/15/16 0000 Signed Impressions: Service Date/Time: Saturday, October 15, 2016 09:12 - CONCLUSION: Limited by body habitus, otherwise negative. Larry Willis MD FACR (Yahaira Rosado) Physical Exam General Appearance: Well Developed, Well Nourished, No Acute Distress, Comfortable, Obese (Yahaira Rosado) Eyes Eye Exam: Pupils Equal, Pupils Reactive (Yahaira Rosado) Throat Throat Exam: Oral Mucosa [place] & Moist (Yahaira Rosado) Neck Neck Exam: Neck Supple (Yahaira Rosado) Pulmonary Resp Exam: Clear Bilaterally, Breath Sounds Equal (Yahaira Rosado) Cardiology CV Exam: Regular, Normal Sinus Rhythm (Yahaira Rosado) Gastrointestinal/Abdomen GI Exam: Soft, Non-Tender, Bowel Sounds Present, Positive Bowel Movement ( Yahaira Rosado) Genitourinary Exam: Clear Urine (Yahaira Rosado) Musculoskeletal MS Exam: Joints Intact, Normal Tone (Yahaira Rosado) Integumentary Skin Exam: Warm, Dry (Yahaira Rosado) Extremeties Extremities Exam: Pedal Pulses Palpable, Moderate Edema, Pitting Edema, Dependent Edema (Yahaira Rosado) Neurologic Neuro Exam: Alert, Awake, Oriented, Speech Clear, Moving All Extremities ( Yahaira Rosado) Psychiatric Psych Exam: Appropriate Responses (Yahaira Rosado) Assessment/Plan Problem List: (1) Acute worsening of stage 3 chronic kidney disease Plan: he likely has stage III CKD due to diabetic nephropathy. Baseline Creatinine has ranged from 1.3 to 1.9. his renal function is better potassium is acceptable Demonstrates signs of fluid overload. Continue diuretics. 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 CRS following continue with dressing changes. (4) DM2 (diabetes mellitus, type 2) Plan: continue insulin coverage. Maintain blood glucose between 140-180mg/dL. Plan we will follow him outpatient in CKD clinic, he is cleared for discharge ( Yahaira Rosado) Plan patient was seen and examined. Agree with above assessment and plan. Renal function is stable. He has diabetic nephropathy and stage III CKD. (Dimas Bryant MD) Problem Qualifiers (1) DM2 (diabetes mellitus, type 2): Qualified Code: E11.8 - Type 2 diabetes mellitus with complication, without long-term current use of insulin Yahaira Rosado Oct 17, 2016 11:15 Dimas Bryant MD Oct 17, 2016 11:36
[2016-10-17] MEDS ORDERED: ASPI81TA11 PO (11:50)
[2016-10-17] MEDS ORDERED: DIPH50CA PO (11:50)
[2016-10-17] MEDS ORDERED: BUME1TAB PO (11:50)
[2016-10-17] MEDS ORDERED: POTA20TA5 PO (11:50)
[2016-10-17] MEDS ORDERED: CARD180C5 PO (11:50)
[2016-10-17 12:00] VITALS: BP 100/53; PULSE 104; RESP 16; TEMP 97.9; O2SAT 95
--- NOTE | 2016-10-17 12:09 | HHI.DCPOC ---
Discharge Care Plan Diagnosis: (1) Twin gangrene (2) Streptococcal sepsis (3) DKA, type 2 (4) Atrial fibrillation, new onset (5) Type 2 diabetes mellitus (6) Acute worsening of stage 3 chronic kidney disease (7) Hypertension (8) Hyperlipidemia (9) Morbid obesity (10) Obstructive sleep apnea Goals to Promote Your Health * To prevent worsening of your condition and complications * To maintain your health at the optimal level Directions to Meet Your Goals Take your medications as prescribed Follow your dietary instruction Follow activity as directed Keep your appointments as scheduled Take your immunizations and boosters as scheduled If your symptoms worsen call your PCP, if no PCP go to Urgent Care Center or Emergency Room Smoking is Dangerous to Your Health. Avoid second hand smoke Call the 24-hour hour crisis hotline for domestic abuse at [place] [place] Oct 17, 2016 12:09
--- NOTE | 2016-10-17 12:11 | HHI.DS ---
Discharge Summary Admission Date Sep 26, 2016 at 23:37 Discharge Date: Oct 17, 2016 Admitting Diagnosis DKA; new onset AFRVR (1) Twin gangrene Diagnosis: Principal (2) MARCI (acute kidney injury) Diagnosis: Secondary (3) Streptococcal sepsis Diagnosis: Secondary (4) Atrial fibrillation, new onset Diagnosis: Secondary (5) DKA, type 2 Diagnosis: Secondary (6) Anemia Diagnosis: Secondary (7) Hypoalbuminemia Diagnosis: Secondary (8) Obstructive sleep apnea Diagnosis: Secondary (9) DM2 (diabetes mellitus, type 2) Diagnosis: Secondary Consultants Dr. José Luis Champagne - CRS Dr. Dimas Bryant - Nephrology Dr. Isabel Acuna - Infectious Disease Procedures Debridement of Twin's gangrene x 2 (09/29 and 10/01). Brief History This is a 52-year-old white male who for the last two days has just felt weak and fatigued. He thought maybe he had a brief chill two days ago but no documented fever. He has had no cough. No runny nose or sore throat. No urinary symptoms other than urinating a little more frequently. His blood sugar a couple of days ago he stated was 198, but had not checked it again until today when his blood sugar earlier on 09/26 prior to coming to the ED was over 500 and because he was not feeling well he came out here. He had was noted to be in atrial fibrillation with a rapid ventricular rate and given Cardizem and put on a Cardizem drip. He denied any feeling of palpitations at home. He denied any chest pain. He would just get a little bit slightly short of breath when he was exert himself and tire out really easily. He has had no diarrhea, vomiting, abdominal pain or rectal bleeding; no cough. He was had admitted and put on an insulin drip and put on the Cardizem drip. His heart rate now that I am seeing him at around 3 in the morning on 09/27, heart rate is back now in a sinus rhythm with the rate control. He still on the Cardizem drip. Blood sugar has come down in the 200s on the most recent check. CBC/BMP: 10/17/16 0431 10/17/16 0431 Significant Findings Laboratory Tests Test 10/14/16 10/15/16 10/16/1610/17/17 20:28 05:20 05:08 04:31 Albumin 3.28 GM/DL 2.9 GM/DL 3.2 GM/DL (3.50-5.00) (3.4-5.0) (3.4-5.0) Albumin/Globulin Ratio 0.93 (1.39-2.23) Vdszf-5-Aprphzyzn 0.33 GM/DL (0.11-0.29) Gamma Globulins 1.58 GM/DL (0.50-1.39) Creatinine 1.84 MG/DL 1.70 MG/DL 1.57 MG/DL (0.60-1.30) (0.60-1.30) (0.60-1.30) Estimat Glomerular Filtration 39 ML/MIN (>89) 42 ML/MIN (>89) 46 ML/MIN (>89) Rate Random Glucose 184 MG/DL 182 MG/DL 68 MG/DL (74-106) (74-106) (74-106) Calcium Level 8.3 MG/DL 8.3 MG/DL 8.2 MG/DL (8.5-10.1) (8.5-10.1) (8.5-10.1) Red Blood Count 3.23 MIL/MM3 3.15 MIL/MM3 (4.50-5.90) (4.50-5.90) Hemoglobin 9.1 GM/DL 8.9 GM/DL (13.0-17.0) (13.0-17.0) Hematocrit 27.2 % 26.5 % (39.0-51.0) (39.0-51.0) Monocytes (%) (Auto) 14.4 % 16.2 % (0.0-8.0) (0.0-8.0) Eosinophils (%) (Auto) 4.6 % (0.0-4.0) Imaging Last Impressions Renal Ultrasound 10/15/16 0000 Signed Impressions: Service Date/Time: Saturday, October 15, 2016 09:12 - CONCLUSION: Limited by body habitus, otherwise negative. Larry Willis MD FACR Chest X-Ray 10/09/16 1614 Signed Impressions: Service Date/Time: Sunday, October 09, 2016 16:49 - CONCLUSION: Trace pleural effusion on the left. Otherwise no evidence of acute cardiopulmonary disease. Norris Ferris MD Lower Extremity Ultrasound 10/02/16 0000 Signed Impressions: Service Date/Time: Sunday, October 02, 2016 17:10 - CONCLUSION: No DVT. K. Alonzo Parks MD Pelvis CT 09/29/16 0000 Signed Impressions: Service Date/Time: Thursday, September 29, 2016 15:28 - CONCLUSION: Abscess currently subcutaneous containing air in the inner medial left thigh extending to the base of the penis. Larry Willis MD FACR PE at Discharge General: NAD, AAOx3 Chest: CTA Cardiac: Regular Abd: +BS, soft ND/NT Ext: Bilateral 1-2+ LE edema, improving. Skin: wound involving right scrotum/right perineum, appears clean with granulation tissue, improving. Multiple excoriations on the trunk and extremities Hospital Course Twin's Gangrene - Pt presented with diabetic ketoacidosis and new A.fib and was initially admitted to ICU in [facility] - Blood cultures at admission grew out Strep viridans and source found to be Twin gangrene. - Pt was transferred to [facility] and taken to OR for debridement x 2 (09/29 and 10/01). - CRS is following wounds and currently open wounds packed. - ID following abx were renal adjusted due to MARCI and severe diarrhea. - pt completed Diflucan (10/03-10/09/16) - He will complete Rocephin on 10/10/16 (14 days total) and Flagyl 500mg Q8H on 10/10/16 - case d/w Dr. Champagne (10/09/16) - continue wet-to-dry dressing and allow wound to slowly granulate until healed - Pt underwent Flex sig to sigmoid colon to examine under anesthesia with irrigation and repacking of perineal wounds. (10/11/16) Per the surgeons report, the perineal wound appeared healthy with granulation tissue. No signs of any necrotic areas or inflammation was seen. - Pt was volume overloaded peripherally and positive on i/o's - 146kg on admission, 155kg 10/14/16 - LE edema seems to be improving slowly. - Appreciate input from Nephrology, Dr. Bryant - Lasix changed to Bumex 2mg IV BID on 10/15/16 - Cr 1.84 (10/15/16) --> Cr 1.70 (10/16/16) --> 1.57 (10/17/16) - Diuretics converted to Bumex 1mg po BID at discharge and pt will be discharged on KCL 40meq daily - Pt will followup with Dr. Champagne in 1 week - Pt will followup with Dr. Bryant in 2 weeks Atrial fibrillation, new onset - Cont Cardizem CD 180mg po daily - We will continue him on ASA at discharge as renal function is still on the decline. Once renal function stabilizes outpt can consider starting Xarelto DKA/Diabetes mellitus, type 2 - Cont Levemir 25units Q12H and NovoLog SSI at rehab - Stop Metformin due to renal function and stop his other previous outpt diabetes meds for now. - Pt will need to followup with his [facility] [employer] following discharge from rehab Anemia - Likely due to sepsis/blood draws. - Stable currently - Monitor - repeat CBC in AM Pt Condition on Discharge: Good Discharge Disposition: Discharge to SNF Discharge Instructions DIET: Follow Instructions for: Diabetic Diet Activities you can perform: Regular-No Restrictions Follow up Referrals: Appointment for Follow Up - 1 Week with José Luis Champagne MD Nephrology - [address] Bryant PCP Follow-up - [address] [facility]/ with [facility] New Medications: Bumetanide (Bumetanide) 1 Mg Tab 1 MG PO BID #60 Ref 0 TAB Lisinopril (Lisinopril) 10 Mg Tab 10 MG PO DAILY dm #0 Ref [address] (Aspirin EC) 81 Mg Tabdr 81 MG PO DAILY A. fib #30 TAB Diltiazem CD 24 HR (Cardizem CD 24 HR) 180 Mg Caper 180 MG PO DAILY A. fib #30 CAP Diphenhydramine HCl (Diphenhydramine HCl) 50 Mg Cap 50 MG PO Q6H PRN itching Days 7 CAP Diphenoxylate-Atropine (Diphenoxylate-Atropine) 2.5-0.025 Mg Tab 2 TAB PO Q6H PRN DIARRHEA #0 TAB Insulin Detemir Inj (Levemir Inj) 1,000 unit/ 10 ML Vial 25 UNITS SQ Q12HR dm #0 INJECTION Oxycodone-Acetaminophen (Oxycodone-Acetaminophen) 5-325 mg Tab 2 TAB PO Q4H PRN PAIN #60 TAB Potassium Chloride Microencaps (Potassium Chloride Microencaps) 20 Meq Tab 40 MEQ PO DAILY edema #30 TAB Continued Medications: Atorvastatin (Atorvastatin) 80 Mg Tab 80 MG PO HS Cholesterol Management #30 Ref 0 TAB Ergocalciferol (Ergocalciferol) 50,000 Unit Cap 65818 UNITS PO twice a week Sunday Nutritional Supplement #30 Ref 0 CAP Hydroxyzine HCl (Hydroxyzine HCl) 25 Mg Tab 25-50 MG PO HS PRN ITCHING Ref 0 TAB Discontinued Medications: Albiglutide 4-Pack Inj (Tanzeum 4-Pack Inj) 50 Mg Pfpen 50 MG SQ Q7D #4 PEN Empagliflozin (Jardiance) 25 Mg Tab 25 MG PO DAILY Blood Sugar Management #30 Ref 0 TAB Insulin Degludec Inj (Tresiba Flextouch Pen Inj) 300 unit/3 ML Pen 90 UNITS SQ HS Blood Sugar Management #15 Ref 0 ML Lisinopril (Lisinopril) 20 Mg Tab 20 MG PO DAILY #30 Ref 0 TAB Metformin (Metformin) 1,000 Mg Tab 1000 MG PO BIDPC With meals Blood Sugar Management #60 Ref 0 TAB Shy Bain Oct 17, 2016 12:11 Eamon Marques MD Oct 17, 2016 15:15 50 MG SQ Q7D #4 PEN Atorvastatin (Atorvastatin) 80 Mg Tab 80 MG PO HS Cholesterol Management #30 Ref 0 TAB Empagliflozin (Jardiance) 25 Mg Tab 25 MG PO DAILY Blood Sugar Management #30 Ref 0 TAB Ergocalciferol (Ergocalciferol) 50,000 Unit Cap 37013 UNITS PO twice a week Sunday Nutritional Supplement #30 Ref 0 CAP Hydroxyzine HCl (Hydroxyzine HCl) 25 Mg Tab 25-50 MG PO HS PRN ITCHING Ref 0 TAB Insulin Degludec Inj (Tresiba Flextouch Pen Inj) 300 unit/3 ML Pen 90 UNITS SQ HS Blood Sugar Management #15 Ref 0 ML Lisinopril (Lisinopril) 20 Mg Tab 20 MG PO DAILY #30 Ref 0 TAB Metformin (Metformin) 1,000 Mg Tab 1000 MG PO BIDPC With meals Blood Sugar Management #60 Ref 0 TAB Shy Bain Oct 17, 2016 12:11
[2016-10-17] MEDS ORDERED: LEVEMIR SQ (14:02)
[2016-10-17] MEDS ORDERED: OXYC1TAB63 PO (14:03)
[2016-10-17] MEDS ORDERED: DIPH2.5T14 PO (14:05)
[2016-10-17] MEDS ORDERED: LISI10TA3 PO (14:07)
[2016-10-17 15:57] VITALS: BP 120/60; PULSE 85; RESP 17; TEMP 99.4; O2SAT 96
[2016-10-17] MEDS ORDERED: POTASSIUM CHLORIDE 20 MEQ CONTROLLED RELEASE TAB PO ONE (16:00)
--- NOTE | 2016-11-06 08:29 | PQ ---
Physician Query Response Document PATIENT: JESSICA ROBLEDO : 1960 ADMIT DATE: 09/26/2016 11:37 PM DISCH DATE: 10/17/2016 5:50 PM RESPONDING PROVIDER #: Rbraithw QUERY TEXT: Present On Admission It is unclear whether a diagnosis was present on admission. Your help is needed. Please clarify the POA status of sepsis diagnosis - Such as: -- Present on admission -- Not present on admission The patient's Clinical Indicators include: Consult 09/28/16: IMPRESSION : Sepsis, with fevers, leukocytosis, and has (+) BC, very worrisome f or endocarditis - TTE not a good study (Blood cultures obtained on 09/26/16) Consult 09/29/16: Diagnosis: (1) Abscess of right buttock ICD Code: L02.31 (2) Cellulitis of buttock, right ICD Code: L03.317 History of Present Illness : Morbidly obese diabetic with a draining abcess in RIGHT buttock area near the rectum. Abcess is not painful. It was first observed last night by a nurse. Tonight's [employer] thinks that it is larger than last night. Progress Note 10/02/16: Problem List: (1) Soledad gangrene Status: Acute Plan: Pt presented with viridans strep sepsis.source is soledad gangrene. Pt taken to OR for debridement x 2. presented with dka and new afib and initially admitted to icu. currently pt appears volume overloaded peripherally and positive on i/o's If you have any additional questions/comments and/or concerns, please do not hesitate to reach out to the CDI/Coding Hotline, Ext. [phone]. 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 Electronically signed by: Eamon Marques MD 11/06/2016 8:25 AM
== END 2016-10-17 17:50 | DRG 622 ==
LOC: PHED 22:05 → PHEDA 23:37 → PHEDH 09-27 04:38 → PHICU 09-27 18:14 → HPAC 09-29 23:37 → N03B 09-30 03:54 → N07A 10-03 12:12
PROVIDERS: ADMIT Internal Medicine Critical Care Medicine; ATTEND Internal Medicine Critical Care Medicine
PROC: 0DCP7ZZ Extirpation of Matter from Rectum, Via Natural or Artificial Opening (ICD-10-PCS; 2016-09-29)
PROC: 0DJD8ZZ Inspection of Lower Intestinal Tract, Via Natural or Artificial Opening Endoscopic (ICD-10-PCS; 2016-09-29)
PROC: 5A09357 Assistance with Respiratory Ventilation, Less than 24 Consecutive Hours, Continuous Positive Airway Pressure (ICD-10-PCS; 2016-09-29)
PROC: 0JBC0ZZ Excision of Pelvic Region Subcutaneous Tissue and Fascia, Open Approach (ICD-10-PCS; principal; 2016-09-29 23:40)
PROC: 5A1935Z Respiratory Ventilation, Less than 24 Consecutive Hours (ICD-10-PCS; 2016-09-30)
PROC: 0H5AXZZ Destruction of Inguinal Skin, External Approach (ICD-10-PCS; 2016-10-01)
PROC: 0DJD8ZZ Inspection of Lower Intestinal Tract, Via Natural or Artificial Opening Endoscopic (ICD-10-PCS; 2016-10-11)
PROC: 2W0 Placement, Anatomical Regions, Change (ICD-10-PCS; 2016-10-11)
DX: E13.10 Other specified diabetes mellitus with ketoacidosis without coma (principal); A40.9 Streptococcal sepsis, unspecified; J96.01 Acute respiratory failure with hypoxia; N17.9 Acute kidney failure, unspecified; Z68.42 Body mass index [BMI] 45.0-49.9, adult; E44.1 Mild protein-calorie malnutrition; I48.91 Unspecified atrial fibrillation; E86.1 Hypovolemia; R65.20 Severe sepsis without septic shock; E55.9 Vitamin D deficiency, unspecified; E29.1 Testicular hypofunction; E78.5 Hyperlipidemia, unspecified; Z79.84 Long term (current) use of oral hypoglycemic drugs; E11.42 Type 2 diabetes mellitus with diabetic polyneuropathy; E11.21 Type 2 diabetes mellitus with diabetic nephropathy; Z90.79 Acquired absence of other genital organ(s); E66.01 Morbid (severe) obesity due to excess calories; Z86.718 Personal history of other venous thrombosis and embolism; N49.3 Fournier gangrene; G47.33 Obstructive sleep apnea (adult) (pediatric); E87.70 Fluid overload, unspecified; K56.41 Fecal impaction; K64.4 Residual hemorrhoidal skin tags; K64.8 Other hemorrhoids; E87.6 Hypokalemia; D64.89 Other specified anemias; N18.3 Chronic kidney disease, stage 3 (moderate); E11.319 Type 2 diabetes mellitus with unspecified diabetic retinopathy without macular edema; R19.7 Diarrhea, unspecified; R60.0 Localized edema; L29.9 Pruritus, unspecified
CPT/HCPCS: 36600; 71010; 71020; 72192; 76775; 76937; 80048; 80053; 80061; 80069; 80202; 81001; 82010; 82040; 82570; 82805; 82948; 83036; 83605; 83690; 83735; 84100; 84155; 84156; 84165; 84443; 84484; 85007; 85025; 85027; 85652; 85730; 86038; 86140; 86403; 86430; 87040; 87186; 87205; 87641; 87804; 93005; 93306; 93971; 94002; 94003; 94150; 94640; 94664; 96361; 96365; 96375; 96376; C9113; J0696; J0780; J1450; J1644; J1650; J1815; J1817; J1940; J2060; J2175; J2250; J2270; J2370; J2405; J2543; J3010; J3370; J3480; J7030; J7040; J7042; J7120; P9045; P9047; Q0163

== ENCOUNTER 2017-01-21 16:41 | Inpatient (IN) | payer OTHER ==
[~2017-01-21] VITALS: Ht 177.8 cm; Wt 139.6 kg
[~2017-01-21 16:41] MED LIST changes: -"\\\"BP MED\\\""; +ASPI81TA11 PO; +ATOR1TAB18 PO; +BUME1TAB PO; +CARD180C5 PO; -CLEO300C2 PO; +DIPH2.5T14 PO; +DIPH50CA PO; +ERGO1CAP30 PO; -EXEN10PE SQ; -GLYB1TAB51 PO; +HYDR-3133 PO; +LEVEMIR SQ; +LISI10TA3 PO; -LORT5TAB PO; -METF-324 PO; -MUPI2%T TOP; +OXYC1TAB63 PO; +POTA20TA5 PO
[2017-01-21 16:52] VITALS: BP 177/97; PULSE 91; RESP 20; TEMP 97.8; O2SAT 100
[2017-01-21] MEDS ORDERED: SODIUM CHLOR 0.9% 1000 ML INJ 1,000 ML IV ONE ×3 (16:59)
[2017-01-21] MEDS ORDERED: SODIUM CHLOR 0.9% 1000 ML INJ 900 ML IV ONE (16:59)
--- NOTE | 2017-01-21 17:14 | PD ---
HPI Chief Complaint: Diabetic Time Seen by Provider: 17:07 Travel History International Travel<30 days: No Contact w/Intl Traveler<30days: No Traveled to known affect area: No History of Present Illness HPI 56-year-old type 2 diabetic on insulin presents to the emergency department status post syncopal episode witnessed at his parents house. 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 Patient states when he awoke this morning after his packing his sugar was 108. He had something she did not correct for anything. He then rechecked his blood sugar and found it to be 487. Patient took his NovoLog and Levemir per his sliding scale, and went to his mother's house for his Easter Sunday. Patient then had an episode of weakness and syncope at his mother's house. 911 was called the patient was transferred here via EMS. EMS found her sugar to be 326 in the ambulance, and blood pressure did drop down into the 80s systolic. Patient was given a liter of normal saline fluids with improvement of symptoms upon arrival. Patient currently states no fever, chills, chest pain, shortness of breath, nausea, vomiting, or abdominal pain. Repeat fingerstick glucose here in the department shows a sugar of 308. Patient is allergic to Dilaudid. PFSH Past Medical History Arthritis: No Asthma: No Autoimmune Disease: No Blood Disorders: No Anxiety: No Depression: No Heart Rhythm Problems: No Cancer: No Cardiovascular Problems: Yes High Cholesterol: No Chest Pain: No Congestive Heart Failure: No COPD: No Cerebrovascular Accident: No Diabetes: Yes Endocrine: Yes GERD: No Genitourinary: No Headaches: No Hepatitis: No Hiatal Hernia: No Hypertension: Yes Immune Disorder: No Kidney Stones: No Musculoskeletal: No Neurologic: No Psychiatric: No Reproductive: No Respiratory: No Migraines: No Myocardial Infarction: No Radiation Therapy: No Renal Failure: No Seizures: No Sickle Cell Disease: No Sleep Apnea: No Thyroid Disease: No Ulcer: No Past Surgical History Abdominal Surgery: No AICD: No Appendectomy: No Arteriovenous Shunt: No Cardiac Surgery: No Cholecystectomy: No Ear Surgery: No Endocrine Surgery: No Eye Surgery: No Genitourinary Surgery: Yes (right orchiectomy) Gynecologic Surgery: No Insulin Pump: No Joint Replacement: No Oral Surgery: No Pacemaker: No Thoracic Surgery: No Other Surgery: Yes (TESTICLE) Social History Alcohol Use: No Tobacco Use: No Substance Use: No Allergies-Medications (Allergen,Severity, Reaction): Coded Allergies: Dilaudid (Verified Allergy, Intermediate, ITCHING, DIAPHORESIS, 09/27/16) Reported Meds & Prescriptions Reported Meds & Active Scripts Active Lisinopril 10 Mg Tab 10 Mg PO DAILY Diphenoxylate-Atropine 2.5-0.025 Mg Tab 2 Tab PO Q6H PRN Oxycodone-Acetaminophen 5-325 mg Tab 2 Tab PO Q4H PRN Levemir Inj (Insulin Detemir) 1,000 unit/ 10 ML Vial 25 Units SQ Q12HR Potassium Chloride Microencaps 20 Meq Tab 40 Meq PO DAILY Bumetanide 1 Mg Tab 1 Mg PO BID Aspirin EC (Aspirin) 81 Mg Tabdr 81 Mg PO DAILY Cardizem CD 24 HR (Diltiazem CD 24 HR) 180 Mg Caper 180 Mg PO DAILY Diphenhydramine HCl 50 Mg Cap 50 Mg PO Q6H PRN 7 Days Reported Hydroxyzine HCl 25 Mg Tab 25-50 Mg PO HS PRN Ergocalciferol 50,000 Unit Cap 50,000 Units PO TWICE A WEEK SUNDAY Atorvastatin (Atorvastatin Calcium) 80 Mg Tab 80 Mg PO HS Review of Systems Except as stated in HPI: all other systems reviewed are Neg General / Constitutional: No: Fever Eyes: No: Visual changes HENT: No: Headaches Cardiovascular: No: Chest Pain or Discomfort Respiratory: No: Shortness of Breath Gastrointestinal: No: Abdominal Pain Genitourinary: No: Dysuria Musculoskeletal: No: Pain Skin: No Rash Neurologic: No: Weakness Psychiatric: No: Depression Endocrine: No: Polydipsia Hematologic/Lymphatic: No: Easy Bruising Physical Exam Narrative GENERAL: Morbidly obese male in no acute distress. SKIN: Warm and moderate diaphoresis. Normal color. Normal turgor. Well healing and granulating wound to the right middle buttock measuring 6 cm x 5 cm x 0.5 cm deep without signs of abscess or cellulitis. HEAD: Atraumatic. Normocephalic. EYES: Pupils equal and round. No scleral icterus. No injection or drainage. ENT: No nasal bleeding or discharge. Mucous membranes pink and moist. Pharynx is normal. NECK: Trachea midline. Neck is supple and nontender. CARDIOVASCULAR: Regular rate and rhythm. No murmurs gallops or rubs. RESPIRATORY: No accessory muscle use. Clear to auscultation. Breath sounds equal bilaterally. GASTROINTESTINAL: Abdomen soft, non-tender, nondistended. Hepatic and splenic margins not palpable. MUSCULOSKELETAL: Extremities without clubbing, cyanosis, or edema. No obvious deformities. NEUROLOGICAL: Awake and alert. No obvious cranial nerve deficits. Motor grossly within normal limits. Five out of 5 muscle strength in the arms and legs. Normal speech. PSYCHIATRIC: Appropriate mood and affect; insight and judgment normal. Data Data Last Documented VS Vital Signs Date Time Temp Pulse Resp B/P Pulse Ox O2 Delivery O2 Flow Rate FiO2 01/21/17 16:52 97.8 91 20 177/97 100 Orders Electrocardiogram (01/21/17 16:59) Complete Blood Count With Diff (01/21/17 16:59) Comprehensive Metabolic Panel (01/21/17 16:59) Prothrombin Time / Inr (Pt) (01/21/17 16:59) Act Partial Throm Time (Ptt) (01/21/17 16:59) Lactic Acid Sepsis Protocol (01/21/17 16:59) Magnesium (Mg) (01/21/17 16:59) Urinalysis - C+S If Indicated (01/21/17 16:59) Blood Culture (01/21/17 16:59) Chest, Single Ap (01/21/17 16:59) Blood Glucose (01/21/17 16:59) Ecg Monitoring (01/21/17 16:59) Iv Access Insert/Monitor (01/21/17 16:59) Oximetry (01/21/17 16:59) Oxygen Administration (01/21/17 16:59) Sodium Chlor 0.9% 1000 Ml Inj (Ns 1000 M (01/21/17 16:59) Sodium Chlor 0.9% 1000 Ml Inj (Ns 1000 M (01/21/17 16:59) Sodium Chlor 0.9% 1000 Ml Inj (Ns 1000 M (01/21/17 16:59) Sodium Chlor 0.9% 1000 Ml Inj (Ns 1000 M (01/21/17 16:59) Piperacil-Tazo 4.5 Gm Premix (Zosyn 4.5 (01/21/17 18:30) Vancomycin Inj (Vancomycin Inj) (01/21/17 18:30) Wound Culture And Gram Stain (01/21/17 18:26) Labs Laboratory Tests Test 01/21/17 01/21/17 17:10 17:50 White Blood Count 8.6 TH/MM3 Red Blood Count 4.17 MIL/MM3 Hemoglobin 11.5 GM/DL Hematocrit 34.2 % Mean Corpuscular Volume 82.0 FL Mean Corpuscular Hemoglobin 27.5 PG Mean Corpuscular Hemoglobin 33.5 % Concent Red Cell Distribution Width 13.5 % Platelet Count 194 TH/MM3 Mean Platelet Volume 9.0 FL Neutrophils (%) (Auto) 65.7 % Lymphocytes (%) (Auto) 22.7 % Monocytes (%) (Auto) 10.2 % Eosinophils (%) (Auto) 0.9 % Basophils (%) (Auto) 0.5 % Neutrophils # (Auto) 5.6 TH/MM3 Lymphocytes # (Auto) 1.9 TH/MM3 Monocytes # (Auto) 0.9 TH/MM3 Eosinophils # (Auto) 0.1 TH/MM3 Basophils # (Auto) 0.0 TH/MM3 CBC Comment DIFF FINAL Differential Comment Prothrombin Time 10.0 SEC Prothromb Time International 0.9 RATIO Ratio Activated Partial 25.1 SEC Thromboplast Time Sodium Level 134 MEQ/L Potassium Level 4.2 MEQ/L Chloride Level 101 MEQ/L Carbon Dioxide Level 21.3 MEQ/L Anion Gap 12 MEQ/L Blood Urea Nitrogen 36 MG/DL Creatinine 1.38 MG/DL Estimat Glomerular Filtration 54 ML/MIN Rate Random Glucose 268 MG/DL Lactic Acid Level 4.0 mmol/L Calcium Level 9.1 MG/DL Magnesium Level 2.2 MG/DL Total Bilirubin 0.2 MG/DL Aspartate Amino Transf 9 U/L (AST/SGOT) Alanine Aminotransferase 15 U/L (ALT/SGPT) Alkaline Phosphatase 90 U/L Total Protein 7.1 GM/DL Albumin 2.6 GM/DL Urine Color LIGHT-YELLOW Urine Turbidity CLEAR Urine pH 5.0 Urine Specific [place] 1.024 Urine Protein TRACE mg/dL Urine Glucose (UA) 1000 mg/dL Urine Ketones NEG mg/dL Urine Occult Blood NEG Urine Nitrite NEG Urine Bilirubin NEG Urine Urobilinogen LESS THAN 2.0 MG/DL Urine Leukocyte Esterase NEG Urine RBC LESS THAN 1 /hpf Urine WBC 6 /hpf Microscopic Urinalysis Comment CATH-CULT NOT IND MDM Medical Decision Making Medical Screen Exam Complete: Yes Emergency Medical Condition: Yes Differential Diagnosis Syncopal episode. Dehydration. Electrolyte imbalance. Narrative Course Patient is medically stable at time of exam. Labs ordered including CBC, CMP, lactic acid, blood cultures 2, and urinalysis. IV access is maintained and patient is given 4 L normal saline per sepsis protocol. Patient is discussed with Dr. Cerna, and prophylactic antibiotics is not felt warranted at this time. No further insulin is felt warranted as well. CBC is unremarkable except for his typical level of anemia, without significant leukocytosis CMP shows a sodium 134, BUN of 36, creatinine of 1.38 which is improved from previous. Random glucose is 268. Lactic acid is elevated at 4.0. Urinalysis is unremarkable except for greater than 1000 glucose. Regular exercise are normal. Wound culture is collected and sent to the lab. Due to the patient's elevated lactic acid the patient is given Zosyn 4.5 g IV as well as 1000 mg vancomycin IV. Patient is discussed with Dr. Cerna and examined with her. Patient is felt to warrant hospitalization stated is syncopal episode, history of abscess and cellulitis, and elevated lactic acid. 1830 hrs. call was placed to hospitalist for admission. 1900 hrs. patient is discussed with Dr. Huff who agrees to admit the patient to observation under Dr. Childress. Diagnosis Primary Impression: Syncope and collapse Additional Impressions: Elevated lactic acid level Hyperglycemia Admitting Information Admitting Physician Requests: Observation Condition: Stable José Luis Britton Jan 21, 2017 17:14
[2017-01-21 17:42] LABS: AUTOMATED NEUTROPHIL # 5.6 TH/MM3 (1.8-7.7); BASOPHIL % 0.5 % (0.0-2.0); EOSINOPHIL # 0.1 TH/MM3 (0-0.4); EOSINOPHIL % 0.9 % (0.0-4.0); HEMATOCRIT 34.2 % (39.0-51.0); HEMO FLAGS DIFF FINAL; LYMPH % 22.7 % (9.0-44.0); LYMPHOCYTE # 1.9 TH/MM3 (1.0-4.8); MEAN CORPUSCULAR HEMOGLOBIN 27.5 PG (27.0-34.0); MEAN CORPUSCULAR HGB CONC 33.5 % (32.0-36.0); MONO % 10.2 % (0.0-8.0); NEUT % 65.7 % (16.0-70.0); PLATELET COUNT 194 TH/MM3 (150-450); RED BLOOD COUNT 4.17 MIL/MM3 (4.50-5.90); RED CELL DISTRIBUTION WIDTH 13.5 % (11.6-17.2); WHITE BLOOD COUNT 8.6 TH/MM3 (4.0-11.0)
[2017-01-21 17:45] VITALS: BP 159/74; PULSE 90; PULSE 92; RESP 20; TEMP 98.2; O2SAT 99
--- NOTE | 2017-01-21 17:46 | RADRPT ---
EXAM DATE/TIME: 01/21/2017 17:12 [facility] COMPARISON: CHEST SINGLE AP, October 02, 2016, 5:35. INDICATIONS : Light-headed. Shortness of breath. MEDICAL HISTORY : Hypertension. Diabetes. SURGICAL HISTORY : None. ENCOUNTER: Initial ACUITY: 1 day PAIN SCORE: 0/10 LOCATION: Bilateral chest FINDINGS: A single view of the chest demonstrates the lungs to be symmetrically aerated without evidence of mas s, infiltrate or effusion. The cardiomediastinal contours are unremarkable. Osseous structures are intact. CONCLUSION: No acute disease. Royce Rangel MD on January 21, 2017 at 17:44 Board Certified Radiologist. This report was verified electronically.
[2017-01-21 18:01] LABS: APTT (PATIENT) 25.1 SEC (24.3-30.1); INTERNATIONAL NORMALIZED RATIO 0.9 RATIO
[2017-01-21 18:05] LABS: ALT (GPT) 15 U/L (12-78); ANION GAP 12 MEQ/L (5-15); AST (GOT) 9 U/L (15-37); BICARBONATE 21.3 MEQ/L (21.0-32.0); BLOOD UREA NITROGEN 36 MG/DL (7-18); CHLORIDE 101 MEQ/L (98-107); GLOMERULAR FILTRATION RATE 54 ML/MIN (>89); MAGNESIUM 2.2 MG/DL (1.5-2.5); POTASSIUM 4.2 MEQ/L (3.5-5.1); SODIUM (NA) 134 MEQ/L (136-145)
[2017-01-21 18:06] LABS: ALKALINE PHOSPHATASE 90 U/L (45-117); TOTAL BILIRUBIN ADULT 0.2 MG/DL (0.2-1.0)
[2017-01-21 18:14] LABS: BLOOD, URINE NEG (NEG); GLUCOSE,URINE 1000 mg/dL (NEG); KETONE, URINE NEG (NEG); NITRITE,URINE NEG (NEG); URINE COLOR LIGHT-YELLOW (YELLW/STRAW)
[2017-01-21 18:15] LABS: COMMENT (UR) CATH-CULT NOT IND; CULTURE IF INDICATED CATH CULTURE NOT IND
--- NOTE | 2017-01-21 18:29 | PD ---
Data Data Last Documented VS Vital Signs Date Time Temp Pulse Resp B/P Pulse Ox O2 Delivery O2 Flow Rate FiO2 01/21/17 16:52 97.8 91 20 177/97 100 Orders Electrocardiogram (01/21/17 16:59) Complete Blood Count With Diff (01/21/17 16:59) Comprehensive Metabolic Panel (01/21/17 16:59) Prothrombin Time / Inr (Pt) (01/21/17 16:59) Act Partial Throm Time (Ptt) (01/21/17 16:59) Lactic Acid Sepsis Protocol (01/21/17 16:59) Magnesium (Mg) (01/21/17 16:59) Urinalysis - C+S If Indicated (01/21/17 16:59) Blood Culture (01/21/17 16:59) Chest, Single Ap (01/21/17 16:59) Blood Glucose (01/21/17 16:59) Ecg Monitoring (01/21/17 16:59) Iv Access Insert/Monitor (01/21/17 16:59) Oximetry (01/21/17 16:59) Oxygen Administration (01/21/17 16:59) Sodium Chlor 0.9% 1000 Ml Inj (Ns 1000 M (01/21/17 16:59) Sodium Chlor 0.9% 1000 Ml Inj (Ns 1000 M (01/21/17 16:59) Sodium Chlor 0.9% 1000 Ml Inj (Ns 1000 M (01/21/17 16:59) Sodium Chlor 0.9% 1000 Ml Inj (Ns 1000 M (01/21/17 16:59) Piperacil-Tazo 4.5 Gm Premix (Zosyn 4.5 (01/21/17 18:30) Vancomycin Inj (Vancomycin Inj) (01/21/17 18:30) Labs Laboratory Tests Test 01/21/17 01/21/17 17:10 17:50 White Blood Count 8.6 TH/MM3 Red Blood Count 4.17 MIL/MM3 Hemoglobin 11.5 GM/DL Hematocrit 34.2 % Mean Corpuscular Volume 82.0 FL Mean Corpuscular Hemoglobin 27.5 PG Mean Corpuscular Hemoglobin 33.5 % Concent Red Cell Distribution Width 13.5 % Platelet Count 194 TH/MM3 Mean Platelet Volume 9.0 FL Neutrophils (%) (Auto) 65.7 % Lymphocytes (%) (Auto) 22.7 % Monocytes (%) (Auto) 10.2 % Eosinophils (%) (Auto) 0.9 % Basophils (%) (Auto) 0.5 % Neutrophils # (Auto) 5.6 TH/MM3 Lymphocytes # (Auto) 1.9 TH/MM3 Monocytes # (Auto) 0.9 TH/MM3 Eosinophils # (Auto) 0.1 TH/MM3 Basophils # (Auto) 0.0 TH/MM3 CBC Comment DIFF FINAL Differential Comment Prothrombin Time 10.0 SEC Prothromb Time International 0.9 RATIO Ratio Activated Partial 25.1 SEC Thromboplast Time Sodium Level 134 MEQ/L Potassium Level 4.2 MEQ/L Chloride Level 101 MEQ/L Carbon Dioxide Level 21.3 MEQ/L Anion Gap 12 MEQ/L Blood Urea Nitrogen 36 MG/DL Creatinine 1.38 MG/DL Estimat Glomerular Filtration 54 ML/MIN Rate Random Glucose 268 MG/DL Lactic Acid Level 4.0 mmol/L Calcium Level 9.1 MG/DL Magnesium Level 2.2 MG/DL Total Bilirubin 0.2 MG/DL Aspartate Amino Transf 9 U/L (AST/SGOT) Alanine Aminotransferase 15 U/L (ALT/SGPT) Alkaline Phosphatase 90 U/L Total Protein 7.1 GM/DL Albumin 2.6 GM/DL Urine Color LIGHT-YELLOW Urine Turbidity CLEAR Urine pH 5.0 Urine Specific [place] 1.024 Urine Protein TRACE mg/dL Urine Glucose (UA) 1000 mg/dL Urine Ketones NEG mg/dL Urine Occult Blood NEG Urine Nitrite NEG Urine Bilirubin NEG Urine Urobilinogen LESS THAN 2.0 MG/DL Urine Leukocyte Esterase NEG Urine RBC LESS THAN 1 /hpf Urine WBC 6 /hpf Microscopic Urinalysis Comment CATH-CULT NOT IND MDM Supervised Visit with RL: Yes Narrative Course I, Dr. Pineda, have reviewed the advance practice practioner's documentation and am in agreement, met with the patient face to face, made the diagnosis, and the medical decision making was done by me. *My assessment and Findings: 54-year-old type II diabetic here with syncopal episode. Recently admitted for for an years gangrene and abscess to the rectal area. Today patient reportedly had a hyperglycemic episode was treated with insulin and then shortly thereafter had lightheadedness and dizziness with syncopal episode upon standing. Hypotensive per EMS in the 80 systolic but normalized en route after IV fluids. Here patient exam is unremarkable. He has a 6 x 5 x 0.5 cm wound on the right buttock, anal verge with minimal serosanguineous granulation tissue but no sujey purulence. There is no significant induration, fluctuance or tunneling. The remainder of his exam is unremarkable other than his morbid obesity. Differential includes orthostasis, dehydration, electrolyte abnormality, arrhythmia, hyperglycemia, sepsis. Laboratory workup notable for lactic acid 4.0. Patient was empirically covered with vancomycin and Zosyn, given IV fluids and will be admitted for further management of rule out sepsis. Condition: Stable Edna Pineda MD Jan 21, 2017 18:29
[2017-01-21] MEDS ORDERED: PIPERACIL-TAZO 4.5 GM PREMIX 100 ML IV ONE (18:30)
[2017-01-21] MEDS ORDERED: VANCOMYCIN INJ 1,000 MG in SODIUM CHLOR 0.9% 250 ML INJ 250 ML IV ONE (18:30)
[2017-01-21] MEDS ORDERED: METF1000 PO (19:16)
[2017-01-21] MEDS ORDERED: NOVOLOGP2 SQ (19:16)
[2017-01-21] MEDS ORDERED: EMPA1TAB PO (19:16)
[2017-01-21 19:35] LABS: LACTIC ACID GHOST NOT REPORTABLE
[2017-01-21 21:18] VITALS: BP 167/86; PULSE 97; RESP 16; O2SAT 100
--- NOTE | 2017-01-21 21:40 | HHI.HP ---
HPI Service [facility] Hospitalists Primary Care Physician Jose Abad MD Admission Diagnosis Syncope/Hyperglycemia/Increased Lactic Acid Chief Complaint: PASSED OUT, WEAKNESS Travel History International Travel<30 Days: No Contact w/Intl Traveler <30 Da: No Traveled to Known Affected Are: No History of Present Illness 56-year-old type 2 diabetic on insulin presents to the emergency department status post syncopal episode witnessed at his parents' house. 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 He's been receiving daily dressing changes from home health and 3 times a week from a wound care nurse at [facility]. Patient states when he awoke this morning after his packing his sugar was 108. He had something she did not correct for anything. He then rechecked his blood sugar a bit later and found it to be 487. Patient took his NovoLog and Levemir per his sliding scale. Patient then had an episode of weakness and syncope at his mother's house while standing by desk. He reports that he felt that his heart was pounding a bit before he passed out but had no other prodrome indicating that he was going to pass out. He reports she's had near syncope several times in the last 6 weeks and is felt general malaise and weakness over the last 6 weeks. 911 was called the patient was transferred here via EMS. EMS found her sugar to be 326 in the ambulance, and blood pressure did drop down into the 80s systolic. Patient was given a liter of normal saline fluids with improvement of symptoms upon arrival. Patient currently states no fever, chills, chest pain , shortness of breath, nausea, vomiting, or abdominal pain. Repeat fingerstick glucose here in the department shows a sugar of 308. As noted above patient reports she's had increasing weakness over the last 6 weeks despite eating regular meals including high-protein diet in order to aid his wound healing. Patient also reports to me that he has been told he has some "tunneling" of one of the wounds and it was going to be evaluated either by Dr. phoenix or Dr. Champagne in the upcoming week Review of Systems Constitutional: COMPLAINS OF: Fatigue, Dizziness, DENIES: Diaphoretic episodes , Fever, Weight gain, Weight loss, Chills, Change in appetite, Night Sweats Endocrine: COMPLAINS OF: Polyphagia, DENIES: Heat/cold intolerance, Polydipsia , Polyuria Eyes: DENIES: Blurred vision, Diplopia, Eye inflammation, Eye pain, Vision loss , Photosensitivity, Double Vision Ears, nose, mouth, throat: DENIES: Tinnitus, Hearing loss, Vertigo, Nasal discharge, Oral lesions, Throat pain, Hoarseness, Ear Pain, Running Nose, Epistaxis, Sinus Pain, Toothache, Odynophagia Respiratory: DENIES: Apneas, Cough, Snoring, Wheezing, Hemoptysis, Sputum production, Shortness of breath Cardiovascular: COMPLAINS OF: Palpitations, Syncope, DENIES: Chest pain, Dyspnea on Exertion, PND, Lower Extremity Edema, Orthopnea, Claudication Gastrointestinal: DENIES: Abdominal pain, Black stools, Bloody stools, BRB per rectum, Constipation, Diarrhea, GERD, Nausea, Reflux, Vomiting, Difficulty Swallowing, Anorexia, See HPI Musculoskeletal: COMPLAINS OF: Joint pain Hematologic/lymphatic: DENIES: Bruising, Lymphadenopathy Immunologic/allergic: DENIES: Eczema, Urticaria Neurologic: DENIES: Abnormal gait, Headache, Localized weakness, Paresthesias, Seizures, Speech Problems, Tremor, Poor Balance Psychiatric: COMPLAINS OF: Anxiety Other Chronic wounds area Past Family Social History Past Medical History 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 fib with RVR which initiated during his September 2016 visit but resolved. Hypertension Hyperlipidemia Hypogonadism Board obesity Vitamin D deficiency Anxiety History of DVT in right lower extremity proximally 3-4 years ago. Past Surgical History Debridement of Twin's gangrene 2 in September 2016 Right orchiectomy at age 46 [place] teeth extraction Reported Medications Lisinopril 10 Mg Tab 10 Mg PO DAILY Diphenoxylate-Atropine 2.5-0.025 Mg Tab 2 Tab PO Q6H PRN Levemir Inj (Insulin Detemir) 1,000 unit/ 10 ML Vial 25 Units SQ Q12HR Potassium Chloride Microencaps 20 Meq Tab 40 Meq PO DAILY Bumetanide 1 Mg Tab 1 Mg PO BID Aspirin EC (Aspirin) 81 Mg Tabdr 81 Mg PO DAILY Cardizem CD 24 HR (Diltiazem CD 24 HR) 180 Mg Caper 180 Mg PO DAILY Diphenhydramine HCl 50 Mg Cap 50 Mg PO Q6H PRN 7 Days Hydroxyzine HCl 25 Mg Tab 25-50 Mg PO HS PRN Ergocalciferol 50,000 Unit Cap 50,000 Units PO TWICE A WEEK SUNDAY Atorvastatin (Atorvastatin Calcium) 80 Mg Tab 80 Mg PO HS Allergies: Coded Allergies: Dilaudid (Verified Allergy, Intermediate, ITCHING, DIAPHORESIS, 01/21/17) Family History Father has A. fib and diabetes Mother has hypertension and hyperlipidemia Both his parents are in their 80s and he actually lives with them currently. 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 Denies illicit drug use Originally from [place], he moved here approximately 11-12 years ago Physical Exam Vital Signs Vital Signs Date Time Temp Pulse Resp B/P Pulse Ox O2 Delivery O2 Flow Rate FiO2 01/21/17 21:18 97 16 167/86 100 01/21/17 17:45 98.2 90 20 159/74 99 Room Air 01/21/17 17:45 92 20 159/74 99 Room Air 01/21/17 17:45 97 Room Air 01/21/17 16:52 97.8 91 20 177/97 100 Physical Exam GENERAL: This is a well-nourished, obese, well-developed patient, in no apparent distress. Pleasant and cooperative. SKIN: Perineal wounds 2 both packed larger lateral wound with some yellow serous discharge and granulation; midline perineal wound with packing and appears to be a deep wound with slight foul smelling discharge. HEAD: Atraumatic. Normocephalic. No temporal or scalp tenderness. EYES: Pupils equal round and reactive. Extraocular motions intact. No scleral icterus. No injection or drainage. ENT: Nose without purulent drainage or septal hematoma. Dried blood right nares. Airway patent. NECK: Trachea midline. No JVD or lymphadenopathy. Supple, nontender, no meningeal signs. CARDIOVASCULAR: Regular rate and rhythm without murmurs, gallops, or rubs. RESPIRATORY: Clear to auscultation. Breath sounds equal bilaterally. No wheezes , rales, or rhonchi. GASTROINTESTINAL: Abdomen soft, non-tender, nondistended. No hepato-splenomegaly , or palpable masses. No guarding. MUSCULOSKELETAL: Extremities without clubbing, cyanosis, or edema. No joint tenderness, effusion, or edema noted. No calf tenderness. NEUROLOGICAL: Awake and alert. Cranial nerves II through XII intact. Diminished sensation to light touch in his feet. Five out of 5 muscle strength in all muscle groups. Normal speech. Laboratory Laboratory Tests Test 01/21/17 01/21/17 17:10 17:50 White Blood Count 8.6 Red Blood Count 4.17 Hemoglobin 11.5 Hematocrit 34.2 Mean Corpuscular Volume 82.0 Mean Corpuscular Hemoglobin 27.5 Mean Corpuscular Hemoglobin 33.5 Concent Red Cell Distribution Width 13.5 Platelet Count 194 Mean Platelet Volume 9.0 Neutrophils (%) (Auto) 65.7 Lymphocytes (%) (Auto) 22.7 Monocytes (%) (Auto) 10.2 Eosinophils (%) (Auto) 0.9 Basophils (%) (Auto) 0.5 Neutrophils # (Auto) 5.6 Lymphocytes # (Auto) 1.9 Monocytes # (Auto) 0.9 Eosinophils # (Auto) 0.1 Basophils # (Auto) 0.0 CBC Comment DIFF FINAL Differential Comment Prothrombin Time 10.0 Prothromb Time International 0.9 Ratio Activated Partial 25.1 Thromboplast Time Sodium Level 134 Potassium Level 4.2 Chloride Level 101 Carbon Dioxide Level 21.3 Anion Gap 12 Blood Urea Nitrogen 36 Creatinine 1.38 Estimat Glomerular Filtration 54 Rate Random Glucose 268 Lactic Acid Level 4.0 Calcium Level 9.1 Magnesium Level 2.2 Total Bilirubin 0.2 Aspartate Amino Transf 9 (AST/SGOT) Alanine Aminotransferase 15 (ALT/SGPT) Alkaline Phosphatase 90 Total Protein 7.1 Albumin 2.6 Urine Color LIGHT-YELLOW Urine Turbidity CLEAR Urine pH 5.0 Urine Specific Festus 1.024 Urine Protein TRACE Urine Glucose (UA) 1000 Urine Ketones NEG Urine Occult Blood NEG Urine Nitrite NEG Urine Bilirubin NEG Urine Urobilinogen LESS THAN 2.0 Urine Leukocyte Esterase NEG Urine RBC LESS THAN 1 Urine WBC 6 Microscopic Urinalysis Comment CATH-CULT NOT IND Date/Time Procedure Status Source Growth 01/21/17 17:10 Aerobic Blood Culture Received Blood Peripheral Pending 01/21/17 17:10 Anaerobic Blood Culture Received Blood Peripheral Pending Result Diagram: 01/21/17 1710 01/21/17 1710 Imaging Last 72 hours Impressions Chest X-Ray 01/21/17 1659 Signed Impressions: Service Date/Time: Saturday, January 21, 2017 17:12 - CONCLUSION: No acute disease. Royce Rangel MD Assessment and Plan Problem List: (1) Syncope and collapse Status: Acute Plan: Questionable etiology. Reports near syncope on several occasions over the last few weeks. Had relatively little to no prodrome. We'll place on telemetry. Check echo. (2) Disruption of perineal wound Status: Acute Plan: We'll have colorectal surgeon see patient due to report of "tunneling" IV antibiotics initiated. Wound care consult (3) DM2 (diabetes mellitus, type 2) Status: Chronic Plan: Provide basal insulin as well as sliding scale insulin (4) Elevated lactic acid level Status: Acute Plan: Provide IV fluids and recheck. (5) Hypertension Status: Chronic Plan: Continue medications. It is noted he had low blood pressure after his syncopal episode. Possibly vasovagal. Blood pressure elevated on my exam. (6) Hyperlipidemia Status: Chronic Plan: Continue therapy. (7) Morbid obesity Status: Chronic Plan: Advised weight loss. Code Status . Full Discussed Condition With Patient, his parents and ER healthcare provider Physician Certification 2 Midnight Certification Type: Admission for Inpatient Services Order for Inpatient Services The services are ordered in accordance with Medicare regulations or non- Medicare payer requirements, as applicable. In the case of services not specified as inpatient-only, they are appropriately provided as inpatient services in accordance with the 2-midnight benchmark. Estimated LOS (days): 3 days is the estimated time the patient will need to remain in the hospital, assuming treatment plan goals are met and no additional complications. Post-Hospital Plan: Not yet determined Problem Qualifiers (1) DM2 (diabetes mellitus, type 2): Qualified Code: E11.42 - Type 2 diabetes mellitus with diabetic polyneuropathy , with long-term current use of insulin (2) Hypertension: Qualified Code: I10 - Essential hypertension Mj Huff MD PhD Jan 21, 2017 21:40
[2017-01-21] MEDS ORDERED: ACETAMINOPHEN/HYDROcodone 325 MG/10 MG TAB PO PRN (21:45)
[2017-01-21] MEDS ORDERED: LORazepam 2 MG/ML VIAL IV PUSH PRN (21:45)
[2017-01-21] MEDS ORDERED: ERGOCALCIFEROL (VIT D2) 50,000 UNIT CAP PO SCH (21:45)
[2017-01-21] MEDS ORDERED: hydrOXYzine HCL 25 MG TAB PO PRN (21:45)
[2017-01-21] MEDS ORDERED: SODIUM CHLORIDE 0.9% FLUSH 10 ML FLUSH IV FLUSH PRN (21:45)
[2017-01-21 23:00] VITALS: BP 171/90; PULSE 99; RESP 20; TEMP 98.9; O2SAT 98
[2017-01-21 23:51] VITALS: PULSE 100
[2017-01-22] VITALS (7 sets, daily range): BP systolic 128–182; BP diastolic 76–92; PULSE 95–106; RESP 2–22; TEMP 98–98.4; O2SAT 97–100
[2017-01-22] MEDS: INSULIN ASPART SUPPLEMENTAL SCALE SQ SCH ×4 (06:05→21:00)
[2017-01-22 07:21] LABS: AUTOMATED NEUTROPHIL # 4.8 TH/MM3 (1.8-7.7); BASOPHIL % 0.5 % (0.0-2.0); EOSINOPHIL # 0.1 TH/MM3 (0-0.4); EOSINOPHIL % 1.4 % (0.0-4.0); HEMATOCRIT 31.8 % (39.0-51.0); HEMO FLAGS DIFF FINAL; LYMPH % 20.2 % (9.0-44.0); LYMPHOCYTE # 1.4 TH/MM3 (1.0-4.8); MEAN CELL VOLUME 81.5 FL (80.0-100.0); MEAN CORPUSCULAR HEMOGLOBIN 27.5 PG (27.0-34.0); MEAN CORPUSCULAR HGB CONC 33.8 % (32.0-36.0); MONO % 9.8 % (0.0-8.0); NEUT % 68.1 % (16.0-70.0); PLATELET COUNT 186 TH/MM3 (150-450); RED CELL DISTRIBUTION WIDTH 13.8 % (11.6-17.2)
[2017-01-22 07:50] LABS: BICARBONATE 22.1 MEQ/L (21.0-32.0); POTASSIUM 4.1 MEQ/L (3.5-5.1)
[2017-01-22] MEDS: DILTIAZEM-CD 180 MG CAP ER PO SCH (09:00)
--- NOTE | 2017-01-22 09:36 | HHI.PR ---
Subjective Remarks says right buttock wound has been draining. green pus. says she has been very weak since discharge but fluctuating. some dizziness with ambulation. not sure if his glucometer is accurate. discrepancies with ems. Objective Vitals nad heart reg lung cta abd s/nt groin. right scrotal wound now closed right buttock wound..?tunneling superiorly foul odor. green pus on gauze. ext no edema Vital Signs Date Time Temp Pulse Resp B/P Pulse Ox O2 Delivery O2 Flow Rate FiO2 01/22/17 08:00 98.0 95 20 158/82 97 01/22/17 04:59 98.1 95 2 158/80 98 Automatic Cuff 01/21/17 23:51 100 01/21/17 23:00 98.9 99 20 171/90 98 01/21/17 21:18 97 16 167/86 100 01/21/17 17:45 98.2 90 20 159/74 99 Room Air 01/21/17 17:45 92 20 159/74 99 Room Air 01/21/17 17:45 97 Room Air 01/21/17 16:52 97.8 91 20 177/97 100 01/21/17 01/21/17 01/22/17 15:00 23:00 07:00 Intake Total 720 ml Output Total 1400 ml Balance -680 ml Intake Oral 720 ml Output Urine Total 1400 ml Result Diagram: 01/22/17 0633 01/22/17 0633 Imaging Last 72 hours Impressions Chest X-Ray 01/21/17 1659 Signed Impressions: Service Date/Time: Saturday, January 21, 2017 17:12 - CONCLUSION: No acute disease. Royce Rangel MD A/P Problem List: (1) Syncope and collapse Status: Acute Plan: Pt presented after syncope episode says he has been very weak and dizzy. 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 for fourniers gangrene, dka, viridans strep bacteremia, kee, afib, general weakness, anasarca. right orchiectomy. could be a little dehydrated also his bg seems poorly controlled(?malfunctioning glucometer) possible infection of right buttock wound. foul green discharge place on tele hold diuretic gentle ivf and recheck bmp monitor bg closely and titirate meds. gs and cx taken of right buttock wound. cover for pseudomonas emperically CRS and wound care consulted to eval the wound PT eval. (2) DM2 (diabetes mellitus, type 2) Status: Chronic Plan: basal insulin ssi titrate. (3) Hypertension Status: Chronic Plan: cont current meds monitor bp (4) Hyperlipidemia Status: Chronic Plan: Continue therapy. (5) Morbid obesity Status: Chronic Plan: Advised weight loss. Problem Qualifiers (1) DM2 (diabetes mellitus, type 2): Qualified Code: E11.42 - Type 2 diabetes mellitus with diabetic polyneuropathy , with long-term current use of insulin (2) Hypertension: Qualified Code: I10 - Essential hypertension Eamon Marques MD Jan 22, 2017 09:36
[2017-01-22] MEDS: LISINOPRIL 10 MG TAB PO SCH (11:12)
[2017-01-22] MEDS: INSULIN DETEMIR 100 UNITS/ML VIAL SQ SCH ×2 (11:13→22:41)
[2017-01-22] MEDS: ENOXAPARIN SODIUM 40 MG/0.4 ML SYRINGE SQ SCH (11:13)
[2017-01-22] MEDS: SODIUM CHLORIDE 0.9% FLUSH 10 ML FLUSH IV FLUSH SCH ×2 (11:14→22:20)
--- NOTE | 2017-01-22 11:44 | EKG ---
Date Performed: 01/21/2017 Time Performed: 18:10:04 PTAGE: 56 years EKG: Sinus rhythm POSSIBLE LEFT ATRIAL ENLARGEMENT NONSPECIFIC T-WAVE ABNORMALITY BORDERLINE ECG PREVIOUS TRACING : 09/27/2016 03.46 Compared to prior tracing no significant change DOCTOR: Bj Oswald Interpretating Date/Time 01/22/2017 11:43:25
--- NOTE | 2017-01-22 15:23 | HHI.PR ---
Subjective Remarks C/R Surg events reviewed Pt known from prev adm for soledad's hangr - s/p debridement followed in office - wound responding to local care Now adm with ?syncopy, elevated BS Bowel movements OK, no BRB, no diarrhea Objective - Vital Signs Date Time Temp Pulse Resp B/P Pulse Ox O2 Delivery O2 Flow Rate FiO2 01/22/17 12:00 98.1 95 22 173/92 99 01/21/17 17:45 Room Air Result Diagram: 01/22/1763201/22/17632 Objective Remarks PE alert, obese male Abd - soft, non-tender Rectal - wounds clean, dry, marked contrature compared to prev exam, some exudate, no cellulitis A/P Assessment and Plan Imp: prev Soledad's gangrene - wound resp to local treatment No signs of infection presently - tunneling actually better than prev Rec - cont vigorous local irrigations, , wet/dry dressings, Shower daily - no antibiotics necessary José Luis Champagne MD Jan 22, 2017 15:23
[2017-01-22] MEDS: PIPERACIL-TAZO 3.375 GM PREMIX 50 ML IV SCH ×2 (16:41→22:36)
[2017-01-22] MEDS: ATORVASTATIN 80 MG TAB PO SCH (22:19)
[2017-01-23] VITALS (8 sets, daily range): BP systolic 130–168; BP diastolic 67–92; PULSE 81–95; RESP 18–20; TEMP 97.7–98.9; O2SAT 96–98
[2017-01-23] MEDS: INSULIN ASPART SUPPLEMENTAL SCALE SQ SCH ×4 (05:51→21:00)
[2017-01-23] MEDS: PIPERACIL-TAZO 3.375 GM PREMIX 50 ML IV SCH (05:52)
[2017-01-23 08:55] LABS: BICARBONATE 23.8 MEQ/L (21.0-32.0); MAGNESIUM 2.3 MG/DL (1.5-2.5); POTASSIUM 3.8 MEQ/L (3.5-5.1)
[2017-01-23] MEDS: LISINOPRIL 10 MG TAB PO SCH (09:20)
[2017-01-23] MEDS: DILTIAZEM-CD 180 MG CAP ER PO SCH (09:20)
[2017-01-23] MEDS: INSULIN DETEMIR 100 UNITS/ML VIAL SQ SCH ×2 (09:20→22:46)
[2017-01-23] MEDS: ASPIRIN 81 MG CHEW TAB CHEW SCH (09:20)
[2017-01-23] MEDS: SODIUM CHLORIDE 0.9% FLUSH 10 ML FLUSH IV FLUSH SCH ×2 (09:20→22:43)
--- NOTE | 2017-01-23 10:03 | HHI.PR ---
Subjective Remarks ambulated. feels stronger. Objective Vitals heart reg lung cta abd s/nt ext no edema buttock right bottock wound. less drainage. perirectal wound and buttock wound packed. no surrounding cellulitis. Vital Signs Date Time Temp Pulse Resp B/P Pulse Ox O2 Delivery O2 Flow Rate FiO2 01/23/17 04:00 97.9 84 18 130/67 98 01/23/17 00:14 98.4 94 20 168/87 98 01/22/17 21:36 100 21 01/22/17 20:46 98.4 95 20 158/85 100 01/22/17 19:51 97 01/22/17 16:00 98.0 106 22 128/76 99 01/22/17 12:00 98.1 95 22 173/92 99 01/22/17 01/22/17 01/23/17 15:00 23:00 07:00 Intake Total 600 ml Output Total 1800 ml 525 ml Balance -1200 ml -525 ml Intake Oral 600 ml Output Urine Total 1800 ml 525 ml # Bowel Movements 0 Result Diagram: 01/22/17 0633 01/23/17 0740 Imaging Last 72 hours Impressions Chest X-Ray 01/21/17 1659 Signed Impressions: Service Date/Time: Saturday, January 21, 2017 17:12 - CONCLUSION: No acute disease. Royce Rangel MD A/P Problem List: (1) Syncope and collapse Status: Acute Plan: Pt presented after syncope episode says he has been very weak and dizzy. 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 for fourniers gangrene, dka, viridans strep bacteremia, kee, afib, general weakness, anasarca. right orchiectomy. could be a little dehydrated also his bg seems poorly controlled(?malfunctioning glucometer) possible infection of right buttock wound. foul green discharge place on tele hold diuretic. plan for lower dose on d/c gentle ivf and recheck bmp monitor bg closely and titirate meds. needs new monitor. f/u endocrine gs and cx taken of right buttock wound. change to po abx. wound care PT eval. (2) DM2 (diabetes mellitus, type 2) Status: Chronic Plan: basal insulin ssi titrate. (3) Hypertension Status: Chronic Plan: cont current meds monitor bp (4) Hyperlipidemia Status: Chronic Plan: Continue therapy. (5) Morbid obesity Status: Chronic Plan: Advised weight loss. Problem Qualifiers (1) DM2 (diabetes mellitus, type 2): Qualified Code: E11.42 - Type 2 diabetes mellitus with diabetic polyneuropathy , with long-term current use of insulin (2) Hypertension: Qualified Code: I10 - Essential hypertension Eamon Marques MD Jan 23, 2017 10:03
[2017-01-23] MEDS: ENOXAPARIN SODIUM 40 MG/0.4 ML SYRINGE SQ SCH (11:34)
--- NOTE | 2017-01-23 12:08 | EC ---
Study Study Date:01/22/2017 STUDY CONCLUSIONS SUMMARY - Left ventricle: The cavity size was normal. Wall thickness was increased in a pattern of moderate LVH. There was concentric hypertrophy. Systolic function was normal. The estimated ejection fraction was in the range of 55% to 60%. Although no diagnostic regional wall motion abnormality was identified, this possibility cannot be completely excluded on the basis of this study. Features are consistent with a pseudonormal left ventricular filling pattern, with concomitant abnormal relaxation and increased filling pressure (grade 2 diastolic dysfunction). - Left atrium: The atrium was mildly dilated. If LV function is below 40, please consider prescribing an ACEI or ARB or document rationale for non-use. PROCEDURE DATA STUDY STATUS: Elective. Procedure: Transthoracic echocardiography. Image quality was good. Scanning was performed from the parasternal, apical, and subcostal acoustic windows. Study completion: The patient tolerated the procedure well. Transthoracic echocardiography. M-mode, complete 2D, complete spectral Doppler, and color Doppler. Height: Height: 70in. Weight: Weight: 312.3lb. Body mass index: BMI: 44.9kg/m^2. Body surface area: BSA: 2.52m^2. Patient status: Inpatient. CARDIAC ANATOMY LEFT VENTRICLE: The cavity size was normal. Wall thickness was increased in a pattern of moderate LVH. There was concentric hypertrophy. Systolic function was normal. The estimated ejection fraction was in the range of 55% to 60%. Although no diagnostic regional wall motion abnormality was identified, this possibility cannot be completely excluded on the basis of this study. Features are consistent with a pseudonormal left ventricular filling pattern, with concomitant abnormal relaxation and increased filling pressure (grade 2 diastolic dysfunction). AORTIC VALVE: Trileaflet. Doppler: There was no stenosis. No significant regurgitation. Valve area: 3.03cm^2 (Vmax). Indexed valve area: 1.2cm^2/m^2 (Vmax). MITRAL VALVE: The valve appears to be grossly normal. Doppler: There was no evidence for stenosis. No significant regurgitation. Valve area by pressure half-time: 3.93cm^2. Indexed valve area by pressure half-time: 1.56cm^2/m^2. Peak gradient: 2mm Hg (D). LEFT ATRIUM: The atrium was mildly dilated. PULMONIC VALVE: Not well visualized. Doppler: There was no evidence for stenosis. No significant regurgitation. TRICUSPID VALVE: The valve appears to be grossly normal. Doppler: There was no evidence for stenosis. Trace regurgitation. PERICARDIUM: There was no pericardial effusion. Patient weight: 312.3lb _Ejection fraction:_ 65-75% _Fractional shortening:_ 32% up to 5Kg 5-11.5Kg 11.6-22.9Kg 23-45Kg 45-57Kg Aortic Root 7-13 <17 13-22 17-27 17-27 LA diam 6-13 <23 24-38 33-47 37-40 RVID 10-17 7-15 7-15 7-18 8-17 LVIDd 12-22 <32 24-38 33-47 37-40 LVPW 2-4 3-6 5-7 6-8 7-8 IVS 2-4 3-6 5-7 6-8 7-8 BASIC MEASUREMENTS ADULT NORMAL Left ventricle LV internal dimension, ED, chordal *40 mm 43-52 level, PLAX LV internal dimension, ES, chordal 27.4 mm 23-38 level, PLAX Fractional shortening, chordal level, 32 % >29 PLAX LV posterior wall thickness, ED 16.7 mm IVS/LVPW ratio, ED 0.99 <1.3 Ventricular septum Septal thickness, ED 16.6 mm Aortic valve Leaflet separation 23 mm 15-26 Left atrium Anterior-posterior dimension 41 mm Anterior-posterior dimension index 1.63 cm/m^2 <2.2 Right ventricle RV internal dimension, ED, PLAX 25.2 mm 19-38 BASIC MEASUREMENTS ADULT NORMAL Left ventricle LV internal dimension, ED 44.1 mm 37-56 LV posterior wall, ED *18.8 mm 6-11 Septal/posterior wall ratio, ED 1 Relative wall thickness, ED *0.85 <0.45 Volume, ED, Teichholz 88.2 ml Volume index, ED, Teichholz 35 ml/m^2 Wall mass 383 g Wall mass index 152 g/m^2 Mass/height 2.15 g/cm Ventricular septum Septal thickness, ED 18.8 mm Aortic valve Leaflet separation 23 mm 15-26 Aorta Root diameter, ED 31 mm 20-37 Left atrium Anterior-posterior dimension, ES *42 mm 19-40 Anterior-posterior dimension index, ES 1.67 cm/m^2 <2.2 LA/aortic root ratio 1.35 DOPPLER MEASUREMENTS ADULT NORMAL Main pulmonary artery Pressure, S 18 mm Hg =30 Aortic valve Peak velocity, S 117 cm/s Valve area, Vmax 3.03 cm^2 Valve area index, Vmax 1.2 cm^2/m^2 Mitral valve Peak E-wave velocity 72.6 cm/s Peak A-wave velocity 65.6 cm/s Pressure half-time 56 ms Peak gradient, D 2 mm Hg Peak E/A ratio 1.1 Valve area, pressure half-time 3.93 cm^2 Valve area index, pressure half-time 1.56 cm^2/m^2 Tricuspid valve Regurgitant peak velocity 176 cm/s Peak RV-RA gradient, S 12 mm Hg Maximal regurgitant velocity 176 cm/s Systemic veins Estimated CVP 10 mm Hg Right ventricle RV pressure, S 22 mm Hg <30 Pulmonic valve Peak velocity, S 100 cm/s LEGEND: Mean values are shown as u=mean value. Asterisk (*) felder values outside specified normal range. Prepared and signed by Tru Zamudio [id number]
--- NOTE | 2017-01-23 18:55 | HHI.PR ---
Subjective Remarks C/R Surg events reviewed Bowel movements OK, no BRB, less drainage Objective - Vital Signs Date Time Temp Pulse Resp B/P Pulse Ox O2 Delivery O2 Flow Rate FiO2 01/23/17 12:02 98.9 90 19 133/76 96 01/23/17 10:17 21 01/21/17 17:45 Room Air Result Diagram: 01/22/17 0633 01/23/17 0740 Objective Remarks PE alert, obese male Abd - soft, non-tender Rectal - wounds clean, dry, marked contrature compared to prev exam, less exudate, no cellulitis A/P Assessment and Plan Imp: prev Twin's gangrene - wound resp to local treatment No signs of infection presently - tunneling actually better than prev Rec - cont vigorous local irrigations, , wet/dry dressings, Shower daily - no antibiotics necessary dc plans José Luis Champagne MD Jan 23, 2017 18:55
[2017-01-23] MEDS: ATORVASTATIN 80 MG TAB PO SCH (22:43)
[2017-01-23] MEDS: AMOXICILLIN/CLAVULANATE K 500 MG TAB PO SCH (22:50)
[2017-01-24 01:06] VITALS: BP 141/74; PULSE 88; RESP 18; TEMP 98.1; O2SAT 97
[2017-01-24] MEDS: INSULIN ASPART SUPPLEMENTAL SCALE SQ SCH (05:07)
[2017-01-24] MEDS: AMOXICILLIN/CLAVULANATE K 500 MG TAB PO SCH (05:08)
[2017-01-24 05:21] VITALS: BP 167/79; PULSE 82; RESP 18; TEMP 98.2; O2SAT 97
[2017-01-24 08:00] VITALS: BP 139/91; PULSE 78; RESP 18; TEMP 97.9; O2SAT 97
--- NOTE | 2017-01-24 08:40 | HHI.PR ---
Subjective Remarks wants to go home feels much stronger Objective Vitals heart reg lung cta abd s/nt ext no edema right bottock and perianal wounds packed. no surrounding erythema. Vital Signs Date Time Temp Pulse Resp B/P Pulse Ox O2 Delivery O2 Flow Rate FiO2 01/24/17 05:21 98.2 82 18 167/79 97 01/24/17 01:06 98.1 88 18 141/74 97 01/23/17 21:37 21 01/23/17 20:00 95 01/23/17 16:02 98.1 92 18 142/92 98 01/23/17 12:02 98.9 90 19 133/76 96 01/23/17 10:52 81 01/23/17 10:17 98 21 01/23/17 01/23/17 01/24/17 15:00 23:00 07:00 Intake Total 360 ml Output Total 1200 ml Balance -840 ml Intake Oral 360 ml Output Urine Total 1200 ml # Bowel Movements 1 Result Diagram: 01/22/17 0633 01/23/17 0740 Imaging Last 72 hours Impressions Chest X-Ray 01/21/17 1659 Signed Impressions: Service Date/Time: Saturday, January 21, 2017 17:12 - CONCLUSION: No acute disease. Royce Rangel MD A/P Problem List: (1) Syncope and collapse Status: Acute Plan: Pt presented after syncope episode says he has been very weak and dizzy. 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 for fourniers gangrene, dka, viridans strep bacteremia, kee, afib, general weakness, anasarca. right orchiectomy. felt to be dehydrated on admission also his bg seems poorly controlled(?malfunctioning glucometer) possible infection of right buttock wound. foul green discharge Now pt ambulating and feels alot stronger and stable on his feet d/c on lower dose diuretic. f/u pcp for monitoring pt wants to switch from the lantus to levemir bid as we are doing he follows with Endocrinology and also uses novolog and jardiance wound care per [facility]. (2) DM2 (diabetes mellitus, type 2) Status: Chronic Plan: basal insulin ssi titrate. (3) Hypertension Status: Chronic Plan: cont current meds monitor bp (4) Hyperlipidemia Status: Chronic Plan: Continue therapy. (5) Morbid obesity Status: Chronic Plan: Advised weight loss. Problem Qualifiers (1) DM2 (diabetes mellitus, type 2): Qualified Code: E11.42 - Type 2 diabetes mellitus with diabetic polyneuropathy , with long-term current use of insulin (2) Hypertension: Qualified Code: I10 - Essential hypertension Eamon Marques MD Jan 24, 2017 08:39
--- NOTE | 2017-01-24 08:47 | HHI.DCPOC ---
Discharge Care Plan Diagnosis: (1) Syncope and collapse (2) Dehydration (3) DM2 (diabetes mellitus, type 2) Goals to Promote Your Health * To prevent worsening of your condition and complications * To maintain your health at the optimal level Directions to Meet Your Goals Take your medications as prescribed Follow your dietary instruction Follow activity as directed Keep your appointments as scheduled Take your immunizations and boosters as scheduled If your symptoms worsen call your PCP, if no PCP go to Urgent Care Center or Emergency Room Smoking is Dangerous to Your Health. Avoid second hand smoke Call the 24-hour hour crisis hotline for domestic abuse at Eamon Marques MD Jan 24, 2017 08:47
[2017-01-24] MEDS ORDERED: BUME1TAB PO (08:49)
[2017-01-24] MEDS ORDERED: LEVEMIR SQ (08:51)
[2017-01-24] MEDS ORDERED: AUGM500T7 PO (08:51)
--- NOTE | 2017-01-24 08:54 | HHI.FF ---
Face to Face Verification Diagnosis: (1) Wound of buttock (2) Disruption of perineal wound (3) Type 2 diabetes mellitus Home Health Nursing Order: Medical education Signs/symptoms of disease process Wound care and dressing changes Nursing assessment with vital signs Instructions: rinse buttock and perineal wounds with 1/2 strength h202 and cover with dsd per Dr Champagne. daily I have seen patient Fito Lam on 01/24/17. My clinical findings support the need for the requested home health care services because: Limited ability to care for self I certify that my clinical findings support that this patient is homebound because: Need for psychosocial assistance Eamon Marques MD Jan 24, 2017 08:54
[2017-01-24] MEDS: LISINOPRIL 10 MG TAB PO SCH (10:08)
[2017-01-24] MEDS: DILTIAZEM-CD 180 MG CAP ER PO SCH (10:08)
[2017-01-24] MEDS: ASPIRIN 81 MG CHEW TAB CHEW SCH (10:08)
[2017-01-24] MEDS: SODIUM CHLORIDE 0.9% FLUSH 10 ML FLUSH IV FLUSH SCH (10:08)
[2017-01-24] MEDS: INSULIN DETEMIR 100 UNITS/ML VIAL SQ SCH (10:22)
[2017-01-24 10:33] VITALS: O2SAT 97
[2017-01-24 18:51] VITALS: PULSE 78
--- NOTE | 2017-02-26 11:16 | HHI.DS ---
Discharge Summary Admission Date Jan 21, 2017 at 21:47 Discharge Date: Jan 24, 2017 Admitting Diagnosis Syncope/Hyperglycemia/Increased Lactic Acid (1) Syncope and collapse (2) DM2 (diabetes mellitus, type 2) (3) Hypertension (4) Hyperlipidemia (5) Morbid obesity Brief History 56-year-old type 2 diabetic on insulin presents to the emergency department status post syncopal episode witnessed at his parents' house. 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 He's been receiving daily dressing changes from home health and 3 times a week from a wound care nurse at [facility]. Patient states when he awoke this morning after his packing his sugar was 108. He had something she did not correct for anything. He then rechecked his blood sugar a bit later and found it to be 487. Patient took his NovoLog and Levemir per his sliding scale. Patient then had an episode of weakness and syncope at his mother's house while standing by desk. He reports that he felt that his heart was pounding a bit before he passed out but had no other prodrome indicating that he was going to pass out. He reports she's had near syncope several times in the last 6 weeks and is felt general malaise and weakness over the last 6 weeks. 911 was called the patient was transferred here via EMS. EMS found her sugar to be 326 in the ambulance, and blood pressure did drop down into the 80s systolic. Patient was given a liter of normal saline fluids with improvement of symptoms upon arrival. Patient currently states no fever, chills, chest pain , shortness of breath, nausea, vomiting, or abdominal pain. Repeat fingerstick glucose here in the department shows a sugar of 308. As noted above patient reports she's had increasing weakness over the last 6 weeks despite eating regular meals including high-protein diet in order to aid his wound healing. Patient also reports to me that he has been told he has some "tunneling" of one of the wounds and it was going to be evaluated either by Dr. phoenix or Dr. Champagne in the upcoming week Hospital Course Pt presented after syncope episode says he has been very weak and dizzy. 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 for fourniers gangrene, dka, viridans strep bacteremia, kee, afib, general weakness, anasarca. right orchiectomy. felt to be dehydrated on admission also his bg seems poorly controlled(?malfunctioning glucometer) possible infection of right buttock wound. foul green discharge Now pt ambulating and feels alot stronger and stable on his feet d/c on lower dose diuretic. f/u pcp for monitoring pt wants to switch from the lantus to levemir bid as we are doing he follows with Endocrinology and also uses novolog and jardiance wound care per [facility]. Pt Condition on Discharge: Stable Discharge Disposition: Disch w/ Home Health Serv Discharge Instructions DIET: Follow Instructions for: Diabetic Diet Activities you can perform: Regular-No Restrictions Follow up Referrals: Appointment for Follow Up - 2 Weeks with José Luis Champagne MD Endocrinology - [address] flynn PCP Follow-up - [address] mercedes New Medications: Amoxicillin-Clavulanate (Augmentin) 500-125 mg Tab 500 MG PO Q8HR Infection Days 5 TAB Changed Medications: Bumetanide (Bumetanide) 1 Mg Tab 1 MG PO DAILY swelling #0 Ref 0 TAB (Changed from: BID; 60) Continued Medications: Atorvastatin (Atorvastatin) 80 Mg Tab 80 MG PO HS Cholesterol Management #30 Ref 0 TAB Diltiazem CD 24 HR (Cardizem CD 24 HR) 180 Mg Caper 180 MG PO DAILY A. fib #30 CAP Diphenhydramine HCl (Diphenhydramine HCl) 50 Mg Cap 50 MG PO Q6H PRN itching Days 7 CAP Diphenoxylate-Atropine (Diphenoxylate-Atropine) 2.5-0.025 Mg Tab 2 TAB PO Q6H PRN DIARRHEA #0 TAB Empagliflozin (Jardiance) 10 Mg Tab 10 MG PO DAILY Blood Sugar Management #30 Ref 0 TAB Ergocalciferol (Ergocalciferol) 50,000 Unit Cap 88486 UNITS PO twice a week Sunday Nutritional Supplement #30 Ref 0 CAP Hydroxyzine HCl (Hydroxyzine HCl) 25 Mg Tab 25-50 MG PO HS PRN ITCHING Ref 0 TAB Insulin Aspart Inj (Novolog Inj) 1,000 Unit/10 Ml Vial 0 SQ DIRECTED Sliding Scale as directed. Blood Sugar Management #10 Ref 0 ML Insulin Detemir Inj (Levemir Inj) 1,000 unit/ 10 ML Vial 25 UNITS SQ Q12HR dm Days 30 Ref 3 INJECTION (This prescription has been renewed ) Lisinopril (Lisinopril) 10 Mg Tab 10 MG PO DAILY dm #0 Ref 0 TAB Oxycodone-Acetaminophen (Oxycodone-Acetaminophen) 5-325 mg Tab 2 TAB PO Q4H PRN PAIN #60 TAB Potassium Chloride Microencaps (Potassium Chloride Microencaps) 20 Meq Tab 40 MEQ PO DAILY edema #30 TAB Eamon Marques MD February 26, 2017 11:16
== END 2017-01-24 11:34 | disposition home health service (06) | DRG 641 ==
LOC: NEPE 16:41 → NEDA 19:05 → OBSVTOIN 21:47 → N04B 22:47
PROVIDERS: ADMIT Hospitalist; ATTEND Hospitalist
DX: E86.0 Dehydration (principal); E11.40 Type 2 diabetes mellitus with diabetic neuropathy, unspecified; Z68.41 Body mass index [BMI] 40.0-44.9, adult; E11.65 Type 2 diabetes mellitus with hyperglycemia; Z79.4 Long term (current) use of insulin; E66.01 Morbid (severe) obesity due to excess calories; R55 Syncope and collapse; I10 Essential (primary) hypertension; E78.5 Hyperlipidemia, unspecified; R74.0 Nonspecific elevation of levels of transaminase and lactic acid dehydrogenase [LDH]; Z79.82 Long term (current) use of aspirin; S31.819D Unspecified open wound of right buttock, subsequent encounter; X58.XXXD Exposure to other specified factors, subsequent encounter; Z90.79 Acquired absence of other genital organ(s); Z86.718 Personal history of other venous thrombosis and embolism
CPT/HCPCS: 71010; 80048; 80053; 81001; 82948; 83605; 83735; 84100; 85025; 85610; 85730; 86403; 87040; 87070; 87077; 87186; 87205; 93005; 93306; 96374; J1650; J1815; J2543; J3370; J7030; J7050

== ENCOUNTER 2017-03-27 12:27 | Emergency (ER) | payer OTHER ==
[~2017-03-27] VITALS: Ht 182.9 cm; Wt 150.0 kg
[~2017-03-27 12:27] MED LIST changes: -ASPI81TA11 PO; +AUGM500T7 PO; +EMPA1TAB PO; +NOVOLOGP2 SQ
[2017-03-27 12:42] VITALS: BP 188/90; PULSE 90; RESP 14; TEMP 98.2; O2SAT 100
[2017-03-27 12:45] VITALS: O2SAT 100
[2017-03-27 13:04] VITALS: BP_SYST 139; BP_SYST 156; BP_DIAS 74; BP_DIAS 76
--- NOTE | 2017-03-27 13:30 | PD ---
HPI Chief Complaint: Syncope/Near-Syncope Time Seen by Provider: 13:25 Travel History International Travel<30 days: No Contact w/Intl Traveler<30days: No Traveled to known affect area: No History of Present Illness HPI 56-year-old male that presents to the ED for evaluation of low blood pressure and syncope. Per patient he was seen at the [facility] today. Per patient he has 2 wounds on his lower buttocks are healing and one appears to be draining. Per patient his been an ongoing thing for about 5 months now. Per patient he gets daily wound changes at home. Patient has a history of diabetes and hypertension. Patient states that he is noted for the past couple of weeks that his blood pressure goes really low at night. Per patient he monitors his blood pressure regularly as he has wound care comes to his house and he checked his blood pressure which is usually in the 130s systolic during the day but tonight he noticed that the blood pressure goes down to the 70s or 80s. Per patient he has no symptoms at the time but he also tells me that he doesn't really stand during that time he takes it before he goes to bed. Apparently today he was getting the wound care done and he started to get syncopal and apparently had a syncopal episode. Per patient he felt dizzy and lightheaded. Patient's blood pressure was checked at that time and he was in the 70 systolic. Patient had ambulance call and the ambulance found to be slightly hypotensive. Patient was given IV fluids. Patient now feels back to normal. He does tell me that he gave himself insulin he also he had was one she is of food that is diabetic friendly and his sugars still not 300s. He only takes lisinopril 5 mg but he did not take it today because he noted that his blood pressure was normal today. He denies any chest pain. No abdominal pain. Per patient his wounds are painful but not severe. He doesn't take any pain medications because per patient and make him feel "stupid". PFSH Past Medical History Arthritis: No Asthma: No Autoimmune Disease: No Blood Disorders: No Anxiety: No Depression: No Heart Rhythm Problems: No Cancer: No Cardiovascular Problems: Yes High Cholesterol: No Chemotherapy: No Chest Pain: No Congestive Heart Failure: No COPD: No Cerebrovascular Accident: No Diabetes: Yes Patient Takes Glucophage: Yes Endocrine: Yes Gastrointestinal Disorders: No GERD: No Genitourinary: No Headaches: No Hepatitis: No Hiatal Hernia: No Heparin Induced Thrombocytopen: No Hypertension: Yes Immune Disorder: No Implanted Vascular Access Dvce: No Kidney Stones: No Medical other: Yes (GANGRENE ) Musculoskeletal: No Neurologic: No Psychiatric: No Reproductive: No Respiratory: No Migraines: No Myocardial Infarction: No Radiation Therapy: No Renal Failure: No Seizures: No Sickle Cell Disease: No Sleep Apnea: No Thyroid Disease: No Ulcer: No Past Surgical History Abdominal Surgery: No AICD: No Appendectomy: No Arteriovenous Shunt: No Cardiac Surgery: No Cholecystectomy: No Ear Surgery: No Endocrine Surgery: No Eye Surgery: No Genitourinary Surgery: Yes (right orchiectomy) Gynecologic Surgery: No Insulin Pump: No Joint Replacement: No Neurologic Surgery: No Oral Surgery: No Pacemaker: No Thoracic Surgery: No Other Surgery: Yes (TESTICLE) Social History Alcohol Use: No Tobacco Use: No Substance Use: No Allergies-Medications (Allergen,Severity, Reaction): Coded Allergies: Dilaudid (Verified Allergy, Intermediate, ITCHING, DIAPHORESIS, 01/21/17) Reported Meds & Prescriptions Reported Meds & Active Scripts Active Levemir Inj (Insulin Detemir) 1,000 unit/ 10 ML Vial 25 Units SQ Q12HR 30 Days Bumetanide 1 Mg Tab 1 Mg PO DAILY Cardizem CD 24 HR (Diltiazem CD 24 HR) 180 Mg Caper 180 Mg PO DAILY Reported Tylenol-Codeine #3 (Acetaminophen-Codeine) 300-30 mg Tab 1-2 Tab PO Q6H PRN Testosterone Cypionate Inj (Testosterone Cypionate) 200 Mg/Ml Inj 200 Mg IM Q14D Potassium Chloride ER (Potassium Chloride) 10 Meq Tab 20 Meq PO DAILY Lisinopril 10 Mg Tab 5-10 Mg PO DAILY Levothyroxine (Levothyroxine Sodium) 25 Mcg Tab 25 Mcg PO DAILY Lexapro (Escitalopram Oxalate) 10 Mg Tab 10 Mg PO DAILY WITH DINNER Diphenhydramine (Diphenhydramine HCl) 25 Mg Cap 50 Mg PO HS Novolog Inj (Insulin Aspart) 1,000 Unit/10 Ml Vial 0 SQ DIRECTED Sliding Scale as directed. Hydroxyzine HCl 25 Mg Tab 25-50 Mg PO Q6HR PRN ON HOLD Atorvastatin (Atorvastatin Calcium) 80 Mg Tab 80 Mg PO HS Review of Systems Except as stated in HPI: all other systems reviewed are Neg Physical Exam Narrative GENERAL: SKIN: Warm and dry. Patient has 2 healing wounds on the groin area. One appears to be about 3-4 cm in diameter stage to ulcer. The other one appears to be smaller about 1 cm what appears to be deeper almost 2 cm. Drainage noted in this one. Per patient his been draining chronically. HEAD: Atraumatic. Normocephalic. EYES: Pupils equal and round 4 mm reactive to light and accommodation. No scleral icterus. No injection or drainage. ENT: No nasal bleeding or discharge. Mucous membranes pink and moist. Tongue is midline. No uvula deviation. NECK: Trachea midline. No JVD. CARDIOVASCULAR: Regular rate and rhythm. No murmurs, S3, S4. RESPIRATORY: No accessory muscle use. Clear to auscultation. Breath sounds equal bilaterally. GASTROINTESTINAL: Abdomen soft, non-tender, nondistended. Hepatic and splenic margins not palpable. MUSCULOSKELETAL: Extremities without clubbing, cyanosis, or edema. No obvious deformities. Full range of motion of the upper and lower extremities bilaterally. Pupils pulses bilaterally. NEUROLOGICAL: Awake and alert. No obvious cranial nerve deficits. Motor grossly within normal limits. Five out of 5 muscle strength in the arms and legs. Normal speech. PSYCHIATRIC: Appropriate mood and affect; insight and judgment normal. Data Data Last Documented VS Vital Signs Date Time Temp Pulse Resp B/P Pulse Ox O2 Delivery O2 Flow Rate FiO2 03/27/17 14:18 95 16 123/72 100 Room Air 03/27/17 12:42 98.2 Orders Electrocardiogram (03/27/17 12:49) Complete Blood Count With Diff (03/27/17 12:49) Comprehensive Metabolic Panel (03/27/17 12:49) Ckmb (Isoenzyme) Profile (03/27/17 12:49) Troponin I (03/27/17 12:49) Prothrombin Time / Inr (Pt) (03/27/17 12:49) Act Partial Throm Time (Ptt) (03/27/17 12:49) Blood Culture (03/27/17 12:49) Urinalysis - C+S If Indicated (03/27/17 12:49) Thyroid Stimulating Hormone (03/27/17 12:49) Wound Culture And Gram Stain (03/27/17 12:49) Chest, Single Ap (03/27/17 12:49) Iv Access Insert/Monitor (03/27/17 12:49) Ecg Monitoring (03/27/17 12:49) Oximetry (03/27/17 12:49) Orthostatic Vital Signs (03/27/17 12:49) Ct Pelvis W Iv Contrast(Rout) (03/27/17 ) Lactic Acid Sepsis Protocol (03/27/17 12:49) Cortisol (03/27/17 13:45) Sodium Chlor 0.9% 1000 Ml Inj (Ns 1000 M (03/27/17 13:56) CKMB (03/27/17 13:25) CKMB% (03/27/17 13:25) Iohexol 350 Inj (Omnipaque 350 Inj) (03/27/17 14:58) Labs Laboratory Tests Test 03/27/17 03/27/17 13:25 14:15 White Blood Count 6.2 TH/MM3 Red Blood Count 4.74 MIL/MM3 Hemoglobin 12.9 GM/DL Hematocrit 38.2 % Mean Corpuscular Volume 80.6 FL Mean Corpuscular Hemoglobin 27.3 PG Mean Corpuscular Hemoglobin 33.9 % Concent Red Cell Distribution Width 13.7 % Platelet Count 165 TH/MM3 Mean Platelet Volume 9.8 FL Neutrophils (%) (Auto) 66.4 % Lymphocytes (%) (Auto) 21.8 % Monocytes (%) (Auto) 10.0 % Eosinophils (%) (Auto) 1.4 % Basophils (%) (Auto) 0.4 % Neutrophils # (Auto) 4.1 TH/MM3 Lymphocytes # (Auto) 1.4 TH/MM3 Monocytes # (Auto) 0.6 TH/MM3 Eosinophils # (Auto) 0.1 TH/MM3 Basophils # (Auto) 0.0 TH/MM3 CBC Comment DIFF FINAL Differential Comment Prothrombin Time 10.5 SEC Prothromb Time International 1.0 RATIO Ratio Activated Partial 24.7 SEC Thromboplast Time Sodium Level 137 MEQ/L Potassium Level 4.5 MEQ/L Chloride Level 104 MEQ/L Carbon Dioxide Level 21.9 MEQ/L Anion Gap 11 MEQ/L Blood Urea Nitrogen 20 MG/DL Creatinine 1.36 MG/DL Estimat Glomerular Filtration 55 ML/MIN Rate Random Glucose 207 MG/DL Lactic Acid Level 3.1 mmol/L Calcium Level 8.7 MG/DL Total Bilirubin 0.7 MG/DL Aspartate Amino Transf 24 U/L (AST/SGOT) Alanine Aminotransferase 22 U/L (ALT/SGPT) Alkaline Phosphatase 105 U/L Total Creatine Kinase 175 U/L Creatine Kinase MB 5.0 NG/ML Troponin I LESS THAN 0.02 NG/ML Total Protein 7.5 GM/DL Albumin 3.0 GM/DL Thyroid Stimulating Hormone 1.890 uIU/ML 3rd Gen Random Cortisol 23.7 MCG/DL MDM Medical Decision Making Medical Screen Exam Complete: Yes Emergency Medical Condition: Yes Medical Record Reviewed: Yes Interpretation(s) CBC & BMP Diagram 03/27/17 13:25 LFTS and lipase WNL cortisol level of 23 lactic acid of 3.1 Troponin and CKMB negative EKG shows sinus rhythm with no sign of acute ischemia or arrhythmia noted by me and attending. Last Impressions Chest X-Ray 03/27/17 1249 Signed Impressions: Service Date/Time: Monday, March 27, 2017 13:22 - CONCLUSION: 1. No acute cardiopulmonary disease Michoacano Culp MD CT of pelvis shows chronic induration but no new infection Differential Diagnosis Orthostatic hypotension versus hypertension versus sepsis versus hypertension versus kidney injury versus DKA versus syncope versus presyncope Narrative Course 56-year-old male that presents to the ED for evaluation of syncope. Patient was properly examined and was found to have signs and symptoms which appear to be consistent with hypotension unclear etiology. Patient states he has a history of low blood pressure at night. His blood pressure here is 180 systolic. He reports feeling better. Unclear etiology of his symptoms. Patient does have wants to his buttocks that used to be gangrene. At this time I recommend labs and imaging. Patient agrees with this plan. Labs and imaging showed chronic induration, slightly like the acidosis, slightly elevated cortisol level of unclear significance. My attending Dr. Guido evaluated the patient and he recommends that patient can be safely discharged. He does not recommend any additional treatment. He console the patient extensively to not use lisinopril and follow with primary care doctor. She agrees with this plan. Follow up with PCP. See ED if worsening symptoms. Diagnosis Primary Impression: Hypotension Qualified Code: I95.9 - Hypotension, unspecified hypotension type Additional Impressions: Syncope Qualified Code: R55 - Syncope, unspecified syncope type Wound of buttock Qualified Code: S31.809A - Wound of buttock, unspecified laterality, initial encounter Patient Instructions: General Instructions Additional Instructions: Do a CAT scan came back fine with no sign of new infection. The wounds appear to be doing well with no sign of new infection. Follow up closely with your PCP this week for further evaluation of white or having these episodes. From now hold your Lisinopril. See ED for worsening symptoms. Continue doing your wound care. Med/Other Pt SpecificInfo: Med Stopped (stop lisinopril, f/u with your doctor this week.) Disposition: 01 DISCHARGE HOME Condition: Stable Joe Parks Mar 27, 2017 13:30
[2017-03-27] MEDS ORDERED: DIPH25CA PO (13:36)
[2017-03-27] MEDS ORDERED: LEXA10TA PO (13:36)
[2017-03-27] MEDS ORDERED: TEST200I12 IM (13:36)
[2017-03-27] MEDS ORDERED: POTA10TA2 PO (13:36)
[2017-03-27] MEDS ORDERED: LEVO25TA4 PO (13:36)
[2017-03-27] MEDS ORDERED: LISI10TA3 PO (13:36)
[2017-03-27] MEDS ORDERED: TYLETAB34 PO (13:43)
[2017-03-27 13:56] LABS: APTT (PATIENT) 24.7 SEC (24.3-30.1); PROTHROMBIN TIME - PATIENT 10.5 SEC (9.8-11.6)
[2017-03-27] MEDS ORDERED: SODIUM CHLOR 0.9% 1000 ML INJ 1,000 ML IV SCH (13:56)
[2017-03-27 13:58] LABS: AUTOMATED NEUTROPHIL # 4.1 TH/MM3 (1.8-7.7); BASOPHIL % 0.4 % (0.0-2.0); EOSINOPHIL # 0.1 TH/MM3 (0-0.4); EOSINOPHIL % 1.4 % (0.0-4.0); HEMATOCRIT 38.2 % (39.0-51.0); HEMO FLAGS DIFF FINAL; LYMPH % 21.8 % (9.0-44.0); LYMPHOCYTE # 1.4 TH/MM3 (1.0-4.8); MEAN CELL VOLUME 80.6 FL (80.0-100.0); MEAN CORPUSCULAR HEMOGLOBIN 27.3 PG (27.0-34.0); MEAN CORPUSCULAR HGB CONC 33.9 % (32.0-36.0); NEUT % 66.4 % (16.0-70.0); PLATELET COUNT 165 TH/MM3 (150-450); RED BLOOD COUNT 4.74 MIL/MM3 (4.50-5.90); RED CELL DISTRIBUTION WIDTH 13.7 % (11.6-17.2); WHITE BLOOD COUNT 6.2 TH/MM3 (4.0-11.0)
[2017-03-27 14:04] LABS: ALT (GPT) 22 U/L (12-78)
--- NOTE | 2017-03-27 14:05 | RADRPT ---
EXAM DATE/TIME: 03/27/2017 13:22 [facility] COMPARISON: CHEST SINGLE AP, January 21, 2017, 17:12. INDICATIONS : Syncope. Patient states he passed out, low blood pressure. MEDICAL HISTORY : Hypertension. Diabetes. SURGICAL HISTORY : None. ENCOUNTER: Initial ACUITY: 1 day PAIN SCORE: 0/10 LOCATION: Bilateral chest FINDINGS: A single view of the chest demonstrates the lungs to be symmetrically aerated without evidence of mas s, infiltrate or effusion. The cardiomediastinal contours are unremarkable. Osseous structures are intact. CONCLUSION: 1. No acute cardiopulmonary disease Michoacano Culp MD on March 27, 2017 at 14:01 Board Certified Radiologist. This report was verified electronically.
[2017-03-27 14:14] LABS: ALKALINE PHOSPHATASE 105 U/L (45-117); ANION GAP 11 MEQ/L (5-15); BICARBONATE 21.9 MEQ/L (21.0-32.0); BLOOD UREA NITROGEN 20 MG/DL (7-18); CHLORIDE 104 MEQ/L (98-107); CREATINE KINASE 175 U/L (39-308); GLOMERULAR FILTRATION RATE 55 ML/MIN (>89); SODIUM (NA) 137 MEQ/L (136-145); TOTAL BILIRUBIN ADULT 0.7 MG/DL (0.2-1.0)
[2017-03-27 14:18] VITALS: BP 123/72; PULSE 95; RESP 16; O2SAT 100
[2017-03-27 14:22] LABS: AST (GOT) 24 U/L (15-37); POTASSIUM 4.5 MEQ/L (3.5-5.1)
[2017-03-27] MEDS ORDERED: IOHEXOL 350 MG/ML 10 ML VIAL (for RAD DIAG) IV ONE (14:58)
[2017-03-27 15:33] LABS: LACTIC ACID GHOST NOT REPORTABLE
--- NOTE | 2017-03-27 16:21 | RADRPT ---
EXAM DATE/TIME: 03/27/2017 14:47 [facility] COMPARISON: CT PELVIS W/O CONTRAST, September 29, 2016, 15:28. INDICATIONS : Chronic wounds groin and buttocks. Patient thinks they may be getting worse IV CONTRAST: 100 cc Omnipaque 350 (iohexol) IV ORAL CONTRAST: No oral contrast ingested. RADIATION DOSE: 15.87 CTDIvol (mGy) MEDICAL HISTORY : Cardiovascular disease. Hypertension. Diabetes mellitus type 1. SURGICAL HISTORY : Right orchiectomy ENCOUNTER: Initial ACUITY: 2 days PAIN SCALE: 5/10 LOCATION: Right buttocks TECHNIQUE: Volumetric scanning of the pelvis was performed. Using automated exposure control and adjustment of the mA and/or kV according to patient size, radiation dose was kept as low as reasonabl y achievable to obtain optimal diagnostic quality images. FINDINGS: There is increased soft tissue density seen along the medial right gluteal fold region. This extends anteriorly towards the base of the scrotum. This appears to be inferior to the anus. On the prior exam from 09/29/2016 the patient had induration in a similar distribution. There is a small amount o f air within the soft tissues and anteriorly in this region of induration. A drainable fluid collect ion is not seen. The induration extends over a approximately 20 cm length from anterior to posterior . The induration measures up to 3 cm in thickness. There continue to be some mildly prominent lymph nodes in the inguinal regions bilaterally measuring up to 2.6 cm. These are unchanged. The structures within the pelvis are grossly intact. There is a 1.8 cm calcification seen in the ant erior left lower quadrant mesentery likely related to a calcified lymph node. A significant pelvic m ass is not seen. There is some degenerative change identified in the lower lumbar spine. CONCLUSION: Induration/inflammatory change along the inferior medial right gluteal fold region extending from the anterior to posterior aspect of the fold. This is in a similar region to previous induration. A dr arias fluid collection/abscess is not seen. Norris Mars MD on March 27, 2017 at 16:02 Board Certified Radiologist. This report was verified electronically.
[2017-03-27 16:31] LABS: BLOOD, URINE NEG (NEG); COMMENT (UR) CULT NOT INDICATED; CULTURE IF INDICATED CULT NOT INDICATED; GLUCOSE,URINE 1000 mg/dL (NEG); KETONE, URINE NEG (NEG); NITRITE,URINE NEG (NEG); SQUAMOUS EPITHELIAL CELL URINE <1 /hpf (0-5); URINE COLOR LIGHT-YELLOW (YELLW/STRAW)
[2017-03-27 16:54] VITALS: BP 127/67; PULSE 84; RESP 16; O2SAT 95
--- NOTE | 2017-03-27 16:59 | EKG ---
Date Performed: 03/27/2017 Time Performed: 13:22:41 PTAGE: 56 years EKG: Sinus rhythm WITH OCCASIONAL VENTRICULAR PREMATURE COMPLEXES NONSPECIFIC T-WAVE ABNORMALITY BORDERLINE ECG PREVIOUS TRACING : 01/21/2017 18.10 No significant change from previous tracing noted. DOCTOR: Uziel Ortiz Interpretating Date/Time 03/27/2017 16:55:31
--- NOTE | 2017-03-27 18:07 | PD ---
Data Data Last Documented VS Vital Signs Date Time Temp Pulse Resp B/P Pulse Ox O2 Delivery O2 Flow Rate FiO2 03/27/17 16:54 84 16 127/67 95 Room Air 03/27/17 12:42 98.2 Orders Electrocardiogram (03/27/17 12:49) Complete Blood Count With Diff (03/27/17 12:49) Comprehensive Metabolic Panel (03/27/17 12:49) Ckmb (Isoenzyme) Profile (03/27/17 12:49) Troponin I (03/27/17 12:49) Prothrombin Time / Inr (Pt) (03/27/17 12:49) Act Partial Throm Time (Ptt) (03/27/17 12:49) Blood Culture (03/27/17 12:49) Urinalysis - C+S If Indicated (03/27/17 12:49) Thyroid Stimulating Hormone (03/27/17 12:49) Wound Culture And Gram Stain (03/27/17 12:49) Chest, Single Ap (03/27/17 12:49) Iv Access Insert/Monitor (03/27/17 12:49) Ecg Monitoring (03/27/17 12:49) Oximetry (03/27/17 12:49) Orthostatic Vital Signs (03/27/17 12:49) Ct Pelvis W Iv Contrast(Rout) (03/27/17 ) Lactic Acid Sepsis Protocol (03/27/17 12:49) Cortisol (03/27/17 13:45) Sodium Chlor 0.9% 1000 Ml Inj (Ns 1000 M (03/27/17 13:56) CKMB (03/27/17 13:25) CKMB% (03/27/17 13:25) Iohexol 350 Inj (Omnipaque 350 Inj) (03/27/17 14:58) Labs Laboratory Tests Test 03/27/17 03/27/17 03/27/17 03/27/17 13:25 14:15 15:33 16:01 White Blood Count 6.2 TH/MM3 Red Blood Count 4.74 MIL/MM3 Hemoglobin 12.9 GM/DL Hematocrit 38.2 % Mean Corpuscular Volume 80.6 FL Mean Corpuscular Hemoglobin 27.3 PG Mean Corpuscular Hemoglobin 33.9 % Concent Red Cell Distribution Width 13.7 % Platelet Count 165 TH/MM3 Mean Platelet Volume 9.8 FL Neutrophils (%) (Auto) 66.4 % Lymphocytes (%) (Auto) 21.8 % Monocytes (%) (Auto) 10.0 % Eosinophils (%) (Auto) 1.4 % Basophils (%) (Auto) 0.4 % Neutrophils # (Auto) 4.1 TH/MM3 Lymphocytes # (Auto) 1.4 TH/MM3 Monocytes # (Auto) 0.6 TH/MM3 Eosinophils # (Auto) 0.1 TH/MM3 Basophils # (Auto) 0.0 TH/MM3 CBC Comment DIFF FINAL Differential Comment Prothrombin Time 10.5 SEC Prothromb Time International 1.0 RATIO Ratio Activated Partial 24.7 SEC Thromboplast Time Sodium Level 137 MEQ/L Potassium Level 4.5 MEQ/L Chloride Level 104 MEQ/L Carbon Dioxide Level 21.9 MEQ/L Anion Gap 11 MEQ/L Blood Urea Nitrogen 20 MG/DL Creatinine 1.36 MG/DL Estimat Glomerular Filtration 55 ML/MIN Rate Random Glucose 207 MG/DL Lactic Acid Level 3.1 mmol/L 2.0 mmol/L Calcium Level 8.7 MG/DL Total Bilirubin 0.7 MG/DL Aspartate Amino Transf 24 U/L (AST/SGOT) Alanine Aminotransferase 22 U/L (ALT/SGPT) Alkaline Phosphatase 105 U/L Total Creatine Kinase 175 U/L Creatine Kinase MB 5.0 NG/ML Troponin I LESS THAN 0.02 NG/ML Total Protein 7.5 GM/DL Albumin 3.0 GM/DL Thyroid Stimulating Hormone 1.890 uIU/ML 3rd Gen Random Cortisol 23.7 MCG/DL Urine Color LIGHT-YELLOW Urine Turbidity CLEAR Urine pH 6.0 Urine Specific [place] 1.025 Urine Protein 30 mg/dL Urine Glucose (UA) 1000 mg/dL Urine Ketones NEG mg/dL Urine Occult Blood NEG Urine Nitrite NEG Urine Bilirubin NEG Urine Urobilinogen LESS THAN 2.0 MG/DL Urine Leukocyte Esterase NEG Urine Squamous Epithelial <1 /hpf Cells Microscopic Urinalysis Comment CULT NOT INDICATED MDM Supervised Visit with RL: Yes Narrative Course The history, exam, and medical decision-making in the associated mid-level provider note were completed with my assistance. I reviewed and agree with the findings presented. I attest that I had a [id number] encounter with the patient on the same day, and personally performed and documented my assessment and findings in the medical record. *My assessment and Findings: Is a 56-year-old man who presents to the emergency department with an episode of lightheadedness weakness after he first stood up at his physician's office. He's had similar episodes in the past. He looks well. Doesn't look septic. He has some wounds on his but that appear to be slowly healing. Initial workup here is unremarkable. Feels back to normal now. I think he stay for outpatient follow-up of these hypotensive syncopal episodes. Recommended he stop his DEMETRIO inhibitor. Diagnosis Primary Impression: Hypotension Qualified Code: I95.9 - Hypotension, unspecified hypotension type Additional Impressions: Wound of buttock Qualified Code: S31.809A - Wound of buttock, unspecified laterality, initial encounter Syncope Qualified Code: R55 - Syncope, unspecified syncope type Referrals: Jose Abad MD (PCP) Patient Instructions: General Instructions, Chronic Wound Care (ED), Hypotension (ED) Departure Forms: Tests/Procedures Additional Instruction: Do a CAT scan came back fine with no sign of new infection. The wounds appear to be doing well with no sign of new infection. Follow up closely with your PCP this week for further evaluation of white or having these episodes. From now hold your Lisinopril. See ED for worsening symptoms. Continue doing your wound care. Disposition: 01 DISCHARGE HOME Condition: Stable Ari Guido MD Mar 27, 2017 18:07
== END 2017-03-27 17:11 | disposition home or self-care (01) ==
LOC: NEPC 12:27
DX: I95.9 Hypotension, unspecified (principal); R55 Syncope and collapse; S31.809D Unspecified open wound of unspecified buttock, subsequent encounter; R94.31 Abnormal electrocardiogram [ECG] [EKG]; I10 Essential (primary) hypertension; E11.9 Type 2 diabetes mellitus without complications; X58.XXXD Exposure to other specified factors, subsequent encounter; Z79.4 Long term (current) use of insulin; Z79.84 Long term (current) use of oral hypoglycemic drugs
CPT/HCPCS: 71010; 72193; 80053; 81001; 82533; 82550; 82552; 83605; 84443; 84484; 85025; 85610; 85730; 86403; 87040; 87070; 87205; 93005; 99285; J7030; Q9967; 87077; 87186

== ENCOUNTER 2017-12-28 10:12 | Observation (INO) | payer OTHER ==
[2017-12-28] VITALS (8 sets, daily range): BP systolic 106–193; BP diastolic 50–93; PULSE 85–100; RESP 16–18; TEMP 97.9–98.4; O2SAT 96–100
[~2017-12-28] VITALS: Ht 188 cm; Wt 138.0 kg
[~2017-12-28 10:12] MED LIST changes: -ATOR1TAB18 PO; +ATOR80TA45 PO; -AUGM500T7 PO; +CYCL-36 PO; -DIPH2.5T14 PO; +DIPH25CA PO; -DIPH50CA PO; -EMPA1TAB PO; -ERGO1CAP30 PO; +GLUCTAB PO; +LEVO25TA4 PO; +LEXA10TA PO; +NAPR-576 PO; -OXYC1TAB63 PO; +POTA10TA2 PO; -POTA20TA5 PO; +TEST200I12 IM; +TYLETAB34 PO; +b/p med; +diabetes med
[2017-12-28] MEDS ORDERED: SODIUM CHLOR 0.9% 1000 ML INJ 1,000 ML IV ONE (10:35)
--- NOTE | 2017-12-28 11:24 | PD ---
HPI Chief Complaint: General Weakness Time Seen by Provider: 10:35 Travel History International Travel<30 days: No Contact w/Intl Traveler<30days: No Traveled to known affect area: No History of Present Illness HPI 57 y/o male presents while he was at his [employer] office for cataract evaluation and getting ready to check out to go home he felt like he was about to pass out at the desk and they helped him into a wheelchair. He states there his blood pressure was low but he doesn't know the numbers. When he checked his sugar here it was high and he hasn't had it that high in a long time. He denies any pain or other concurrent complaints. He states he is feeling better now here at rest. He denies specific modifying factors. He states he had an episode like this about a year ago but at that time he fully blacked out. Quality is near syncope without loss of consciousness. Severity is from standing. Duration is an episode earlier this morning. PFSH Past Medical History Arthritis: No Asthma: No Autoimmune Disease: No Blood Disorders: No Anxiety: No Depression: No Heart Rhythm Problems: No Cancer: No Cardiovascular Problems: Yes High Cholesterol: No Chemotherapy: No Chest Pain: No Congestive Heart Failure: No COPD: No Cerebrovascular Accident: No Diabetes: Yes Endocrine: Yes Gastrointestinal Disorders: No GERD: No Genitourinary: No Headaches: No Hepatitis: No Hiatal Hernia: No Heparin Induced Thrombocytopen: No Hypertension: Yes Immune Disorder: No Implanted Vascular Access Dvce: No Kidney Stones: No Musculoskeletal: No Neurologic: No Psychiatric: No Reproductive: No Respiratory: No Migraines: No Myocardial Infarction: No Radiation Therapy: No Renal Failure: No Seizures: No Sickle Cell Disease: No Sleep Apnea: No Thyroid Disease: No Ulcer: No Past Surgical History Abdominal Surgery: No AICD: No Appendectomy: No Arteriovenous Shunt: No Cardiac Surgery: No Cholecystectomy: No Ear Surgery: No Endocrine Surgery: No Eye Surgery: No Genitourinary Surgery: Yes (right orchiectomy) Gynecologic Surgery: No Insulin Pump: No Joint Replacement: No Neurologic Surgery: No Oral Surgery: No Pacemaker: No Thoracic Surgery: No Other Surgery: Yes (TESTICLE) Social History Alcohol Use: No Tobacco Use: No Substance Use: No Allergies-Medications (Allergen,Severity, Reaction): Coded Allergies: hydromorphone (Unverified Allergy, Intermediate, ITCHING, DIAPHORESIS, ) Reported Meds & Prescriptions Reported Meds & Active Scripts Active Levemir Inj (Insulin Detemir) 1,000 unit/ 10 ML Vial 25 Units SQ Q12HR 30 Days Bumetanide 1 Mg Tab 1 Mg PO DAILY Cardizem CD 24 HR (Diltiazem CD 24 HR) 180 Mg Caper 180 Mg PO DAILY Reported Vitamin D3 (Cholecalciferol) 50,000 Unit Cap 50,000 Units PO Q7D Tylenol-Codeine #3 (Acetaminophen-Codeine) 300-30 mg Tab 1-2 Tab PO Q6H PRN Testosterone Cypionate Inj (Testosterone Cypionate) 200 Mg/Ml Inj 200 Mg IM Q14D Potassium Chloride ER (Potassium Chloride) 10 Meq Tab 20 Meq PO DAILY Levothyroxine (Levothyroxine Sodium) 25 Mcg Tab 25 Mcg PO DAILY Lexapro (Escitalopram Oxalate) 10 Mg Tab 10 Mg PO DAILY WITH DINNER Diphenhydramine (Diphenhydramine HCl) 25 Mg Cap 50 Mg PO HS Novolog Inj (Insulin Aspart) 1,000 Unit/10 Ml Vial 0 SQ DIRECTED Sliding Scale as directed. Hydroxyzine HCl 25 Mg Tab 25-50 Mg PO Q6HR PRN ON HOLD Atorvastatin (Atorvastatin Calcium) 80 Mg Tab 80 Mg PO HS Review of Systems Except as stated in HPI: all other systems reviewed are Neg Physical Exam Narrative GENERAL: 57-year-old male in no apparent distress SKIN: Patient has venous stasis changes to bilateral lower extremities with small amount of redness, area to his buttock appears like it is healing HEAD: Atraumatic. Normocephalic. EYES: Pupils equal and round. No scleral icterus. No injection or drainage. ENT: No nasal bleeding or discharge. Mucous membranes pink and moist. NECK: Trachea midline. CARDIOVASCULAR: Regular rate and rhythm. RESPIRATORY: No accessory muscle use. Clear to auscultation. Breath sounds equal bilaterally. GASTROINTESTINAL: Abdomen soft, non-tender, nondistended. MUSCULOSKELETAL: No obvious deformities. Patient has bilateral mild pitting edema to lower legs NEUROLOGICAL: Awake and alert. Moves all extremities. Normal speech. PSYCHIATRIC: Appropriate mood and affect; insight and judgment normal. Data Data Last Documented VS Vital Signs Date Time Temp Pulse Resp B/P (MAP) Pulse Ox O2 Delivery O2 Flow Rate FiO2 12/28/17 12:14 86 16 186/84 (118) 100 Room Air 12/28/17 10:21 97.9 Orders Orders Electrocardiogram (12/28/17 10:35) Complete Blood Count With Diff (12/28/17 10:35) Comprehensive Metabolic Panel (12/28/17 10:35) Magnesium (Mg) (12/28/17 10:35) Phosphorus (Po4) (12/28/17 10:35) Beta Hydroxybutyrate (Acetone) (12/28/17 10:35) Lactic Acid (12/28/17 10:35) Urinalysis - C+S If Indicated (12/28/17 10:35) Chest, Single Ap (12/28/17 10:35) Blood Gas Venous (Vbg) (12/28/17 10:35) Blood Glucose (12/28/17 10:35) Ecg Monitoring (12/28/17 10:35) Iv Access Insert/Monitor (12/28/17 10:35) Oximetry (12/28/17 10:35) NPO (12/28/17 10:35) Sodium Chloride 0.9% Flush (Ns Flush) (12/28/17 10:45) Sodium Chlor 0.9% 1000 Ml Inj (Ns 1000 M (12/28/17 10:35) Troponin I (12/28/17 10:35) Vancomycin Inj (Vancomycin Inj) (12/28/17 11:55) Piperacil-Tazo 4.5 Gm Premix (Zosyn 4.5 (12/28/17 11:55) Blood Culture (12/28/17 11:55) Admit Order (Ed Use Only) (12/28/17 12:23) Labs Laboratory Tests Test 12/28/17 10:49 12/28/17 11:12 12/28/17 11:30 Blood Gas Puncture Site NURSE Blood Gas Patient Temperature 98.6 Venous Blood pH 7.38 Venous Blood Partial Pressure CO2 45 mmHg Venous Blood Partial Pressure O2 14 mmHg Venous Blood HCO3 26 mmol/L Venous Blood Oxygen Saturation 15 % Venous Blood Oxygen Content 2.9 Vol % Venous Blood Base Excess 1.8 mmol/L Blood Gas Inspired Oxygen 21 % White Blood Count 6.3 TH/MM3 Red Blood Count 4.77 MIL/MM3 Hemoglobin 13.5 GM/DL Hematocrit 39.7 % Mean Corpuscular Volume 83.2 FL Mean Corpuscular Hemoglobin 28.4 PG Mean Corpuscular Hemoglobin Concent 34.1 % Red Cell Distribution Width 14.2 % Platelet Count 191 TH/MM3 Mean Platelet Volume 8.9 FL Neutrophils (%) (Auto) 59.4 % Lymphocytes (%) (Auto) 28.3 % Monocytes (%) (Auto) 10.7 % Eosinophils (%) (Auto) 1.2 % Basophils (%) (Auto) 0.4 % Neutrophils # (Auto) 3.7 TH/MM3 Lymphocytes # (Auto) 1.8 TH/MM3 Monocytes # (Auto) 0.7 TH/MM3 Eosinophils # (Auto) 0.1 TH/MM3 Basophils # (Auto) 0.0 TH/MM3 CBC Comment DIFF FINAL Differential Comment Blood Urea Nitrogen 23 MG/DL Creatinine 1.42 MG/DL Random Glucose 348 MG/DL Total Protein 7.4 GM/DL Albumin 2.6 GM/DL Calcium Level 8.2 MG/DL Phosphorus Level 1.8 MG/DL Magnesium Level 2.3 MG/DL Alkaline Phosphatase 101 U/L Aspartate Amino Transf (AST/SGOT) 15 U/L Alanine Aminotransferase (ALT/SGPT) 22 U/L Total Bilirubin 0.4 MG/DL Sodium Level 132 MEQ/L Potassium Level 3.6 MEQ/L Chloride Level 94 MEQ/L Carbon Dioxide Level 27.7 MEQ/L Anion Gap 10 MEQ/L Estimat Glomerular Filtration Rate 52 ML/MIN Lactic Acid Level 4.0 mmol/L Troponin I LESS THAN 0.02 NG/ML B-Hydroxybutyrate 0.19 MMOL/L Urine Color LIGHT-YELLOW Urine Turbidity CLEAR Urine pH 6.0 Urine Specific [place] 1.024 Urine Protein 100 mg/dL Urine Glucose (UA) 1000 mg/dL Urine Ketones 10 mg/dL Urine Occult Blood NEG Urine Nitrite NEG Urine Bilirubin NEG Urine Urobilinogen LESS THAN 2.0 MG/DL Urine Leukocyte Esterase NEG Urine RBC LESS THAN 1 /hpf Urine WBC LESS THAN 1 /hpf Urine Squamous Epithelial Cells <1 /hpf Urine Bacteria RARE /hpf Microscopic Urinalysis Comment CULT NOT INDICATED MDM Medical Decision Making Medical Screen Exam Complete: Yes Emergency Medical Condition: Yes Medical Record Reviewed: Yes (past history confirmed) Interpretation(s) VBG without emergent findings CBC & BMP Diagram 12/28/17 11:12 Total Protein 7.4, Albumin 2.6 L, Calcium Level 8.2 L, Phosphorus Level 1.8 L, Magnesium Level 2.3, Alkaline Phosphatase 101, Aspartate Amino Transf (AST/SGOT ) 15, Alanine Aminotransferase (ALT/SGPT) 22, Total Bilirubin 0.4 Last 24 hours Impressions Chest X-Ray 12/28/17 1035 Signed Impressions: Service Date/Time: Thursday, December 28, 2017 10:43 - CONCLUSION: No acute disease. Larry Willis MD FACR Differential Diagnosis DKA, anemia, renal failure, cardiac Narrative Course Will check blood work, chest x-ray and dose with IV fluids and reevaluate Given syncope and elevated lactate will add on antibiotics for coverage of possible infection. Patient states that he has a wound that could be source and this was examined. He agrees to admission Physician Communication Physician Communication dr patel agrees to observation Diagnosis Primary Impression: Near syncope Additional Impression: Lactic acidemia Admitting Information Admitting Physician Requests: Observation Stephie Lemus MD Dec 28, 2017 11:24
[2017-12-28] MEDS: SODIUM CHLORIDE 0.9% FLUSH 10 ML FLUSH IVF PRN (11:25)
[2017-12-28 11:27] LABS: AUTOMATED NEUTROPHIL # 3.7 TH/MM3 (1.8-7.7); BASOPHIL % 0.4 % (0.0-2.0); EOSINOPHIL # 0.1 TH/MM3 (0-0.4); EOSINOPHIL % 1.2 % (0.0-4.0); HEMATOCRIT 39.7 % (39.0-51.0); HEMOGLOBIN 13.5 GM/DL (13.0-17.0); LYMPH % 28.3 % (9.0-44.0); LYMPHOCYTE # 1.8 TH/MM3 (1.0-4.8); MEAN CELL VOLUME 83.2 FL (80.0-100.0); MEAN CORPUSCULAR HEMOGLOBIN 28.4 PG (27.0-34.0); MEAN CORPUSCULAR HGB CONC 34.1 % (32.0-36.0); MEAN PLATELET VOLUME 8.9 FL (7.0-11.0); MONO % 10.7 % (0.0-8.0); MONOCYTE # 0.7 TH/MM3 (0-0.9); NEUT % 59.4 % (16.0-70.0); PLATELET COUNT 191 TH/MM3 (150-450); RED BLOOD COUNT 4.77 MIL/MM3 (4.50-5.90); RED CELL DISTRIBUTION WIDTH 14.2 % (11.6-17.2); WHITE BLOOD COUNT 6.3 TH/MM3 (4.0-11.0)
--- NOTE | 2017-12-28 11:32 | RADRPT ---
EXAM DATE/TIME: 12/28/2017 10:43 [facility] COMPARISON: CHEST SINGLE AP, March 27, 2017, 13:22. INDICATIONS : Palpitations. Patient states he has low blood pressure, bilateral leg pain and swelling, and his suga r is high. MEDICAL HISTORY : Diabetes mellitus type II. SURGICAL HISTORY : None. ENCOUNTER: Initial ACUITY: 1 day PAIN SCORE: 0/10 LOCATION: Bilateral chest FINDINGS: A single view of the chest demonstrates the lungs to be symmetrically aerated without evidence of mas s, infiltrate or effusion. The cardiomediastinal contours are unremarkable. Osseous structures are intact. CONCLUSION: No acute disease. Larry Willis MD FACR on December 28, 2017 at 11:29 Board Certified Radiologist. This report was verified electronically.
[2017-12-28 11:52] LABS: ALBUMIN 2.6 GM/DL (3.4-5.0); ALT (GPT) 22 U/L (12-78); AST (GOT) 15 U/L (15-37); BICARBONATE 27.7 MEQ/L (21.0-32.0); CALCIUM 8.2 MG/DL (8.5-10.1); CHLORIDE 94 MEQ/L (98-107); CREATININE 1.42 MG/DL (0.60-1.30); GLOMERULAR FILTRATION RATE 52 ML/MIN (>89); GLUCOSE,RANDOM 348 MG/DL (74-106); MAGNESIUM 2.3 MG/DL (1.5-2.5); PHOSPHORUS 1.8 MG/DL (2.5-4.9); SODIUM (NA) 132 MEQ/L (136-145)
[2017-12-28] MEDS ORDERED: VANCOMYCIN INJ 1,000 MG in SODIUM CHLOR 0.9% 250 ML INJ 250 ML IV STA (11:55)
[2017-12-28] MEDS ORDERED: PIPERACIL-TAZO 4.5 GM PREMIX 100 ML IV STA (11:55)
[2017-12-28 11:56] LABS: ALKALINE PHOSPHATASE 101 U/L (45-117); BLOOD UREA NITROGEN 23 MG/DL (7-18); TOTAL BILIRUBIN ADULT 0.4 MG/DL (0.2-1.0); TOTAL PROTEIN 7.4 GM/DL (6.4-8.2); TROPONIN I LESS THAN 0.02 NG/ML (0.02-0.05)
[2017-12-28 11:58] LABS: BACTERIA, URINE RARE /hpf; BILIRUBIN, URINE NEG (NEG); BLOOD, URINE NEG (NEG); GLUCOSE,URINE 1000 mg/dL (NEG); KETONE, URINE 10 mg/dL (NEG); NITRITE,URINE NEG (NEG); SQUAMOUS EPITHELIAL CELL URINE <1 /hpf (0-5); URINE COLOR LIGHT-YELLOW (YELLW/STRAW); URINE LEUKOCYTE ESTERASE NEG (NEG)
[2017-12-28] MEDS ORDERED: CHOL1CAP34 PO (12:40)
[2017-12-28] MEDS ORDERED: DILTIAZEM-CD 180 MG CAP ER PO SCH (15:15)
[2017-12-28] MEDS ORDERED: BUME1TAB PO (15:16)
--- NOTE | 2017-12-28 15:17 | HHI.HP ---
HPI Service [facility] Hospitalists Primary Care Physician Jose Abad MD Admission Diagnosis Near syncope Chief Complaint: Near syncope Travel History International Travel<30 Days: No Contact w/Intl Traveler <30 Da: No Traveled to Known Affected Are: No History of Present Illness Mr. 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 fib with RVR which occurred during his September 2016 visit but resolved. Pt presented to the ED at [facility] on 12/28/17 with near syncope. He reports that he was at his [employer]othing [employer] office today for cataract evaluation and getting ready to check out to go home when he felt like he was about to pass out at the corporate receptionist desk and they helped him into a wheelchair. Pt felt like he was lightheaded and had some tunneled vision and thought he was going to pass out. He reports that at the office his BP was low at 87/72 and his BS was at 515. Repeat in the ED his BS was 425 and his BP was 106/50. He was given IVF bolus in the ED. Pts labs at admission noted an increase in his baseline renal function with Cr 1.42 BUN 23, GFR 52. His outpt records indicate his Cr is typically around 0.9. CXR noted no acute disease. His Lactic acid was noted to be 4.0 in the ED and he was given Zosyn and Vancomycin. Pt denies any fevers , chills, nausea/vomiting, diarrhea, abdominal pain, chest pain, palpitations, SOB, or dizziness He states that at home he checks his BS 4 times per day, in AM around 135-140, he takes 25 units of Levemir in the morning. At night his BS is around 170-175, he takes 25 units of Levemir before bed. Pt has been taking NovoLog SSI at home typically 3-4 units at a time per the pt. He was previously having some issues with hypotension last year and his Bumex dose was decreased during an admission in 01/2017. He was taken off the Lisinopril around 6 months ago again reportedly due to hypotension and his BP has been stable per the pt at home. He had been taken off water pills around 4 months ago as well but he reports that he was started back on Bumex 0.5mg po daily around 2 weeks ago for LE edema. Pt reports that he has been urinating a lot since he started back on Bumex. Pts baseline weight is 298lbs. He reports that he was up to 305lbs. 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 fib with RVR which initiated during his September 2016 visit but resolved. Hypertension Hyperlipidemia Hypogonadism Board obesity Vitamin D deficiency Anxiety History of DVT in right lower extremity proximally 3-4 years ago. 2D echo (01/22/17): - Moderate LVH - Estimated EF 55-60% - Grade 2 diastolic dysfunction - LA mildly dilated Past Surgical History Debridement of Twin's gangrene 2 in September 2016 Right orchiectomy at age 46 [place] teeth extraction Reported Medications -Cardizem CD 24 HR 180 Mg PO DAILY -Tylenol-Codeine #3 300-30 mg 1-2 Tab PO Q6H PRN -Potassium Chloride ER 20 Meq PO DAILY -Levothyroxine 25 Mcg PO DAILY -Lexapro 10 Mg PO DAILY WITH DINNER -Diphenhydramine 50 Mg PO HS -Novolog Inj (Insulin Aspart) 1,000 Unit/10 Ml Vial 0 SQ DIRECTED Sliding Scale as directed. -Hydroxyzine HCl 25 Mg Tab 25-50 Mg PO Q6HR PRN ON HOLD -Atorvastatin 80 Mg PO HS -Levemir Inj 25 Units SQ BID -Bumetanide 0.5Mg PO DAILY Testosterone Cypionate Inj 200 Mg IM Q14D Vitamin D3 50,000 Units PO Q7D Allergies: Coded Allergies: hydromorphone (Unverified Allergy, Intermediate, ITCHING, DIAPHORESIS, ) Family History Father has A. fib and diabetes Mother has hypertension and hyperlipidemia Both his parents are in their 80s and he actually lives with them currently. 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 Denies illicit drug use Originally from [place], he moved here approximately 11-12 years ago Physical Exam Vital Signs Vital Signs Date Time Temp Pulse Resp B/P (MAP) Pulse Ox O2 Delivery O2 Flow Rate FiO2 12/28/17 14:00 86 18 155/79 (104) 98 Room Air 12/28/17 12:14 86 16 186/84 (118) 100 Room Air 12/28/17 11:12 89 16 130/64 (86) 98 Room Air 12/28/17 10:21 97.9 100 16 106/50 (68) 100 Physical Exam GENERAL: This is a well-nourished, well-developed patient, in no apparent distress. HEENT: Atraumatic. Normocephalic. No temporal or scalp tenderness. No scleral icterus. Airway patent. NECK: Trachea midline, supple, nontender. CARDIO: Regular. RESP: CTA bilaterally. No wheezes, rales, or rhonchi. ABD: +BS, soft, obese, non-tender, nondistended. EXT: Bilateral LE 2-3+ pitting edema. NEURO: Awake and alert. Motor and sensory grossly within normal limits. Normal speech. Laboratory Laboratory Tests Test 12/28/17 10:49 12/28/17 11:12 12/28/17 11:30 Blood Gas Puncture Site NURSE Blood Gas Patient Temperature 98.6 Venous Blood pH 7.38 Venous Blood Partial Pressure CO2 45 Venous Blood Partial Pressure O2 14 Venous Blood HCO3 26 Venous Blood Oxygen Saturation 15 Venous Blood Oxygen Content 2.9 Venous Blood Base Excess 1.8 Blood Gas Inspired Oxygen 21 White Blood Count 6.3 Red Blood Count 4.77 Hemoglobin 13.5 Hematocrit 39.7 Mean Corpuscular Volume 83.2 Mean Corpuscular Hemoglobin 28.4 Mean Corpuscular Hemoglobin Concent 34.1 Red Cell Distribution Width 14.2 Platelet Count 191 Mean Platelet Volume 8.9 Neutrophils (%) (Auto) 59.4 Lymphocytes (%) (Auto) 28.3 Monocytes (%) (Auto) 10.7 Eosinophils (%) (Auto) 1.2 Basophils (%) (Auto) 0.4 Neutrophils # (Auto) 3.7 Lymphocytes # (Auto) 1.8 Monocytes # (Auto) 0.7 Eosinophils # (Auto) 0.1 Basophils # (Auto) 0.0 CBC Comment DIFF FINAL Differential Comment Blood Urea Nitrogen 23 Creatinine 1.42 Random Glucose 348 Total Protein 7.4 Albumin 2.6 Calcium Level 8.2 Phosphorus Level 1.8 Magnesium Level 2.3 Alkaline Phosphatase 101 Aspartate Amino Transf (AST/SGOT) 15 Alanine Aminotransferase (ALT/SGPT) 22 Total Bilirubin 0.4 Sodium Level 132 Potassium Level 3.6 Chloride Level 94 Carbon Dioxide Level 27.7 Anion Gap 10 Estimat Glomerular Filtration Rate 52 Lactic Acid Level 4.0 Troponin I LESS THAN 0.02 B-Hydroxybutyrate 0.19 Urine Color LIGHT-YELLOW Urine Turbidity CLEAR Urine pH 6.0 Urine Specific [place] 1.024 Urine Protein 100 Urine Glucose (UA) 1000 Urine Ketones 10 Urine Occult Blood NEG Urine Nitrite NEG Urine Bilirubin NEG Urine Urobilinogen LESS THAN 2.0 Urine Leukocyte Esterase NEG Urine RBC LESS THAN 1 Urine WBC LESS THAN 1 Urine Squamous Epithelial Cells <1 Urine Bacteria RARE Microscopic Urinalysis Comment CULT NOT INDICATED Date/Time Source Procedure Growth Status 12/28/17 12:20 Blood Peripheral Aerobic Blood Culture Pending Received 12/28/17 12:20 Blood Peripheral Anaerobic Blood Culture Pending Received Result Diagram: 12/28/17 1112 12/28/17 1112 Imaging Last Impressions Chest X-Ray 12/28/17 1035 Signed Impressions: Service Date/Time: Thursday, December 28, 2017 10:43 - CONCLUSION: No acute disease. Larry Willis MD FACR Caprini VTE Risk Assessment Caprini VTE Risk Assessment: Mod/High Risk (score >= 2) Caprini Risk Assessment Model Point Value = 1 Point Value = 2 Point Value = 3 Point Value = 5 Age 41-60 Minor surgery BMI > 25 kg/m2 Swollen legs Varicose veins or History of unexplained or recurrent spontaneous Oral contraceptives or hormone replacement Sepsis (< 1 month) Serious lung disease, including pneumonia (< 1 month) Abnormal pulmonary function Acute myocardial infarction Congestive heart failure (< 1 month) History of inflammatory bowel disease Medical patient at bed rest Age 61-74 Arthroscopic surgery Major open surgery (> 45 min) Laparoscopic surgery (> 45 min) Malignancy Confined to bed (> 72 hours) Immobilizing plaster cast Central venous access Age >= 75 History of VTE Family history of VTE Factor V Leiden Prothrombin [id number] Lupus anticoagulant Anticardiolipin antibodies Elevated serum homocysteine Heparin-induced thrombocytopenia Other congenital or acquired thrombophilia Stroke (< 1 month) Elective arthroplasty Hip, pelvis, or leg fracture Acute spinal cord injury (< 1 month) Prophylaxis Regimen Total Risk Factor Score Risk Level Prophylaxis Regimen 0-1 Low Early ambulation 2 Moderate Order ONE of the following: *Sequential Compression Device (SCD) *Heparin 5000 units SQ BID 3-4 Higher Order ONE of the following medications: *Heparin 5000 units SQ TID *Enoxaparin/Lovenox 40 mg SQ daily (WT < 150 kg, CrCl > 30 mL/min) *Enoxaparin/Lovenox 30 mg SQ daily (WT < 150 kg, CrCl > 10-29 mL/min) *Enoxaparin/Lovenox 30 mg SQ BID (WT < 150 kg, CrCl > 30 mL/min) AND/OR *Sequential Compression Device (SCD) 5 or more Highest Order ONE of the following medications: *Heparin 5000 units SQ TID (Preferred with Epidurals) *Enoxaparin/Lovenox 40 mg SQ daily (WT < 150 kg, CrCl > 30 mL/min) *Enoxaparin/Lovenox 30 mg SQ daily (WT < 150 kg, CrCl > 10-29 mL/min) *Enoxaparin/Lovenox 30 mg SQ BID (WT < 150 kg, CrCl > 30 mL/min) AND *Sequential Compression Device (SCD) Assessment and Plan Problem List: (1) Near syncope ICD Codes: R55 - Syncope and collapse Status: Acute Plan: Near Syncope Hypotension - Patient is a 57 y/o WM with 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 fib with RVR which occurred during his September 2016 visit but resolved. - Pt presented to the ED at [facility] on 12/28/17 with near syncope when he was at his [employer] office today for cataract evaluation and getting ready to check out to go home when he felt like he was about to pass out at the corporate receptionist desk and they helped him into a wheelchair. - Pt had some reported hypotension at the office. The pt reports that his BP was 87/72 and his BS was at 515. - Repeat in the ED his BS was 425 and his BP was 106/50. - He was given IVF bolus in the ED. - CXR noted no acute disease. - His Lactic acid was noted to be 4.0 in the ED and he was given Zosyn and Vancomycin. - Pt does not appear septic - Place pt on telemetry - His near syncope may have been related to hypotension - Pt has had medication adjustments recently with the addition of Bumex and has had issues with hypotension in the past related to his diuretics. - Supportive care - DVT prophylaxis with SCDs HTN Diastolic dysfunction - He was previously having some issues with hypotension last year and his Bumex dose was decreased during an admission in 01/2017. - He was taken off the Lisinopril around 6 months ago again reportedly due to hypotension and his BP has been stable per the pt at home. - He had been taken off water pills completely around 4 months ago as well but he reports that he was started back on Bumex 0.5mg po daily around 2 weeks ago for LE edema. - His BP increased significantly in the ED back to systolic BP over 180. - Resume home dose of Cardizem in AM - Clonidine/Vasotec PRN - Pt reports that he has been urinating a lot since he started back on Bumex. Pts baseline weight is 298lbs. He reports that he was up to 305lbs. - He appears to have some volume overload with increased LE edema and weight gain - Pt will receive one dose of IV Albumin followed by one dose of IV Lasix (They do not have IV Bumex in stock at [facility]) - Repeat labs in AM Acute on chronic renal disease, stage 3 - Labs at admission noted an increase in his baseline renal function with Cr 1.42 BUN 23, GFR 52. His outpt records indicate his Cr is typically around 0.9. - Pt was given a fluid bolus in the ED - See above - Repeat labs in AM Diabetes Mellitus, type 2 - Outpt Hgb A1C >15% in 07/2017 - Pt takes 25 units of Levemir BID and NovoLog SSI at home typically 3-4 units AC per the pt. - Cont. NovoLog SSI and Levemir 25units BID here (2) Diastolic dysfunction ICD Codes: I51.9 - Heart disease, unspecified Status: Chronic (3) Acute worsening of stage 3 chronic kidney disease ICD Codes: N18.3 - Chronic kidney disease, stage 3 (moderate) Status: Acute (4) DM2 (diabetes mellitus, type 2) ICD Codes: E11.9 - Type 2 diabetes mellitus without complications Status: Chronic (5) Hypertension ICD Codes: I10 - Essential (primary) hypertension Status: Chronic (6) Hyperlipidemia ICD Codes: E78.5 - Hyperlipidemia, unspecified Status: Chronic (7) Morbid obesity ICD Codes: E66.01 - Morbid (severe) obesity due to excess calories Status: Chronic (8) Obstructive sleep apnea ICD Codes: G47.33 - Obstructive sleep apnea (adult) (pediatric) Status: Chronic Shy Bain Dec 28, 2017 15:17
[2017-12-28] MEDS ORDERED: SODIUM CHLOR 0.9% 1000 ML INJ 1,000 ML IV SCH (15:30)
[2017-12-28] MEDS ORDERED: ONDANSETRON HCL 4 MG/2 ML VIAL IV PRN (15:30)
[2017-12-28] MEDS ORDERED: ACETAMINOPHEN 325 MG TAB PO PRN (15:30)
[2017-12-28] MEDS ORDERED: ALBUMIN 25% INJ 100 ML IV ONE (16:15)
[2017-12-28] MEDS ORDERED: FUROSEMIDE 20 MG/2 ML VIAL IV PUSH ONE (16:15)
[2017-12-28] MEDS ORDERED: BUME0.5T PO (16:30)
[2017-12-28] MEDS ORDERED: ENALAPRILAT 1.25 MG/ML VIAL IV PUSH PRN (16:45)
[2017-12-28] MEDS: INSULIN ASPART SUPPLEMENTAL SCALE SQ SCH ×2 (16:55→23:27)
[2017-12-28] MEDS: INSULIN DETEMIR 100 UNITS/ML VIAL SQ SCH (23:28)
[2017-12-28] MEDS: ATORVASTATIN 80 MG TAB PO SCH (23:28)
[2017-12-28] MEDS: hydrOXYzine HCL 25 MG TAB PO PRN (23:59)
[2017-12-28] MEDS: cloNIDine HCL 0.1 MG TAB PO PRN (23:59)
[2017-12-29] VITALS (7 sets, daily range): BP systolic 119–176; BP diastolic 61–83; PULSE 73–87; RESP 16–20; TEMP 97.9–98.2; O2SAT 95–98
[2017-12-29] MEDS: LEVOTHYROXINE SODIUM 25 MCG TAB PO SCH (05:48)
[2017-12-29 08:37] LABS: AUTOMATED NEUTROPHIL # 2.8 TH/MM3 (1.8-7.7); BASOPHIL % 0.4 % (0.0-2.0); EOSINOPHIL # 0.1 TH/MM3 (0-0.4); EOSINOPHIL % 1.6 % (0.0-4.0); HEMATOCRIT 31.5 % (39.0-51.0); LYMPH % 30.4 % (9.0-44.0); LYMPHOCYTE # 1.5 TH/MM3 (1.0-4.8); MEAN CELL VOLUME 83.5 FL (80.0-100.0); MEAN CORPUSCULAR HEMOGLOBIN 29.2 PG (27.0-34.0); MEAN PLATELET VOLUME 8.8 FL (7.0-11.0); MONO % 11.1 % (0.0-8.0); MONOCYTE # 0.6 TH/MM3 (0-0.9); NEUT % 56.5 % (16.0-70.0); PLATELET COUNT 158 TH/MM3 (150-450); RED BLOOD COUNT 3.77 MIL/MM3 (4.50-5.90); RED CELL DISTRIBUTION WIDTH 14.1 % (11.6-17.2)
--- NOTE | 2017-12-29 08:37 | HHI.PR ---
Subjective Remarks Pt had a total of 4100cc of urine output since admission. He feels that his LE are less swollen but still not at baseline. Pts BP has been elevated. Afebrile Objective Vitals Vital Signs Date Time Temp Pulse Resp B/P (MAP) Pulse Ox O2 Delivery O2 Flow Rate FiO2 12/29/17 07:35 98.0 87 20 152/81 (104) 95 12/29/17 04:10 98.2 83 18 176/83 (114) 98 12/28/17 23:45 98.4 95 18 193/93 (126) 96 12/28/17 21:37 98.2 85 17 185/87 (119) 97 12/28/17 18:14 100 18 146/71 (96) 98 12/28/17 16:00 90 18 171/84 (113) 98 Room Air 12/28/17 14:00 86 18 155/79 (104) 98 Room Air 12/28/17 12:14 86 16 186/84 (118) 100 Room Air 12/28/17 11:12 89 16 130/64 (86) 98 Room Air 12/28/17 10:28 Room Air 12/28/17 10:21 97.9 100 16 106/50 (68) 100 Result Diagram: 12/28/17 1112 12/28/17 1112 Other Results Laboratory Tests Test 12/28/17 10:49 12/28/17 11:12 12/28/17 11:30 12/29/17 07:15 Blood Gas Puncture Site NURSE Blood Gas Patient Temperature 98.6 Venous Blood pH 7.38 Venous Blood Partial Pressure CO2 45 mmHg Venous Blood Partial Pressure O2 14 mmHg Venous Blood HCO3 26 mmol/L Venous Blood Oxygen Saturation 15 % Venous Blood Oxygen Content 2.9 Vol % Venous Blood Base Excess 1.8 mmol/L Blood Gas Inspired Oxygen 21 % White Blood Count 6.3 TH/MM3 Red Blood Count 4.77 MIL/MM3 Hemoglobin 13.5 GM/DL Hematocrit 39.7 % Mean Corpuscular Volume 83.2 FL Mean Corpuscular Hemoglobin 28.4 PG Mean Corpuscular Hemoglobin Concent 34.1 % Red Cell Distribution Width 14.2 % Platelet Count 191 TH/MM3 Mean Platelet Volume 8.9 FL Neutrophils (%) (Auto) 59.4 % Lymphocytes (%) (Auto) 28.3 % Monocytes (%) (Auto) 10.7 % Eosinophils (%) (Auto) 1.2 % Basophils (%) (Auto) 0.4 % Neutrophils # (Auto) 3.7 TH/MM3 Lymphocytes # (Auto) 1.8 TH/MM3 Monocytes # (Auto) 0.7 TH/MM3 Eosinophils # (Auto) 0.1 TH/MM3 Basophils # (Auto) 0.0 TH/MM3 CBC Comment DIFF FINAL Differential Comment Blood Urea Nitrogen 23 MG/DL Creatinine 1.42 MG/DL Random Glucose 348 MG/DL Total Protein 7.4 GM/DL Albumin 2.6 GM/DL Calcium Level 8.2 MG/DL Phosphorus Level 1.8 MG/DL Magnesium Level 2.3 MG/DL Alkaline Phosphatase 101 U/L Aspartate Amino Transf (AST/SGOT) 15 U/L Alanine Aminotransferase (ALT/SGPT) 22 U/L Total Bilirubin 0.4 MG/DL Sodium Level 132 MEQ/L Potassium Level 3.6 MEQ/L Chloride Level 94 MEQ/L Carbon Dioxide Level 27.7 MEQ/L Anion Gap 10 MEQ/L Estimat Glomerular Filtration Rate 52 ML/MIN Lactic Acid Level 4.0 mmol/L Troponin I LESS THAN 0.02 NG/ML B-Hydroxybutyrate 0.19 MMOL/L Urine Color LIGHT-YELLOW Urine Turbidity CLEAR Urine pH 6.0 Urine Specific [place] 1.024 Urine Protein 100 mg/dL Urine Glucose (UA) 1000 mg/dL Urine Ketones 10 mg/dL Urine Occult Blood NEG Urine Nitrite NEG Urine Bilirubin NEG Urine Urobilinogen LESS THAN 2.0 MG/DL Urine Leukocyte Esterase NEG Urine RBC LESS THAN 1 /hpf Urine WBC LESS THAN 1 /hpf Urine Squamous Epithelial Cells <1 /hpf Urine Bacteria RARE /hpf Microscopic Urinalysis Comment CULT NOT INDICATED Test 12/29/17 08:15 Imaging Last Impressions Chest X-Ray 12/28/17 1035 Signed Impressions: Service Date/Time: Thursday, December 28, 2017 10:43 - CONCLUSION: No acute disease. 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 fib with RVR which occurred during his September 2016 visit but resolved. - Pt presented to the ED at [facility] on 12/28/17 with near syncope when he was at his [employer] office today for cataract evaluation and getting ready to check out to go home when he felt like he was about to pass out at the senior receptionist desk and they helped him into a wheelchair. - Pt had some reported hypotension at the office. The pt reports that his BP was 87/72 and his BS was at 515. - Repeat in the ED his BS was 425 and his BP was 106/50. - He was given IVF bolus in the ED. - CXR noted no acute disease. - His Lactic acid was noted to be 4.0 in the ED and he was given Zosyn and Vancomycin. - Pt does not appear septic, repeat labs are pending for today - Telemetry - His near syncope may have been related to hypotension - Pt has had medication adjustments recently with the addition of Bumex and has had issues with hypotension in the past related to his diuretics. - Supportive care - DVT prophylaxis with SCDs HTN Diastolic dysfunction - He was previously having some issues with hypotension last year and his Bumex dose was decreased during an admission in 01/2017. - He was taken off the Lisinopril around 6 months ago again reportedly due to hypotension and his BP has been stable per the pt at home. - He had been taken off water pills completely around 4 months ago as well but he reports that he was started back on Bumex 0.5mg po daily around 2 weeks ago for LE edema. - His BP increased significantly in the ED back to systolic BP over 180. - Resume home dose of Cardizem in AM - Clonidine/Vasotec PRN - Pt reports that he has been urinating a lot since he started back on Bumex. Pts baseline weight is 298lbs. He reports that he was up to 305lbs. - He appears to have some volume overload with increased LE edema and weight gain - Pt was given one dose of IV Albumin followed by one dose of IV Lasix (They do not have IV Bumex in stock at [facility]) on 12/28 - Await repeat labs this morning as pt may need repeat dose of Albumin and Lasix IV today - Daily weight - I&Os Acute on chronic renal disease, stage 3 - Labs at admission noted an increase in his baseline renal function with Cr 1.42 BUN 23, GFR 52. His outpt records indicate his Cr is typically around 0.9. - Pt was given a fluid bolus in the ED - See above - Awaiting repeat labs this morning Diabetes Mellitus, type 2, poorly controlled - Outpt Hgb A1C >15% in 07/2017 - Pt takes 25 units of Levemir BID and NovoLog SSI at home typically 3-4 units AC per the pt. - Cont. NovoLog SSI and Levemir 25units BID here - Accu checks (2) Diastolic dysfunction ICD Codes: I51.9 - Heart disease, unspecified Status: Chronic (3) Acute worsening of stage 3 chronic kidney disease ICD Codes: N18.3 - Chronic kidney disease, stage 3 (moderate) Status: Acute (4) DM2 (diabetes mellitus, type 2) ICD Codes: E11.9 - Type 2 diabetes mellitus without complications Status: Chronic (5) Hypertension ICD Codes: I10 - Essential (primary) hypertension Status: Chronic (6) Hyperlipidemia ICD Codes: E78.5 - Hyperlipidemia, unspecified Status: Chronic (7) Morbid obesity ICD Codes: E66.01 - Morbid (severe) obesity due to excess calories Status: Chronic (8) Obstructive sleep apnea ICD Codes: G47.33 - Obstructive sleep apnea (adult) (pediatric) Status: Chronic Assessment and Plan Patient examined. Assessment and plan formulated with Shy Bain PA-C. I agree with the above. acute decompensated diastolic chf. cont iv lasix/albumen. great diuresis overnight with stable renal function and electrolytes. swelling is improved plan d/c tomorrow. Shy Bain Dec 29, 2017 08:37 Eamon Marques MD Dec 29, 2017 12:39
[2017-12-29] MEDS: INSULIN ASPART SUPPLEMENTAL SCALE SQ SCH ×4 (09:04→21:17)
[2017-12-29] MEDS: ESCITALOPRAM OXALATE 10 MG TAB PO SCH (09:04)
[2017-12-29] MEDS: DILTIAZEM-CD 180 MG CAP ER PO SCH (09:04)
[2017-12-29] MEDS: INSULIN DETEMIR 100 UNITS/ML VIAL SQ SCH ×2 (09:05→21:17)
[2017-12-29 09:22] LABS: BICARBONATE 26.5 MEQ/L (21.0-32.0); CALCIUM 8.2 MG/DL (8.5-10.1); CREATININE 0.9 MG/DL (0.60-1.30); MAGNESIUM 2.3 MG/DL (1.5-2.5)
[2017-12-29] MEDS ORDERED: FUROSEMIDE 20 MG/2 ML VIAL IV PUSH ONE (11:15)
[2017-12-29] MEDS ORDERED: ALBUMIN 25% INJ 100 ML IV ONE (11:15)
[2017-12-29] MEDS: POTASSIUM CHLORIDE 10 MEQ CONTROLLED RELEASE TAB PO SCH ×3 (13:06→21:15)
--- NOTE | 2017-12-29 19:26 | EKG ---
Date Performed: 12/28/2017 Time Performed: 11:00:41 PTAGE: 57 years EKG: Sinus rhythm WITH OCCASIONAL VENTRICULAR PREMATURE COMPLEXES BORDERLINE LEFT AXIS DEVIATION MODERATE T-WAVE ABNOR MALITY, CONSIDER LATERAL ISCHEMIA ABNORMAL ECG Since PREVIOUS TRACING , no significant change noted PREVIOUS TRACIN03/27/2017 13.22 DOCTOR: Bar Musa Interpretating Date/Time 12/29/2017 19:24:12
[2017-12-29] MEDS: hydrOXYzine HCL 25 MG TAB PO PRN (21:15)
[2017-12-29] MEDS: ATORVASTATIN 80 MG TAB PO SCH (21:15)
[2017-12-30] VITALS (7 sets, daily range): BP systolic 124–182; BP diastolic 56–99; PULSE 54–84; RESP 18–20; TEMP 97.9–98.2; O2SAT 96–98
[2017-12-30] MEDS: LEVOTHYROXINE SODIUM 25 MCG TAB PO SCH (06:13)
[2017-12-30 07:25] LABS: AUTOMATED NEUTROPHIL # 2.5 TH/MM3 (1.8-7.7); BASOPHIL % 0.6 % (0.0-2.0); EOSINOPHIL # 0.1 TH/MM3 (0-0.4); EOSINOPHIL % 1.8 % (0.0-4.0); HEMATOCRIT 34.9 % (39.0-51.0); HEMOGLOBIN 11.9 GM/DL (13.0-17.0); LYMPH % 32.5 % (9.0-44.0); LYMPHOCYTE # 1.5 TH/MM3 (1.0-4.8); MEAN CELL VOLUME 82.9 FL (80.0-100.0); MEAN CORPUSCULAR HEMOGLOBIN 28.3 PG (27.0-34.0); MEAN CORPUSCULAR HGB CONC 34.2 % (32.0-36.0); MEAN PLATELET VOLUME 9.2 FL (7.0-11.0); MONO % 10.8 % (0.0-8.0); MONOCYTE # 0.5 TH/MM3 (0-0.9); NEUT % 54.3 % (16.0-70.0); PLATELET COUNT 160 TH/MM3 (150-450); RED CELL DISTRIBUTION WIDTH 14.2 % (11.6-17.2); WHITE BLOOD COUNT 4.5 TH/MM3 (4.0-11.0)
[2017-12-30 07:45] LABS: BICARBONATE 26.5 MEQ/L (21.0-32.0); CALCIUM 8.4 MG/DL (8.5-10.1); CREATININE 0.84 MG/DL (0.60-1.30); MAGNESIUM 2.3 MG/DL (1.5-2.5)
--- NOTE | 2017-12-30 08:25 | HHI.DCPOC ---
Discharge Care Plan Diagnosis: (1) Diastolic dysfunction (2) Acute worsening of stage 3 chronic kidney disease (3) DM2 (diabetes mellitus, type 2) (4) Hypertension (5) Hyperlipidemia (6) Hypogonadism, male (7) Vitamin D deficiency (8) Near syncope Goals to Promote Your Health - Patient will need to resume his Bumex 0.5mg once daily at discharge but pt is going to have to monitor his blood pressure closely at home. - He states that he has Home Docs who have been coming out to his house. - Patient was instructed to weigh himself daily, and increase in his weight of 3 -5lbs in a 24 hour time period, he is to call his PCP to inform him, and he is to take an extra dose of the Bumex 0.5mg that day. - Patient is to followup with Dr. Abad in 1 week. - Patient is to followup with his City Collector, Dr. Parsons, following discharge. - He had questioned receiving Levothyroxine during admission which was listed as an outpt medication, and continued here, but he had not been taking this at home. Upon review of outpt records he was prescribed this by Dr. Parsons in 2016 but he had not taken this as far as the pt is aware. He will need to followup with Dr. Parsons for repeat blood work and to discuss if he is to be started on the Levothyroxine as an outpt Directions to Meet Your Goals Take your medications as prescribed Follow your dietary instruction Follow activity as directed Keep your appointments as scheduled Take your immunizations and boosters as scheduled If your symptoms worsen call your PCP, if no PCP go to Urgent Care Center or Emergency Room Smoking is Dangerous to Your Health. Avoid second hand smoke Call the 24-hour hour crisis hotline for domestic abuse at Shy Bain Dec 30, 2017 08:25
--- NOTE | 2017-12-30 08:40 | HHI.PR ---
Subjective Remarks Pt reports that he urinated quite a bit yesterday afternoon and evening. He states that he filled 4 urinals. NO I&Os were recorded Pt is anxious for discharge today Objective Vitals Vital Signs Date Time Temp Pulse Resp B/P (MAP) Pulse Ox O2 Delivery O2 Flow Rate FiO2 12/30/17 07:01 84 12/30/17 04:19 73 12/30/17 03:08 98.1 79 18 182/99 (126) 98 12/30/17 00:45 78 12/30/17 00:27 98.2 77 18 168/88 (114) 96 12/29/17 19:35 98.1 78 18 166/74 (104) 96 12/29/17 18:19 73 12/29/17 14:40 97.9 81 16 119/61 (80) 98 12/29/17 11:10 98.0 79 20 132/75 (94) 95 Result Diagram: 12/30/1762112/30/17621 Other Results Laboratory Tests Test 12/28/17 10:49 12/28/17 11:12 12/28/17 11:30 12/29/17 07:15 Blood Gas Puncture Site NURSE Blood Gas Patient Temperature 98.6 Venous Blood pH 7.38 Venous Blood Partial Pressure CO2 45 mmHg Venous Blood Partial Pressure O2 14 mmHg Venous Blood HCO3 26 mmol/L Venous Blood Oxygen Saturation 15 % Venous Blood Oxygen Content 2.9 Vol % Venous Blood Base Excess 1.8 mmol/L Blood Gas Inspired Oxygen 21 % White Blood Count 6.3 TH/MM3 Red Blood Count 4.77 MIL/MM3 Hemoglobin 13.5 GM/DL Hematocrit 39.7 % Mean Corpuscular Volume 83.2 FL Mean Corpuscular Hemoglobin 28.4 PG Mean Corpuscular Hemoglobin Concent 34.1 % Red Cell Distribution Width 14.2 % Platelet Count 191 TH/MM3 Mean Platelet Volume 8.9 FL Neutrophils (%) (Auto) 59.4 % Lymphocytes (%) (Auto) 28.3 % Monocytes (%) (Auto) 10.7 % Eosinophils (%) (Auto) 1.2 % Basophils (%) (Auto) 0.4 % Neutrophils # (Auto) 3.7 TH/MM3 Lymphocytes # (Auto) 1.8 TH/MM3 Monocytes # (Auto) 0.7 TH/MM3 Eosinophils # (Auto) 0.1 TH/MM3 Basophils # (Auto) 0.0 TH/MM3 CBC Comment DIFF FINAL Differential Comment Blood Urea Nitrogen 23 MG/DL 16 MG/DL Creatinine 1.42 MG/DL 0.90 MG/DL Random Glucose 348 MG/DL 218 MG/DL Total Protein 7.4 GM/DL Albumin 2.6 GM/DL Calcium Level 8.2 MG/DL 8.2 MG/DL Phosphorus Level 1.8 MG/DL Magnesium Level 2.3 MG/DL 2.3 MG/DL Alkaline Phosphatase 101 U/L Aspartate Amino Transf (AST/SGOT) 15 U/L Alanine Aminotransferase (ALT/SGPT) 22 U/L Total Bilirubin 0.4 MG/DL Sodium Level 132 MEQ/L 138 MEQ/L Potassium Level 3.6 MEQ/L 3.4 MEQ/L Chloride Level 94 MEQ/L 104 MEQ/L Carbon Dioxide Level 27.7 MEQ/L 26.5 MEQ/L Anion Gap 10 MEQ/L 8 MEQ/L Estimat Glomerular Filtration Rate 52 ML/MIN 88 ML/MIN Lactic Acid Level 4.0 mmol/L Troponin I LESS THAN 0.02 NG/ML B-Hydroxybutyrate 0.19 MMOL/L Urine Color LIGHT-YELLOW Urine Turbidity CLEAR Urine pH 6.0 Urine Specific [place] 1.024 Urine Protein 100 mg/dL Urine Glucose (UA) 1000 mg/dL Urine Ketones 10 mg/dL Urine Occult Blood NEG Urine Nitrite NEG Urine Bilirubin NEG Urine Urobilinogen LESS THAN 2.0 MG/DL Urine Leukocyte Esterase NEG Urine RBC LESS THAN 1 /hpf Urine WBC LESS THAN 1 /hpf Urine Squamous Epithelial Cells <1 /hpf Urine Bacteria RARE /hpf Microscopic Urinalysis Comment CULT NOT INDICATED Test 12/29/17 08:15 12/30/17 06:22 White Blood Count 5.0 TH/MM3 4.5 TH/MM3 Red Blood Count 3.77 MIL/MM3 4.20 MIL/MM3 Hemoglobin 11.0 GM/DL 11.9 GM/DL Hematocrit 31.5 % 34.9 % Mean Corpuscular Volume 83.5 FL 82.9 FL Mean Corpuscular Hemoglobin 29.2 PG 28.3 PG Mean Corpuscular Hemoglobin Concent 35.0 % 34.2 % Red Cell Distribution Width 14.1 % 14.2 % Platelet Count 158 TH/MM3 160 TH/MM3 Mean Platelet Volume 8.8 FL 9.2 FL Neutrophils (%) (Auto) 56.5 % 54.3 % Lymphocytes (%) (Auto) 30.4 % 32.5 % Monocytes (%) (Auto) 11.1 % 10.8 % Eosinophils (%) (Auto) 1.6 % 1.8 % Basophils (%) (Auto) 0.4 % 0.6 % Neutrophils # (Auto) 2.8 TH/MM3 2.5 TH/MM3 Lymphocytes # (Auto) 1.5 TH/MM3 1.5 TH/MM3 Monocytes # (Auto) 0.6 TH/MM3 0.5 TH/MM3 Eosinophils # (Auto) 0.1 TH/MM3 0.1 TH/MM3 Basophils # (Auto) 0.0 TH/MM3 0.0 TH/MM3 CBC Comment DIFF FINAL AUTO DIFF Differential Comment Lactic Acid Level 0.7 mmol/L Blood Urea Nitrogen 12 MG/DL Creatinine 0.84 MG/DL Random Glucose 179 MG/DL Calcium Level 8.4 MG/DL Magnesium Level 2.3 MG/DL Sodium Level 140 MEQ/L Potassium Level 3.7 MEQ/L Chloride Level 105 MEQ/L Carbon Dioxide Level 26.5 MEQ/L Anion Gap 9 MEQ/L Estimat Glomerular Filtration Rate 95 ML/MIN Imaging Last Impressions Chest X-Ray 12/28/17 1035 Signed Impressions: Service Date/Time: Thursday, December 28, 2017 10:43 - CONCLUSION: No acute disease. 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 fib with RVR which occurred during his September 2016 visit but resolved. - Pt presented to the ED at [facility] [place] on 12/28/17 with near syncope when he was at his [employer] office today for cataract evaluation and getting ready to check out to go home when he felt like he was about to pass out at the operator receptionist desk and they helped him into a wheelchair. - Pt had some reported hypotension at the office. The pt reports that his BP was 87/72 and his BS was at 515. - Repeat in the ED his BS was 425 and his BP was 106/50. - He was given IVF bolus in the ED. - CXR noted no acute disease. - His Lactic acid was noted to be 4.0 in the ED and he was given Zosyn and Vancomycin. - Pt does not appear septic - Telemetry with rare PVCs - His near syncope may have been related to hypotension but this has resolved since admission. - Pt has had medication adjustments recently with the addition of Bumex and has had issues with hypotension in the past related to his diuretics but unfortunately pt appeared volume overloaded at admission requiring IV diuretics and will need to continue diuretics upon discharge. - Pts BP has been stable since admission and actually more elevated. - He will continue his Cardizem upon discharge HTN, chronic Diastolic dysfunction, acute decompensation of diastolic CHF - He was previously having some issues with hypotension last year and his Bumex dose was decreased during an admission in 01/2017. - He was taken off the Lisinopril around 6 months ago again reportedly due to hypotension and his BP has been stable per the pt at home. - He had been taken off water pills completely around 4 months ago as well but he reports that he was started back on Bumex 0.5mg po daily around 2 weeks ago for LE edema. - His BP increased significantly in the ED back to systolic BP over 180. - At admission pt appeared to have some volume overload with increased LE edema and weight gain - His home dose of Cardizem was resumed - Clonidine/Vasotec PRN - Pt reports that he has been urinating a lot since he started back on Bumex. Pts baseline weight is 298lbs. He reports that he was up to 305lbs. - Pt was given one dose of IV Albumin followed by one dose of IV Lasix (They do not have IV Bumex in stock at [facility] [place]) on 12/28 - Pt put out over 4000mL of urine on 12/28-12/29 and his weight on 12/29 was 304.15 so he likely weighed over 305 at admission. - He was given a second dose of IV Albumin and Lasix on 12/29 - His labs have remained stable and he reportedly filled another 4 urinals with over 1000mL in each urinal overnight. - Awaiting his repeat weight for today - Pt is anxious for discharge. He will need to resume his Bumex 0.5mg po daily at discharge but pt is going to have to monitor his BP closely at home. - He states that he has Home Docs who have been coming out to his house. - Pt was instructed to weigh himself daily, and increase in his weight of 3- 5lbs in a 24 hour time period, he is to call his PCP, to inform him and he may need to take an extra dose of the Bumex 0.5mg. - Pt is to followup with Dr. Abad in 1 week. Acute on chronic renal disease, stage 3 - Labs at admission noted an increase in his baseline renal function with Cr 1.42 BUN 23, GFR 52. His outpt records indicate his Cr is typically around 0.9. - Pt was given a fluid bolus in the ED - See above - Labs have improved with diuresis and remained stable. Diabetes Mellitus, type 2, poorly controlled, chronic - Outpt Hgb A1C >15% in 07/2017 - Pt takes 25 units of Levemir BID and NovoLog SSI at home typically 3-4 units AC per the pt. - Cont. NovoLog SSI and Levemir 25units BID here - Accu checks - He is to followup with his [employer], Dr. Parsons, following discharge. He had questioned receiving Levothyroxine during admission which was listed as an outpt medication, and continued here, but he had not been taking this at home. Upon review of outpt records he was prescribed this by Dr. Parsons in 12/2016 but he had not taken this as far as the pt is aware. He will need to followup with Dr. Parsons for repeat blood work and to discuss if he is to be started on the Levothyroxine as an outpt (2) Diastolic dysfunction ICD Codes: I51.9 - Heart disease, unspecified Status: Chronic (3) Acute worsening of stage 3 chronic kidney disease ICD Codes: N18.3 - Chronic kidney disease, stage 3 (moderate) Status: Acute (4) DM2 (diabetes mellitus, type 2) ICD Codes: E11.9 - Type 2 diabetes mellitus without complications Status: Chronic (5) Hypertension ICD Codes: I10 - Essential (primary) hypertension Status: Chronic (6) Hyperlipidemia ICD Codes: E78.5 - Hyperlipidemia, unspecified Status: Chronic (7) Morbid obesity ICD Codes: E66.01 - Morbid (severe) obesity due to excess calories Status: Chronic (8) Obstructive sleep apnea ICD Codes: G47.33 - Obstructive sleep apnea (adult) (pediatric) Status: Chronic Assessment and Plan Patient examined. Assessment and plan formulated with Shy Bain PA-C. I agree with the above. s/p diuresis. pt feels well. cont home medications. f/u Problem Qualifiers (1) DM2 (diabetes mellitus, type 2): Qualified Codes: E11.42 - Type 2 diabetes mellitus with diabetic polyneuropathy ; Z79.4 - residential (current) use of insulin Shy Bain Dec 30, 2017 08:40 Eamon Marques MD Dec 30, 2017 16:07
[2017-12-30] MEDS: DILTIAZEM-CD 180 MG CAP ER PO SCH (10:14)
[2017-12-30] MEDS: ESCITALOPRAM OXALATE 10 MG TAB PO SCH (10:14)
[2017-12-30] MEDS: SODIUM CHLORIDE 0.9% FLUSH 10 ML FLUSH IVF PRN (10:14)
[2017-12-30] MEDS: INSULIN DETEMIR 100 UNITS/ML VIAL SQ SCH (10:15)
[2017-12-30] MEDS: INSULIN ASPART SUPPLEMENTAL SCALE SQ SCH ×2 (10:15→12:39)
[2017-12-30] MEDS: cloNIDine HCL 0.1 MG TAB PO PRN (12:00)
[2017-12-30] MEDS ORDERED: BUME0.5T PO (13:36)
[2017-12-30] MEDS ORDERED: POTASSIUM PHOSPHATE MONOBASIC 500 MG TAB PO ONE (14:00)
== END 2017-12-30 16:47 | disposition home or self-care (01) ==
LOC: NEPC 10:12 → NEDA 12:24 → NEPGCP 18:40
PROVIDERS: ADMIT Hospitalist; ATTEND Hospitalist
DX: E11.10 Type 2 diabetes mellitus with ketoacidosis without coma (principal); E87.2 Acidosis; R53.1 Weakness; R55 Syncope and collapse; I13.0 Hypertensive heart and chronic kidney disease with heart failure and stage 1 through stage 4 chronic kidney disease, or unspecified chronic kidney disease; I50.33 Acute on chronic diastolic (congestive) heart failure; N18.3 Chronic kidney disease, stage 3 (moderate); R60.0 Localized edema; I48.91 Unspecified atrial fibrillation; E78.5 Hyperlipidemia, unspecified; E11.42 Type 2 diabetes mellitus with diabetic polyneuropathy; E11.65 Type 2 diabetes mellitus with hyperglycemia; Z79.4 Long term (current) use of insulin
CPT/HCPCS: 71045; 80048; 80053; 81001; 82010; 82805; 82948; 83605; 83735; 84100; 84484; 85025; 87040; 93005; 96361; 96365; 96366; 96367; 96372; 96375; 96376; 99285; G0378; J1815; J1940; J2543; J3370; J7030; J7050; P9047

== ENCOUNTER → 2018-01-14 | Day surgery (SDC) | payer OTHER ==
[~2018-01-14] VITALS: Ht 185.4 cm; Wt 139.5 kg
[~2018-01-14] MED LIST changes: +CALO.005%T TOPICAL; -CARD180C5 PO; +CHLORHEXIDINE GLUCONATE 2 % 1 PACK (2 CLOTHS) TOPICAL PRN; +CHOL1CAP34 PO; -CYCL-36 PO; +DILT0.05 PO; +EMPA1TAB PO; -GLUCTAB PO; +HYALURONIDASE/LIDOCAINE/BUPIVACAINE 5 ML SYR RIGHT EYE ONE; +LACTATED RINGER'S 1000 ML IV PRN; -LEVO25TA4 PO; +LIDOCAINE HCL 1% PF 5 ML AMPULE ONE; +LISI-519 PO; -LISI10TA3 PO; +METF1000 PO; +METOPROLOL TARTRATE 25 MG TAB PO PRN; +MULT-65 PO; -NAPR-576 PO; +NAPR500T2 PO; +POVIDONE IODINE 5% (ANTISEPSIS KIT) 4 APPLICATIONS EACH NARE PRN; +PROPARACAINE HCL 0.5% OPHT SOLN 15 ML BTL RIGHT EYE ONE; +PROPOFOL 200 MG/20 ML AMP ONE; +SODIUM CHLORID 0.9% 500 ML IV PRN; +TOBRAMYCIN/DEXAMETHASONE OPTH OINT 3.5 GM TUBE ONE; -b/p med; -diabetes med
[2018-01-14 07:53] VITALS: PULSE 105
[2018-01-14] MEDS: FLURBIPROFEN 0.03% OPHT SOLN 2.5 ML BTL RIGHT EYE SCH ×4 (07:55→08:10)
[2018-01-14] MEDS: PHENYLEPHRINE HCL 10% OPTH SOLN 5 ML BTL RIGHT EYE SCH ×4 (07:55→08:10)
[2018-01-14] MEDS: CYCLOPENTOLATE HCL 1% OPHT SOLN 2 ML BTL RIGHT EYE SCH ×4 (07:55→08:10)
[2018-01-14] MEDS: TROPICAMIDE 1% OPHT SOLN 15 ML BTL RIGHT EYE SCH ×4 (07:55→08:10)
[2018-01-14 08:44] VITALS: PULSE 87
[2018-01-14 10:15] VITALS: BP 170/99; PULSE 60; RESP 16; TEMP 98.2; O2SAT 99
--- NOTE | 2018-01-14 11:39 | MP ---
cc: Cresencio Champagne MD DATE OF OPERATION: 01/14/2018 [facility] # [id number] PREOPERATIVE DIAGNOSIS: Mature cataract, active uveitis, corneal edema, uncontrolled proliferative diabetic retinopathy, posterior synechiae, right eye. POSTOPERATIVE DIAGNOSIS: Mature cataract, active uveitis, corneal edema, uncontrolled proliferative diabetic retinopathy, posterior synechiae, right eye. PROCEDURE PERFORMED: Planned extracapsular cataract extraction, aborted. ANESTHESIA: Retrobulbar. COMPLICATIONS: None. DESCRIPTION OF THE PROCEDURE: After informed consent was obtained, the patient was brought into the operative suite, placed on monitors by the anesthesia service. The patient had been given a previous retrobulbar injection of local anesthetic by the anesthesia service. The patient's right eye was then prepped and draped in the usual sterile fashion. A wire lid speculum was placed, seated superiorly. I reexamined the patient's right eye under the microscope. I had noted some active inflammation when he was in my office last week and asked him to start his topical steroid drops immediately. Under the microscope there was actually increased inflammation, with fibrinous exudates in the anterior chamber. The anterior chamber was very shallow and the globe was fairly firm. I am not sure that, with the patient's 360 degrees of posterior synechiae, that he is not in partial pupillary block glaucoma. I attempted to deepen the anterior chamber and soften his eye with digital massage. This was only partly successful in softening the eye, but did not deepen his very shallow anterior chamber. I did make one small paracentesis incision temporally (with some difficulty avoiding piercing the iris) and injected some balanced saline solution to try to deepen his chamber. This was completely unsuccessful. After considering the exceptionally likely probability of surgical complications and a poor surgical outcome, I decided to cancel the surgery. I believe there are some active processes going on that really need to be addressed before I would be comfortable opening this eye. It was discussed with the patient that the likelihood of having a poor outcome just appears to be exceptionally high right now. TobraDex ointment was applied underneath a semi-pressure patch dressing. The patient was taken to the recovery room. I will see him tomorrow in the office and try to get together with his retina specialists and see if we can figure out a plan for trying to rehabilitate this eye. MD JACQUELINE Mckinnon , 10:45 AM , 11:38 AM
== END | disposition home or self-care (01) ==
LOC: PHSDC 06:54
PROVIDERS: ATTEND Optometrist Occupational Vision
DX: H25.811 Combined forms of age-related cataract, right eye (principal); E11.3591 Type 2 diabetes mellitus with proliferative diabetic retinopathy without macular edema, right eye; H47.233 Glaucomatous optic atrophy, bilateral; Z79.4 Long term (current) use of insulin
CPT/HCPCS: 00142; 66984; 82948; J7040

== ENCOUNTER → 2018-02-28 | Day surgery (SDC) | payer OTHER ==
[~2018-02-28] VITALS: Ht 188 cm; Wt 127.0 kg
[~2018-02-28] MED LIST changes: -CALO.005%T TOPICAL; -CHOL1CAP34 PO; +CIPR-9 PO; -DIPH25CA PO; +FURO1TAB62 PO; -LEXA10TA PO; -LIDOCAINE HCL 1% PF 5 ML AMPULE ONE; -MULT-65 PO; +TEST-25 IM; -TEST200I12 IM
[2018-02-28 09:15] VITALS: PULSE 98
[2018-02-28] MEDS: PHENYLEPHRINE HCL 10% OPTH SOLN 5 ML BTL RIGHT EYE SCH ×2 (09:26→09:31)
[2018-02-28] MEDS: FLURBIPROFEN 0.03% OPHT SOLN 2.5 ML BTL RIGHT EYE SCH ×2 (09:26→09:31)
[2018-02-28] MEDS: TROPICAMIDE 1% OPHT SOLN 15 ML BTL RIGHT EYE SCH ×2 (09:26→09:31)
[2018-02-28] MEDS: CYCLOPENTOLATE HCL 1% OPHT SOLN 2 ML BTL RIGHT EYE SCH ×2 (09:26→09:31)
[2018-02-28 09:37] VITALS: PULSE 86
[2018-02-28 11:05] VITALS: TEMP 98.6
[2018-02-28 11:25] VITALS: BP 164/98; PULSE 86; RESP 16; O2SAT 98
--- NOTE | 2018-02-28 11:39 | MP ---
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 PROCEDURE: Phacoemulsification with posterior chamber lens implantation, right eye. ANESTHESIA: Retrobulbar with MAC. COMPLICATIONS: None. DESCRIPTION OF PROCEDURE: After informed consent was obtained, the patient was brought into the operative suite, placed on monitors by the Anesthesia Service. The patient had received previous retrobulbar injection of local anesthetic to the right orbit prior to coming back to the operating room. The patient was prepped and draped in the usual sterile fashion. A wire lid speculum was placed. Two 1 mm dipesh blade clear corneal incisions were made superiorly and inferiorly, and the anterior chamber was filled with Provisc. A Brayan lens manipulator was then used to free up posterior synechiae 360 degrees. Further viscoelastic dilated the pupil only to about 4 mm. A conjunctival peritomy was made temporally and a partial-thickness scleral incision was made for 4 clock hours temporally, 1 mm posterior to the limbus. This was done in anticipation of needing to enlarge the incision for extracapsular extraction or anterior chamber lens implantation. The anterior chamber was then entered beneath the scleral lip temporally using a 3 mm dipesh keratome. The anterior chamber was reformed with Provisc and Vannas scissors were used to make multiple iris sphincterotomies superior, nasally and inferiorly. Viscoat dilation now yielded a pupil of approximately 6 mm and the case was felt to be safe to proceed. Viscoelastic was evacuated from the anterior chamber, and replaced with balanced saline. VisionBlue was used to stain the anterior capsule. It was injected into the anterior chamber along with an air bubble and remained there for 2 minutes until it was irrigated out with balanced saline. Attempt was made at a circular tear capsulorrhexis, but the intumescent white cataract did as they do, and the capsular opening expanded uncontrollably as soon as the capsule was punctured. A can mobile lounge driver style capsulotomy was made in the area of the radial tear and that was extended with a circular tear capsulorrhexis fashioned for the majority of the anterior capsular opening. No hydrodissection was required as the cortex was liquified. Phacoemulsification was felt to be safe to very cautiously proceed. The phaco probe was then introduced through the temporal incision and the lens was actually very easily emulsified entirely within the capsular bag. Minimal irrigation/aspiration was required as most cortex was liquified and removed with the phaco handpiece. The I/A was performed with a bimanual technique. The capsular bag was filled with viscoelastic and the intraocular lens (a 3-piece acrylic IOL) was placed in the capsular bag and positioned. Viscoelastic was removed and replaced with balanced saline. A single 10-0 nylon suture was placed in the temporal incision. The conjunctiva was covered over the incision and additional 10-0 nylon suture was placed to close that. At the end of procedure, the anterior chamber was deep, the pupil was relatively round and about 5.5 mm. The lens implant was centered in the capsular bag. The wounds were intact and the intraocular pressure was at least 20 by digital palpation. All drapes were then removed. TobraDex ointment was then placed in the eye, which was closed beneath a semi-pressure patch dressing. The patient tolerated this procedure well and left the operating room, awake and alert. He is to follow up in the office in the morning. MD MAHENDRA Mckinnon/MATIAS , 11:02 AM , 11:38 AM
== END | disposition home or self-care (01) ==
LOC: PHSDC 08:30
PROVIDERS: ATTEND Optometrist Occupational Vision
DX: H25.811 Combined forms of age-related cataract, right eye (principal); H21.541 Posterior synechiae (iris), right eye; H43.11 Vitreous hemorrhage, right eye; E11.9 Type 2 diabetes mellitus without complications; Z79.4 Long term (current) use of insulin
CPT/HCPCS: 00142; 66984; 82948; J7040; V2632

== ENCOUNTER 2018-05-07 06:05 | Observation (INO) ==
[2018-05-07] MEDS ORDERED: Chlorhexidine Gluconate 2% 1 Pack (2 Cloths) TOPICAL SCH (06:30)
[2018-05-07] MEDS ORDERED: Metoprolol Tartrate 25 MG Tablet PO SCH (06:30)
[2018-05-07] MEDS ORDERED: fentaNYL Citrate Inj 250 MCG/5 ML Ampul ONE (06:46)
[2018-05-07] MEDS ORDERED: ceFAZolin 2 GM Premix Inj 2 GM/50 ML PIGGYBACK IV.SIG SCH (07:00)
[2018-05-07] MEDS ORDERED: Sodium Chlor 0.9% Inj 500 ML IV.SIG SCH (07:00)
[2018-05-07] MEDS ORDERED: Lidocaine 1%/Epinephrine 1:100,000 Inj 30 ML Vial ONE (07:07)
[2018-05-07 07:25] LABS: Baso # (Auto) 0.1 th/mm3 (0.0-0.2); Baso % (Auto) 1.2 % (0.0-2.0); Eos # (Auto) 0.1 th/mm3 (0.0-0.4); Eos % (Auto) 1.3 % (0.0-4.0); Hematocrit 38.7 % (39.0-51.0); Hemoglobin 12.8 gm/dL (13.0-17.0); Lymph # (Auto) 1.8 th/mm3 (1.0-4.8); Lymph % (Auto) 32.6 % (9.0-44.0); Mean Corpuscular HGB Conc 33.2 % (32.0-36.0); Mean Corpuscular Hemoglobin 28.8 pg (27.0-34.0); Mono # (Auto) 0.6 th/mm3 (0.0-0.9); Mono % (Auto) 10.3 % (0.0-8.0); Neut % (Auto) 54.6 % (16.0-70.0); Platelet Count 234 th/mm3 (150-450); Red Blood Count 4.45 mil/mm3 (4.50-5.90); Red Cell Distribution Width 12.9 % (11.6-17.2); White Blood Count 5.6 th/mm3 (4.0-11.0)
[2018-05-07] MEDS ORDERED: Artificial Tears Opth Oint 3.5 GM Tube ONE (08:15)
[2018-05-07] MEDS ORDERED: Bacitracin Opth Oint 3.5 GM Tube ONE (09:08)
--- NOTE | 2018-05-07 10:09 | MP ---
cc: Tunde Tran MD DATE OF OPERATION: 05/07/2018 DATE OF PROCEDURE: 05/07/2018 PREOPERATIVE DIAGNOSIS: Multiple scalp masses involving multiple scalp areas, sebaceous cysts x6. POSTOPERATIVE DIAGNOSIS: Multiple scalp masses involving multiple scalp areas, sebaceous cysts x6. PROCEDURE PERFORMED: Excision multiple scalp sebaceous cysts x6. SURGEON: MD Chelsea ANESTHESIA: General. INDICATIONS: This is a 57-year-old white male who has numerous small and large masses involving multiple areas of the scalp. He is a diabetic, obese, overweight and has medical issues, has been previously on anticoagulants in the past. He decided to have the surgery done under anesthesia. He was explained the nature of the surgery in terms of incision placements over each of the masses trying to match it with the direction of the hair to minimize the hair follicle damage. In case if the masses were more of trichilemmoma type of solid tumors, then the area may have to be excised, then closed with a direct closure or rotation flap as needed. The patient understands the general risk and complications such as bleeding, infection, wound healing problems, chronic pain, etc., and is willing to go ahead with the surgery. He understands that there may be future recurrences in the area or new tumors that he may develop. PROCEDURE: The patient was brought to the operating room and was given supine position. Anesthesia was started. He was turned with his right side down with adequate support and the head was positioned to maximize the scalp exposure. The areas of the masses were palpated carefully and a small area of shaving was done around each of them. There are 5 surgical sites with a couple of them actually having multiple masses accessible through the same incision. The prep and drape was done. A timeout was called and completed. The tumescent mixture of lidocaine with epi, sodium bicarbonate, 1 mL of Epinephrine 1:1000 and 100 mL of saline was used. The fluid was injected in the scalp and then also surrounding the mass and underneath it to provide maximum hydrodissection and hemostasis. Starting with the left side frontal area, a single incision was made over the mass carefully the skin to identify the type of tumor. It was found to be a sebaceous cyst and further dissection was carried out around the cyst itself. Cyst was removed intact. There were two on the left frontal area. There was 1 in the midline frontal mass, one large one behind the left ear in the occipital scalp, 2 on either side of the midline, on the left vertex two masses and on the right side of the vertex a single mass. The sizes of the sebaceous cyst varied from less than 1 cm for one, to approximately 2 cm in size for 4 lesions, and over 2 cm for one. In all the areas hemostasis was checked and completed with a low-power Bovie current and then 3-0 Prolene sutures were used with a deep pass to include the entire cavity and then making it mattress for the skin approximation and gently tying them to achieve both hemostasis and approximation at the same time. Interrupted sutures were used. All the areas were cleaned. Further palpation of all the scalp areas was carried out. There was a tiny palpable mass/thickness in the scalp on the right side about the ear but this was not a clearly defined a sebaceous cyst. This can be dealt with another day. The scalp and the hair was washed and antibiotic ointment was applied. The patient remained stable. Intraoperative blood loss was less than 5 mL. No complications. signed, not fully reviewed MD ALY Pradhan/MATIAS , 09:34 AM , 09:47 AM [email or web address]
[2018-05-07 12:39] LABS: Calcium 8.5 mg/dL (8.5-10.1); Carbon Dioxide 25.4 meq/L (21.0-32.0)
[2018-05-07] MEDS ORDERED: HYDROmorphone PF Inj 0.5 MG/0.5 ML Syringe ONE (13:23)
[2018-05-07] MEDS ORDERED: HYDROmorphone PF Inj 2 MG/ML Vial IV.PUSH PRN (13:45)
[2018-05-07] MEDS ORDERED: Dextrose 50% in Water 50 ML Vial IV.PUSH PRN (15:50)
[2018-05-07] MEDS ORDERED: Acetaminophen/Codeine 300/30 MG Tablet PO PRN (15:51)
--- NOTE | 2018-05-07 16:53 | MB ---
cc: Alex Navarro MD, Donald G MD DATE: 05/07/2018 REQUESTING PHYSICIAN: Dr. Tran (plastic surgeon) CHIEF COMPLAINT: Elevated blood sugar. ASSESSMENT : 1. Uncontrolled type 2 diabetes with diabetic neuropathy with history of poor compliance to diabetic care. 2. Hypertension. 3. Hyperlipidemia. 4. Hypogonadism. 5. Vitamin D deficiency. 6. Morbid obesity. 7. Status post excision of scalp lesions that were multiple by Dr. Tran PLAN: We will put him on a high sliding scale for his diabetic control currently to get his blood sugar down through the night. We will continue him on his Levemir insulin that he takes 40 units at night. He takes it in the morning as well. We will just having him on 30 units in the morning tomorrow. He will be on a diabetic diet and we will maintain his regular medications. I should like to mention that the patient's last hemoglobin A1c was almost 4 months ago and it was greater than 15.5. He has not been to his beater operator, Dr. Valle, since last year. He has not been regularly following up with his primary care physician, Dr. Abad. He is instructed to get back in with Dr. Valle to get his diabetes under control. PERTINENT HISTORY: This is a 57-year-old white male who underwent outpatient surgery by Dr. Tran to remove multiple scalp lesions that were hard plump cystic type lumps. In the recovery room, he had bedside glucoses in the 400s and he was admitted for blood sugar control by Dr. Tran and with a consult to the medical service. The patient has had a long history of poorly controlled diabetes, mainly due to poor compliance and followup. His last hemoglobin A1c that I could find in the electronic health record at [facility] was on 01/30/2018 and his hemoglobin A1c was greater than 15.5. It was greater than 15.5 in the fall of 2016 as well. He states that he had checked his blood sugar at home prior to coming to the outpatient OR and it was in the 200s. He has been taking Levemir insulin twice a day and then uses a NovoLog sliding scale with meals 3 times a day. He apparently is on Guardiance as well. OTHER MEDICAL PROBLEMS AND MEDICAL HISTORY: He has hypertension, hyperlipidemia, hypothyroidism, hypogonadism, morbid obesity, vitamin D deficiency and is on vitamin D 50,000 units weekly. He did have a history of atrial fibrillation with rapid ventricular response in 2016 that converted to sinus rhythm and apparently has had no problems since then. He has had no history of heart attack, CHF, angina, no pulmonary disease, no kidney disease, colon disease, peptic ulcer disease. No stroke or seizure. He did have a DVT of the right lower extremity a few years ago. 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 He had wisdom teeth extraction in the past. He had excision of what sounds like an abscess from the right buttocks area. He just had the scalp lesions excised today. ALLERGIES: NONE. MEDICATIONS: That he can remember. 1. Cartia XT 180 mg a day. 2. Lisinopril 5 mg a day. 3. Levemir insulin. He states he has been taking 40 units in the morning and 40 units in the evening. 4. Levothyroxine 25 mcg daily. 5. Guardiance 10 mg a day. 6. Bumex. It is not real clear on what his dose is. He thinks he has been taking 0.5 mg a day/ 7. It sounds like he has been given Lasix 10 mg twice a day to use. 8. NovoLog sliding scale that he uses about 3-5 units before meals 3 times a day. 9. He uses testosterone injections 200 mg/mL every 2 weeks. 10. Vitamin D (ergocalciferol) 50,000 units weekly 11. KCl 20 mEq a day. FAMILY HISTORY: Mother is in her 80s and has hypertension and hyperlipidemia. His father is in his 80s and has atrial fibrillation and diabetes. SOCIAL HISTORY: He is self employed. He is , lives alone. Never smoked. Does not use alcohol. REVIEW OF SYSTEMS: GENERAL: No fever, chills, or sweats. HEENT: No visual complaints. No sore throat, runny nose. No ear complaints. CARDIOVASCULAR: No chest pain, orthopnea, PND. PULMONARY: No cough, hemoptysis or wheezing. GASTROINTESTINAL: No nausea, vomiting, heartburn, indigestion, constipation, diarrhea. GENITOURINARY: Without dysuria, urgency, frequency, or hematuria. EXTREMITIES: Gets just occasional slight edema. No calf tenderness. NEUROLOGIC: No focal weakness, sensory loss or confusion. PHYSICAL EXAMINATION: GENERAL: A morbidly obese male in no acute distress. He does mention that he has lost about 60 pounds in the last 6 months with diet. VITAL SIGNS: Temperature is 98, pulse in the 80s and 90s and regular, respirations 16-18, BP 127/58, O2 saturation 98%. HEENT: Pupils are equal. Sclerae are nonicteric. Nose without lesion. Mouth without inflammation or lesion. He has some sutured areas on the top of his scalp several from where lesions were removed today. NECK: Without JVD. No bruit. HEART: Regular rate and rhythm. No murmur. LUNGS: Clear. ABDOMEN: Soft, obese, nontender. No mass. EXTREMITIES: No edema. Pulses palpated in both feet. No calf tenderness. NEUROLOGIC: Oriented x3. Cranial nerves intact. LABORATORY DATA: Done earlier this morning, hemoglobin is 12.8, which was actually stable compared to one done as an outpatient in January. White count was normal. He has had several blood glucose levels done today. The highest was 465 at noon, most recently was 411 at 2:06 p.m. He had a sodium of 132, potassium 4.0, chloride 96, CO2 is 25.4. GFR was 63, creatinine 1.2. MD RYNE Barber/ , 04:16 PM , 04:32 PM
[2018-05-07 17:17] LABS: Baso # (Auto) 0.1 th/mm3 (0.0-0.2); Eos % (Auto) 0.5 % (0.0-4.0); Hematocrit 36.1 % (39.0-51.0); Hemoglobin 12.1 gm/dL (13.0-17.0); Lymph # (Auto) 1.5 th/mm3 (1.0-4.8); Lymph % (Auto) 24.8 % (9.0-44.0); Mean Corpuscular HGB Conc 33.6 % (32.0-36.0); Mean Corpuscular Hemoglobin 28.6 pg (27.0-34.0); Mean Corpuscular Volume 85.1 fL (80.0-100.0); Mean Platelet Volume 9.9 fL (7.0-11.0); Mono # (Auto) 0.6 th/mm3 (0.0-0.9); Mono % (Auto) 9.2 % (0.0-8.0); Neut # (Auto) 3.9 th/mm3 (1.8-7.7); Neut % (Auto) 63.5 % (16.0-70.0); Platelet Count 189 th/mm3 (150-450); Red Blood Count 4.24 mil/mm3 (4.50-5.90); Red Cell Distribution Width 12.9 % (11.6-17.2); White Blood Count 6.1 th/mm3 (4.0-11.0)
[2018-05-07 17:28] LABS: Chloride 96 meq/L (98-107); Sodium 132 meq/L (136-145)
[2018-05-07 17:31] LABS: Anion Gap 9 meq/L (5-15); Calcium 8.4 mg/dL (8.5-10.1); Carbon Dioxide 26.7 meq/L (21.0-32.0)
[2018-05-07 17:55] LABS: Alanine Aminotransferase 21 U/L (12-78); Alkaline Phosphatase 81 U/L (45-117); Aspartate Aminotransferase 17 U/L (15-37); Blood Urea Nitrogen 24 mg/dL (7-18); Glomerular Filtration Rate 69 mL/min (>89); Glucose,Random 450 mg/dL (74-106); Total Protein 6.2 g/dL (6.4-8.2)
[2018-05-07] MEDS: Insulin NovoLOG Aspart Correctional Sugar Inj SQ SCH ×2 (17:57→22:37)
[2018-05-07] MEDS ORDERED: Insulin Detemir Inj 1,000 UNIT/10 ML Vial SQ SCH (18:00)
[2018-05-08] MEDS: Insulin NovoLOG Aspart Correctional Sugar Inj SQ SCH (08:21)
[2018-05-08] MEDS ORDERED: dilTIAZem CD 180 MG Capsule PO SCH (09:00)
[2018-05-08] MEDS ORDERED: Lisinopril 5 MG Tablet PO SCH (09:00)
[2018-05-08] MEDS ORDERED: Insulin Detemir Inj 1,000 UNIT/10 ML Vial SQ SCH (09:00)
--- NOTE | 2018-05-08 10:17 | P.PN ---
Subjective Interval history: He denies any chest pain, abdominal pain, shortness of breath. Physical Exam Vital signs: Vital Signs 05/07/18 10:10 05/07/18 10:25 05/07/18 13:35 Temperature 98.8 F Pulse Rate 92 H 86 86 Respiratory Rate 16 16 16 Blood Pressure 168/72 H 159/75 H 159/65 H Pulse Oximetry 100 100 05/07/18 14:29 05/07/18 14:35 05/07/18 20:00 Temperature 98.0 F 97.3 F L Pulse Rate 91 H 88 Respiratory Rate 18 17 20 Blood Pressure 127/58 L 162/77 H Pulse Oximetry 98 100 05/08/18 00:00 05/08/18 07:36 Temperature 97.7 F 97.2 F L Pulse Rate 86 79 Respiratory Rate 20 21 Blood Pressure 117/61 180/87 H Pulse Oximetry 99 98 Intake & Output 05/07/18 05/08/18 05/08/18 18:59 06:59 18:59 Intake Total 5330 / 5330 960 / 960 240 / 240 Output Total 300 / 300 425 / 425 Balance 5030 / 5030 960 / 960 -185 / -185 Weight 132.449 kg 132.2 kg Intake: IV 1650 / 1650 LR 1000 mL Inj 1,000 ML @ 30 1600 / 1600 mls/hr IV.SIG .Q24H JUAN DIEGO Rx#: [id number] Ancef 2 GM Premix Inj 2 gm In 50 / 50 50 ml @ 100 mls/hr IV.SIG [employer] JUAN DIEGO Rx#:[id number] Oral 1680 / 1680 960 / 960 240 / 240 Anesthesia Amount 1999 / 1999 Output: Urine 300 / 300 425 / 425 Other: # Voids 4 # Bowel Movements 0 2 Weight On Admission 132.4 kg Narrative: This is a obese white male in no distress. HEENT: Pupils equal, EOMs intact, mouth without lesions. He has several sutured areas of the top of his scalp from excision yesterday of multiple scalp nodules Neck: No JVD, neck is supple Heart: Regular rate and rhythm without murmurs or gallops Lungs: Clear to auscultation Abdomen: Soft, nontender, no masses Extremities: No edema, pulses palpated, no calf tenderness Neuro: Alert, oriented, normal motor exam Results - Labs CBC & Chem 7: 05/07/18 16:40 05/07/18 16:40 Laboratory Results - last 24 hr 05/07/18 05/07/18 05/07/18 11:11 12:00 12:22 CBC w Diff WBC RBC Hgb Hct MCV MCH MCHC RDW Plt Count MPV Neut % (Auto) Lymph % (Auto) Rush % (Auto) Eos % (Auto) Baso % (Auto) Neut # (Auto) Lymph # (Auto) Rush # (Auto) Eos # (Auto) Baso # (Auto) WBC Differential Differential Comment Sodium 132 L Potassium 4.0 Chloride 96 L Carbon Dioxide 25.4 Anion Gap 11 BUN 24 H Creatinine 1.20 Estimated GFR 63 L POC Glucose 447 H 465 H* Random Glucose 421 H Calcium 8.5 Total Bilirubin AST ALT Alkaline Phosphatase Total Protein Albumin 05/07/18 05/07/18 05/07/18 14:06 16:34 16:40 CBC w Diff WBC RBC Hgb Hct MCV MCH MCHC RDW Plt Count MPV Neut % (Auto) Lymph % (Auto) Rush % (Auto) Eos % (Auto) Baso % (Auto) Neut # (Auto) Lymph # (Auto) Rush # (Auto) Eos # (Auto) Baso # (Auto) WBC Differential Differential Comment Sodium 132 L Potassium 4.0 Chloride 96 L Carbon Dioxide 26.7 Anion Gap 9 BUN 24 H Creatinine 1.10 Estimated GFR 69 L POC Glucose 411 H 493 H* Random Glucose 450 H Calcium 8.4 L Total Bilirubin 0.2 AST 17 ALT 21 Alkaline Phosphatase 81 Total Protein 6.2 L Albumin 2.0 L 05/07/18 05/07/18 05/08/18 16:40 21:12 03:23 CBC w Diff Auto diff final WBC 6.1 RBC 4.24 L Hgb 12.1 L Hct 36.1 L MCV 85.1 MCH 28.6 MCHC 33.6 RDW 12.9 Plt Count 189 MPV 9.9 Neut % (Auto) 63.5 Lymph % (Auto) 24.8 Rush % (Auto) 9.2 H Eos % (Auto) 0.5 Baso % (Auto) 2.0 Neut # (Auto) 3.9 Lymph # (Auto) 1.5 Rush # (Auto) 0.6 Eos # (Auto) 0.0 Baso # (Auto) 0.1 WBC Differential . Differential Comment . Sodium Potassium Chloride Carbon Dioxide Anion Gap BUN Creatinine Estimated GFR POC Glucose 401 H 78 Random Glucose Calcium Total Bilirubin AST ALT Alkaline Phosphatase Total Protein Albumin 05/08/18 07:29 CBC w Diff WBC RBC Hgb Hct MCV MCH MCHC RDW Plt Count MPV Neut % (Auto) Lymph % (Auto) Rush % (Auto) Eos % (Auto) Baso % (Auto) Neut # (Auto) Lymph # (Auto) Rush # (Auto) Eos # (Auto) Baso # (Auto) WBC Differential Differential Comment Sodium Potassium Chloride Carbon Dioxide Anion Gap BUN Creatinine Estimated GFR POC Glucose 217 H Random Glucose Calcium Total Bilirubin AST ALT Alkaline Phosphatase Total Protein Albumin Assessment and Plan - Assessment (1) Uncontrolled type 2 diabetes mellitus with diabetic neuropathy Code(s): E11.40 - Type 2 diabetes mellitus with diabetic neuropathy, unspecified ; E11.65 - Type 2 diabetes mellitus with hyperglycemia Status: Acute (2) Hypertension Code(s): I10 - Essential (primary) hypertension Status: Chronic (3) Hyperlipidemia Code(s): E78.5 - Hyperlipidemia, unspecified Status: Chronic (4) Morbid obesity Code(s): E66.01 - Morbid (severe) obesity due to excess calories Status: Chronic (5) Hypogonadism in male Code(s): E29.1 - Testicular hypofunction Status: Chronic (6) Vitamin D deficiency Code(s): E55.9 - Vitamin D deficiency, unspecified Status: Chronic - Plan Plan: His blood sugars have come down since yesterday when they were in the 400s and his bedside glucose at 3 in the morning was 78. His bedside glucose this morning at around 7:30AM was 218. Patient is stable for discharge from a medical perspective. He was counseled by me to go back to Dr. Valle ( endocrinology) to get better control of his uncontrolled diabetes. His last hemoglobin A1c in January was greater than 15. He has a long history of noncompliance. It does at least sound like he is making an effort to lose weight and watch his diet better since he mentioned that he had lost around 60 pounds over the last several months. He is instructed that he may need to increase his NovoLog scale by a few units until his blood sugars consistently get below 200. He is also told that he will likely have to increase his longer acting insulin dose incrementally until better blood sugar control is obtained. He otherwise should just continue on his other medications for hyperlipidemia and hypertension. He should also follow-up with his primary care physician ( Dr. Abad)
[2018-05-08] MEDS ORDERED: Lidocaine PF 1% Inj 5 ML Syringe INFILTRATN ONE (12:00)
[2018-05-08 12:39] VITALS: BP 142/84; PULSE 83; RESP 19; TEMP 97.6; O2SAT 99
[2018-05-08] MEDS ORDERED: [UNRECOGNIZED DRUG - OTHER] SQ SCH (12:45)
[2018-05-08] MEDS ORDERED: Furosemide 20 MG Tablet PO SCH (18:00)
[2018-05-09] MEDS ORDERED: TESTOSTERONE CYPIONATE 200 MG IM SCH (09:00)
== END 2018-05-08 12:37 | disposition home or self-care (01) ==
LOC: PHSDC 06:05 → PH3 06:05
PROVIDERS: ADMIT Plastic Surgery; ATTEND Plastic Surgery